=== PATIENT | female | born 1990 | race Caucasian/White ===

== ENCOUNTER 2020-06-01 06:33 | Day surgery (SDC) | payer MEDICAID, SELFPAY ==
[2020-05-28 15:59] VITALS: BMI 23.2
--- NOTE | 2020-05-31 10:53 | HO.ANESPROP2 ---
Documented by User: Brionna Leigh 05/31/20 10:54 HPI - Anesthesia Eval Consult details Narrative: 29yo F for intrathecal drug delivery PMFSH Past Medical History Medical History Anemia Anxiety Back pain Fibromyalgia GERD (gastroesophageal reflux disease) Hx of chest pain Hx of endometriosis Hx of migraines Hx of renal calculi IC (interstitial cystitis) OCD (obsessive compulsive disorder) Overactive bladder Pain Raynaud's disease Surgical History Surgical History History of Hx of colonoscopy Hx of cystoscopy Hx of dilation and curettage Hx of exploratory laparotomy Social History Social History Smoking Status: Former smoker Smoking Quit Date: 2013 Use of substances other than those prescribed or required for medical reasons: No Advance Directives: No Advance Directives Information Provided: No Advance Directives on File: No Meds Allergies Allergy/AdvReac Type Severity Reaction Status Date / Time oxybutynin [OXYBUTYNIN] Allergy Unknown EYES AND Verified 06/01/20 07:09 LIPS SWOLLEN tolterodine [Detrol] Allergy Unknown Facial Verified 06/01/20 07:09 Swelling Home Medications Medication Instructions Recorded Confirmed Type amlodipine 5 mg PO DAILY 05/28/20 05/28/20 History clonazepam 0.5 mg PO DAILY 05/28/20 05/28/20 History ferrous sulfate 325 mg PO BEDTIME 05/28/20 05/28/20 History gabapentin 600 mg PO TID 05/28/20 05/28/20 History methylphenidate HCl [Ritalin] 10 mg PO DAILY 05/28/20 05/28/20 History [id number] tab PO 05/28/20 History [] quetiapine [Seroquel] 25 mg PO BEDTIME 05/28/20 05/28/20 History Exam Exam Date and Time: May 31, 2020 1053 Height,Weight and Vital Signs: Height 4 ft 11 in Weight 52.163 kg Assessment and Plan Assessment Anesthesia Assessment: Chart Reviewed Documented by User: Trang Bautista 06/01/20 07:35 PMFSH Past Medical History Medical History Anemia Anxiety Back pain Fibromyalgia GERD (gastroesophageal reflux disease) Hx of chest pain Hx of endometriosis Hx of migraines Hx of renal calculi IC (interstitial cystitis) OCD (obsessive compulsive disorder) Overactive bladder Pain Raynaud's disease Surgical History Surgical History History of Hx of colonoscopy Hx of cystoscopy Hx of dilation and curettage Hx of exploratory laparotomy Social History Social History Smoking Status: Former smoker Smoking Quit Date: 2013 Use of substances other than those prescribed or required for medical reasons: No Advance Directives: No Advance Directives Information Provided: No Advance Directives on File: No Meds Allergies Allergy/AdvReac Type Severity Reaction Status Date / Time oxybutynin [OXYBUTYNIN] Allergy Unknown EYES AND Verified 06/01/20 07:09 LIPS SWOLLEN tolterodine [Detrol] Allergy Unknown Facial Verified 06/01/20 07:09 Swelling Home Medications Medication Instructions Recorded Confirmed Type amlodipine 5 mg PO DAILY 05/28/20 05/28/20 History clonazepam 0.5 mg PO DAILY 05/28/20 05/28/20 History ferrous sulfate 325 mg PO BEDTIME 05/28/20 05/28/20 History gabapentin 600 mg PO TID 05/28/20 05/28/20 History methylphenidate HCl [Ritalin] 10 mg PO DAILY 05/28/20 05/28/20 History [id number] tab PO 05/28/20 History [] quetiapine [Seroquel] 25 mg PO BEDTIME 05/28/20 05/28/20 History Exam Airway Mallampati Class: II TM Dist: >3cm Neck ROM: Full Assessment and Plan Assessment Anesthesia Assessment: Anesthesia Plan Discussed and Chart Reviewed Final Anesthetic Review NPO: Yes ASA Class: II Final Preanesthetic Review: No Changes in Pt Med Stat, Meds/Allgs Chart Reviewed, Consent Obtained/Reviewed and Anes Risks/Benef Reviewed Patient Risk: Low Procedure Risk: Low Assessment/Block/Sedation in SS: Assess/Block/Sedation-SS Anesthetic Plan Anesthetic Plan: GA Disposition: Standard PACU
[2020-06-01 06:52] LABS: UPreg QC Valid YES
[2020-06-01 06:53] LABS: Urine Pregnancy NEGATIVE (NEGATIVE)
[2020-06-01 06:56] VITALS: BP 103/63; PULSE 68; RESP 16; TEMP 36.8; O2SAT 97
--- NOTE | 2020-06-01 07:12 | FL_ITS ---
EXAMINATION: XR FLUOROSCOPY WITH IMAGES CLINICAL INFORMATION: Intrathecal drug delivery COMPARISON: Previous exams most recent 03/06/2020 TECHNIQUE: Fluoroscopy performed by Dr. Zacarias Turner. Fluoroscopy time: 0.6 minutes DAP: 13 mGycm2 Images: 4 FINDINGS: There is a catheter in the spinal canal. The top of the catheter is at the T9-T10 disc space level. Lower image demonstrates surgical sponge overlying the L4 vertebral body. FL/FL guidance in OR IMPRESSION: Fluoroscopy guidance for intrathecal drug delivery.
[2020-06-01] MEDS: Lactated Ringers 1,000 ML 100 ML IVCONT (07:27)
--- NOTE | 2020-06-01 07:40 | MHC.SHP ---
Pre-Procedural Eval Section A The patient is an INPATIENT: No The History & Physical has been completed within 30 days and I have reviewed it.: No Section B Chief Complaint: PELVIC AND PERINEAL PAIN,INTERSTITIAL CYSTITIS, Details of Present Illness: pelvic pain, endometriosis Relevant Family History (Specify if Yes): No Relevant Social History: None Present Medications: see Short Stay Collaborative assessment Medical History: No relevant PMH History of Previous Operations: Relevant previous surgery/procedure and date(s) (multiple procedures to tread endometriosis) Allergies: Allergies Allergy/AdvReac Type Severity Reaction Status Date / Time oxybutynin [OXYBUTYNIN] Allergy Unknown EYES AND Verified 06/01/20 07:09 LIPS SWOLLEN tolterodine [Detrol] Allergy Unknown Facial Verified 06/01/20 07:09 Swelling Review of Systems Sugical H&P ROS: Negative: Constitution, Cardiovascular, Respiratory, Neurological, Psychiatric, Hem-Onc, Allergic/Immunologic, Gastrointestinal, Genitourinary, Musculoskeletal, Integumentary, Endocrine and Eyes/Ears/Nose/Throat Exam Surgical H&P Exam: Normal: HEENT, Normal: Heart, Normal: Lungs, Normal: Extremities, Normal: Skin and Normal: Neurological and Significant Findings: Abdomen (tenderness on palpation lower abdomen, negative rebound, negative rigidity) Plan Diagnosis/Plan: Unchanged Patient has been examined and remains a candidate for the planned procedure
--- NOTE | 2020-06-01 10:01 | PM.OP ---
Brief Operative Note Date of procedure: 06/01/20 Pre-op diagnosis: Chronic pelvic pain, endometriosis, dyspareunia. Post-op diagnosis: same Implants: [employer] intrathecal drug delivery system pain pump SynchroMed 2, intrathecal catheter Ascenda Surgeon: Zacarias Turner MD Anesthesia: GETA Estimated blood loss (mL): 20 IV fluids (mL): 1,000 Pathology: none sent Condition: stable Disposition: PACU
[2020-06-01 10:04] VITALS: BP 127/79; PULSE 64; RESP 16; TEMP 36.1; O2SAT 97
--- NOTE | 2020-06-01 10:06 | P.OP_ITS ---
Operative Note Operative Note Narrative: Informed consent was obtained for the procedure before surgery and all the risks and benefits were explained to the patient. All the questions were answered. SHE was brought to the operating room and positioned supine on the stretcher. Antibiotic 1G CEFAZOLIN was administered 30 minutes before the procedure. General anesthesia was induced and the patient was intubated. SHe was positioned left lateral decubital on the operating table, all pressure points were protected, padded. Time out was performed delineation correct patient with identifier, correct site and side of the surgery, risk of fire, needs for antibiotics and DVT prophylactics. the patient was positioned prone on the operating table. After that the patient entire back, was prepped with chloroprep twice and draped with full body drape including ioban film. Sterilely drape C-arm was brought over the OR field and squared pictures of the L1, L2, L3 vertebrae were demonstrated on the screen,.. the entrance point for the catheter was chosen as the L2-L3 interspace. In the strict midline fashion 5 cm vertical skin incision was made with #10 scalpel. The incision was widened with the retractors and deepened with electrocautery. Thorough hemostasis was obtained using electrocautery.. the prevertebral fascia was freed from overlaying tissues. After that 100 mm introducer spinal 16 g needle was inserted under x- ray guidance in the projection of the LEFT L4 pedicle. The needle advanced under the x-ray guidance with intermittent A-P and lateral pictures toward the spinal canal. When on the lateral view the needle entered the spinal canal the stylet was removed and the clear flow of the CSF was obtain through the needle hub. Intrathecal Ascenda catheter was inserted through the needle and advanced under the x-ray guidance toward the T9 vertebral body projection. there was a r esistance in intrathecal space for further advancement of the catheter. The stylet was removed from the catheter and clear CSF flow was demonstrated from the orifice of the catheter. The stylet was removed from the catheter and clear flow of CSF fluid straw colored and clear was observed coming from the catheter. to concentric purse string sutures was applied around the needle and tide. After that the needle was removed and anchoring device was brought on the field. It was dislodged on the catheter to the level of the prevertebral fascia and then it was engaged on the catheter. Two nonabsorbable sutures were used to stitch the anchoring device to prevertebral fascia.After that the thorough irrigation of the wound was performed and wound was packed with Vancomycin soaked 4 x 4. Attention then was concentrated on the patient's Left buttock. 3 cm below the right iliac crest line to the skin of the local anesthetic bupivacaine was injected in the linear horizontal fashion. After that 9 cm horizontal incision was performed in patient's buttock alongside the injected line. Thorough hemostasis was obtained using cautery device. After that the wound was widened and made 2.5 cm deep . The wound was extended medially and laterally as well as caudally and cranially to form the space to accommodate the pump. Thorough hemostasis was performed. The wound was irrigated with bacitracin containing normal saline and then TUNNELING DEVICE was used to connect both wounds The catheter was trimmed appropriately after that and sutureless connection device was mounted on the catheter. After that sutureless connection device was connected to the pump. Aspiration of the side port of the pump revealed clear flow of CSF. 3 anchoring 0-0 Tycron sutures were applied in most inferior MEDIAL SUPERIOR LATERAL and superior medial corners OF THE WOUND. After that the sutures were connected to the BRACKETS on the body of the pump, intrathecal catheter was gathered behind the body of the pump and pump was dislodged into the wound. After that the anchoring sutures were tied. AFTER THAT NONCORING NEEDLE WAS USED AGAIN TO access SIDE PORT OF THE CATHETER AND FREE FLOW OF CSF INTO THE SYRINGE WAS DEMONSTRATED. Thorough irrigation was performed again in both wounds. Thorough hemostasis was verified. 0 polisorb sutures were used to close both wounds, 2-0 Polisorb suture of the same nature were used to approximate the skin edges. [place] were applied to the skin line and Bacitracin - ointment was applied to the staple lines... Sterile dressing with sterile 4x4s was performed, abdominal binder was applied. Upon completion of the procedure patient was awaken,extubated and taken outside of the operating room to recovery room where SHE recovered uneve ntfully. SHE went home without immediate complication.
[2020-06-01 10:09] VITALS: BP 133/89; PULSE 65; RESP 16; O2SAT 97
[2020-06-01 10:14] VITALS: BP 124/77; PULSE 62; RESP 16; O2SAT 100
[2020-06-01 10:19] VITALS: BP 124/83; PULSE 62; RESP 16; O2SAT 100
[2020-06-01] MEDS: Acetaminophen 325 MG TABLET 650 MG PO (10:32)
[2020-06-01] MEDS: oxyCODONE HCl Immed Release 5 MG TABLET PO (10:32)
[2020-06-01 10:34] VITALS: BP 127/79; PULSE 55; RESP 18; O2SAT 99
--- NOTE | 2020-06-01 11:14 | HO.POSTANES ---
Post Anesthesia Evaluation Post Anesthesia Evaluation Vital Signs: Vital Signs Temp Pulse Resp BP Pulse Ox 06/01/20 10:34 98.2 F 55 18 127/79 99 06/01/20 10:19 62 16 124/83 100 06/01/20 10:14 62 16 124/77 100 06/01/20 10:09 65 16 133/89 97 06/01/20 10:04 97.0 F 64 16 127/79 97 06/01/20 06:56 98.2 F 68 16 103/63 97 Anesthesia: General Mental Status: Awake Pain Control: Satisfactory Nausea/Vomiting: None Hydration: Adequate Anesthesia-Related Issues: No Anes. Related Issues
== END 2020-06-01 11:30 ==
PROVIDERS: Nurse Practitioner; PCP Family Medicine; Visit Provider Anesthesiology
PROC: (CPT 62350; principal; 2020-06-01 07:30)
DX: R10.2 Pelvic and perineal pain (principal); N30.10 Interstitial cystitis (chronic) without hematuria; N32.81 Overactive bladder; G89.4 Chronic pain syndrome; N80.9 Endometriosis, unspecified; N94.10 Unspecified dyspareunia; I73.00 Raynaud's syndrome without gangrene; Z79.899 Other long term (current) drug therapy; Z88.8 Allergy status to other drugs, medicaments and biological substances; Z87.891 Personal history of nicotine dependence
CPT/HCPCS: 62350; 62362; 81025; C1772; J0330; J0690; J1100; J2250; J2405; J3010; J3370

== ENCOUNTER → 2020-06-07 13:25 | Outpatient (BNVA) | payer MEDICAID, SELFPAY | PROVIDERS: PCP Family Medicine; Referring Provider Family Medicine; Visit Provider Anesthesiology | DX: Z48.89 Encounter for other specified surgical aftercare (principal) | CPT/HCPCS: 99212 ==

== ENCOUNTER → 2020-06-14 14:06 | Outpatient (BNVA) | payer MEDICAID, SELFPAY | PROVIDERS: PCP Family Medicine; Referring Provider Family Medicine; Visit Provider Anesthesiology | DX: Z48.89 Encounter for other specified surgical aftercare (principal); Z48.01 Encounter for change or removal of surgical wound dressing; G89.4 Chronic pain syndrome; N80.9 Endometriosis, unspecified | CPT/HCPCS: 99212 ==

== ENCOUNTER → 2020-07-16 16:19 | Outpatient (BNVA) | payer MEDICAID, SELFPAY | PROVIDERS: PCP Family Medicine; Visit Provider Anesthesiology | DX: N80.9 Endometriosis, unspecified (principal); R10.2 Pelvic and perineal pain; G89.4 Chronic pain syndrome | CPT/HCPCS: 99212 ==

== ENCOUNTER → 2020-07-31 14:10 | Outpatient (BNVA) | payer MEDICAID, SELFPAY | PROVIDERS: PCP Family Medicine; Visit Provider Anesthesiology | DX: G89.4 Chronic pain syndrome (principal); N80.9 Endometriosis, unspecified | CPT/HCPCS: 62368; 99212 ==

== ENCOUNTER 2020-08-14 06:13 | Outpatient (REF) | payer MEDICAID, SELFPAY | END 2020-08-14 06:14 | disposition home or self-care (01) | LOC: HO.RADIR 06:13 | PROVIDERS: Visit Provider Anesthesiology | DX: Z13.89 Encounter for screening for other disorder (principal) ==

== ENCOUNTER → 2020-09-10 16:12 | Outpatient (BNVA) | payer MEDICAID, SELFPAY | PROVIDERS: PCP Family Medicine; Visit Provider Nurse Practitioner Family | DX: G89.4 Chronic pain syndrome (principal); R10.2 Pelvic and perineal pain; N80.9 Endometriosis, unspecified | CPT/HCPCS: 99212 ==

== ENCOUNTER → 2020-09-27 16:04 | Outpatient (BNVA) | payer MEDICAID, SELFPAY | PROVIDERS: PCP Family Medicine; Visit Provider Anesthesiology ==

== ENCOUNTER → 2020-10-17 15:41 | Outpatient (BNVA) | payer MEDICAID, SELFPAY | PROVIDERS: PCP Family Medicine; Visit Provider Anesthesiology | DX: G89.4 Chronic pain syndrome (principal); R10.2 Pelvic and perineal pain; N80.9 Endometriosis, unspecified; Z79.899 Other long term (current) drug therapy | CPT/HCPCS: 99212 ==

== ENCOUNTER → 2020-11-14 11:48 | Outpatient (BNVA) | payer MEDICAID, SELFPAY | PROVIDERS: PCP Family Medicine; Visit Provider Anesthesiology ==

== ENCOUNTER 2020-11-20 06:12 | Outpatient (REF) | payer MEDICAID, SELFPAY | END 2020-11-20 06:13 | disposition home or self-care (01) | LOC: HO.RADIR 06:12 | PROVIDERS: Visit Provider Anesthesiology | DX: Z13.89 Encounter for screening for other disorder (principal) ==

== ENCOUNTER → 2021-01-24 12:55 | Outpatient (BNVA) | payer MEDICAID, SELFPAY | PROVIDERS: PCP Family Medicine; Visit Provider Anesthesiology ==

== ENCOUNTER 2021-02-12 05:47 | Outpatient (REF) | payer MEDICAID, SELFPAY | END 2021-02-12 05:48 | disposition home or self-care (01) | LOC: HO.RADIR 05:47 | PROVIDERS: Visit Provider Anesthesiology | DX: Z13.89 Encounter for screening for other disorder (principal) ==

== ENCOUNTER 2021-03-08 19:31 | Emergency (ER) | payer MEDICAID, SELFPAY ==
[2021-03-08 19:39] VITALS: BP 138/88; PULSE 100; O2SAT 99
[2021-03-08 20:00] VITALS: BMI 22.0
--- NOTE | 2021-03-08 20:24 | ED.PSYCH ---
HPI - Psych General Chief Complaint: Psychiatric Symptoms Stated Complaint: crisis Time Seen by Provider: 03/08/21 20:23 Source: patient and EMS Mode of arrival: EMS Limitations: no limitations History of Present Illness MD complaint: other (feels anxious and worried people are after her) Onset (ago): week(s) Duration: constant and getting worse History of same: No Relieving factors: none Exacerbating factors: none Context: significant life stressor Associated psychiatric symptoms: racing thoughts Associated symptoms: denies other symptoms Treatments prior to arrival: placed on mental health hold Related Data Home Medications Medication Instructions Recorded Confirmed bupropion HCl 150 mg 24 hr tablet, 1 tab PO DAILY 03/08/21 extended release cetirizine 10 mg tablet 1 tab PO DAILY 03/08/21 clonazepam 0.5 mg tablet 1 tab PO BID PRN 03/08/21 ferrous sulfate 325 mg (65 mg 1 tab PO DAILY 03/08/21 iron) tablet fluticasone propionate 50 1 spray INTRANASAL DAILY 03/08/21 mcg/actuation nasal spray,suspension gabapentin 600 mg tablet 1 tab PO 5XD 03/08/21 methylphenidate HCl 10 mg tablet 1 tab PO BID 03/08/21 methylphenidate HCl 20 mg tablet 1 tab PO BID 03/08/21 vit no.95-ferrous 1 tab PO DAILY 03/08/21 fumarate 28 mg-folic acid 800 mcg tablet () quetiapine 50 mg tablet 1 tab PO BEDTIME 03/08/21 Allergies Allergy/AdvReac Type Severity Reaction Status Date / Time oxybutynin [OXYBUTYNIN] Allergy Unknown EYES AND Verified 02/12/21 10:43 LIPS SWOLLEN tolterodine [Detrol] Allergy Unknown Facial Verified 02/12/21 10:43 Swelling Review of Systems Review of Systems: Constitutional : No Weight loss, No Fever, No Chills, No Fatigue, No Malaise ENT/Mouth : No sore throat, No Rhinorrhea Eyes: No Eye Pain, No Swelling, No Redness Cardiovascular : No Chest Pain, No SOB, No Dyspnea on Exertion, No Orthopnea, No Edema, No Palpitations Respiratory : No Cough, No Sputum, No Wheezing Gastrointestinal : No Nausea, No Vomiting, No Diarrhea, No Constipation, No abdominal Pain, No Hematochezia, No Melena Genitourinary : No Dysuria, No Urinary Frequency, No Hematuria, Musculoskeletal : No joint pain, No Myalgias, No Joint Swelling Skin : No Skin Lesions, No rash Neuro : No Weakness, No Numbness, No Dizziness, No Headache Psych : pos Anxiety/Panic, No Depression Heme/Lymph: No Bruising, No Bleeding,No Lymphadenopathy Endocrine : No Polyuria, No Polydipsia All other systems reviewed and are negative [facility] Past Medical History Attestation statement: The following information was validated with the patient. Medical History Anemia Anxiety Back pain Chronic pain syndrome Chronic pelvic pain in female Dyspareunia Endometriosis Fibromyalgia GERD (gastroesophageal reflux disease) Hx of chest pain Hx of endometriosis Hx of migraines Hx of renal calculi IC (interstitial cystitis) OCD (obsessive compulsive disorder) Overactive bladder Pain Raynaud's disease Spondylosis of cervical spine without myelopathy Surgical History History of Hx of colonoscopy Hx of cystoscopy Hx of dilation and curettage Hx of exploratory laparotomy Social History Social History (Updated 03/08/21 @ 20:55 by Jana Corrigan DO) Patient Tobacco Use Status: Tobacco use Unknown Advance Directives: No Patient : No Physical Exam Vital Signs: Vital Signs: Last Vital Signs Temp 97.4 F 03/08/21 21:06 Pulse 83 03/08/21 21:06 Resp 17 03/08/21 21:06 BP 100/67 03/08/21 21:06 Pulse Ox 97 03/08/21 21:06 Body Mass Index 22.0 Appearance: Alert. Oriented X3. No acute distress. Eyes: Pupils equal, round and reactive to light. ENT: Pharynx normal. Neck: Normal inspection. Neck supple. CVS: Normal heart rate and rhythm. Pulses normal. Respiratory: No respiratory distress. Breath sounds normal. Abdomen: Soft and nontender. Skin: Skin warm and dry. Normal skin color. Normal skin turgor. Extremities: No lower extremity edema. No calf ttp Neuro: Oriented X 3. No motor deficit. No sensory deficit. CN2-12 intact Psych: pos anxiety, no SI, states she is being followed by gang members Course Course Course Narrative: Physician observation started at 1023pm Patient placed in physician observation because the patient needed more time for N evaluation to see the need for inpatient psychiatry. At the time observation was started the patient's vitals were stable, patient is alert and oriented but anxious, Neuro: nonfocal, CV RRR, Lungs clear signed out pending N evaluation MDM - Psych MDM Narrative Medical decision making narrative: 30 yo female with hx of chronic pain, PTSD here with concerns about being followed by gang members, no SI/HI at this time labs, N consult ordered for possible paranoia vs exacerbation of PTSD Discharge Plan Discharge Clinical Impression: Acute anxiety Prescriptions: No Action gabapentin 600 mg tablet 1 tab PO 5XD RF: 0 cetirizine 10 mg tablet 1 tab PO DAILY RF: 0 methylphenidate HCl 10 mg tablet 1 tab PO BID RF: 0 methylphenidate HCl 20 mg tablet 1 tab PO BID RF: 0 clonazepam 0.5 mg tablet 1 tab PO BID PRN (Reason: Anxiety) RF: 0 ferrous sulfate 325 mg (65 mg iron) tablet 1 tab PO DAILY RF: 0 fluticasone propionate 50 mcg/actuation spray,suspension 1 spray intranasal DAILY RF: 0 bupropion HCl 150 mg tablet extended release 24 hr 1 tab PO DAILY RF: 0 quetiapine 50 mg tablet 1 tab PO BEDTIME RF: 0 PNV cmb#95-ferrous fumarate-FA [] 28 mg iron- 800 mcg tablet 1 tab PO DAILY RF: 0
[2021-03-08 21:06] VITALS: BP 100/67; PULSE 83; RESP 17; TEMP 36.3; O2SAT 97
--- NOTE | 2021-03-08 21:51 | MHC.CARE ---
SMART sheet was verbally completed with [facility]. This policy writer spoke to Violette from [facility] intake team and she will call back with an ETA. Labs & tox screen are pending.
[2021-03-08 22:26] LABS: Influenza A PCR NEGATIVE (Negative); Influenza B PCR NEGATIVE (Negative); Resp Syncy Virus RNA Qual PCR NEGATIVE (Negative); SARS COV2 PCR INHOUSE NEGATIVE (Negative)
--- NOTE | 2021-03-08 22:46 | MHC.CARE ---
N has no ETA for today, they report pt will be seen tomorrow morning therefore t/w attempted to assess pt. Pt is super sedated, unclear if she is under the influence of any substances. Pt reports she had 1 800mg tablet of gabapentin. T/W talked with provider MC who reports pt was communicative and reporting paranoia. T/W attempted to engage pt a second time with RN's assistance. Pt was startled by attempt to arouse her, after a few seconds she fell back asleep. She continues to deny taking any drugs and reports she is sleepy . Once pt is more alert, pt should be seen. Tox is not back yet to determine if she is on any substances. Pt has a previous hx of substance use, according to LEANN.
--- NOTE | 2021-03-08 22:56 | PC.NURSE ---
care team present to see pt. pt was sleeping and difficult to arrouse for them. when this rn walked and turned the light on pt jumped up and was awake and drinking water. Care team states pt fell back to sleep.
[2021-03-08 23:59] LABS: MANUAL DIFF FLAG NO
[2021-03-09] LABS: Basophils Percent Auto 0.4 % (0-2); Eosinophils Absolute Auto 0.3 X10*3/uL (0.0-0.4); Eosinophils Percent Auto 2.6 % (0-4); Hematocrit 36.6 % (37-47); Hemoglobin 11.9 g/dl (12.0-16.0); Imm Gran Abs Auto 0.03 X10*3/uL (0.00-0.03); Imm Gran Pct Auto 0.3 % (0.0-0.4); Lymphocytes Absolute Auto 3.1 X10*3/uL (1.2-4.9); Lymphocytes Percent Auto 32.8 % (20-40); Mean Corpuscular HGB Conc 32.5 g/dl (31.0-35.0); Mean Corpuscular Hemoglobin 28.7 pg (27.0-33.0); Mean Corpuscular Volume 88.4 fL (80-98); Monocytes Absolute Auto 0.9 X10*3/uL (0.1-1.2); Monocytes Percent Auto 9.7 % (2-11); Neutrophils Absolute Auto 5.2 X10*3/uL (2.0-8.3); Neutrophils Percent Auto 54.2 % (45-73); Platelet Count 345 X10*3/uL (160-400); Red Blood Count 4.14 X10*6/uL (4.20-5.50); Red Cell Distribution Width 12.9 % (11.0-16.0); White Blood Count 9.5 X10*3/uL (4.8-10.8)
[2021-03-09 00:19] LABS: Ethanol < 10 mg/dL
[2021-03-09 00:21] LABS: Anion Gap 12 (12-20); Blood Urea Nitrogen 10 mg/dL (9-16); Calcium 9.1 mg/dL (8.4-10.2); Carbon Dioxide 27 mmol/L (22-29); Chloride 106 mmol/L (96-108); Creatinine Clr Calc Pharmacy 65.2; Estimated Glomerular Filt Rate > 60; Glucose Random 80 mg/dL (60-115); Potassium 3.8 mmol/L (3.3-5.1); Sodium 141 mmol/L (135-145)
--- NOTE | 2021-03-09 02:30 | PC.NURSE ---
called n to confirm rec of pt summary and they are unable to check due to the room is locked where the fax is received.
[2021-03-09 06:00] VITALS: BP 101/64; PULSE 73; TEMP 36.2; O2SAT 99
[2021-03-09 06:39] LABS: UPreg QC Valid YES; Urine Pregnancy NEGATIVE (NEGATIVE)
[2021-03-09 07:00] LABS: Amphetamine Screen Urine POSITIVE (Not Detect); Barbiturates, Urine Not Detected (Not Detect); Benzodiazepines Screen Urine Not Detected (Not Detect); Cannabinoid Screen Urine POSITIVE (Not Detect); Cocaine Screen Urine POSITIVE (Not Detect); Opiate Screen Urine Not Detected (Not Detect); Phencyclidine Screen Urine Not Detected (Not Detect)
== END 2021-03-09 11:24 | disposition home or self-care (01) ==
PROVIDERS: Emergency Medicine; Emergency Provider Emergency Medicine; PCP Family Medicine
DX: F41.9 Anxiety disorder, unspecified (principal); F43.10 Post-traumatic stress disorder, unspecified; Z79.899 Other long term (current) drug therapy; Z20.822 Contact with and (suspected) exposure to COVID-19
CPT/HCPCS: 0241U; 36415; 80048; 80307; 81025; 82077; 85025; 99284; 99285

== ENCOUNTER 2021-05-07 06:21 | Outpatient (REF) | payer MEDICAID, SELFPAY | END 2021-05-07 06:22 | disposition home or self-care (01) | LOC: HO.RADIR 06:21 | PROVIDERS: Visit Provider Anesthesiology | DX: Z13.89 Encounter for screening for other disorder (principal) ==

== ENCOUNTER 2021-05-14 06:16 | Outpatient (REF) | payer MEDICAID, SELFPAY | END 2021-05-14 06:17 | disposition home or self-care (01) | LOC: HO.RADIR 06:16 | PROVIDERS: Visit Provider Anesthesiology | DX: Z13.89 Encounter for screening for other disorder (principal) ==

== ENCOUNTER 2021-08-27 08:10 | Outpatient (REF) | payer MEDICAID, SELFPAY | END 2021-08-27 08:11 | disposition home or self-care (01) | LOC: HO.RADIR 08:10 | PROVIDERS: Visit Provider Anesthesiology | DX: Z13.89 Encounter for screening for other disorder (principal) ==

== ENCOUNTER 2021-11-12 06:09 | Outpatient (REF) | payer MEDICAID, SELFPAY | END 2021-11-12 06:10 | disposition home or self-care (01) | LOC: HO.RADIR 06:09 | PROVIDERS: Visit Provider Anesthesiology | DX: Z13.89 Encounter for screening for other disorder (principal) ==

== ENCOUNTER → 2021-11-13 09:01 | Outpatient (BNVA) | payer MEDICAID, SELFPAY | PROVIDERS: PCP Family Medicine; Visit Provider Anesthesiology | DX: Z45.1 Encounter for adjustment and management of infusion pump (principal); R10.2 Pelvic and perineal pain; N80.9 Endometriosis, unspecified; G89.4 Chronic pain syndrome; F11.20 Opioid dependence, uncomplicated; F14.20 Cocaine dependence, uncomplicated | CPT/HCPCS: 99212 ==

== ENCOUNTER → 2022-01-27 12:59 | Outpatient (BNVA) | payer MEDICAID, SELFPAY | PROVIDERS: PCP Family Medicine; Visit Provider Anesthesiology | DX: N80.9 Endometriosis, unspecified (principal); R10.2 Pelvic and perineal pain; G89.4 Chronic pain syndrome; F14.20 Cocaine dependence, uncomplicated; Z96.89 Presence of other specified functional implants | CPT/HCPCS: 99212 ==

== ENCOUNTER 2022-02-12 16:58 | Emergency (ER) | payer MEDICAID, SELFPAY ==
--- NOTE | 2022-02-12 17:31 | ED_ITS ---
HPI - Psych General Stated Complaint: Crisis Time Seen by Provider: 02/12/22 17:09 Source: patient and EMS Mode of arrival: EMS History of Present Illness HPI Narrative: 31-year-old female with a past medical history of anemia, anxiety, chronic pain syndrome with intrathecal pain pump, cocaine addiction, endometriosis, fibromyalgia, GERD, overactive bladder, brought in by ambulance from a family green party after noted running through back yard of neighbors, acting strangely with disorganized pressured speech. Unable to obtain plain clear history from patient due to tangential/erratic speech MD complaint: substance abuse Onset (ago): minute(s) Related Data Home Medications Medication Instructions Recorded Confirmed bupropion HCl 150 mg 24 hr tablet, 1 tab PO DAILY 03/08/21 extended release cetirizine 10 mg tablet 1 tab PO DAILY 03/08/21 clonazepam 0.5 mg tablet 1 tab PO BID PRN Anxiety 03/08/21 ferrous sulfate 325 mg (65 mg 1 tab PO DAILY 03/08/21 iron) tablet fluticasone propionate 50 1 spray intranasal DAILY 03/08/21 mcg/actuation nasal spray,suspension gabapentin 600 mg tablet 1 tab PO 5XD 03/08/21 methylphenidate HCl 10 mg tablet 1 tab PO BID 03/08/21 methylphenidate HCl 20 mg tablet 1 tab PO BID 03/08/21 vit no.95-ferrous 1 tab PO DAILY 03/08/21 fumarate 28 mg-folic acid 800 mcg tablet () quetiapine 50 mg tablet 1 tab PO BEDTIME 03/08/21 ketorolac 10 mg tablet 10 mg PO TID PRN 04/15/21 Previous Rx's Medication Instructions Recorded naloxone 4 mg/actuation nasal 4 mg intranasal Q2M PRN opioid 10/25/21 spray (Narcan) overdose #2 ea Allergies Allergy/AdvReac Type Severity Reaction Status Date / Time oxybutynin [OXYBUTYNIN] Allergy Unknown EYES AND Verified 01/27/22 13:10 LIPS SWOLLEN tolterodine [Detrol] Allergy Unknown Facial Verified 01/27/22 13:10 Swelling Review of Systems Review of Systems: ROS unobtainable due to patient's acute mental status Yes all other systems are reviewed and are negative PMFSH Past Medical History Attestation statement: The following information was validated with the patient. Medical History Anemia Anxiety Back pain Chronic pain syndrome Chronic pelvic pain in female Cocaine addiction Dyspareunia Endometriosis Fibromyalgia GERD (gastroesophageal reflux disease) Hx of chest pain Hx of endometriosis Hx of migraines Hx of renal calculi IC (interstitial cystitis) OCD (obsessive compulsive disorder) Overactive bladder Pain Raynaud's disease Spondylosis of cervical spine without myelopathy Surgical History History of Hx of colonoscopy Hx of cystoscopy Hx of dilation and curettage Hx of exploratory laparotomy Social History Social History Patient Tobacco Use Status: Tobacco use Unknown Physical Exam Const: Other: Diaphoretic, pacing General: no acute distress, anxious and diaphoretic Limitations: no limitations HEENT: Head: Yes normal to inspection and Yes atraumatic Ears: hearing grossly normal bilaterally General nose exam: Normal external nose present Face and sinus: Yes normal facial exam Eyes: General: appearance normal, both eyes and all related structures EOM: EOMs intact bilaterally Neck: Neck: Yes normal visual inspection and Yes no meningeal signs Resp: Effort & Inspection: normal respiratory effort and no respiratory distress Auscultation: clear to auscultation bilaterally, no crackles and no wheezes Cardio: Rate: regular rate Heart sounds: S1 normal heart sound present and S2 normal heart sound present GI: Inspection: Yes normal to inspection Palpation (GI): Soft to palpation, nontender, no guarding and not rigid : General: Yes no CVA tenderness Back/Spine/Pelvis: Back: no CVA tenderness Skin: Rashes: no rashes Wounds: no wounds Neuro: General: tone normal, no meningeal signs and CN's II-XI intact bilaterally Gait exam (Neuro): Normal gait present Extrem: General: Yes normal to inspection Psych: Appearance: disheveled Speech and movement: Pressured speech present and Restless speech present Affect: Anxious affect present and Hostile affect present Attitude: Guarded attititude/behavior present Thought process: Flight of ideas present, Perseverating thought process present, Tangential thought process present and Racing thoughts present Thought content: Paranoid delusions present Insight: Poor insight present (Psych) Judgement: Poor judgement present (Psych) Course Course Course Narrative: Section 12 signed and in patient's chart --ED care transferred to MAND[facility] pending labs, UA, and crisis consult MDM - Psych MDM Narrative Medical decision making narrative: 31-year-old female with a past medical history of anemia, anxiety, chronic pain syndrome with intrathecal pain pump, cocaine addiction, endometriosis, fibromyalgia, GERD, overactive bladder, brought in by ambulance from a family green party after noted running through back yard of neighbors, acting strangely with disorganized pressured speech. On exam tachycardic, pacing, diaphoretic, appears under the influence, pressured tangential speech with paranoia. Plan: Labs, UA, drug screen, crisis Consult Differential Diagnosis Differential diagnosis: Likely acute psychosis, drug-induced psychotic disorder, acute anxiety, attention deficit hyperactivity disorder and substance abuse Medical Records Attestation: I reviewed the patient's medical records. Lab Data Attestation: I reviewed the patient's lab results. Discharge Plan Discharge Clinical Impression: Substance abuse Patient Disposition: Still a Patient Prescriptions: No Action ketorolac 10 mg tablet 10 mg PO TID PRN naloxone [Narcan] 4 mg/actuation spray,non-aerosol 4 mg intranasal Q2M PRN (Reason: opioid overdose) Qty: 2 0RF Rx Instructions: spray 1 dose into ONE nostril; alternate nostrils w each dose until help arrives gabapentin 600 mg tablet 1 tab PO 5XD cetirizine 10 mg tablet 1 tab PO DAILY methylphenidate HCl 10 mg tablet 1 tab PO BID methylphenidate HCl 20 mg tablet 1 tab PO BID clonazepam 0.5 mg tablet 1 tab PO BID PRN (Reason: Anxiety) ferrous sulfate 325 mg (65 mg iron) tablet 1 tab PO DAILY fluticasone propionate 50 mcg/actuation spray,suspension 1 spray intranasal DAILY bupropion HCl 150 mg tablet extended release 24 hr 1 tab PO DAILY quetiapine 50 mg tablet 1 tab PO BEDTIME PNV cmb#95-ferrous fumarate-FA [] 28 mg iron- 800 mcg tablet 1 tab PO DAILY
[2022-02-12] MEDS: LORazepam 1 MG TABLET 2 MG PO ×2 (17:45→19:59)
[2022-02-12 17:47] VITALS: BP 153/96; PULSE 125; PULSE 130; RESP 16; TEMP 36.6; O2SAT 99; BMI 22.2
[2022-02-12 19:07] LABS: COVID-19 Test Negative (Negative)
[2022-02-12 19:26] LABS: Appearance Urine CLEAR; Color Urine YELLOW; Glucose Urine UA NEG (NEG); Leukocyte Esterase Urine NEG (NEG); Nitrite Urine NEG (NEG); Specific Gravity - Urine 1.015 (1.005-1.025); UACC Culture Trigger NO; Urine Blood NEG (NEG); Urine Ketones 5 MG/DL (NEG); Urine Protein 1+ MG/DL (NEG-TRACE)
[2022-02-12 19:33] LABS: UPreg QC Valid YES; Urine Pregnancy NEGATIVE (NEGATIVE)
[2022-02-12 19:36] LABS: Amorphous Sediment Urine 1+ /LPF; Bacteria Urine 1+ /LPF; RBC Urine 0 /HPF (0); Squamous Epithelial Cell Urine 2+ /LPF; WBC Urine 0 /HPF (0-4)
[2022-02-12 19:40] LABS: Amphetamine Screen Urine Not Detected (Not Detect); Barbiturates, Urine Not Detected (Not Detect); Benzodiazepines Screen Urine Not Detected (Not Detect); Cannabinoid Screen Urine POSITIVE (Not Detect); Cocaine Screen Urine POSITIVE (Not Detect); Fentanyl, urine POSITIVE (Not Detect); Opiate Screen Urine POSITIVE (Not Detect); Phencyclidine Screen Urine Not Detected (Not Detect)
[2022-02-12 19:44] VITALS: PULSE 122
--- NOTE | 2022-02-12 20:03 | PC.NURSE ---
COW 12, provider notified/ordered Ativan 2 mg PO administered as ordered at 2000 pending effect, will continue to monitor
--- NOTE | 2022-02-13 04:18 | PC.NURSE ---
Patient slept through the night, no distress observed/reported, [facility] referral completed/confirmed/pending ETA, med rec completed/confirmed/pending ETA, behavior unpredictable, mood labile, will continue to monitor.
--- NOTE | 2022-02-13 06:48 | HE.PHANOTE ---
RE RITALIN PER ORTHODONTIC ASSISTANT, PATIENT RAKES 10MG AND 20MG BID. PATIENT CURRENTLY UNDER INFLUENCE AND DOES NOT KNOW HOW MUCH SHE ACTUALLY TAKES. PER PROVIDER AND TATIANA LOUISE, WILL ERROR ON THE SIDE OF CAUTION AND GIVE 20MG BID AND THEN CHANGE ORDER NEEDED. THANKS ALBERT
[2022-02-13] MEDS: Ibuprofen 600 MG TABLET PO (07:02)
[2022-02-13 08:00] VITALS: RESP 16
--- NOTE | 2022-02-13 09:13 | PC.NURSE ---
Called pharmacy to bring Flonase and Ritalin for administration. Both medications unavailable in [facility].
[2022-02-13] MEDS: Gabapentin 300 MG CAPSULE 600 MG PO (09:26)
[2022-02-13] MEDS: buPROPion HCl XL 300 MG TAB.ER.24H PO (09:26)
[2022-02-13] MEDS: Fluticasone Propionate Nasal 16 GM SPRAY 1 SPRAY NOSTRIL-B (09:26)
[2022-02-13] MEDS: Loratadine 10 MG TABLET PO (09:26)
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
== END 2022-02-13 13:27 | disposition home or self-care (01) ==
PROVIDERS: Physician Assistant; Emergency Provider Emergency Medicine
DX: F19.10 Other psychoactive substance abuse, uncomplicated (principal); R00.0 Tachycardia, unspecified; F41.9 Anxiety disorder, unspecified; F14.20 Cocaine dependence, uncomplicated; Z20.822 Contact with and (suspected) exposure to COVID-19; Z79.899 Other long term (current) drug therapy
CPT/HCPCS: 80307; 81001; 81025; 87635; 99284

== ENCOUNTER → 2022-03-18 14:08 | Outpatient (BNVA) | payer MEDICAID, SELFPAY | PROVIDERS: PCP Family Medicine | DX: R39.15 Urgency of urination (principal) | CPT/HCPCS: 51798 ==

== ENCOUNTER → 2022-04-16 16:04 | Outpatient (BNVA) | payer MEDICAID, SELFPAY | PROVIDERS: PCP Family Medicine; Visit Provider Anesthesiology | DX: R10.2 Pelvic and perineal pain (principal); N80.9 Endometriosis, unspecified; G89.4 Chronic pain syndrome; F14.20 Cocaine dependence, uncomplicated; Z45.9 Encounter for adjustment and management of unspecified implanted device | CPT/HCPCS: 99212 ==

== ENCOUNTER → 2022-07-14 14:09 | Outpatient (BNVA) | payer MEDICAID, SELFPAY | PROVIDERS: PCP Family Medicine; Visit Provider Anesthesiology | DX: Z45.1 Encounter for adjustment and management of infusion pump (principal); N80.9 Endometriosis, unspecified; G89.29 Other chronic pain; R10.2 Pelvic and perineal pain; N94.10 Unspecified dyspareunia; G89.4 Chronic pain syndrome; F14.20 Cocaine dependence, uncomplicated | CPT/HCPCS: 99212 ==

== ENCOUNTER → 2022-10-02 09:31 | Outpatient (BNVA) | payer MEDICAID, SELFPAY | PROVIDERS: PCP Family Medicine; Visit Provider Anesthesiology | DX: N80.9 Endometriosis, unspecified (principal); R10.2 Pelvic and perineal pain; G89.29 Other chronic pain; F14.20 Cocaine dependence, uncomplicated | CPT/HCPCS: 99212 ==

== ENCOUNTER → 2022-12-25 09:57 | Outpatient (BNVA) | payer MEDICAID, SELFPAY | PROVIDERS: PCP Family Medicine; Visit Provider Anesthesiology ==

== ENCOUNTER 2023-03-30 15:16 | Outpatient (AMB) | payer MEDICAID, SELFPAY ==
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
[2023-03-30 15:28] VITALS: BP 128/84; PULSE 95; RESP 16; O2SAT 97; BMI 28.7
== END 2023-03-30 16:04 | disposition home or self-care (01) ==
PROVIDERS: PCP Family Medicine; Visit Provider Anesthesiology
DX: G89.4 Chronic pain syndrome (principal); N80.9 Endometriosis, unspecified; R10.2 Pelvic and perineal pain; F14.20 Cocaine dependence, uncomplicated; Z45.1 Encounter for adjustment and management of infusion pump
CPT/HCPCS: 95991; 99213

== ENCOUNTER → 2023-03-30 15:16 | Outpatient (BNVA) | payer MEDICAID, SELFPAY | PROVIDERS: PCP Family Medicine; Visit Provider Anesthesiology | DX: Z45.1 Encounter for adjustment and management of infusion pump (principal); N80.9 Endometriosis, unspecified; G89.29 Other chronic pain; R10.2 Pelvic and perineal pain; G89.4 Chronic pain syndrome; F14.20 Cocaine dependence, uncomplicated | CPT/HCPCS: 99212 ==

== ENCOUNTER 2023-04-27 14:56 | Outpatient (AMB) | payer MEDICAID, SELFPAY ==
--- NOTE | 2023-04-27 14:58 | MHC.OFFVIS ---
Intake Intake Visit Reasons: follow up Intake Note: Patient presents for follow up urgency Urology Medications: none Blood Thinner: none PVR: 0ml's Tar Boiler Required: No Accompanied by: Self / Same As Patient Allergies oxybutynin [OXYBUTYNIN] Allergy (Unknown, Verified 04/27/23 19:03) EYES AND LIPS SWOLLEN tolterodine [Detrol] Allergy (Unknown, Verified 04/27/23 19:03) Facial Swelling Medication List - Last Reconciled 04/27/23 by HAYLEY OlivoP- aripiprazole 10 mg PO DAILY bupropion HCl 1 tab PO DAILY cetirizine 1 tab PO DAILY clonazepam 1 tab PO BID PRN clonidine HCl 0.2 mg PO TID ferrous sulfate (FeroSul) 325 mg PO DAILY fluticasone propionate 50 mcg/actuation 1 spray intranasal DAILY gabapentin 2 caps PO TID methylphenidate HCl 1 tab PO BID mirabegron ER (Myrbetriq) 25 mg PO DAILY 30 days HPI HPI Comments History of Present Illness Details Marybel is a very pleasant 32-year-old female patient of Dr. Mahmood. She has a past medical history of endometriosis, interstitial cystitis, dyspareunia, fibromyalgia, and cocaine abuse. She presents to the office today for follow-up of her lower urinary tract symptoms and interstitial cystitis. In discussion with the patient today she reports previously following up with Dr. Panchal and undergoing multiple cysto hydrodistention as well as trying multiple medications such as oxybutynin, Detrol, and Elmiron all which she did not find helpful. She also discusses attending pelvic floor therapy, acupuncture, dietary changes to follow interstitial diet in also did not find any of these interventions helpful. In discussion with the patient today she reports to be doing and feeling well. She reports following up with pain management here and has been doing extremely well since she has had her pain pump. She discusses following up with pain management here has been a life changing experience for her as her quality of life has changed for the better. She reports significant improvement in overall pain she had been experiencing however she continues to experience bladder spasms, urinary urgency, and urinary frequency. In office urinalysis results reviewed with the patient today. PVR 0ml's. Discussed obtaining retroperitoneal ultrasound for further assessment evaluation. Discussed trial of Myrbetriq and discussed bladder triggers/irritants. She otherwise denies incontinence, nocturia, hematuria, foul smelling urine, changes to urinary stream, flank pain, fever, and or chills. [facility] Medical History (Updated 04/27/23 @ 19:31 by [facility] Cocaine addiction Spondylosis of cervical spine without myelopathy Chronic pain syndrome Dyspareunia Chronic pelvic pain in female Endometriosis Raynaud's disease Fibromyalgia Pain Hx of chest pain Overactive bladder Hx of endometriosis Back pain Anemia Hx of renal calculi GERD (gastroesophageal reflux disease) OCD (obsessive compulsive disorder) Anxiety Hx of migraines IC (interstitial cystitis) Surgical History Hx of dilation and curettage History of Hx of exploratory laparotomy Hx of colonoscopy Hx of cystoscopy Social History Patient Tobacco Use Status: Tobacco use Unknown Review of Systems Const Reports as per HPI ENT Reports no additional complaints Card Reports no additional complaints Resp Reports no additional complaints GI Reports as per HPI Reports as per HPI Musc Reports as per HPI Neuro Reports as per HPI Psych Reports as per HPI Endo Reports no additional complaints Physical Exam Const General: cooperative, healthy appearing, comfortable, no acute distress, well developed, alert and awake Orientation/consciousness: patient oriented x3 Limitations: no limitations HEENT Head: Yes normal to inspection, Yes normocephalic and Yes atraumatic Ears: hearing grossly normal bilaterally Eyes General: appearance normal, both eyes and all related structures Neck Neck: Yes normal visual inspection and Yes trachea midline Chest Chest palpation & inspection: normal inspection of the chest Resp Effort & Inspection: normal respiratory effort and able to speak in complete sentences Cardio Rate: regular rate GI Inspection: Yes normal to inspection General: Yes no CVA tenderness Back/Spine/Pelvis Back: no CVA tenderness Skin General skin exam: no rashes or lesions noted Neuro General: patient oriented x3 Extrem General: Yes normal to inspection Psych Appearance: grossly normal and well kempt Mental Status: mental status grossly normal Speech and movement: Normal speech and movement present and Clear speech present Affect: normal affect Attitude: cooperative Thought process: Normal thought process present Thought content: Normal thought content present Insight: Fair insight present (Psych) Judgement: Fair judgement present (Psych) Office Procedures Post Void Residual Post Residual Void Post Void Residual (PVR): 0 [id number] Void Residual by ultrasound Results AMB Urinalysis, Automated UA Leukoctes 0 Kelli/uL Last Edit by Paty Cason on 04/27/23 15:23 UA Nitrite Negative Last Edit by Paty Cason on 04/27/23 15:23 UA Urobilinogen 0.2 mg/dL Last Edit by Paty Cason on 04/27/23 15:23 UA Protein 30 mg/dL Last Edit by Paty Cason on 04/27/23 15:23 UA pH 6.0 Last Edit by Paty Cason on 04/27/23 15:23 UA Blood 0 Escobar/uL Last Edit by Paty Cason on 04/27/23 15:23 UA Specific [place] 1.030 Last Edit by Paty Cason on 04/27/23 15:23 UA Ketone Negative Last Edit by Paty Cason on 04/27/23 15:23 UA Bilirubin 2 mg/dL Last Edit by Paty Cason on 04/27/23 15:23 UA Glucose 0 mg/dL Last Edit by Paty Cason on 04/27/23 15:23 Results Reviewed Results Reviewed: Laboratory Last Values Urine pH (Auto) 6.0 04/27/23 15:10 Specific [place] (Auto) 1.030 04/27/23 15:10 Urine Protein (Auto) 30 mg/dL 04/27/23 15:10 Glucose (UA)(Auto) 0 mg/dL 04/27/23 15:10 Urine Ketones (Auto) Negative 04/27/23 15:10 Urine Blood (Auto) 0 Escobar/uL 04/27/23 15:10 Urine Nitrite (Auto) Negative 04/27/23 15:10 Urine Bilirubin (Auto) 2 mg/dL 04/27/23 15:10 Urine Urobilinogen (Auto) 0.2 mg/dL 04/27/23 15:10 Leukocyte Esterase (Auto) 0 Kelli/uL 04/27/23 15:10 Assessment & Plan Assessment & Plan (1) Lower urinary tract symptoms: Code(s): R39.9 - Unspecified symptoms and signs involving the genitourinary system (2) IC (interstitial cystitis): Code(s): N30.10 - Interstitial cystitis (chronic) without hematuria (3) Bladder spasms: Code(s): N32.89 - Other specified disorders of bladder (4) Urinary frequency: Code(s): R35.0 - Frequency of micturition (5) Urinary urgency: Code(s): R39.15 - Urgency of urination Plan In office urinalysis results reviewed with the patient today. Discussed at length diagnosis of interstitial cystitis. Discussed all treatment options at length. PVR 0 mL. Discussed bladder triggers/irritants. Will obtain retroperitoneal ultrasound for further assessment evaluation. Start Myrbetriq 25 mg daily as discussed and prescribed. Discussed, educated, encouraged on the importance of drinking plenty of water daily. Orders: Orders AMB Urinalysis Automated Today Z13.9 - Encounter for screening, unspecified AMB Post Void Residual by ultrasound Today Z13.9 - Encounter for screening, unspecified US retroperitoneal comp Today R39.9 - Unspecified symptoms and signs involving the genitourinary system Medications: New mirabegron ER (Myrbetriq) 25 mg PO DAILY 30 days 30 tabs 1RF N30.10 - Interstitial cystitis (chronic) without hematuria, N32.81 - Overactive bladder, R35.1 - Nocturia, R39.15 - Urgency of urination Patient Instructions: The patient had an opportunity to ask questions regarding the treatment plan. All questions were answered. Physical exam, labs, and imaging were discussed and reviewed in detail. As well as risks, benefits, and discussion of treatment choices. No major barriers to understanding were identified. The patient expressed understanding and agreement with the above treatment plan. The patient was made aware they should contact our office by phone for worsening of their current condition, the appearance of new symptoms, or with any questions or concerns. Compliance is encouraged with any medications and follow up testing that is ordered. It is a privilege to be allowed the opportunity to participate in? your urological care.? Again, if you have any questions or concerns If you have any questions or concerns please do not hesitate to contact me. The office is [phone]. This note is constructed using voice recognition software. While every effort has been made to ensure accuracy director of district office errors may have been included. Yours sincerely, KAYLIN Olivo Coding Level of Care Code Est Pt Level 4 (02631) Diagnoses Lower urinary tract symptoms R39.9 IC (interstitial cystitis) N30.10 Bladder spasms N32.89 Urinary frequency R35.0 Urinary urgency R39.15 CPT Codes Post Residual Void - PVR CPT Code: 10896-Vqzz Void Residual by ultrasound ([id number])
== END 2023-04-27 16:11 | disposition home or self-care (01) ==
PROVIDERS: PCP Family Medicine; Visit Provider Nurse Practitioner Family
DX: R39.9 Unspecified symptoms and signs involving the genitourinary system (principal); N30.10 Interstitial cystitis (chronic) without hematuria; N32.89 Other specified disorders of bladder; R35.0 Frequency of micturition; R39.15 Urgency of urination; Z13.9 Encounter for screening, unspecified
CPT/HCPCS: 99214

== ENCOUNTER → 2023-04-27 14:56 | Outpatient (BNVA) | payer MEDICAID, SELFPAY | PROVIDERS: Visit Provider Nurse Practitioner Family | DX: R39.9 Unspecified symptoms and signs involving the genitourinary system (principal); N30.10 Interstitial cystitis (chronic) without hematuria; N32.89 Other specified disorders of bladder; R35.0 Frequency of micturition; R39.15 Urgency of urination | CPT/HCPCS: 51798; 81003; 99212 ==

== ENCOUNTER 2023-05-19 16:42 | Outpatient (REF) | payer OTHER, SELFPAY ==
--- NOTE | ~2023-05-19 | US_ITS ---
EXAMINATION: US RETROPERITONEAL COMPLETE (RENAL) CLINICAL INFORMATION: Unspecified symptoms and signs involving the genitourinary system. COMPARISON: None available. TECHNIQUE: Real-time imaging of the kidneys and bladder. FINDINGS: RIGHT KIDNEY: 10.3 x 4.3 x 5.1 cm (SAG x AP x TRV). The kidney is normal in size, contour, and echogenicity. Renal cortical thickness is normal. No calculi or focal parenchymal lesions. No hydronephrosis. LEFT KIDNEY: 9.6 x 5.2 x 4.5 cm (SAG x AP x TRV). The kidney is normal in size, contour, and echogenicity. Renal cortical thickness is normal. No calculi or focal parenchymal lesions. No hydronephrosis. BLADDER: Well distended and normal. Bilateral ureteral jets are demonstrated. Prevoid bladder volume is 286 mL. Postvoid bladder volume is 11 mL. US/US retroperitoneal comp IMPRESSION: Normal renal and bladder ultrasound.
== END 2023-05-19 16:43 | disposition home or self-care (01) ==
LOC: HO.US 16:42
PROVIDERS: PCP Family Medicine; Visit Provider Nurse Practitioner Family
DX: R39.9 Unspecified symptoms and signs involving the genitourinary system (principal)
CPT/HCPCS: 76770

== ENCOUNTER 2023-06-03 15:40 | Outpatient (AMB) | payer MEDICAID, SELFPAY ==
[2023-06-03 15:47] VITALS: RESP 12; BMI 26.5
--- NOTE | 2023-06-03 15:47 | A.OFFVIS_ITS ---
Intake Vital Signs 06/03/23 15:47 Height 4 ft 11 in Weight 131 lb BMI 26.5 Blood Pressure Location Lt brachial Position Sitting Respiration 12 Pulse Source Pulse Oximeter Intake Visit Reasons: ITDD Pain Pump Refill/Confirmed Allergies oxybutynin [OXYBUTYNIN] Allergy (Unknown, Verified 06/03/23 15:49) EYES AND LIPS SWOLLEN tolterodine [Detrol] Allergy (Unknown, Verified 06/03/23 15:49) Facial Swelling Medication List - Last Reconciled 06/03/23 by Geovanna Veronica LPN aripiprazole 10 mg PO DAILY bupropion HCl 1 tab PO DAILY cetirizine 1 tab PO DAILY clonazepam 1 tab PO BID PRN clonidine HCl 0.2 mg PO TID ferrous sulfate (FeroSul) 325 mg PO DAILY fluticasone propionate 50 mcg/actuation 1 spray intranasal DAILY gabapentin 2 caps PO TID methylphenidate HCl 1 tab PO BID mirabegron ER (Myrbetriq) 25 mg PO DAILY 30 days PFS Medical History (Updated 04/27/23 @ 19:31 [facility] Cocaine addiction Spondylosis of cervical spine without myelopathy Chronic pain syndrome Dyspareunia Chronic pelvic pain in female Endometriosis Raynaud's disease Fibromyalgia Pain Hx of chest pain Overactive bladder Hx of endometriosis Back pain Anemia Hx of renal calculi GERD (gastroesophageal reflux disease) OCD (obsessive compulsive disorder) Anxiety Hx of migraines IC (interstitial cystitis) Surgical History Hx of dilation and curettage History of Hx of exploratory laparotomy Hx of colonoscopy Hx of cystoscopy Social History Patient Tobacco Use Status: Tobacco use Unknown Physical Exam Vital Signs: Last Vital Signs Resp 12 06/03/23 15:47 BMI result Body Mass Index 26.5 Assessment & Plan Assessment & Plan (1) Endometriosis: Code(s): N80.9 - Endometriosis, unspecified (2) Chronic pelvic pain in female: Code(s): R10.2 - Pelvic and perineal pain; G89.29 - Other chronic pain (3) Dyspareunia: (4) Chronic pain syndrome: Code(s): G89.4 - Chronic pain syndrome (5) Cocaine addiction: Code(s): F14.20 - Cocaine dependence, uncomplicated Plan: She was diagnosed with cocain addiction, use of heroin suspected , now the patient is on Methadone program.. She went through psychological evaluation before implantation of the pump. Unfortunately that was not discovered than. Now she has a pump and the action could not be stopped without significant withdrawal reaction potentially requiring hospital admission. Also it is not beneficial for the patient to be stopped because it provide such an excellent pain relief on minimal doses of opioid medications. The fact that she is currently on maintenance methadone program increases and will continue to do so the tolerance the intrathecal opioid medications. This is unfortunate situation and this is why next time I will try to increase nonopioid portion of her pump therapy clonidine does. Instead of 600 mcg clonidine I will introduce 800 mcg per mL. Effectively this will increase the clonidine does for the patient. Plan Intrathecal pump refill. THE PATIENT CAME TODAY IN THE OR - PACU FOR THE CHANGE OF THE MEDICATION IN her PAIN PUMP. The name and date of were verified and informed consent was obtained for the procedure. The pump was interrogated and the residual amount of fluid was found to be 13.5 mL. SHE WAS POSITIONED prone on the bed AND THE AREA OF THE INTRATHECAL PUMP WAS PREPPED WITH CHLORAPREP. The fenestrated drape was sterilely applied over the area of the pump. Sterile gloves were worn and of the aspiration system was assembled containing 2 inch 22 gauge noncoring needle, the needle was connected to extension tubing which was connected to the 20 cc sterile syringe. The pain pump was palpated under the skin in the patient's right buttock area. The needle was inserted through the skin and the central plug of the pain pump and fluid was aspirated. The clear fluid was going into the syringe the total amount of the fluid was 13.4 mL .. After that a new batch of medication was obtained which was containing Dilaudid 500 mcg/mL and cloninine 800 mcg/ ml ( increased since the last time 600 mcg). Bridge bolus will be introduced for 63 hours. The admixture was made in 20cc syringe prepared by [facility] compounding pharmacy. The syringe was connected to the bacterial filter, and then connected to the extension tubing. After that the medication in the syringe was slowly instilled into the pump with aspirations at 15 and 5 cc lyon. No change in the program was made. She is on continuous dose of hydromorphone 29 mcg a day. She has ability to deliver on demand 7 doses of hydromorphone 15 micro g and clonidine 18 micro g every 3 hours p.r.n. pain with lockout interval of 3 hours and maximum daily dose of 7 doses a day. She mostly uses the pump when her pain the pelvis got exacerbated during and before her menstrual periods. she does not reports tiredness on clonidine intrathecal. Her total dose of hydromorphone is still 130 micro grams a day. Coding Level of Care Code Procedure Only Diagnoses Endometriosis N80.9 Chronic pelvic pain in female R10.2; G89.29 Dyspareunia Chronic pain syndrome G89.4 Cocaine addiction F14.20
== END 2023-06-03 16:34 | disposition home or self-care (01) ==
PROVIDERS: PCP Family Medicine; Visit Provider Anesthesiology
DX: Z45.1 Encounter for adjustment and management of infusion pump (principal); G89.4 Chronic pain syndrome; N80.9 Endometriosis, unspecified; R10.2 Pelvic and perineal pain
CPT/HCPCS: 95991

== ENCOUNTER → 2023-06-03 15:40 | Outpatient (BNVA) | payer MEDICAID, SELFPAY | PROVIDERS: PCP Family Medicine; Visit Provider Anesthesiology ==

== ENCOUNTER 2023-06-03 16:43 | Outpatient (REF) | payer MEDICAID, SELFPAY ==
[2023-06-03 18:05] LABS: Blood Urea Nitrogen 12 mg/dL (9-16); Estimated Glomerular Filt Rate > 60
== END 2023-06-03 16:44 | disposition home or self-care (01) ==
LOC: HO.LAB 16:43
PROVIDERS: PCP Family Medicine; Visit Provider Nurse Practitioner Family
DX: R39.15 Urgency of urination (principal); R35.0 Frequency of micturition; N32.89 Other specified disorders of bladder
CPT/HCPCS: 36415; 82565; 84520

== ENCOUNTER 2023-06-11 15:49 | Outpatient (AMB) | payer MEDICAID, SELFPAY ==
--- NOTE | 2023-06-11 15:50 | MHC.OFFVIS ---
Intake Intake Visit Reasons: 6w/US(set) Intake Note: Patient presents for follow up tele visit urgency/ultrasound (imaging 05/09/23) Urology Medications: treated with Myrbetriq x1 night and abdominal pain and stopped Blood Thinner: none Drywall Hanger Required: No Accompanied by: Self / Same As Patient Allergies oxybutynin [OXYBUTYNIN] Allergy (Unknown, Verified 06/11/23 16:27) EYES AND LIPS SWOLLEN tolterodine [Detrol] Allergy (Unknown, Verified 06/11/23 16:27) Facial Swelling Medication List - Last Reconciled 06/11/23 by HAYLEY OlivoP- aripiprazole 10 mg PO DAILY baclofen 10 mg PO DAILY bupropion HCl 1 tab PO DAILY cetirizine 1 tab PO DAILY clonazepam mg PO clonidine HCl 0.2 mg PO TID ferrous sulfate (FeroSul) 325 mg PO DAILY fluticasone propionate 50 mcg/actuation 1 spray intranasal DAILY gabapentin 2 caps PO TID medroxyprogesterone mg IM methylphenidate HCl 1 tab PO BID methylphenidate HCl 10 mg PO BID HPI HPI Comments History of Present Illness Details Marybel is a very pleasant 32-year-old female patient of Dr. Mahmood. She has a past medical history of endometriosis, interstitial cystitis, dyspareunia, fibromyalgia, and cocaine abuse. She is being followed up on today via video telehealth for her lower urinary tract symtpoems and interstitial cystitis. Of note, patient was seen approximately 6 weeks ago at which time retroperitoneal ultrasound was ordered and the patient was started on Myrbetriq. Recent renal imaging results reviewed with the patient today. Bilateral kidneys with no calculi, lesions, and or hydronephrosis noted. The bladder is well distended and normal. Bilateral ureteral jets are demonstrated. Pre void bladder volume is approximately 290 mL. Postvoid bladder volume is approximately 10 mL. Patient previously followed up with Dr. Panchal and underwent multiple cysto hydrodistention as well as trying multiple medications such as oxybutynin, Detrol, and Elmiron all which she did not find helpful. She discusses attending pelvic floor therapy, acupuncture, dietary changes to follow interstitial diet and also did not find any of these interventions helpful. In discussion with the patient today she reports to be doing and feeling well. She reports haven taken Myrbetriq 25mg times one day and started experiencing abdominal pain and since stopped. She discusses believing abdominal pain might be unrealted to Myrbetriq but wanted to be sure. She reports following up with pain management here and has been doing extremely well since she has had her pain pump. She discusses following up with pain management here has been a life changing experience for her as her quality of life has changed for the better. She reports significant improvement in overall pain she had been experiencing however she continues to experience bladder spasms, urinary urgency, and urinary frequency. Discussed trying Myrbetriq again and will stop if abdominal pain resumes. Discussed bladder triggers/irritants. She otherwise denies incontinence, nocturia, hematuria, foul smelling urine, changes to urinary stream, flank pain, fever, and or chills. [facility] Medical History (Updated 04/27/23 @ 19:31 by Galdys Anderson [facility]) Cocaine addiction Spondylosis of cervical spine without myelopathy Chronic pain syndrome Dyspareunia Chronic pelvic pain in female Endometriosis Raynaud's disease Fibromyalgia Pain Hx of chest pain Overactive bladder Hx of endometriosis Back pain Anemia Hx of renal calculi GERD (gastroesophageal reflux disease) OCD (obsessive compulsive disorder) Anxiety Hx of migraines IC (interstitial cystitis) Surgical History Hx of dilation and curettage History of Hx of exploratory laparotomy Hx of colonoscopy Hx of cystoscopy Social History Patient Tobacco Use Status: Tobacco use Unknown Review of Systems Const Reports as per HPI ENT Reports no additional complaints Card Reports no additional complaints Resp Reports no additional complaints GI Reports as per HPI Reports as per HPI Musc Reports as per HPI Neuro Reports as per HPI Psych Reports as per HPI Endo Reports no additional complaints Physical Exam Const General: cooperative, healthy appearing, comfortable, no acute distress, well developed, alert and awake Orientation/consciousness: patient oriented x3 Resp Effort & Inspection: normal respiratory effort and able to speak in complete sentences Neuro General: patient oriented x3 Psych Appearance: grossly normal and well kempt Mental Status: mental status grossly normal Speech and movement: Clear speech present Affect: normal affect Attitude: cooperative Thought process: Normal thought process present Thought content: Normal thought content present Insight: Fair insight present (Psych) Judgement: Fair judgement present (Psych) Results Reviewed Results Reviewed: Date of Service: 05/19/23 Procedure(s): US retroperitoneal comp EXAMINATION: US RETROPERITONEAL COMPLETE (RENAL) FINDINGS: RIGHT KIDNEY: 10.3 x 4.3 x 5.1 cm (SAG x AP x TRV). The kidney is normal in size, contour, and echogenicity. Renal cortical thickness is normal. No calculi or focal parenchymal lesions. No hydronephrosis. LEFT KIDNEY: 9.6 x 5.2 x 4.5 cm (SAG x AP x TRV). The kidney is normal in size, contour, and echogenicity. Renal cortical thickness is normal. No calculi or focal parenchymal lesions. No hydronephrosis. BLADDER: Well distended and normal. Bilateral ureteral jets are demonstrated. Prevoid bladder volume is 286 mL. Postvoid bladder volume is 11 mL. IMPRESSION: Normal renal and bladder ultrasound. Assessment & Plan Assessment & Plan (1) Urinary urgency: Code(s): R39.15 - Urgency of urination (2) Urinary frequency: Code(s): R35.0 - Frequency of micturition (3) Bladder spasms: Code(s): N32.89 - Other specified disorders of bladder (4) IC (interstitial cystitis): Code(s): N30.10 - Interstitial cystitis (chronic) without hematuria (5) Lower urinary tract symptoms: Code(s): R39.9 - Unspecified symptoms and signs involving the genitourinary system Plan Recent retroperitoneal ultrasound results reviewed with the patient today; as noted above Discussed at length diagnosis of interstitial cystitis. Discussed all treatment options at length. Discussed bladder triggers/irritants. Start/Restart Myrbetriq 25 mg daily as discussed and prescribed. Discussed, educated, encouraged on the importance of drinking plenty of water daily. Patient Instructions: The patient had an opportunity to ask questions regarding the treatment plan. All questions were answered. Physical exam, labs, and imaging were discussed and reviewed in detail. As well as risks, benefits, and discussion of treatment choices. No major barriers to understanding were identified. The patient expressed understanding and agreement with the above treatment plan. The patient was made aware they should contact our office by phone for worsening of their current condition, the appearance of new symptoms, or with any questions or concerns. Compliance is encouraged with any medications and follow up testing that is ordered. It is a privilege to be allowed the opportunity to participate in? your urological care.? Again, if you have any questions or concerns If you have any questions or concerns please do not hesitate to contact me. The office is [phone]. This note is constructed using voice recognition software. While every effort has been made to ensure accuracy campus manager errors may have been included. Yours sincerely, RAJINDER Olivo- Telehealth Telehealth Location of provider rendering services: practice address Location of patient: address on file Patient Identification confirmed using: Name, : Yes Telehealth method: video Patient verbally consented to treatment: Yes Patient verbally consented to billing insurance company: Yes Patient informed of any privacy concerns related to visit: Yes Minutes spent on Phone/Video with Pt.: 15 Coding Level of Care Code Tele Est Pt Level 3 (90977) Diagnoses Urinary urgency R39.15 Urinary frequency R35.0 Bladder spasms N32.89 IC (interstitial cystitis) N30.10 Lower urinary tract symptoms R39.9
== END 2023-06-11 16:18 | disposition home or self-care (01) ==
LOC: HO.HUSH 15:49
PROVIDERS: PCP Family Medicine; Visit Provider Nurse Practitioner Family
DX: R39.15 Urgency of urination (principal); R35.0 Frequency of micturition; N32.89 Other specified disorders of bladder; N30.10 Interstitial cystitis (chronic) without hematuria; R39.9 Unspecified symptoms and signs involving the genitourinary system
CPT/HCPCS: 99213

== ENCOUNTER → 2023-06-11 15:49 | Outpatient (BNVA) | payer MEDICAID, SELFPAY | PROVIDERS: PCP Family Medicine; Visit Provider Nurse Practitioner Family ==

== ENCOUNTER 2023-08-26 15:39 | Outpatient (AMB) | payer MEDICAID, SELFPAY ==
--- NOTE | 2023-08-26 15:43 | MHC.OFFVIS ---
Intake Vital Signs 08/26/23 15:51 Height 4 ft 11 in Weight 133 lb 6 oz BMI 26.9 BP 138/82 Blood Pressure Location Lt brachial Position Sitting Respiration 16 Pulse 70 Pulse Source Pulse Oximeter Pulse Oximetry (%) 97 Oxygen Delivery Method Room Air Intake Visit Reasons: ITDD Pain Pump Refill Intake Note: Patient comes in for intrathecal medication refill. Reports pain 02/09. Allergies oxybutynin [OXYBUTYNIN] Allergy (Unknown, Verified 08/26/23 15:51) EYES AND LIPS SWOLLEN tolterodine [Detrol] Allergy (Unknown, Verified 08/26/23 15:51) Facial Swelling PFSH Medical History (Updated 04/27/23 @ 19:31 by PRABHA Olivo) Cocaine addiction Spondylosis of cervical spine without myelopathy Chronic pain syndrome Dyspareunia Chronic pelvic pain in female Endometriosis Raynaud's disease Fibromyalgia Pain Hx of chest pain Overactive bladder Hx of endometriosis Back pain Anemia Hx of renal calculi GERD (gastroesophageal reflux disease) OCD (obsessive compulsive disorder) Anxiety Hx of migraines IC (interstitial cystitis) Surgical History Hx of dilation and curettage History of Hx of exploratory laparotomy Hx of colonoscopy Hx of cystoscopy Social History Patient Tobacco Use Status: Tobacco use Unknown Physical Exam Vital Signs: Last Vital Signs Pulse 70 08/26/23 15:51 Resp 16 08/26/23 15:51 BP 138/82 08/26/23 15:51 Pulse Ox 97 08/26/23 15:51 Oxygen Delivery Method Room Air 08/26/23 15:51 BMI result Body Mass Index 26.9 Assessment & Plan Assessment & Plan (1) Endometriosis: Code(s): N80.9 - Endometriosis, unspecified (2) Chronic pelvic pain in female: Code(s): R10.2 - Pelvic and perineal pain; G89.29 - Other chronic pain (3) Dyspareunia: (4) Chronic pain syndrome: Code(s): G89.4 - Chronic pain syndrome (5) Cocaine addiction: Code(s): F14.20 - Cocaine dependence, uncomplicated Plan: She was diagnosed with cocain addiction, use of heroin suspected , now the patient is on Methadone program.. She went through psychological evaluation before implantation of the pump. Unfortunately that was not discovered than. Now she has a pump and the action could not be stopped without significant withdrawal reaction potentially requiring hospital admission. Also it is not beneficial for the patient to be stopped because it provide such an excellent pain relief on minimal doses of opioid medications. The fact that she is currently on maintenance methadone program increases and will continue to do so the tolerance the intrathecal opioid medications. This is unfortunate situation and this is why next time I will try to increase nonopioid portion of her pump therapy clonidine does. Instead of 600 mcg clonidine I will introduce 800 mcg per mL. Effectively this will increase the clonidine does for the patient. Plan Intrathecal pump refill. THE PATIENT CAME TODAY IN THE OR - PACU FOR THE CHANGE OF THE MEDICATION IN her PAIN PUMP. The name and date of were verified and informed consent was obtained for the procedure. The pump was interrogated and the residual amount of fluid was found to be 13.5 mL. SHE WAS POSITIONED prone on the bed AND THE AREA OF THE INTRATHECAL PUMP WAS PREPPED WITH CHLORAPREP. The fenestrated drape was sterilely applied over the area of the pump. Sterile gloves were worn and of the aspiration system was assembled containing 2 inch 22 gauge noncoring needle, the needle was connected to extension tubing which was connected to the 20 cc sterile syringe. The pain pump was palpated under the skin in the patient's right buttock area. The needle was inserted through the skin and the central plug of the pain pump and fluid was aspirated. The clear fluid was going into the syringe the total amount of the fluid was 12.5 mL .. After that a new batch of medication was obtained which was containing Dilaudid 500 mcg/mL and cloninine 800 mcg/ ml ( increased since the last time 600 mcg). Bridge bolus will be introduced for 63 hours. The admixture was made in 20cc syringe prepared by [facility] compounding pharmacy. The syringe was connected to the bacterial filter, and then connected to the extension tubing. After that the medication in the syringe was slowly instilled into the pump with aspirations at 15 and 5 cc lyon. No change in the program was made. She is on continuous dose of hydromorphone 29 mcg a day. She has ability to deliver on demand 7 doses of hydromorphone 15 micro g and clonidine 18 micro g every 3 hours p.r.n. pain with lockout interval of 3 hours and maximum daily dose of 7 doses a day. She mostly uses the pump when her pain the pelvis got exacerbated during and before her menstrual periods. she does not reports tiredness on clonidine intrathecal. Her total dose of hydromorphone is still 130 micro grams a day. Coding Level of Care Code Procedure Only Diagnoses Endometriosis N80.9 Chronic pelvic pain in female R10.2; G89.29 Dyspareunia Chronic pain syndrome G89.4 Cocaine addiction F14.20
[2023-08-26 15:51] VITALS: BP 138/82; PULSE 70; RESP 16; O2SAT 97; BMI 26.9
== END 2023-08-26 16:03 | disposition home or self-care (01) ==
PROVIDERS: PCP Family Medicine; Visit Provider Anesthesiology
DX: Z45.1 Encounter for adjustment and management of infusion pump (principal); N80.9 Endometriosis, unspecified; R10.2 Pelvic and perineal pain; G89.4 Chronic pain syndrome
CPT/HCPCS: 95991

== ENCOUNTER → 2023-08-26 15:39 | Outpatient (BNVA) | payer MEDICAID, SELFPAY | PROVIDERS: PCP Family Medicine; Visit Provider Anesthesiology ==

== ENCOUNTER 2023-11-05 13:46 | Outpatient (AMB) | payer MEDICAID, SELFPAY ==
--- NOTE | 2023-11-05 14:01 | MHC.OFFVIS ---
Intake Intake Visit Reasons: Bladder spasms- follow up Intake Note: Patient presents today for a follow up on: Bladder Spasms Meds- Myrbetriq Allergies to Antibiotic- No Known Allergies Blood Thinner- None Post Void Residual: 0ml Patient Symptoms: Patient stated feeling not so well, and she has pain in the lower abdomen, and she also wakes up about 4 times at night to urinate. If she seats or walks for very long she feels pain. Senior Art Director Required: No Accompanied by: Self / Same As Patient Allergies oxybutynin [OXYBUTYNIN] Allergy (Unknown, Verified 11/05/23 14:27) EYES AND LIPS SWOLLEN tolterodine [Detrol] Allergy (Unknown, Verified 11/05/23 14:27) Facial Swelling Medication List - Last Reconciled 11/05/23 by RAJINDER Olivo- aripiprazole 10 mg PO DAILY Bacillus coagulans (Digestive Advantage Probio-Pre) PO baclofen 10 mg PO DAILY bupropion HCl XL 1 tab PO DAILY cetirizine 1 tab PO DAILY clonazepam mg PO clonidine HCl 0.2 mg PO TID diphenhydramine HCl (Benadrilina) PO ferrous sulfate (FeroSul) 325 mg PO DAILY fluticasone propionate 50 mcg/actuation 1 spray intranasal DAILY gabapentin 2 caps PO TID medroxyprogesterone mg IM methylphenidate HCl 1 tab PO BID methylphenidate HCl 10 mg PO BID mirabegron ER (Myrbetriq) 25 mg PO DAILY 14 days ubidecarenone-omega 3-vit E (Co X-96-Hxttypm E-Fish Oil) PO HPI HPI Comments History of Present Illness Details Marybel is a very pleasant 33-year-old female patient of Dr. Mahmood. She has a past medical history of endometriosis, interstitial cystitis, dyspareunia, fibromyalgia, and cocaine abuse. She presents to the office today for follow-up. In discussion with the patient today she reports having followed up with her certified wellness program coordinator yesterday regarding her ongoing endometrial issues she has been experiencing. She discusses noting worsening ongoing lower abdominal/gastric/bladder/pelvic pain. She reports feeling she is not sure if it is her bladder that is causing her ongoing pain or her certified wellness program coordinator issues. She reports having followed up with her urogynecologist and has been undergoing bladder instillations however has not found this helpful. She reports uro certified wellness program coordinator provider increase Myrbetriq to 50 mg daily and has felt some relief however continues with nocturia, urinary urgency, urinary frequency, and lower abdominal/bladder pressure. In office urinalysis results reviewed with the patient today. PVR 0ml's. Previous workup has included a retroperitoneal ultrasound noting bilateral kidneys with no calculi, lesions, and or hydronephrosis noted. The bladder is well distended and normal. Bilateral ureteral jets are demonstrated. Pre void bladder volume is approximately 290 mL. Postvoid bladder volume is approximately 10 mL. Patient previously followed up with Dr. Panchal and underwent multiple cysto hydrodistention as well as trying multiple medications such as oxybutynin, Detrol, and Elmiron all which she did not find helpful. She discusses attending pelvic floor therapy, acupuncture, dietary changes to follow interstitial diet and also did not find any of these interventions helpful. She discusses having completed therapy for her hyperextended knees and will soon be starting physical therapy for her TMJ. She does discussed being open to retry Ng pelvic floor therapy. She reports following up with pain management here and has found this helpful for her ongoing pain issues. She reports significant improvement in overall pain she had been experiencing however she continues to experience bladder spasms, urinary urgency, and urinary frequency. She otherwise denies incontinence, nocturia, hematuria, foul smelling urine, changes to urinary stream, flank pain, fever, and or chills. She discusses her upcoming trip to [place]. She otherwise offers no other issues or concerns at this time. [facility] Medical History (Reviewed 11/05/23 @ 20:42 by RAJINDER OlivoEN[facility]) Cocaine addiction Spondylosis of cervical spine without myelopathy Chronic pain syndrome Dyspareunia Chronic pelvic pain in female Endometriosis Raynaud's disease Fibromyalgia Pain Hx of chest pain Overactive bladder Hx of endometriosis Back pain Anemia Hx of renal calculi GERD (gastroesophageal reflux disease) OCD (obsessive compulsive disorder) Anxiety Hx of migraines IC (interstitial cystitis) Surgical History Hx of dilation and curettage History of Hx of exploratory laparotomy Hx of colonoscopy Hx of cystoscopy Social History Patient Tobacco Use Status: Tobacco use Unknown Review of Systems Const Reports as per [facility] ENT Reports no additional complaints Card Reports no additional complaints Resp Reports no additional complaints GI Reports as per [facility] Reports as per [facility] Musc Reports as per HPI Neuro Reports as per [facility] Psych Reports as per [facility] Endo Reports no additional complaints Physical Exam Const General: cooperative, healthy appearing, comfortable, no acute distress, well developed, alert and awake Orientation/consciousness: patient oriented x3 Resp Effort & Inspection: normal respiratory effort and able to speak in complete sentences Neuro General: patient oriented x3 Psych Appearance: grossly normal and well kempt Mental Status: mental status grossly normal Speech and movement: Clear speech present Affect: normal affect Attitude: cooperative Thought process: Normal thought process present Thought content: Normal thought content present Insight: Fair insight present (Psych) Judgement: Fair judgement present (Psych) Results AMB Urinalysis, Automated UA Leukoctes 0 Kelli/uL Last Edit by Luanne Bhardwaj CMA on 11/05/23 14:07 UA Nitrite Negative Last Edit by Luanne Bhardwaj CMA on 11/05/23 14:07 UA Urobilinogen 0.2 mg/dL Last Edit by Luanne Bhardwaj CMA on 11/05/23 14:07 UA Protein 15 mg/dL Last Edit by Luanne Bhardwaj CMA on 11/05/23 14:07 UA pH 6.0 Last Edit by Luanne Bhardwaj [facility] on 11/05/23 14:07 UA Blood 0 Escobar/uL Last Edit by Luanne Bhardwaj CMA on 11/05/23 14:07 UA Specific [place] 1.030 Last Edit by Luanne Bhardwaj CMA on 11/05/23 14:07 UA Ketone Negative Last Edit by Luanne Bhardwaj CMA on 11/05/23 14:07 UA Bilirubin 0 mg/dL Last Edit by Luanne Bhardwaj CMA on 11/05/23 14:07 UA Glucose 0 mg/dL Last Edit by Luanne Bhardwaj [facility] on 11/05/23 14:07 Results Reviewed Results Reviewed: Laboratory Last Values Urine pH (Auto) 6.0 11/05/23 14:06 Specific [place] (Auto) 1.030 11/05/23 14:06 Urine Protein (Auto) 15 mg/dL 11/05/23 14:06 Glucose (UA)(Auto) 0 mg/dL 11/05/23 14:06 Urine Ketones (Auto) Negative 11/05/23 14:06 Urine Blood (Auto) 0 Escobar/uL 11/05/23 14:06 Urine Nitrite (Auto) Negative 11/05/23 14:06 Urine Bilirubin (Auto) 0 mg/dL 11/05/23 14:06 Urine Urobilinogen (Auto) 0.2 mg/dL 11/05/23 14:06 Leukocyte Esterase (Auto) 0 Kelli/uL 11/05/23 14:06 Assessment & Plan Assessment & Plan (1) IC (interstitial cystitis): Code(s): N30.10 - Interstitial cystitis (chronic) without hematuria (2) Bladder spasms: Code(s): N32.89 - Other specified disorders of bladder (3) Urinary frequency: Code(s): R35.0 - Frequency of micturition (4) Urinary urgency: Code(s): R39.15 - Urgency of urination (5) Lower urinary tract symptoms: Code(s): R39.9 - Unspecified symptoms and signs involving the genitourinary system Plan In office urinalysis results reviewed with the patient today; as noted above. PVR 0 mL. Continue Myrbetriq 50 mg daily Start VESIcare 5 mg daily Discussed at length potential causes for lower urinary tract symptoms patient is experiencing. Discussed, stress, educated the importance of drinking plenty of water daily. Discussed bladder triggers/irritants. Discussed obtaining bladder diary for further assessment evaluation. Continue to follow-up with certified wellness program coordinator Discussed possible near future in office cystoscopy and or urodynamics for further assessment evaluation. Follow-up in 6 weeks with PVR; or sooner with any issues, concerns, and or questions. Orders: Orders AMB Urinalysis Automated Today R33.9 - Retention of urine, unspecified Patient Instructions: The patient had an opportunity to ask questions regarding the treatment plan. All questions were answered. Physical exam, labs, and imaging were discussed and reviewed in detail. As well as risks, benefits, and discussion of treatment choices. No major barriers to understanding were identified. The patient expressed understanding and agreement with the above treatment plan. The patient was made aware they should contact our office by phone for worsening of their current condition, the appearance of new symptoms, or with any questions or concerns. Compliance is encouraged with any medications and follow up testing that is ordered. It is a privilege to be allowed the opportunity to participate in? your urological care.? Again, if you have any questions or concerns If you have any questions or concerns please do not hesitate to contact me. The office is [phone]. This note is constructed using voice recognition software. While every effort has been made to ensure accuracy cinder crusher operator errors may have been included. Yours sincerely, KAYLIN Olivo Coding Level of Care Code Est Pt Level 4 (92686) Diagnoses IC (interstitial cystitis) N30.10 Bladder spasms N32.89 Urinary frequency R35.0 Urinary urgency R39.15 Lower urinary tract symptoms R39.9 Time Spent (min) 30
== END 2023-11-05 14:28 | disposition home or self-care (01) ==
PROVIDERS: PCP Family Medicine; Visit Provider Nurse Practitioner Family
DX: N30.10 Interstitial cystitis (chronic) without hematuria (principal); N32.89 Other specified disorders of bladder; R35.0 Frequency of micturition; R39.15 Urgency of urination; R39.9 Unspecified symptoms and signs involving the genitourinary system
CPT/HCPCS: 99214

== ENCOUNTER → 2023-11-05 13:46 | Outpatient (BNVA) | payer MEDICAID, SELFPAY | PROVIDERS: PCP Family Medicine; Visit Provider Nurse Practitioner Family | DX: N30.10 Interstitial cystitis (chronic) without hematuria (principal); N32.89 Other specified disorders of bladder; R35.0 Frequency of micturition; R39.15 Urgency of urination; R39.9 Unspecified symptoms and signs involving the genitourinary system | CPT/HCPCS: 81003; 99212 ==

== ENCOUNTER 2023-11-11 13:12 | Outpatient (AMB) | payer MEDICAID, SELFPAY ==
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
[2023-11-11 13:49] VITALS: BP 134/88; PULSE 72; RESP 16; O2SAT 98; BMI 27.5
== END 2023-11-11 13:41 | disposition home or self-care (01) ==
PROVIDERS: PCP Family Medicine; Visit Provider Anesthesiology
DX: N80.9 Endometriosis, unspecified (principal); R10.2 Pelvic and perineal pain; G89.4 Chronic pain syndrome; F14.20 Cocaine dependence, uncomplicated; Z45.1 Encounter for adjustment and management of infusion pump
CPT/HCPCS: 95991; 99213

== ENCOUNTER → 2023-11-11 13:12 | Outpatient (BNVA) | payer MEDICAID, SELFPAY | PROVIDERS: PCP Family Medicine; Visit Provider Anesthesiology | DX: Z45.89 Encounter for adjustment and management of other implanted devices (principal); N80.9 Endometriosis, unspecified; R10.2 Pelvic and perineal pain; G89.29 Other chronic pain; F14.20 Cocaine dependence, uncomplicated | CPT/HCPCS: 99212 ==

== ENCOUNTER 2024-01-05 14:36 | Outpatient (AMB) | payer MEDICAID, SELFPAY ==
--- NOTE | 2024-01-05 14:36 | A.OFFVIS_ITS ---
Intake Visit Reasons: 2m follow up Intake Note: Patient presents today for a follow up on: Bladder Spasm Urology Meds: Myrbetriq Allergies to Antibiotic: No Known Allergies Blood Thinner: None Exerciser Required: No Accompanied by: Self / Same As Patient Allergies oxybutynin [OXYBUTYNIN] Allergy (Unknown, Verified 11/05/23 14:27) EYES AND LIPS SWOLLEN tolterodine [Detrol] Allergy (Unknown, Verified 11/05/23 14:27) Facial Swelling Medication List - Last Reconciled 01/05/24 by RAJINDER Olivo- aripiprazole 10 mg PO DAILY baclofen 10 mg PO DAILY bupropion HCl XL 1 tab PO DAILY clonazepam mg PO clonidine HCl 0.2 mg PO TID ferrous sulfate (FeroSul) 325 mg PO DAILY fluticasone propionate 50 mcg/actuation 1 spray intranasal DAILY gabapentin 2 caps PO TID medroxyprogesterone mg IM methylphenidate HCl 1 tab PO BID methylphenidate HCl 10 mg PO BID mirabegron ER (Myrbetriq) 50 mg PO DAILY solifenacin (Vesicare) 5 mg PO DAILY 30 days HPI Comments Details: Marybel is a very pleasant 33-year-old female patient of Dr. Mahmood. She has a past medical history of endometriosis, interstitial cystitis, dyspareunia, fibromyalgia, and cocaine abuse. She is being followed up on today via telehealth for her longstanding history of lower urinary tract symptoms, interstitial cystitis, and pelvic pain. During last office visit approximately two months patient was started on VESIcare for dual therapy as she has been on Myrbetriq 50 mg daily however continues with nocturia, urinary urgency, urinary frequency, and lower abdominal/bladder pressure. However, patient reports she has not yet picked up the medication. Discussed importance in doing so. Previous workup has included a retroperitoneal ultrasound noting bilateral kidneys with no calculi, lesions, and or hydronephrosis noted. The bladder is well distended and normal. Bilateral ureteral jets are demonstrated. Pre void bladder volume is approximately 290 mL. Postvoid bladder volume is approximately 10 mL. Patient previously followed up with Dr. Panchal and underwent multiple cysto hydrodistention as well as trying multiple medications such as oxybutynin, Detrol, and Elmiron all which she did not find helpful. She discusses attending pelvic floor therapy, acupuncture, dietary changes to follow interstitial diet and also did not find any of these interventions helpful. She reports following up with pain management here and has found this helpful for her ongoing pain issues. She reports significant improvement in overall pain she had been experiencing however she continues to experience bladder spasms, urinary urgency, and urinary frequency. She otherwise denies incontinence, nocturia, hematuria, foul smelling urine, changes to urinary stream, flank pain, fever, and or chills. She otherwise offers no other issues or concerns at this time. [facility] Medical History Cocaine addiction Spondylosis of cervical spine without myelopathy Chronic pain syndrome Dyspareunia Chronic pelvic pain in female Endometriosis Raynaud's disease Fibromyalgia Pain Hx of chest pain Overactive bladder Hx of endometriosis Back pain Anemia Hx of renal calculi GERD (gastroesophageal reflux disease) OCD (obsessive compulsive disorder) Anxiety Hx of migraines IC (interstitial cystitis) Surgical History Hx of dilation and curettage History of Hx of exploratory laparotomy Hx of colonoscopy Hx of cystoscopy Social History Patient Tobacco Use Status: Tobacco use Unknown Review of Systems Const Reports as per HPI ENT Reports no additional complaints Card Reports no additional complaints Resp Reports no additional complaints GI Reports as per HPI Reports as per HPI Musc Reports as per HPI Neuro Reports as per HPI Psych Reports as per HPI Endo Reports no additional complaints Physical Exam Const General: cooperative Resp Effort & Inspection: able to speak in complete sentences Psych Speech and movement: Clear speech present Attitude: cooperative Thought content: Normal thought content present Insight: Fair insight present (Psych) Judgement: Fair judgement present (Psych) Telehealth Telehealth Telehealth Platform: [facility] Location of provider rendering services: practice address Location of patient: address on file Patient Identification confirmed using: Name, : Yes Telehealth method: voice only Patient verbally consented to treatment: Yes Patient verbally consented to billing insurance company: Yes Patient informed of any privacy concerns related to visit: Yes Minutes spent on Phone/Video with Pt.: 15 Assessment & Plan Assessment & Plan (1) IC (interstitial cystitis): Code(s): N30.10 - Interstitial cystitis (chronic) without hematuria Category: Medical (2) Bladder spasms: Code(s): N32.89 - Other specified disorders of bladder Category: Medical (3) Urinary frequency: Code(s): R35.0 - Frequency of micturition Category: Medical (4) Urinary urgency: Code(s): R39.15 - Urgency of urination Category: Medical (5) Lower urinary tract symptoms: Code(s): R39.9 - Unspecified symptoms and signs involving the genitourinary system Category: Medical Plan Continue Myrbetriq 50 mg daily Start VESIcare 5 mg daily; prescription resent. Discussed at length potential causes for lower urinary tract symptoms patient is experiencing. Discussed, stress, educated the importance of drinking plenty of water daily. Discussed bladder triggers/irritants. Discussed obtaining bladder diary for further assessment evaluation. Discussed possible near future in office cystoscopy and [facility] if symptoms persist and/or worsen. Follow-up in 6 weeks with [facility]; or sooner with any issues, concerns, and or questions. Medications: New solifenacin (Vesicare) 5 mg PO DAILY 30 tabs 2RF 30 days Patient Instructions: The patient had an opportunity to ask questions regarding the treatment plan. All questions were answered. Physical exam, labs, and imaging were discussed and reviewed in detail. As well as risks, benefits, and discussion of treatment choices. No major barriers to understanding were identified. The patient expressed understanding and agreement with the above treatment plan. The patient was made aware they should contact our office by phone for worsening of their current condition, the appearance of new symptoms, or with any questions or concerns. Compliance is encouraged with any medications and follow up testing that is ordered. It is a privilege to be allowed the opportunity to participate in? your urological care.? Again, if you have any questions or concerns If you have any questions or concerns please do not hesitate to contact me. The office is [phone]. This note is constructed using voice recognition software. While every effort has been made to ensure accuracy drum cleaner errors may have been included. Yours sincerely, KAYLIN Olivo Coding Level of Care Code Tele Est Pt Level 3 (04508) Diagnoses IC (interstitial cystitis) N30.10 Bladder spasms N32.89 Urinary frequency R35.0 Urinary urgency R39.15 Lower urinary tract symptoms R39.9
--- OUTSIDE RECORDS SUMMARY | 2024-01-08 10:00 | XMS_ITS | Continuity of Care Document ---
Author Organization [facility] Address [address] [facility], [address] Floor, [address] [place] [address]- Care Team Providers Care Family Life Counselor Name Role Phone Chuck Valdez MD, [facility] Primary Care Phys ician [place] [facility] [place] [facility] [place] 09/02/23 - 10/02/23 [facility] [address], [address], [address] [place] [address]- Attending Physician: Aditya Case Admitting Physician: AdmAditya barfield Referring Physician: [id number] Allergies, Adverse Reactions, Alerts Substance Reaction Severity Status oxybutynin Active Detrol 1 Active 1swelling in eyes face and mouth lips Medications Abilify 10 mg oral tablet 10 mg, 1, tablet, By Mouth, Daily at bedtime, # 90 tablet, Refills 0, Maintenance, 08/06/22 11:37:00 EST, Partial fill upon patient request if the prescription is for a schedule II opioid drug. Start Date: 08/06/22 Status: Ordered clonazePAM 0.5 mg oral tablet = 0.025 mg/kg, By Mouth, Every 72 hours, PRN Anxiety, 0 Refills, Maintenance, 02/16/18 16:38:13 EDT, Tablet Start Date: 02/16/18 Status: Ordered cloNIDine 0.2 mg oral tablet 0.2 mg, 1, tablet, By Mouth, Daily at bedtime, # 180 tablet, Refills 0, Maintenance, 08/06/22 11:36:00 EST, Partial fill upon patient request if the prescription is for a schedule II opioid drug. Start Date: 08/06/22 Status: Ordered erythromycin 0.5% ophthalmic ointment 0.5 inches, Eye, Left, 4 times a day, bilateral eyes, # 4 Gm, 0 Refills, Maintenance, 09/06/23 8:29:00 EST, Ophth Ointment, [facility]/pharmacy #[id number], Partial fill upon patient request if the prescription is for a schedule II opioid drug., 0.5 inches Eye, Le... Start Date: 09/06/23 Status: Ordered ferrous sulfate 325 mg oral enteric coated tablet 325 mg, 1, tablet, By Mouth, Daily at bedtime, # 90 tablet, Refills 0, Maintenance, 08/06/22 11:34:00 EST, Partial fill upon patient request if the prescription is for a schedule II opioid drug. Start Date: 08/06/22 Status: Ordered gabapentin 600 mg oral tablet 1 tablet = 600 mg, By Mouth, 3 times a day, # 270 tablet, 0 Refills, Maintenance, 02/16/18 16:36:27EDT, Tablet Start Date: 02/16/18 Status: Ordered hydrOXYzine hydrochloride 10 mg/5 mL oral syrup 5 mL = 10 mg, By Mouth, Daily at bedtime, PRN for itching, # 200 mL, 0 Refills, Maintenance, 08/06/22 11:35:00 EST, Syrup, Partial fill upon patient request if the prescription is for a schedule II opioid drug. Start Date: 08/06/22 Status: Ordered ibuprofen 100 mg oral tablet 4 tablet = 400 mg, By Mouth, Every 6 hours, 0 Refills, Maintenance, 08/11/22 7:30:00 EST, Partial fill upon patient request if the prescription is for a schedule II opioid drug. Start Date: 08/11/22 Status: Ordered ibuprofen 800 mg oral tablet 800 mg, 1, tablet, By Mouth, Every 8 hours, # 25 tablet, Refills 0, Tot. Refills 0, Maintenance, 08/11/22 8:54:00 EST, Route to Pharmacy Electronically, [facility]-[id number], Partial fill upon patient request if the prescription is for a... Start Date: 08/11/22 Status: Ordered Methadone Liquid = 73 mg, By Mouth, Daily in AM, 0 Refills, Maintenance, 08/06/22 11:32:00 EST, Solution, Partial fill upon patient request if the prescription is for a schedule II opioid drug. Start Date: 08/06/22 Status: Ordered Myrbetriq 50 mg oral tablet, extended release 1 tablet = 50 mg, By Mouth, Daily, do not crush or chew, # 30 tablet, 0 Refills, Maintenance, 08/25/23 11:58:00 EST, ER Tablet, Partial fill upon patient request if the prescription is for a scheduleII opioid drug. Start Date: 08/25/23 Status: Ordered Multivitamins By Mouth, Daily, 0 Refills, Maintenance, 09/09/15 18:55:03 Start Date: 09/09/15 Status: Ordered Ritalin 20 mg oral tablet 1.5 tablets, By Mouth, 2 times a day, 5 days a week, 0 Refills, Maintenance, 11/22/19 15:44:00 EDT Start Date: 11/22/19 Status: Ordered Tylenol 325 mg oral tablet 975 mg, 3, tablet, By Mouth, Every 8 hours, # 60 tablet, Refills 0, Tot. Refills 0, Maintenance, 08/11/22 8:54:00 EST, Route to Pharmacy Electronically, [facility]-[id number], Partial fill upon patient request if the prescription is for a... Start Date: 08/11/22 Status: Ordered Wellbutrin SR 150 mg/12 hours oral tablet, extended release 1 tablet = 150 mg, By Mouth, Daily in AM, # 180 tablet, 0 Refills, Maintenance, 08/06/22 11:33:00 EST, ER Tablet, Partial fill upon patient request if the prescription is for a schedule II opioid drug. Start Date: 08/06/22 Status: Ordered Problem List Condition Confirmation Course Effective Dates Status H ealth Status Informant Cellulitis Confirmed Active Interstitial cystitis Confirmed Active Endometriosis Confirmed Active GLENNY (generalized anxiety disorder) Confirmed Active Opiate dependence Confirmed Active Social History Social History Type Response Smoking Status Former smoker; Tobac co user in household: No; Other: pt states she quit smoking 1.5 years ago; entered on: 04/01/16 Sex Patient Care team information Care Team Personnel Name: Anahi Marquez RN Position: [facility] RN Member Role: Primary Care Nurse Name: Emi Aparicio RN Position: [facility] RN Member Role: Primary Care Nurse Name: Glenn Osborne MD Position: S Outreach Member Role: PCP Address: Address: [address] [place] [address] Care Team Related Persons Name: MIRIAM ALEKSEY Address: home [address] [place] [address] Name: SIDNEY LEI Address: home [address] [place] [address] Name: RENEE HONG Address: home [address] [place] [address] Name: JONH ENGLAND Address: home [address] [place] [address] Name: DIYA BLACK
--- OUTSIDE RECORDS SUMMARY | 2024-01-08 10:00 | XMS_ITS | Continuity of Care Document ---
[facility] Address [address] [facility], 4t [place] [address]- Care Team Providers Care Pump Tester Name Role Phone Chuck Valdez MD, Glenn Primary Care Phys [facility] Encounter [facility] [place] Date(s): 10/21/23 - 12/11/23 [facility] [address] [facility], 4th [place] [address]- Attending Physician: Fanny Byrnes DO Admitting Physician: Fanny Byrnes DO Referring Physician: Chuck Valdez MD , [facility] Allergies, Adverse Reactions, Alerts Substance Reaction Severity [...] opioid drug. Start Date: 08/06/22 Status: Ordered BACLOFEN 20 MG TABS BACLOFEN 20 MG TABS, 0 Refills, Maintenance, 10/21/23 11:15:00 EDT Start Date: 10/21/23 Status: Ordered Benadryl 25 mg oral capsule 1 capsule = 25 mg, By Mouth, Every 6 hours, 0 Refills, Maintenance, 11/04/23 10:47:00 EDT, Partial fill upon patient request if the prescription is for a schedule II opioid drug. Start Date: 11/04/23 Status: Ordered clonazePAM 0.5 mg oral tablet [...] opioid drug. Start Date: 08/06/22 Status: Ordered ferrous sulfate 325 mg oral enteric coated tablet 325 mg, 1, tablet, By Mouth, Daily at bedtime, # 90 tablet, Refills 0, Maintenance, 08/06/22 11:34:00 EST, Partial fill upon patient request if the prescription is for a schedule II opioid drug. Start Date: 08/06/22 Status: Ordered Fish Oil By Mouth, 0 Refills, Maintenance, 11/04/23 10:47:00 EDT, Partial fill upon patient request if the prescription is for a schedule II opioid drug. Start Date: 11/04/23 Status: Ordered gabapentin 600 mg oral tablet 1 tablet = 600 mg, By Mouth, 3 times a day, # 270 tablet, 0 Refills, Maintenance, 02/16/18 16:36:27EDT, Tablet Start Date: 02/16/18 Status: Ordered ibuprofen 800 mg oral tablet 800 mg, 1, tablet, By Mouth, Every 8 hours, # 25 tablet, Refills 0, Tot. Refills 0, Maintenance, 08/11/22 8:54:00 EST, Route to Pharmacy Electronically, [facility]-[id number], Partial fill upon patient request if the [...] Daily, do not crush or chew, # 90 tablet, 3 Refills, Maintenance, 10/14/23 15:02:00 EDT, ER Tablet, [facility]/pharmacy #[id number], Partial fill upon patient request if the prescription is for a schedule II opioid drug., 150, cm, 10/06... Start Date: 10/14/23 Status: Ordered Multivitamins By Mouth, Daily, 0 Refills, Maintenance, 09/09/15 18:55:03 Start Date: 09/09/15 Status: Ordered Probiotic Probiotic, 0 Refills, Maintenance, 11/04/23 10:47:00 EDT Start Date: 11/04/23 Status: Ordered propranolol 20 mg oral tablet 20 mg, 1, tablet, By Mouth, 2 times a day, for tremors, # 60 tablet, Refills 3, Tot. Refills 3, Maintenance, 10/07/23 9:58:00 EST, [id number], Partial fill upon patient request if the prescription is for a [facility]... Start Date: 10/07/23 Stop Date: 02/04/24 Status: Ordered Ritalin 20 mg oral tablet 1.5 tablets, By Mouth, 2 times a day, 5 days a week, 0 Refills, Maintenance, 11/22/19 15:44:00 EDT Start Date: 11/22/19 Status: Ordered Tylenol 325 mg oral tablet 975 mg, 3, tablet, By Mouth, Every 8 hours, # 60 tablet, Refills 0, Tot. Refills 0, Maintenance, 08/11/22 8:54:00 EST, Route to Pharmacy Electronically, [facility]-[id number], Partial fill upon patient request if the [...] Team Personnel Name: Anahi Marquez RN Position: [facility] RN Member Role: Primary Care Nurse Name: Emi Aparicio RN Position: [facility] SN RN Member Role: Primary Care Nurse Name: Chuck Valdez MD , Glenn Position: [facility] Outreach Member Role: PCP Address: Address: [address] [place] [address]- Care Team Related Persons Name: ALEKSEY PINEDA Address: home [address] [place] [address] Name: SIDNEY LEI Address: home [address] [place] [address] Name: RENEE HONG Address: [address] [place] [address] Name: JONH ENGLAND Address: home [address] [place] [address] Name: DIYA BLACK
--- OUTSIDE RECORDS SUMMARY | 2024-01-08 10:00 | XMS_ITS | Continuity of Care Document ---
Author Organization [facility] ter Address [address] [place] [address]- Care Team Providers Care Counter Manager Name Role Phone [facility], [facility] Primary Care Phys ician [place] [facility] [place](s[place] 09/05/23 - 09/06/[address] [address]- Encounter Diagnosis Blepharitis(Final) - 09/06/23 Discharge Disposition: A-D/C Home Attending Physician: Daniel Moore MD Admitting Physician: Daniel Moore MD Referring Physician: Not on Staff, Referring MD Allergies, Adverse Reactions, Alerts Substance Reaction Severity [...] Refills, Maintenance, 09/06/23 8:29:00 EST, Ophth Ointment, [facility]/pharmacy #[id number], Partial fill upon patient request if the [...] to Pharmacy Electronically, [facility]-[id number], Partial fill upon patient request if the prescription is for a... Start Date: 08/11/22 Status: Ordered Melatonin 5 mg oral capsule 1 capsule = 5 mg, By Mouth, Daily at bedtime, 0 Refills, Maintenance, 08/06/22 11:36:00 EST, Partial fill upon patient request if the prescription is for a schedule II opioid drug. Start Date: 08/06/22 Status: Ordered Methadone Liquid = 73 mg, [...] to Pharmacy Electronically, [facility]-[id number], Partial fill upon patient request if the [...] disorder) Confirmed Active Opiate dependence Confirmed Active Vital Signs Most recent to oldest [Reference Range]: 1 2 3 Height 150 cm (09/06/23 6:14 AM) 150 cm (09/06/23 4:02 AM) 150 cm (09/06/23 12:12 AM) Weight 61.5 kg (09/06/23 6:14 AM) 61.5 kg (09/06/23 4:02 AM) 61.5 kg (09/06/23 12:12 AM) Oxygen Saturation [94-100 %] 98 % (09/06/23 7:39 AM) 98 % (09/06/23 6:14 AM) 100 % (09/06/23 4:02 AM) Pulse Rate [55-90 bpm] 77 bpm (09/06/23 7:39 AM) 72 bpm (09/06/23 6:14 AM) 78 bpm (09/06/23 4:02 AM) Body Mass Index [18.5-24.99 kg/m2] 27.33 kg/m2 *H* (09/06/23 6:14 AM) 27.33 kg/m2 *H* (09/06/23:02 AM) 27.33 kg/m2 *H* (09/05/23 11:04 PM) Blood Pressure [90-138/55-84 mm Hg] 100/66mm Hg (09/06/23 7:39 AM) 106/71mm Hg (09/06/23 6:14 AM) 138/89mm Hg (09/06/23 4:02 AM) Respiratory Rate [16-30 br/min] 18 br/min (09/06/23 7:39 AM) 18 br/min (09/06/23 6:14 AM) 16 br/min (09/06/23 4:02 AM) Temperature [96.8-100.4 DegF] 98.4 DegF (09/06/23 1:11 AM) 98.5 DegF (09/06/23 12:10 AM) 98.0 DegF (09/05/23 11:04 PM) Mode of Delivery (Oxygen) Room air (09/06/23 7:39 AM) Room air (09/06/23 6:14 AM) Room air (09/06/23 4:02 AM) Blood pressure sites Arm, right (09/06/23 7:39 AM) Arm, right (09/06/23 6:14 AM) Arm, right (09/06/23 4:02 AM) Temperature Route Oral (09/06/23 1:11 AM) Oral (09/06/23 12:10 AM) Oral (09/05/23 11:04 PM) Dry Weight 61.5 kg (09/06/23 6:14 AM) 61.5 kg (09/06/23 4:02 AM) 61.5 kg (09/06/23 12:12 AM) Weight Obtained Via Standing scale (09/05/23 11:04 PM) Dry Weight Obtained Via Standing scale (09/05/23 11:04 PM) Social History Social History Type Response Smoking Status Former smoker; Tobac co user in household: No; Other: pt states she quit smoking 1.5 years ago; entered on: 04/01/16 Sex Patient Care team information Care Team Personnel Name: Anahi Marquez RN Position: [facility] RN Member Role: Primary Care Nurse Name: Emi Aparicio RN Position: [facility] RN Member Role: Primary Care Nurse Name: Glenn Osborne MD Position: [facility] Outreach Member Role: PCP Address: Address: [address] [place] [address]- Care Team Related Persons Name: SIDNEY LEI Address: [address] [place] [address] Name: RENEE HONG Address: home [address] [place] [address] Name: JONH ENGLAND Address: [address] [place] [address] Name: TYLER JONES Address: [address] [place] [address] Name: DIYA BLACK
--- OUTSIDE RECORDS SUMMARY | 2024-01-08 10:00 | XMS_ITS | Continuity of Care Document ---
Author Organization [facility] Address [address] [facility], 4t [place] [address]- Care Team Providers Care Safety Security Officer Name Role Phone Chuck Valdez MD, Glenn [id number]wl[facility] [address] [facility] [address] [address], 4th [place] [address]- Allergies, Adverse Reactions, Alerts Substance Reaction Severity [...] Refills, Maintenance, 09/06/23 8:29:00 EST, Ophth Ointment, [facility]/pharmacy #[id number], Partial fill upon patient request if [...] 08/11/22 8:54:00 EST, Route to Pharmacy Electronically, [facility]-[id number], Partial fill upon patient request if the [...] 08/11/22 8:54:00 EST, Route to Pharmacy Electronically, [facility]-[id number], Partial fill upon patient request if the [...] Team Personnel Name: Anahi Marquez RN Position: S RN Member Role: Primary Care Nurse Name: Emi Aparicio RN Position: [facility] RN Member Role: Primary Care Nurse Name: Glenn Osborne MD Position: [facility] Outreach Member Role: PCP Address: Address: [address] [place] [address]- Care Team Related Persons Name: ALEKSEY PINEDA Address: home [address] [place] [address] Name: SIDNEY LEI Address: [address] [place] [address] Name: RENEE HONG Address: home [address] [place] [address] Name: JONH EGNLAND Address: [address] [place] [address] Name: DIYA BLACK
--- OUTSIDE RECORDS SUMMARY | 2024-01-08 10:00 | XMS_ITS | Continuity of Care Document ---
Author Organization [facility] Address [address] [facility], 4t [place] [address]- Care Team Providers Care Engineering Program Manager Name Role Phone Chuck Valdez MD, [facility] Primary Care Phys [facility] Encounter [facility] Date(s): 07/13/23 - 08/29/23 [facility] [place] [address] [place], 4th [place] [address]- Attending Physician: Fanny Byrnes DO Admitting Physician: Fanny Byrnes DO Referring Physician: Chuck Valdez MD , [facility] Allergies, Adverse Reactions, Alerts Substance Reaction Severity [...] 08/11/22 8:54:00 EST, Route to Pharmacy Electronically, [facility]-17113, Partial fill upon patient request if the [...] 08/11/22 8:54:00 EST, Route to Pharmacy Electronically, [facility]-96126, Partial fill upon patient request if the [...] Care Nurse Name: Glenn Osborne MD Position: [facility] Outreach Member Role: PCP Address: Address: [address] [place] [address]- Care Team Related Persons Name: SIDNEY LEI Address: home [address] [place] [address] Name: RENEE HONG Address: home [address] [place] [address] Name: JONH ENGLAND Address: [address] [place] [address] Name: TYLER JONES Address: [address] [address] Name: DIYA BLACK
--- OUTSIDE RECORDS SUMMARY | 2024-01-08 10:00 | XMS_ITS | Continuity of Care Document ---
Author Organization [facility] Address [address] [facility], 4t [place] [address]- Care Team Providers Care Material Expediter Name Role Phone Chuck Valdez MD, Glenn Primary Care Phys [id number] - [facility] Eyaltorsten [employer]Care[employer]s [facility] [address] [facility], 4th [place] [address]- Attending Physician: Karen Pink NP Admitting Physician: Karen Pink NP Referring Physician: Glenn Osborne MD Allergies, Adverse Reactions, Alerts Substance Reaction [...] 8:54:00 EST, Route to Pharmacy Electronically, [facility]-47298, Partial fill upon patient request if the [...] Refills, Maintenance, 10/14/23 15:02:00 EDT, ER Tablet, [facility]/pharmacy #[id number], Partial fill upon patient request if the [...] 10/07/23 9:58:00 EST, [facility], Partial fill upon patient request if [...] 8:54:00 EST, Route to Pharmacy Electronically, [facility]-50966, Partial fill upon patient request if the [...] Team Personnel Name: Anahi Marquez RN Position: [facility] RN Member Role: Primary Care Nurse Name: Emi Aparicio RN Position: [facility] SN RN Member Role: Primary Care Nurse Name: Chuck Valdez MD , Glenn Position: [facility] Outreach Member Role: PCP Address: Address: [address] [place] [address]- Care Team Related Persons Name: MIRIAM, JOHN Address: home [address] [place] [address] Name: SIDNEY LEI Address: [address] [place] [address] Name: RENEE HONG Address: home [address] [place] [address] Name: JONH ENGLAND Address: [address] [place] [address] Name: DIYA BLACK
--- OUTSIDE RECORDS SUMMARY | 2024-01-08 10:00 | XMS_ITS | Continuity of Care Document ---
Author Organization [facility] Address [address] [facility] [place] [address]- Care Team Providers Care Ladies' Locker Room Attendant Name Role Phone Chuck Valdez MD, Glenn Primary Care Phys ician Encounter 12/04/23 - 12/11/23 [facility] [address], [facility] [address] [place] [address]- Attending Physician: Glenn Osborne MD Admitting Physician: Glenn Osborne MD Referring Physician: Glenn Osborne MD Allergies, Adverse [...] 08/11/22 8:54:00 EST, Route to Pharmacy Electronically, [facility]-03405, Partial fill upon patient request if the [...] Refills, Maintenance, 10/14/23 15:02:00 EDT, ER Tablet, [facility]/pharmacy #[id number], Partial fill upon patient request if the [...] 10/07/23 9:58:00 EST, [facility] Partial fill upon patient request if [...] 08/11/22 8:54:00 EST, Route to Pharmacy Electronically, [facility]-57071, Partial fill upon patient request if the [...] disorder) Confirmed Active Opiate dependence Confirmed Active Results Radiology Reports * Exam Date Time Procedure Performing Provider Status 12/04/23 2:59 PM Dexa Bone Density (Axial) Tana Bhardwaj; Nancy (Verified) Notes: (Dexa Bone Density (Axial)) 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 RESULT: Dexa Bone Density (Axial) Name:JAMMIE LEI Age:33 years Sex:Female Ethnicity:White Date of :1990 Reason: Z79.3 pen[facility] current use of hormonal 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; Clinical Question(s): Other: Referring Provider:Glenn Valdez MD Study:Dexa Bone Density (Axial) Bone Density: Region BMD T-Score Z-Score Classification AP Spine 0.968 -0.7 -0.7 Normal TOTAL HIP 0.844 -0.8 -0.7 Normal FEM NECK 0.755 -0.8 -0.7 Normal 10-year Fracture Risk: Fracture Risk Not Reported: FRAX not reported because: Premenopausal woman All T-scores for Spine Total, Hip Total, Femoral Neck at or above -1.0 Impression: The patient has normal bone density as determined by WHO criteria. WSN: [id number] Ordering Physician: Glenn Osborne MD Dictated By: Joseph Parra MD Dictated Date/Time: 12/10/23 2:30 pm Reviewed By: Joseph Parra MD Signed By: Joseph Parra MD Signed Date/Time: 12/10/23 2:30 pm Transcribed By: PEGGY Transcribed Date/Time: 12/10/23 2:29 pm Social History Social History Type Response Smoking Status Former smoker; Tobac co user in household: No; Other: pt states she quit smoking 1.5 years ago; entered on: 04/01/16 Sex Patient Care team information Care Team Personnel Name: Anahi Marquez RN Position: S RN Member Role: Primary Care Nurse Name: Emi Aparicio RN Position: [facility] SN RN Member Role: Primary Care Nurse Name: Glenn Osborne MD Position: [facility] Outreach Member Role: PCP Address: Address: [address] [place] [address]- Care Team Related Persons Name: ALEKSEY PINEDA Address: home [address] [place] [address] Name: SIDNEY LEI Address: home [address] [place] [address] Name: RENEE HONG Address: home [address] [place] [address] Name: JONH ENGLAND Address: [address] [place] [address] Name: DIYA BLACK
--- OUTSIDE RECORDS SUMMARY | 2024-01-08 10:00 | XMS_ITS | Continuity of Care Document ---
Author Organization [facility] Address [address] [facility], [address]r d Floor, [address] [place] [address]- Care Team Providers Care Tissue Packer Name Role Phone Chuck Valdez MD, [facility] Primary Care Phys ician [place] [facility] Date(s): 08/11/23 - 09/10/23 [facility] [address], 3[address] Floor, [address] [place] [address]- Allergies, Adverse Reactions, Alerts Substance Reaction Severity [...] Refills, Maintenance, 09/06/23 8:29:00 EST, Ophth Ointment, [facility]/pharmacy #[id number], Partial fill upon patient request if the [...] 08/11/22 8:54:00 EST, Route to Pharmacy Electronically, [facility]-87696, Partial fill upon patient request if the [...] 08/11/22 8:54:00 EST, Route to Pharmacy Electronically, [facility]-04307, Partial fill upon patient request if the [...] Team Personnel Name: Anahi Marquez RN Position: [facility] RN Member Role: Primary Care Nurse Name: Emi Aparicio RN Position: [facility] RN Member Role: Primary Care Nurse Name: Glenn Osborne MD Position: [facility] Outreach Member Role: PCP Address: Address: [address] [place] [address]- Care Team Related Persons Name: SIDNEY LEI Address: home [address] [place] [address] Name: RENEE HONG Address: home [address] [facility] [place] [address] Name: JONH ENGLAND Address: [address] [place] [address] Name: TYLER JONES Address: [address] [place] [address] Name: DIYA BLACK
--- OUTSIDE RECORDS SUMMARY | 2024-01-08 10:00 | XMS_ITS | Continuity of Care Document ---
Author Organization [facility] Address [address] [facility], 4t [place] [address]- Care Team Providers Care Sales Representative Facility Services Name Role Phone Chuck Valdez MD, Glenn Primary Care Phys [facility] Encounter [facility] Date(s): 09/17/23 - 10/24/23 [facility] Eyal SegundoAlectrica Motorss [facility] [address], 4th [place] [address]- Attending Physician: Anita Zurita MD Admitting Physician: Anita Zurita MD Referring Physician: Chuck Valdez MD , Glenn Allergies, Adverse Reactions, Alerts Substance Reaction Severity [...] 11:15:00 EDT Start Date: 10/21/23 Status: Ordered clonazePAM 0.5 mg oral tablet [...] 08/11/22 8:54:00 EST, Route to Pharmacy Electronically, [facility]-02272, Partial fill upon patient request if the [...] Refills, Maintenance, 10/14/23 15:02:00 EDT, ER Tablet, [facility]/pharmacy #0794, Partial fill upon patient request if the prescription is for a schedule II opioid drug., 150, cm, 10/06... Start Date: 10/14/23 Status: Ordered Multivitamins By Mouth, Daily, 0 Refills, Maintenance, 09/09/15 18:55:03 Start Date: 09/09/15 Status: Ordered propranolol 20 mg oral tablet 20 mg, 1, tablet, By Mouth, 2 times a day, for tremors, # 60 tablet, Refills 3, Tot. Refills 3, Maintenance, 10/07/23 9:58:00 EST, Route to Pharmacy Electronically, [facility]/pharmacy #0791, Partial fill upon patient request if the [...] 08/11/22 8:54:00 EST, Route to Pharmacy Electronically, [facility]-41998, Partial fill upon patient request if the [...] Team Personnel Name: Anahi Marquez RN Position: [facility] RN Member Role: Primary Care Nurse Name: Emi Aparicio RN Position: [facility] RN Member Role: Primary Care Nurse Name: Glenn Osborne MD Position: [facility] Outreach Member Role: PCP Address: Address: [address] [place] [address]- Care Team Related Persons Name: ALEKSEY PINEDA Address: home [address] [place] [address] Name: SIDNEY LEI Address: home [address] [place] [address] Name: RENEE HONG Address: home [address] [place] [address] Name: JONH ENGLAND Address: home [address] [place] [address] Name: DIYA BLACK
--- OUTSIDE RECORDS SUMMARY | 2024-01-08 10:01 | XMS_ITS | Patient Health Record ---
Author Organization [facility] Address [address] [place] [address] Care Team Providers Care Flange Turner Name Role Phone Rosa Castillo DOey Unavailable Unavailable Reason For Referral No Information Medications Medication SIG (Take, Route, Frequency, Duration) Notes Start Date End Date Status VESICARE (SOLIFENACIN) 5 MG 1 PO QD Phillip04/16/2012 Entered by KEVIN LUGO 04/16/2012 Active MIRALAX (POLYETHYLENE GLYCOL ) 17 GM PO QD Phillip04/16/2012 Entered by KEVIN LUGO 04/16/2012 Active oxycodone 5 MG 1 PO Q4H Phillip04/16/2012 Entered by KEVIN LUGO 04/16/2012 Active Clarithromycin 500 mg 1 tab(s) orally every 12 hours for 14 (MV)-[id number] 2 05/20/2012 Active Amoxicillin 500 mg 2 tab(s) orally 2 times a day for 14 (MV)-[id number] 4 05/20/2012 Active Problems Problem Type SNOMED Code ICD Code Onset Dates Problem Status W/U Status Risk Notes Problem Gastroesophageal reflux disease (840145207) GERD (gastroesophag eal reflux disease) (530.81) Active confirmed 07-07-12 GERD TRIED PRILOSEC OTC ?? DATES AND OMEPRAZOLE 20MG QD FROM 07-07-12 TO ??? Problem Constipation (21176849) Constipation NOS (564.00) Active confirmed (MV) Problem Abdominal pain (39886733) Abdominal Pain _unspecified site_ (789.00) Active confirmed (MV) Problem Endometriosis (758526075) Endometriosis, site unspecified (617.9) 012 Active confirmed Phillip: Endometriosis (clinical); Plan Of Treatment Pending Test Test Name Order Date HELICOBACTER PYLORI Ab, IgM 04/27/2012 HELICOBACTER PYLORI IgG,EIA 04/27/2012 Insurance Providers Payer Name Payer Address Payer Phone Subscriber Number Group Number Insured Name Patient Relationship to Insured Coverage Start Date Coverage End Date [facility] [address] [place], [place] [id number] Marybel Garcia Self - patient is the insured 2
--- OUTSIDE RECORDS SUMMARY | 2024-01-08 10:01 | XMS_ITS | Continuity of Care Document ---
Author Organization [facility] Address [address] [facility], 3r d Floor, [address] [place] [address]- Care Team Providers Care Crozer Operator Name Role Phone Chuck Valdez MD, [facility] Primary Care Phys ician Encounter [facility] Date(s): 08/25/23 - 10/02/23 [facility] [address], 3[address] Floor, [address] [place] [address]- Attending Physician: Michel Moe MD Admitting Physician: Michel Moe MD Allergies, Adverse Reactions, Alerts Substance Reaction [...] Refills, Maintenance, 09/06/23 8:29:00 EST, Ophth Ointment, [facility]/pharmacy #0769, Partial fill upon patient request [...] 08/11/22 8:54:00 EST, Route to Pharmacy Electronically, [facility]-74674, Partial fill upon patient request if the [...] 08/11/22 8:54:00 EST, Route to Pharmacy Electronically, [facility]-41320, Partial fill upon patient request if the [...] Team Personnel Name: Anahi Marquez RN Position: [facility] RN Member Role: Primary Care Nurse Name: Emi Aparicio RN Position: [facility] RN Member Role: Primary Care Nurse Name: Glenn Osborne MD Position: [facility] Outreach Member Role: PCP Address: Address: [address] [place] [address] Care Team Related Persons Name: ALEKSEY PINEDA Address: [address] [place] [address] Name: SIDNEY LEI Address: home [address] [place] [address] Name: RENEE HONG Address: home [address] [place] [address] Name: JONH ENGLAND Address: home [address] [place] [address] Name: DIYA BLACK
--- OUTSIDE RECORDS SUMMARY | 2024-01-08 10:01 | XMS_ITS | Continuity of Care Document ---
Author Organization [facility] Address [address] [facility], 3r d Floor, [address] [place] [address]- Care Team Providers Care Pm Head Cook Name Role Phone Chuck Valdez MD, [facility] Primary Care Phys ician [place] [facility] Date(s): 07/13/23 - 08/12/23 [facility] [address], 3[address] Floor, [address] [place] [address]- Allergies, Adverse Reactions, Alerts Substance Reaction Severity [...] 08/11/22 8:54:00 EST, Route to Pharmacy Electronically, [facility]-14105, Partial fill upon patient request if the [...] opioid drug. Start Date: 08/06/22 Status: Ordered Multivitamins By Mouth, Daily, 0 [...] 08/11/22 8:54:00 EST, Route to Pharmacy Electronically, [facility]-50968, Partial fill upon patient request if the [...] Team Personnel Name: Anahi Marquez RN Position: [facility] RN Member Role: Primary Care Nurse Name: Emi Aparicio RN Position: [facility] RN Member Role: Primary Care Nurse Name: Glenn Osborne MD Position: [facility] Outreach Member Role: PCP Address: Address: [address] [place] [address]- Care Team Related Persons Name: SIDNEY LEI Address: home [address] [place] [address] Name: RENEE HONG Address: home [address] [place] [address] Name: JONH ENGLAND Address: home [address] [place], [place] Name: TYLER JONES Address: home [address] [place], [place] Name: DIYA BLACK
== END 2024-01-05 15:28 | disposition home or self-care (01) ==
LOC: HO.HUSH 14:36
PROVIDERS: PCP Family Medicine; Visit Provider Nurse Practitioner Family
DX: N30.10 Interstitial cystitis (chronic) without hematuria (principal); N32.89 Other specified disorders of bladder; R35.0 Frequency of micturition; R39.15 Urgency of urination; R39.9 Unspecified symptoms and signs involving the genitourinary system
CPT/HCPCS: 99213

== ENCOUNTER → 2024-01-05 14:36 | Outpatient (BNVA) | payer MEDICAID, SELFPAY | PROVIDERS: PCP Family Medicine; Visit Provider Nurse Practitioner Family ==

== ENCOUNTER 2024-01-18 13:05 | Outpatient (AMB) | payer MEDICAID, SELFPAY ==
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
[2024-01-18 13:10] VITALS: BP 92/62; BMI 26.5
== END 2024-01-18 13:41 | disposition home or self-care (01) ==
PROVIDERS: PCP Family Medicine; Visit Provider Anesthesiology
DX: G89.4 Chronic pain syndrome (principal); N80.9 Endometriosis, unspecified; R10.2 Pelvic and perineal pain; F14.20 Cocaine dependence, uncomplicated; Z45.1 Encounter for adjustment and management of infusion pump
CPT/HCPCS: 95991; 99213

== ENCOUNTER → 2024-01-18 13:05 | Outpatient (BNVA) | payer MEDICAID, SELFPAY | PROVIDERS: PCP Family Medicine; Visit Provider Anesthesiology | DX: N80.9 Endometriosis, unspecified (principal); R10.2 Pelvic and perineal pain; G89.29 Other chronic pain; F14.20 Cocaine dependence, uncomplicated | CPT/HCPCS: 99212 ==

== ENCOUNTER 2024-02-26 12:02 | Outpatient (AMB) | payer MEDICAID, SELFPAY ==
--- NOTE | 2024-02-26 11:59 | A.OFFVIS_ITS ---
Intake Visit Reasons: 6w follow up Intake Note: Patient presents today for tele visit follow up on: Bladder Spasm Urology Meds: Myrbetriq and vesicare Allergies to Antibiotic: No Known Allergies Blood Thinner: None Lead Web Developer Required: No Accompanied by: Self / Same As Patient Allergies oxybutynin [OXYBUTYNIN] Allergy (Unknown, Verified 02/26/24 12:05) EYES AND LIPS SWOLLEN tolterodine [Detrol] Allergy (Unknown, Verified 02/26/24 12:05) Facial Swelling Medication List - Last Reconciled 02/26/24 by RAJINDER Olivo- aripiprazole 5 mg PO DAILY baclofen 10 mg PO DAILY bupropion HCl XL 1 tab PO DAILY clonazepam mg PO clonidine HCl 0.2 mg PO TID ferrous sulfate (FeroSul) 325 mg PO DAILY fluticasone propionate 50 mcg/actuation 1 spray intranasal DAILY gabapentin 2 caps PO TID medroxyprogesterone mg IM methylphenidate HCl 1 tab PO BID methylphenidate HCl 10 mg PO BID mirabegron ER (Myrbetriq) 50 mg PO DAILY solifenacin (Vesicare) 5 mg PO DAILY 30 days HPI Comments Details: Marybel is a very pleasant 33-year-old female patient of Dr. Mahmood. She has a past medical history of endometriosis, interstitial cystitis, dyspareunia, fibromyalgia, and cocaine abuse. She is being followed up on today via telehealth for her longstanding history of lower urinary tract symptoms, interstitial cystitis, and pelvic pain. Of note, patient was seen approximately 6 weeks ago at which time VESIcare 5 mg was added to daily dosing of Myrbetriq 50 mg as patient had been reporting increased episodes of nocturia, urinary urgency, urinary frequency, and lower abdominal bladder pressure. In discussion with the patient today she reports improvement in episodes of nocturia she had been experiencing however still does continue with urinary urgency and frequency as well as bladder pressure. Discussed further treatment options to include trial of jump test of cedric in office urodynamics for further assessment and evaluation. Previous workup has included a retroperitoneal ultrasound noting bilateral kidneys with no calculi, lesions, and or hydronephrosis noted. The bladder is well distended and normal. Bilateral ureteral jets are demonstrated. Pre void bladder volume is approximately 290 mL. Postvoid bladder volume is approximately 10 mL. Patient previously followed up with Dr. Panchal and underwent multiple cysto hydrodistention as well as trying multiple medications such as oxybutynin, Detrol, and Elmiron all which she did not find helpful. She discusses attending pelvic floor therapy, acupuncture, dietary changes to follow interstitial diet and also did not find any of these interventions helpful. She reports following up with pain management here and has found this helpful for her ongoing pain issues. She reports significant improvement in overall pain she had been experiencing however she continues to experience bladder spasms, urinary urgency, and urinary frequency. She otherwise denies incontinence, nocturia, hematuria, foul smelling urine, changes to urinary stream, flank pain, fever, and or chills. She otherwise offers no other issues or concerns at this time. [facility] Medical History Cocaine addiction Spondylosis of cervical spine without myelopathy Chronic pain syndrome Dyspareunia Chronic pelvic pain in female Endometriosis Raynaud's disease Fibromyalgia Pain Hx of chest pain Overactive bladder Hx of endometriosis Back pain Anemia Hx of renal calculi GERD (gastroesophageal reflux disease) OCD (obsessive compulsive disorder) Anxiety Hx of migraines IC (interstitial cystitis) Surgical History Hx of dilation and curettage History of Hx of exploratory laparotomy Hx of colonoscopy Hx of cystoscopy Social History Patient Tobacco Use Status: Never used Tobacco Review of Systems Const Reports as per HPI ENT Reports no additional complaints Card Reports no additional complaints Resp Reports no additional complaints GI Reports as per HPI Reports as per HPI Musc Reports as per HPI Neuro Reports as per HPI Psych Reports as per HPI Endo Reports no additional complaints Physical Exam Const General: cooperative Resp Effort & Inspection: able to speak in complete sentences Psych Speech and movement: Clear speech present Attitude: cooperative Thought content: Normal thought content present Insight: Fair insight present (Psych) Judgement: Fair judgement present (Psych) Telehealth Telehealth Telehealth Platform: Telephone Location of provider rendering services: practice address Location of patient: address on file Patient Identification confirmed using: Name, : Yes Telehealth method: video Patient verbally consented to treatment: Yes Patient verbally consented to billing insurance company: Yes Patient informed of any privacy concerns related to visit: Yes Minutes spent on Phone/Video with Pt.: 15 Assessment & Plan Assessment & Plan (1) IC (interstitial cystitis): Code(s): N30.10 - Interstitial cystitis (chronic) without hematuria Category: Medical (2) Bladder spasms: Code(s): N32.89 - Other specified disorders of bladder Category: Medical (3) Urinary frequency: Code(s): R35.0 - Frequency of micturition Category: Medical (4) Urinary urgency: Code(s): R39.15 - Urgency of urination Category: Medical (5) Lower urinary tract symptoms: Code(s): R39.9 - Unspecified symptoms and signs involving the genitourinary system Category: Medical Plan Continue Myrbetriq 50 mg daily Start Vesicare 10 mg daily; prescription resent. Discussed at length potential causes for lower urinary tract symptoms patient is experiencing. Discussed, stress, educated the importance of drinking plenty of water daily. Discussed bladder triggers/irritants. Discussed possible near future in office cystoscopy and or urodynamics for further assessment evaluation if symptoms persist and/or worsen. Follow-up in 1-3 months; or sooner with any issues, concerns, and or questions. Medications: Changed From solifenacin (Vesicare) 5 mg PO DAILY 30 days 30 tabs 2RF To solifenacin (Vesicare) 10 mg (2 x 5 mg) PO DAILY 180 tabs 0RF 90 days Patient Instructions: The patient had an opportunity to ask questions regarding the treatment plan. A ll questions were answered. Physical exam, labs, and imaging were discussed and reviewed in detail. As well as risks, benefits, and discussion of treatment choices. No major barriers to understanding were identified. The patient expressed understanding and agreement with the above treatment plan. The patient was made aware they should contact our office by phone for worsening of their current condition, the appearance of new symptoms, or with any questions or concerns. Compliance is encouraged with any medications and follow up testing that is ordered. It is a privilege to be allowed the opportunity to participate in? your urological care.? Again, if you have any questions or concerns If you have any questions or concerns please do not hesitate to contact me. The office is [phone]. This note is constructed using voice recognition software. While every effort has been made to ensure accuracy branch operations coordinator errors may have been included. Yours sincerely, KAYLIN Olivo Coding Level of Care Code Tele Est Pt Level 3 (80136) Diagnoses IC (interstitial cystitis) N30.10 Bladder spasms N32.89 Urinary frequency R35.0 Urinary urgency R39.15 Lower urinary tract symptoms R39.9
--- OUTSIDE RECORDS SUMMARY | 2024-02-26 12:04 | XMS_ITS | Continuity of Care Document ---
Author Organization [facility] Address [address], [address] [place] [address]- Care Team Providers Care Psychiatric Nursing Aide Name Role Phone Chuck Valdez MD, [facility] Primary Care Phys [facility] [place] [facility] [place]/07/24 - 02/06/24 [facility] [address], [address] [place] [address]- Allergies, Adverse Reactions, Alerts Substance Reaction Severity Status oxybutynin Active Detrol 1 Active 1swelling in eyes face and mouth lips Medications ARIPiprazole 5 mg oral tablet 5 mg, 1, tablet, By Mouth, Daily, Refills 0, Maintenance, 01/11/24 11:05:00 EDT, Partial fill upon patient request if the prescription is for a schedule II opioid drug. Start Date: 01/11/24 Status: Ordered BACLOFEN 20 MG TABS BACLOFEN [...] 08/11/22 8:54:00 EST, Route to Pharmacy Electronically, [id number], Partial fill upon patient request if the [...] Refills, Maintenance, 10/14/23 15:02:00 EDT, ER Tablet, [facility]/pharmacy #[id number], Partial fill upon patient request if the prescription is for a schedule II opioid drug., 150, cm, 10/06... Start Date: 10/14/23 Status: Ordered Multivitamins By Mouth, Daily, 0 Refills, Maintenance, 09/09/15 18:55:03 Start Date: 09/09/15 Status: Ordered Probiotic Probiotic, 0 Refills, Maintenance, 11/04/23 10:47:00 EDT Start Date: 11/04/23 Status: Ordered propranolol 20 mg oral tablet 1, tablet, By Mouth, 2 times a day, Taken with breakfast and then with lunch, # 180 tablet, Refills1, Tot. Refills 1, Maintenance, 01/11/24 11:12:00 EDT, Do Not Route Start Date: 01/11/24 Stop Date: 07/09/24 Status: Ordered Ritalin 20 mg oral tablet 1.5 tablets, By Mouth, 2 times a day, 5 days a week, 0 Refills, Maintenance, 11/22/19 15:44:00 EDT Start Date: 11/22/19 Status: Ordered Tylenol 325 mg oral tablet 975 mg, 3, tablet, By Mouth, Every 8 hours, # 60 tablet, Refills 0, Tot. Refills 0, Maintenance, 08/11/22 8:54:00 EST, Route to Pharmacy Electronically, [facility]-[id number], Partial fill upon patient request if the prescription is for a... Start Date: 08/11/22 Status: Ordered VESIcare By Mouth, Daily, 0 Refills, Maintenance, 01/14/24 9:59:00 EDT, Partial fill upon patient request ifthe prescription is for a schedule II opioid drug. Start Date: 01/14/24 Status: Ordered Wellbutrin SR 150 mg/12 hours [...] RN Member Role: Primary Care Nurse Name: Markus RN, Emi Position: [facility] SN RN Member Role: Primary Care Nurse Name: Glenn Osborne MD Position: [facility] Outreach Member Role: PCP Address: Address: [address] [place] [address]- Care Team Related Persons Name: ALEKSEY PINEDA Address: [address] [place] [address] Name: SIDNEY LEI Address: home [address] [place] [address] Name: RENEE HONG Address: home [address] [place] [address] Name: JONH ENGLAND Address: home [address] [place] [address] Name: DIYA BLACK
--- OUTSIDE RECORDS SUMMARY | 2024-02-26 12:05 | XMS_ITS | Patient Health Record ---
Author Organization [facility] Address [address] [place] [address] Care Team Providers Care Inspector Final Assembly Conveyor Line Name Role Phone Brandon Castillo DO Unavailable Unavailable Reason For Referral No Information [...] tab(s) orally every 12 hours for 14 (MV)-[id number] 2 05/20/2012 Active Amoxicillin 500 mg 2 tab(s) orally 2 times a day for 14 (MV)-[id number] 4 05/20/2012 Active Problems Problem Type SNOMED Code ICD Code Onset Dates Problem Status W/U Status Risk Notes Problem Endometriosis (532668094) Endometriosis, site unspecified (617.9) 012 Active confirmed Phillip: Endometriosis (clinical); Problem Gastroesophageal reflux disease (026342333) GERD (gastroesophag eal reflux disease) (530.81) Active confirmed 07-07-12 GERD TRIED PRILOSEC OTC ?? DATES AND OMEPRAZOLE 20MG QD FROM 07-07-12 TO ??? Problem Constipation (81482501) Constipation NOS (564.00) Active confirmed (MV) Problem Abdominal pain (23259772) Abdominal Pain _unspecified site_ (789.00) Active confirmed (MV) Plan Of Treatment Pending Test Test Name Order Date HELICOBACTER PYLORI Ab, IgM 04/27/2012 HELICOBACTER PYLORI IgG,EIA 04/27/2012 Insurance Providers Payer Name Payer Address Payer Phone Subscriber Number Group Number Insured Name Patient Relationship to Insured Coverage Start Date Coverage End Date [facility] [address] [place], [place] [id number] Marybel Garcia Self - patient is the insured 2
== END 2024-02-26 12:28 | disposition home or self-care (01) ==
LOC: HO.HUSH 12:02
PROVIDERS: PCP Family Medicine; Visit Provider Nurse Practitioner Family
DX: N30.10 Interstitial cystitis (chronic) without hematuria (principal); N32.89 Other specified disorders of bladder; R35.0 Frequency of micturition; R39.15 Urgency of urination; R39.9 Unspecified symptoms and signs involving the genitourinary system
CPT/HCPCS: 99213

== ENCOUNTER → 2024-02-26 12:02 | Outpatient (BNVA) | payer MEDICAID, SELFPAY | PROVIDERS: PCP Family Medicine; Visit Provider Nurse Practitioner Family ==

== ENCOUNTER → 2024-04-06 10:55 | Outpatient (BNVA) | payer MEDICAID, SELFPAY | PROVIDERS: PCP Family Medicine; Visit Provider Internal Medicine ==

== ENCOUNTER 2024-04-25 11:36 | Outpatient (AMB) | payer MEDICAID, SELFPAY ==
--- NOTE | 2024-04-25 11:38 | MHC.OFFVIS ---
Vital Signs 04/25/24 11:39 Height 4 ft 11 in Weight 125 lb BMI 25.2 BP 116/56 L Blood Pressure Location Lt brachial Position Sitting Respiration 15 Pulse 80 Pulse Source Pulse Oximeter Pulse Oximetry (%) 98 Oxygen Delivery Method Room Air Intake Visit Reasons: ITDD Pump Refill Allergies oxybutynin [OXYBUTYNIN] Allergy (Unknown, Verified 04/25/24 11:41) EYES AND LIPS SWOLLEN tolterodine [Detrol] Allergy (Unknown, Verified 04/25/24 11:41) Facial Swelling Medication List - Last Reconciled 04/25/24 by eGovanna Veronica LPN aripiprazole 5 mg PO DAILY baclofen 10 mg PO DAILY bupropion HCl XL 1 tab PO DAILY clonazepam mg PO clonidine HCl 0.2 mg PO TID ferrous sulfate (FeroSul) 325 mg PO DAILY fluticasone propionate 50 mcg/actuation 1 spray intranasal DAILY gabapentin 2 caps PO TID medroxyprogesterone mg IM methylphenidate HCl 1 tab PO BID methylphenidate HCl 10 mg PO BID mirabegron ER (Myrbetriq) 50 mg PO DAILY solifenacin (Vesicare) 10 mg (2 x 5 mg) PO DAILY 90 days HPI HPI ITDD Pump Refill: Details: 33-year-old female who presents today to the office for a pump refill. Denies any recent cough, cold, infection, fever or other significant changes in medical history since last office visit.? [facility] Medical History Cocaine addiction Spondylosis of cervical spine without myelopathy Chronic pain syndrome Dyspareunia Chronic pelvic pain in female Endometriosis Raynaud's disease Fibromyalgia Pain Hx of chest pain Overactive bladder Hx of endometriosis Back pain Anemia Hx of renal calculi GERD (gastroesophageal reflux disease) OCD (obsessive compulsive disorder) Anxiety Hx of migraines IC (interstitial cystitis) Surgical History Hx of dilation and curettage History of Hx of exploratory laparotomy Hx of colonoscopy Hx of cystoscopy Social History Patient Tobacco Use Status: Never used Tobacco Review of Systems Const All systems reviewed & are unremarkable except as noted in HPI and below Physical Exam Vital Signs: Last Vital Signs Pulse 80 09/23/24 11:39 Resp 15 04/25/24 11:39 BP 116/56 L 04/25/24 11:39 Pulse Ox 98 04/25/24 11:39 Oxygen Delivery Method Room Air 04/25/24 11:39 BMI result Body Mass Index 25.2 General: Appears afebrile. Alert and oriented. Mood and affect appropriate. Follows and participates in conversation appropriately. Respiratory effort is unlabored. Able to transition from sit to stand unassisted. Ambulates with bilaterally normal heel strike and toe off. Office Procedures Details: The name and date of were verified, and informed consent was obtained for the procedure. The pump was interrogated. Patient was positioned prone on the bed and the area of the intrathecal pump was prepped with chloraprep. The fenestrated drape was sterilely applied over the area of the pump. Sterile gloves were worn and the aspiration system was assembled containing 2 22-gauge noncoring needle; the needle was connected to extension tubing which was connected to the 20-cc sterile syringe. The extension tubing was clamped. The pain pump was palpated under the skin in the patient's buttock. The needle was inserted through the skin and the central plug of the pain pump and fluid was aspirated. The clear fluid was aspirated. After that, a new batch of medication was obtained. The admixture was premixed in a 20cc syringe by [facility] compounding pharmacy. The syringe was connected to the bacterial filter, and then connected to the extension tubing. After that, the medication in the syringe was slowly instilled into the pump with aspirations. The patient PTM setting was reduced from 7 per day to 4 per day based on her reported usage. The pump was programmed and updated per the latest parameters. The details of this program are available in the pump log that was saved and uploaded to the EMR. 04962 - Refill Procedure code (CPT) selection complete Results Reviewed Results Reviewed: No imaging is available for review. Assessment & Plan Assessment & Plan (1) IC (interstitial cystitis): Code(s): N30.10 - Interstitial cystitis (chronic) without hematuria Category: Medical (2) Chronic pain syndrome: Code(s): G89.4 - Chronic pain syndrome Category: Medical Plan Patient is status post intrathecal pump relief. Patient tolerated procedure well and was discharged home in stable condition with discharge instructions.? All questions were answered. The patient PTM was reduced from 7 per day to 4 [address]. Scribed for Dr. Galvan by Hardy Menchaca, medical office specialist, on 04/25/2024. I, Dr. Galvan, have personally reviewed and agree with the information entered by the scribe. Coding Level of Care Code Procedure Only Diagnoses IC (interstitial cystitis) N30.10 Chronic pain syndrome G89.4 CPT Codes Intraethecal Drug Delivery System - CPT: 32431 - Refill ([id number])
[2024-04-25 11:39] VITALS: BP 116/56; PULSE 80; RESP 15; O2SAT 98; BMI 25.2
== END 2024-04-25 12:02 | disposition home or self-care (01) ==
PROVIDERS: PCP Family Medicine; Visit Provider Internal Medicine
DX: N30.10 Interstitial cystitis (chronic) without hematuria (principal); G89.4 Chronic pain syndrome; Z45.1 Encounter for adjustment and management of infusion pump
CPT/HCPCS: 62370

== ENCOUNTER → 2024-04-25 11:36 | Outpatient (BNVA) | payer MEDICAID, SELFPAY | PROVIDERS: PCP Family Medicine; Visit Provider Internal Medicine | DX: G89.4 Chronic pain syndrome (principal); N30.10 Interstitial cystitis (chronic) without hematuria; Z45.1 Encounter for adjustment and management of infusion pump | CPT/HCPCS: 62370 ==

== ENCOUNTER 2024-06-14 15:31 | Outpatient (AMB) | payer MEDICAID, SELFPAY ==
--- NOTE | 2024-06-14 15:31 | A.OFFVIS_ITS ---
Intake Visit Reasons: 3m follow up Intake Note: Patient presents today for tele visit follow up on: Bladder Spasm Urology Meds: Myrbetriq and vesicare Allergies to Antibiotic: No Known Allergies Blood Thinner: None Air Pollution Auditor Required: No Accompanied by: Self / Same As Patient Allergies oxybutynin [OXYBUTYNIN] Allergy (Unknown, Verified 06/14/24 16:05) EYES AND LIPS SWOLLEN tolterodine [Detrol] Allergy (Unknown, Verified 06/14/24 16:05) Facial Swelling Medication List - Last Reconciled 06/14/24 by RAJINDER Olivo- aripiprazole 5 mg PO DAILY baclofen 10 mg PO DAILY bupropion HCl XL 1 tab PO DAILY clonazepam mg PO clonidine HCl 0.2 mg PO TID ferrous sulfate (FeroSul) 325 mg PO DAILY fluticasone propionate 50 mcg/actuation 1 spray intranasal DAILY gabapentin 2 caps PO TID ibuprofen 800 mg PO TID medroxyprogesterone mg IM methylphenidate HCl 1 tab PO BID methylphenidate HCl 10 mg PO BID mirabegron ER (Myrbetriq) 50 mg PO DAILY solifenacin (Vesicare) 10 mg (2 x 5 mg) PO DAILY 90 days HPI Comments Details: Marybel is a very pleasant 33-year-old female patient of Dr. Mahmood. She has a past medical history of endometriosis, interstitial cystitis, dyspareunia, fibromyalgia, and cocaine abuse. She is being followed up on today via video telehealth for her longstanding history of lower urinary tract symptoms, interstitial cystitis, and pelvic pain. In discussion with the patient today she reports having started hypnosis with a therapist by the name of Maryjane and has since been able to stop her vaping. She reports she has not vaped over the last 7 days. She discusses attempting to work with her therapist on other issues as she would like to attempt coming off the many medications she is taking. She reports feeling Myrbetriq and VESIcare have been helpful in episodes of urinary urgency and frequency she had been experiencing. She discusses attempting to wean herself off of medication in attempt to undergo hypnosis as an intervention. Previous workup has included a retroperitoneal ultrasound noting bilateral kidneys with no calculi, lesions, and or hydronephrosis noted. The bladder is well distended and normal. Bilateral ureteral jets are demonstrated. Pre void bladder volume is approximately 290 mL. Postvoid bladder volume is approximately 10 mL. Patient previously followed up with Dr. Panchal and underwent multiple cysto hydrodistention as well as trying multiple medications such as oxybutynin, Detrol, and Elmiron all which she did not find helpful. She discusses attending pelvic floor therapy, acupuncture, dietary changes to follow interstitial diet and also did not find any of these interventions helpful. She reports following up with pain management here and has found this helpful for her ongoing pain issues. She reports significant improvement in overall pain she had been experiencing however she continues to experience bladder spasms at times. She otherwise denies incontinence, nocturia, hematuria, foul smelling urine, changes to urinary stream, flank pain, fever, and or chills. She otherwise offers no other issues or concerns at this time. [facility] Medical History Cocaine addiction Spondylosis of cervical spine without myelopathy Chronic pain syndrome Dyspareunia Chronic pelvic pain in female Endometriosis Raynaud's disease Fibromyalgia Pain Hx of chest pain Overactive bladder Hx of endometriosis Back pain Anemia Hx of renal calculi GERD (gastroesophageal reflux disease) OCD (obsessive compulsive disorder) Anxiety Hx of migraines IC (interstitial cystitis) Surgical History Hx of dilation and curettage History of Hx of exploratory laparotomy Hx of colonoscopy Hx of cystoscopy Social History Patient Tobacco Use Status: Never used Tobacco Review of Systems Const Reports as per HPI ENT Reports no additional complaints Card Reports no additional complaints Resp Reports no additional complaints GI Reports as per HPI Reports as per HPI Musc Reports as per HPI Neuro Reports as per HPI Psych Reports as per HPI Endo Reports no additional complaints Physical Exam Const General: cooperative, healthy appearing, comfortable, no acute distress, well developed, alert and awake Orientation/consciousness: patient oriented x3 Resp Effort & Inspection: normal respiratory effort and able to speak in complete sentences Neuro General: patient oriented x3 Psych Appearance: grossly normal Affect: normal affect Attitude: cooperative Thought content: Normal thought content present Insight: Fair insight present (Psych) Judgement: Fair judgement present (Psych) Telehealth Telehealth Telehealth Platform: [employer] Location of provider rendering services: practice address Location of patient: address on file Patient Identification confirmed using: Name, : Yes Telehealth method: video Patient verbally consented to treatment: Yes Patient verbally consented to billing insurance company: Yes Patient informed of any privacy concerns related to visit: Yes Minutes spent on Phone/Video with Pt.: 15 Assessment & Plan Assessment & Plan (1) Urinary urgency: Code(s): R39.15 - Urgency of urination Category: Medical (2) Urinary frequency: Code(s): R35.0 - Frequency of micturition Category: Medical (3) Bladder spasms: Code(s): N32.89 - Other specified disorders of bladder Category: Medical (4) IC (interstitial cystitis): Code(s): N30.10 - Interstitial cystitis (chronic) without hematuria Category: Medical (5) Lower urinary tract symptoms: Code(s): R39.9 - Unspecified symptoms and signs involving the genitourinary system Category: Medical Plan Patient will attempt to decrease dosing of Myrbetriq and VESIcare as she is attempting to undergo hypnosis for multiple medical issues. She currently denies any bothersome urinary issues or concerns. She reports be happy with current voiding parameters. Educated patient to office with any questions, concerns, and or issues. Will follow-up in 3 months to further assess how patient is feeling and doing Patient Instructions: The patient had an opportunity to ask questions regarding the treatment plan. All questions were answered. Physical exam, labs, and imaging were discussed and reviewed in detail. As well as risks, benefits, and discussion of treatment choices. No major barriers to understanding were identified. The patient expressed understanding and agreement with the above treatment plan. The patient was made aware they should contact our office by phone for worsening of their current condition, the appearance of new symptoms, or with any questions or concerns. Compliance is encouraged with any medications and follow up testing that is ordered. It is a privilege to be allowed the opportunity to participate in? your urological care.? Again, if you have any questions or concerns If you have any questions or concerns please do not hesitate to contact me. The office is [phone]. This note is constructed using voice recognition software. While every effort has been made to ensure accuracy payroll secretary errors may have been included. Yours sincerely, KAYLIN Olivo Coding Level of Care Code Tele Est Pt Level 3 (99444) Diagnoses Urinary urgency R39.15 Urinary frequency R35.0 Bladder spasms N32.89 IC (interstitial cystitis) N30.10 Lower urinary tract symptoms R39.9
== END 2024-06-14 16:26 | disposition home or self-care (01) ==
LOC: HO.HUSH 15:31
PROVIDERS: PCP Family Medicine; Visit Provider Nurse Practitioner Family
DX: R39.15 Urgency of urination (principal); R35.0 Frequency of micturition; N32.89 Other specified disorders of bladder; N30.10 Interstitial cystitis (chronic) without hematuria; R39.9 Unspecified symptoms and signs involving the genitourinary system
CPT/HCPCS: 99213

== ENCOUNTER → 2024-06-14 15:31 | Outpatient (BNVA) | payer MEDICAID, SELFPAY | PROVIDERS: PCP Family Medicine; Visit Provider Nurse Practitioner Family ==

== ENCOUNTER 2024-08-08 11:41 | Outpatient (AMB) | payer MEDICAID, SELFPAY ==
[2024-08-08 12:08] VITALS: BP 147/98; PULSE 81; O2SAT 98; BMI 27.3
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
== END 2024-08-08 12:09 | disposition home or self-care (01) ==
PROVIDERS: PCP Family Medicine; Visit Provider Anesthesiology
DX: G89.4 Chronic pain syndrome (principal); N80.9 Endometriosis, unspecified; R10.2 Pelvic and perineal pain; F14.20 Cocaine dependence, uncomplicated; Z45.1 Encounter for adjustment and management of infusion pump
CPT/HCPCS: 95991; 99213

== ENCOUNTER → 2024-08-08 11:41 | Outpatient (BNVA) | payer MEDICAID, SELFPAY | PROVIDERS: PCP Family Medicine; Visit Provider Anesthesiology | DX: N80.9 Endometriosis, unspecified (principal); R10.2 Pelvic and perineal pain; G89.29 Other chronic pain; F14.20 Cocaine dependence, uncomplicated | CPT/HCPCS: 99212 ==

== ENCOUNTER 2024-10-04 15:55 | Outpatient (AMB) | payer MEDICAID, SELFPAY ==
--- NOTE | 2024-10-04 15:55 | A.OFFVIS_ITS ---
Intake Visit Reasons: three-month follow-up Allergies oxybutynin [OXYBUTYNIN] Allergy (Unknown, Verified 10/04/24 16:18) EYES AND LIPS SWOLLEN tolterodine [Detrol] Allergy (Unknown, Verified 10/04/24 16:18) Facial Swelling Medication List - Last Reconciled 10/04/24 by RAJINDER Olivo-BC acetaminophen (Tylenol Extra Strength) 500 mg PO Q6H PRN aripiprazole 5 mg PO DAILY baclofen 10 mg PO DAILY bupropion HCl XL 1 tab PO DAILY clonazepam mg PO clonidine HCl 0.2 mg PO TID escitalopram oxalate mg PO DAILY ferrous sulfate (FeroSul) 325 mg PO DAILY fluticasone propionate 50 mcg/actuation 1 spray intranasal DAILY gabapentin 2 caps PO TID ibuprofen 800 mg PO TID medroxyprogesterone mg IM methylphenidate HCl 1 tab PO BID methylphenidate HCl 10 mg PO BID PNV cmb#95-ferrous fumarate-FA 28 mg iron- 800 mcg () tabs PO DAILY HPI Comments Details: Marybel is a very pleasant 33-year-old female patient of Chuck Valdez. She has a past medical history of endometriosis, interstitial cystitis, dyspareunia, fibromyalgia, and cocaine abuse. She is being followed up on today via video telehealth for her longstanding history of lower urinary tract symptoms, interstitial cystitis, and pelvic pain. In discussion with the patient today she reports having come off Myrbetriq and VESIcare and feels lower urinary tract symptoms have been manageable. She does report noting continued episodes of nocturia however feels she is managing these well independently. She also reports feeling intermittent episodes of a possible urinary tract infection however feels symptoms are intermittent and self resolving. We discussed follow-up in office for further assessment evaluation and or obtaining urine for urinalysis. Previous workup has included a retroperitoneal ultrasound 05/25 noting bilateral kidneys with no calculi, lesions, and or hydronephrosis noted. The bladder is well distended and normal. Bilateral ureteral jets are demonstrated. Pre void bladder volume is approximately 290 mL. Postvoid bladder volume is approximately 10 mL. Patient previously followed up with Dr. Panchal and underwent multiple cysto hydrodistention as well as trying multiple medications such as oxybutynin, Detrol, and Elmiron all which she did not find helpful. She discusses attending pelvic floor therapy, acupuncture, dietary changes to follow interstitial diet and also did not find any of these interventions helpful. She reports following up with pain management here and has found this helpful for her ongoing pain issues. She reports significant improvement in overall pain she had been experiencing however continues with neck and back pain. She otherwise denies incontinence, visible/gross hematuria, foul smelling urine, changes to urinary stream, flank pain, fever, and or chills. She discusses being open to other treatment options for lower urinary tract symptoms however does not wish to continue with oral medication therapy. She otherwise offers no other issues or concerns at this time. [facility] Medical History Cocaine addiction Spondylosis of cervical spine without myelopathy Chronic pain syndrome Dyspareunia Chronic pelvic pain in female Endometriosis Raynaud's disease Fibromyalgia Pain Hx of chest pain Overactive bladder Hx of endometriosis Back pain Anemia Hx of renal calculi GERD (gastroesophageal reflux disease) OCD (obsessive compulsive disorder) Anxiety Hx of migraines IC (interstitial cystitis) Surgical History Hx of dilation and curettage History of Hx of exploratory laparotomy Hx of colonoscopy Hx of cystoscopy Social History Patient Tobacco Use Status: Never used Tobacco Review of Systems Const Reports as per HPI ENT Reports no additional complaints Card Reports no additional complaints Resp Reports no additional complaints GI Reports as per HPI Reports as per HPI Musc Reports as per HPI Neuro Reports as per HPI Psych Reports as per HPI Endo Reports no additional complaints Physical Exam Const General: cooperative Resp Effort & Inspection: normal respiratory effort and able to speak in complete sentences Psych Appearance: grossly normal Mental Status: mental status grossly normal Speech and movement: Clear speech present Attitude: cooperative Thought process: Normal thought process present Thought content: Normal thought content present Insight: Fair insight present (Psych) Judgement: Fair judgement present (Psych) Telehealth Telehealth Telehealth Platform: [facility] Location of provider rendering services: practice address Location of patient: address on file Patient Identification confirmed using: Name, : Yes Telehealth method: video Patient verbally consented to treatment: Yes Patient verbally consented to billing insurance company: Yes Patient informed of any privacy concerns related to visit: Yes Minutes spent on Phone/Video with Pt.: 15 Assessment & Plan Assessment & Plan (1) Urinary urgency: Code(s): R39.15 - Urgency of urination Category: Medical (2) Urinary frequency: Code(s): R35.0 - Frequency of micturition Category: Medical (3) Bladder spasms: Code(s): N32.89 - Other specified disorders of bladder Category: Medical (4) IC (interstitial cystitis): Code(s): N30.10 - Interstitial cystitis (chronic) without hematuria Category: Medical (5) Lower urinary tract symptoms: Code(s): R39.9 - Unspecified symptoms and signs involving the genitourinary system Category: Medical Plan Stop Myrbetriq and VESIcare We discussed further treatment options and risks and benefits of these treatment options; she would like to think about these treatment options. Patient feels lower urinary tract symptoms are manageable independently at this time. Discussed bladder triggers/irritants. We discussed importance of adequate hydration relation to lower urinary tract symptoms as well as overall health and well-being. Will follow-up in 1-3 months with PVR; or sooner with any issues, concerns, and or questions Patient Instructions: The patient had an opportunity to ask questions regarding the treatment plan. All questions were answered. Physical exam, labs, and imaging were discussed and reviewed in detail. As well as risks, benefits, and discussion of treatment choices. No major barriers to understanding were identified. The patient expressed understanding and agreement with the above treatment plan. The patient was made aware they should contact our office by phone for worsening of their current condition, the appearance of new symptoms, or with any questions or concerns. Compliance is encouraged with any medications and follow up testing that is ordered. It is a privilege to be allowed the opportunity to participate in? your urological care.? Again, if you have any questions or concerns If you have any questions or concerns please do not hesitate to contact me. The office is [phone]. This note is constructed using voice recognition software. While every effort has been made to ensure accuracy machine design checker errors may have been included. Yours sincerely, KAYLIN Olivo Coding Level of Care Code Tele Est Pt Level 3 (47122) Diagnoses Urinary urgency R39.15 Urinary frequency R35.0 Bladder spasms N32.89 IC (interstitial cystitis) N30.10 Lower urinary tract symptoms R39.9
--- OUTSIDE RECORDS SUMMARY | 2024-10-04 19:54 | XMS_ITS | Referral Summary ---
Author Organization [facility] Address [address] [place] [address] Care Team Providers Care Machine Packaging Technician Name Role Phone Chuck AliciaJaylene, Kharme Primary Care Provider Allergies Active Allergy Reactions Criticality Noted Date Comments Tolterodine Angioedema,Abdominal Pain High 1 Oxybutynin Swelling,Angioedema High 07/24/2021 Medications clotrimazole (LOTRIMIN) 1% vaginal cream Insert 1 Applicatorful into the vagina nightly. 45 g 1 Active nitrofurantoin monohydrate/ma crocrystals (MACROBID) 100 mg capsule Take 1 capsule (100 mg total) by mouth 2 times a day. 10 capsule 1 Active Social History Tobacco Use Types Packs/Day Years Used Date Smoking Tobacco: Former Smokeless Tobacco: Never Alcohol Use Standard Drinks/Week Comments Yes 0 (1 standard drink = 0.6 oz pur e alcohol) socially, rarely Comments No Sex and Gender Information Value Date Recorded Sex Assigned at Not on file Legal Sex Female 2:46 PM EST Gender Identity Not on file Sexual Orientation Not on file Last Filed Vital Signs Vital Sign Reading Time Taken Comments Blood Pressure 156/92 07/24/2021 7:24 PM EST Pulse 88 07/24/2021 7:24 PM EST Temperature 36.9 ??C (98.5 ??F) 07/24/2021 3:03 PM ES T Respiratory Rate 17 07/24/2021 7:24 PM EST Oxygen Saturation 99% 07/24/2021 7:24 PM EST Inhaled Oxygen Concentration - - Weight - - Height - - Body Mass Index - - Plan of Treatment Not on file Insurance [facility] Member Subscriber Plan / Payer (Ef fective 2021-Present) Name:JoseMoses islasy Relation to Subscriber:Self Name:Marybel Garcia Payer ID:[id number] Group ID:Not on file Type:Not on file Address: P Nancie THAKUR [address] [place] [id number] Care Teams Machine Packaging Technician Relationship Specialty Start Date End Date Nila Hummel [address] [place] [address] PCP - General Family Medicine 07/24/21
--- OUTSIDE RECORDS SUMMARY | 2024-10-04 19:54 | XMS_ITS | Patient Health Record ---
Author Organization [facility] Address [address] [place] [address] Care Team Providers Care Catalog Library Assistant Name Role Phone Brandon Castillo DO Unavailable [...] tab(s) orally every 12 hours for 14 (MV)-[id number] 2 05/20/2012 Active Amoxicillin 500 mg 2 tab(s) orally 2 times a day for 14 (MV)-[id number] 4 05/20/2012 Active Problems Problem Type SNOMED Code ICD Code Onset Dates Problem Status W/U Status Risk Notes Problem Endometriosis (597692848) Endometriosis, site unspecified (617.9) 012 Active confirmed Phillip: Endometriosis (clinical); Problem Gastroesophageal reflux disease (251761287) GERD (gastroesophag eal reflux disease) (530.81) Active confirmed 07-07-12 GERD TRIED PRILOSEC OTC ?? DATES AND OMEPRAZOLE 20MG QD FROM 07-07-12 TO ??? Problem Constipation (26728257) Constipation NOS (564.00) Active confirmed (MV) Problem Abdominal pain (99645763) Abdominal Pain _unspecified site_ (789.00) Active confirmed (MV) Plan Of Treatment Pending Test Test Name Order Date HELICOBACTER PYLORI Ab, IgM 04/27/2012 HELICOBACTER PYLORI IgG,EIA 04/27/2012 Insurance Providers Payer Name Payer Address Payer Phone Subscriber Number Group Number Insured Name Patient Relationship to Insured Coverage Start Date Coverage End Date [facility] [address] [place], [place] [id number] Marybel Garcia Self - patient is the insured 2
--- OUTSIDE RECORDS SUMMARY | 2024-10-04 19:54 | XMS_ITS | Clinical Summary ---
Author Organization [facility] Address [address] [place] [address] Care Team Providers Care Plant And Equipment Worker Name Role Phone Chuck AliciaJayleneNila Primary Care Provider Allergies Active Allergy Reactions [...] Mass Index - - Plan of Treatment Health Maintenance Due Date Last Done Comments Cervical Cancer Screening 1990 HIV Screening 1990 HPV and Pap Smear 1990 Pap Smear 1990 Varicella Vaccines (1 of 2 - 13+ 2-dose series) 10/08/2003 Hepatitis B Vaccines (1 of 3 - 19+ 3-dose series) 2009 COVID-19 Vaccine (1 - 2023-2 5 season) 2024 Influenza Vaccine (#1) 2024 Alcohol/Substance Use Screening 08/03/2024 DTaP,Tdap,and Td Vaccines (2 - Td or Tdap) 08/31/2025 08/31/2015 RSV Vaccine (60+ years old a nd patients) (1 - 1-dose 75+ series) 2065 Pneumococcal Vaccine: Pediat myra (0-5 Years) and At-Risk Patients (6-50 Years) Aged Out No longer eligible b ased on patient's age to complete this topic Insurance [employer] Care Teams Plant And Equipment Worker Relationship Specialty Start Date End Date Nila Hummel [address] [place] [address] PCP - General Family Medicine 07/24/21
== END 2024-10-04 16:34 | disposition home or self-care (01) ==
LOC: HO.HUSH 15:55
PROVIDERS: PCP Family Medicine; Visit Provider Nurse Practitioner Family
DX: R39.15 Urgency of urination (principal); R35.0 Frequency of micturition; N32.89 Other specified disorders of bladder; N30.10 Interstitial cystitis (chronic) without hematuria; R39.9 Unspecified symptoms and signs involving the genitourinary system
CPT/HCPCS: 99213

== ENCOUNTER → 2024-10-04 15:55 | Outpatient (BNVA) | payer MEDICAID, SELFPAY | PROVIDERS: PCP Family Medicine; Visit Provider Nurse Practitioner Family ==

== ENCOUNTER 2024-11-03 13:22 | Outpatient (AMB) | payer MEDICAID, SELFPAY ==
--- NOTE | 2024-11-03 13:24 | A.OFFVIS_ITS ---
Intake Visit Reasons: 1m/PVR Intake Note: Patient presents today for follow up visit on: bladder spasm Urology Meds: none Allergies to Antibiotic: No Known Allergies Blood Thinner: None Microfilm Processor Required: No Accompanied by: Self / Same As Patient Allergies oxybutynin [OXYBUTYNIN] Allergy (Unknown, Verified 11/03/24 18:53) EYES AND LIPS SWOLLEN tolterodine [Detrol] Allergy (Unknown, Verified 11/03/24 18:53) Facial Swelling Medication List - Last Reconciled 11/03/24 by RAJINDER Olivo-JERRELL acetaminophen (Tylenol Extra Strength) 500 mg PO Q6H PRN aripiprazole 3 mg PO DAILY baclofen 10 mg PO DAILY bupropion HCl XL 1 tab PO DAILY clonazepam mg PO clonidine HCl 0.2 mg PO TID escitalopram oxalate mg PO DAILY ferrous sulfate (FeroSul) 325 mg PO DAILY fluticasone propionate 50 mcg/actuation 1 spray intranasal DAILY gabapentin 2 caps PO TID ibuprofen 800 mg PO TID medroxyprogesterone mg IM methylphenidate HCl 1 tab PO BID methylphenidate HCl 10 mg PO [facility]ID [facility]-FA 28 mg iron- 800 mcg () tabs PO DAILY propranolol ER mg PO DAILY HPI Comments Details: Marybel is a very pleasant 34-year-old female patient of Chuck Valdez. She has a past medical history of endometriosis, interstitial cystitis, dyspareunia, fibromyalgia, and cocaine abuse. She presents to the office today for follow-up of her lower urinary tract symptoms, interstitial cystitis, and pelvic pain. In discussion with the patient today she reports having discontinued Myrbetriq and VESIcare as she did not feel these were helpful in lower urinary tract symptoms she has been experiencing for many years of her life. She continues to report urinary urgency, urinary frequency, and nocturia. She reports despite trial of medication in the past such as oxybutynin, Detrol, and Elmiron she has not found any of these treatment options helpful. She reports despite pelvic floor therapy, acupuncture, dietary changes and previous cystoscopy with hydrodistention with Dr. Panchal she has not found relief in her lower urinary tract symptoms. She reports that although she knows she is not currently having a flare of interstitial cystitis she does continue to experience bothersome lower urinary/irritative symptoms. Previous workup has included a retroperitoneal ultrasound 05/25 noting bilateral kidneys with no calculi, lesions, and or hydronephrosis noted. The bladder is well distended and normal. Bilateral ureteral jets are demonstrated. Pre void bladder volume is approximately 290 mL. Postvoid bladder volume is approximately 10 mL. She reports following up with pain management here and has found this helpful for her ongoing pain issues. She reports significant improvement in overall pain she had been experiencing however continues with neck and back pain. She otherwise denies incontinence, visible/gross hematuria, foul smelling urine, changes to urinary stream, flank pain, fever, and or chills. She discusses being open to other treatment options for lower urinary tract symptoms however does not wish to continue with oral medication therapy. In office urinalysis results reviewed with the patient today. PVR 0mls. She otherwise offers no other issues or concerns at this time. She reports urinary frequency and pain that results in significant disruptions to her sleep and daily activities, frequently voiding every 20 minutes when circumstances allow, with considerable pain if delayed. There is a past history of interstitial cystitis management. The patient expresses hesitation toward invasive procedures, fearing an exacerbation of her condition. Current management issues surround managing embarrassing aspects of procedures and consideration of diagnostic approaches to better address symptom burden. We discussed further treatment options to include cystoscopy and or urodynamics for further assessment evaluation. Patient was informed and verbally consented to the use of an ambient scribe for clinic note documentation during this visit. Discussion Notes During our discussion, I comprehensively reviewed the current understanding and management of interstitial cystitis, detailing how the cystoscopy and or urodynamics may refine treatment directions. We explored the potential benefits and risks associated with each procedure, including the minimal discomfort typically experienced during such diagnostics without sedation. I clarified all her queries regarding embarrassment factor and procedural dynamics, emphasizing supportive measures during any intervention. A pamphlet on these procedures was provided, and the patient is encouraged to weigh her options and engage in further consultations to discuss either procedure further. [facility] Medical History Cocaine addiction Spondylosis of cervical spine without myelopathy Chronic pain syndrome Dyspareunia Chronic pelvic pain in female Endometriosis Raynaud's disease Fibromyalgia Pain Hx of chest pain Overactive bladder Hx of endometriosis Back pain Anemia Hx of renal calculi GERD (gastroesophageal reflux disease) OCD (obsessive compulsive disorder) Anxiety Hx of migraines IC (interstitial cystitis) Surgical History Hx of dilation and curettage History of Hx of exploratory laparotomy Hx of colonoscopy Hx of cystoscopy Social History Patient Tobacco Use Status: Never used Tobacco Review of Systems Const Reports as per HPI ENT Reports no additional complaints Card Reports no additional complaints Resp Reports no additional complaints GI Reports as per HPI Reports as per HPI Musc Reports as per HPI Neuro Reports as per HPI Psych Reports as per HPI Endo Reports no additional complaints Physical Exam Const General: cooperative, healthy appearing, comfortable, no acute distress, well developed, alert and awake Orientation/consciousness: patient oriented x3 Limitations: no limitations Resp Effort & Inspection: normal respiratory effort and able to speak in complete sentences Neuro General: patient oriented x3 Psych Appearance: grossly normal and well kempt Mental Status: mental status grossly normal Speech and movement: Clear speech present Affect: normal affect Attitude: cooperative Thought process: Normal thought process present Thought content: Normal thought content present Insight: Fair insight present (Psych) Judgement: Fair judgement present (Psych) Office Procedures Post Void Residual Post Residual Void Post Void Residual (PVR): 0 [id number] Void Residual by ultrasound Results AMB Urinalysis, Automated UA Leukoctes 0 Kelli/uL Last Edit by Paty Cason on 11/03/24 13:47 UA Nitrite Last Edit by Paty Cason on 11/03/24 13:47 UA Urobilinogen 0.2 mg/dL Last Edit by Paty Cason on 11/03/24 13:47 UA Protein 15 mg/dL Last Edit by Paty Cason on 11/03/24 13:47 UA pH 6.0 Last Edit by Paty Cason on 11/03/24 13:47 UA Blood 0 Escobar/uL Last Edit by Paty Nasuzanna on 11/03/24 13:47 UA Specific [place] 1.025 Last Edit by Paty Cason on 11/03/24 13:47 UA Ketone Last Edit by Paty Cason on 11/03/24 13:47 UA Bilirubin 0 mg/dL Last Edit by Paty Cason on 11/03/24 13:47 UA Glucose 0 mg/dL Last Edit by Paty Cason on 11/03/24 13:47 Results Reviewed Results Reviewed: Laboratory Last Values Urine pH (Auto) 6.0 11/03/24 13:46 Specific [place] (Auto) 1.025 11/03/24 13:46 Urine Protein (Auto) 15 mg/dL 11/03/24 13:46 Glucose (UA)(Auto) 0 mg/dL 11/03/24 13:46 Urine Blood (Auto) 0 Escobar/uL 11/03/24 13:46 Urine Bilirubin (Auto) 0 mg/dL 11/03/24 13:46 Urine Urobilinogen (Auto) 0.2 mg/dL 11/03/24 13:46 Leukocyte Esterase (Auto) 0 Kelli/uL 11/03/24 13:46 Assessment & Plan Assessment & Plan (1) Urinary urgency: Code(s): R39.15 - Urgency of urination Category: Medical (2) Urinary frequency: Code(s): R35.0 - Frequency of micturition Category: Medical (3) Bladder spasms: Code(s): N32.89 - Other specified disorders of bladder Category: Medical (4) IC (interstitial cystitis): Code(s): N30.10 - Interstitial cystitis (chronic) without hematuria Category: Medical (5) Lower urinary tract symptoms: Code(s): R39.9 - Unspecified symptoms and signs involving the genitourinary system Category: Medical Plan In office urinalysis results reviewed with the patient today; as noted above. PVR 0 mL. We discussed at length potential causes of lower urinary tract symptoms patient was experiencing as well as further treatment options and risks and benefits of these treatment options. All questions were answered. We discussed bladder triggers/irritants. Information provided regarding cystoscopy and or urodynamics Patient will call to schedule follow-up appointment. Orders: Orders AMB Urinalysis Automated Today Z13.9 - Encounter for screening, unspecified AMB Post Void Residual by ultrasound Today R39.15 - Urgency of urination Patient Instructions: The patient had an opportunity to ask questions regarding the treatment plan. All questions were answered. Physical exam, labs, and imaging were discussed and reviewed in detail. As well as risks, benefits, and discussion of treatment choices. No major barriers to understanding were identified. The patient expressed understanding and agreement with the above treatment plan. The patient was made aware they should contact our office by phone for worsening of their current condition, the appearance of new symptoms, or with any questions or concerns. Compliance is encouraged with any medications and follow up testing that is ordered. It is a privilege to be allowed the opportunity to participate in? your urological care.? Again, if you have any questions or concerns If you have any questions or concerns please do not hesitate to contact me. The office is [phone]. This note is constructed using voice recognition software. While every effort has been made to ensure accuracy database software technician errors may have been included. Yours sincerely, KAYLIN Olivo Coding Level of Care Code Est Pt Level 4 (10410) Diagnoses Urinary urgency R39.15 Urinary frequency R35.0 Bladder spasms N32.89 IC (interstitial cystitis) N30.10 Lower urinary tract symptoms R39.9 CPT Codes Post Residual Void - PVR CPT Code: 34583-Ivoa Void Residual by ultrasound ([id number]) Time Spent (min) 25
--- OUTSIDE RECORDS SUMMARY | 2024-11-03 14:34 | XMS_ITS | Referral Summary ---
Author Organization [facility] Address [address] [place] [address] Care Team Providers Care Fisher Trammel Net Name Role Phone Chuck AliciaJaylene, Kharme Primary [...] Plan of Treatment Not on file Insurance [facility] Care Teams Fisher Trammel Net Relationship Specialty Start Date End Date Nila Hummel [address] [place] [address] PCP - General Family Medicine 07/24/21
--- OUTSIDE RECORDS SUMMARY | 2024-11-03 14:34 | XMS_ITS | Clinical Summary ---
Author Organization [facility] Address [address] [place] [address] Care Team Providers Care Clinical Unit Coordinator Name Role Phone Chuck AliciaJayleneNila Primary Care [...] Vaccine (1 - 2023-2 5 season) 2024 Alcohol/Substance Use Screening 08/03/2024 Influenza Vaccine (Season Ended) 2025 DTaP,Tdap,and Td Vaccines (2 - Td or Tdap) 08/31/2025 08/31/2015 RSV Vaccine (60+ years old a nd patients) (1 - 1-dose 75+ series) 2065 Pneumococcal Vaccine: Pediat myra (0-5 Years) and At-Risk Patients (6-50 Years) Aged Out No longer eligible b ased on patient's age to complete this topic Insurance [employer] Care Teams Clinical Unit Coordinator Relationship Specialty Start Date End Date Nila [address]mel [address] [place] [address] PCP - General Family Medicine 07/24/21
== END 2024-11-03 14:19 | disposition home or self-care (01) ==
LOC: HO.HUSH 13:22
PROVIDERS: PCP Family Medicine; Visit Provider Nurse Practitioner Family
DX: R39.15 Urgency of urination (principal); R35.0 Frequency of micturition; N32.89 Other specified disorders of bladder; N30.10 Interstitial cystitis (chronic) without hematuria; R39.9 Unspecified symptoms and signs involving the genitourinary system; Z13.9 Encounter for screening, unspecified
CPT/HCPCS: 99214

== ENCOUNTER → 2024-11-03 13:22 | Outpatient (BNVA) | payer MEDICAID, SELFPAY | PROVIDERS: PCP Family Medicine; Visit Provider Nurse Practitioner Family | DX: R39.15 Urgency of urination (principal); R35.0 Frequency of micturition; N32.89 Other specified disorders of bladder; N30.10 Interstitial cystitis (chronic) without hematuria | CPT/HCPCS: 51798; 81003; 99212 ==

== ENCOUNTER 2024-11-07 14:48 | Outpatient (AMB) | payer MEDICAID, SELFPAY ==
[2024-11-07 14:55] VITALS: BP 129/85; PULSE 74; RESP 16; O2SAT 96; BMI 27.1
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
--- OUTSIDE RECORDS SUMMARY | 2024-11-07 17:40 | XMS_ITS | Clinical Summary ---
Author Organization [facility] Address [address] [place] [address] Care Team Providers Care Industrial Hire Sales Assistant Name Role Phone Chuck AliciaJayleneNila Primary Care [...] patient's age to complete this topic Insurance Applifier Care Teams Industrial Hire Sales Assistant Relationship Specialty Start Date End Date Nila Hummel [address] [place] [phone] PCP - General Family Medicine 07/24/21
--- OUTSIDE RECORDS SUMMARY | 2024-11-07 17:40 | XMS_ITS | Referral Summary ---
Author Organization [facility] Address [address] [place] [address] Care Team Providers Care Roll Filler Name Role Phone Chuck AliciaJaylene, Kharme Primary [...] Plan of Treatment Not on file Insurance [facility] Care Teams Roll Filler Relationship Specialty Start Date End Date Nila Hummel [address] [place] [phone] PCP - General Family Medicine 07/24/21
--- OUTSIDE RECORDS SUMMARY | 2024-11-07 17:40 | XMS_ITS | Continuity of Care Document ---
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 Name Role Phone Not on Staff, PCP Primary Care Physician Unavail able [place] [facility] [place]03[place]24 - 11/05/[address] [address]- Encounter Diagnosis Trauma(Final) - 11/03/24 Chest pain(Final) - 11/03/24 Discharge Disposition: A-D/C Home Attending Physician: Erica Farley MD Admitting Physician: Jeffrey Mcdonnell MD Referring Physician: Not on Staff, Referring MD Encounter Type: Disch Obv Allergies, Adverse Reactions, Alerts Substance Criticality Severity Reaction Reaction Severity Status oxybutynin Active tolterodine Active Detrol 1 Active 1swelling in eyes face and mouth lips Medications ARIPiprazole 10 mg oral tablet 1/3 tablet, By Mouth, Daily, # 30 tablet, Refills 0, Maintenance, 11/04/24 9:41:00 AM EDT, Partial fill upon patient request if the prescription is for a schedule II opioid drug. Start Date: 11/04/24 Status: Ordered Quantity: 30.0 Unit: tablet Repeat number: 1 BACLOFEN 20 MG TABS BACLOFEN 20 MG TABS, 1, tablet, By Mouth, Daily, 0 Refills, Maintenance, 11/04/24 9:39:00 AM EDT Start Date: 11/04/24 Status: Ordered Repeat number: 1 buPROPion 300 mg/24 hours (XL) oral tablet, extended release 1 tablet = 300 mg, By Mouth, Daily, # 30 tablet, 0 Refills, Maintenance, 11/04/24 1:17:00 PM EDT, ER Tablet, Partial fill upon patient request if the prescription is for a schedule II opioid drug. Start Date: 11/04/24 Status: Ordered Quantity: 30.0 Unit: tablet Repeat number: 1 clonazePAM 0.25 mg oral tablet, disintegrating 2 tablet = 0.5 mg, By Mouth, Daily, # 30 tablet, 0 Refills, Maintenance, 11/04/24 9:40:00 AM EDT, Partial fill upon patient request if the prescription is for a schedule II opioid drug. Start Date: 11/04/24 Status: Ordered Quantity: 30.0 Unit: tablet Repeat number: 1 cloNIDine 0.2 mg oral tablet 0.2 mg, 1, tablet, By Mouth, 3 times a day, Refills 0, Maintenance, 11/04/24 9:38:00 AM EDT, Partial fill upon patient request if the prescription is for a schedule II opioid drug. Start Date: 11/04/24 Status: Ordered Repeat number: 1 depo-subQ provera 104 mg/0.65 mL subcutaneous suspension INJECT 0.65 ML EVERY 3 MONTHS BY SUBCUTANEOUS ROUTE FOR 84 DAYS, FOR CONTRACEPTION. Start Date: 11/04/24 Status: Ordered Repeat number: 1 Dilaudid Inj 0.5 mg, Injection, IV Push Slowly, Every 4 hours, PRN for Pain , Severe, Routine, 11/04/24 10:14:00 AM EDT Start Date: 11/04/24 Stop Date: 11/06/24 Status: Discontinued Repeat number: 1 docusate sodium 100 mg oral capsule 1 capsule = 100 mg, By Mouth, 3 times a day, 0 Refills, Maintenance, 11/04/24 1:15:00 PM EDT, Partialfill upon patient request if the prescription is for a schedule II opioid drug. Start Date: 11/04/24 Status: Ordered Repeat number: 1 escitalopram 20 mg oral tablet 1 tablet = 20 mg, By Mouth, Daily, # 30 tablet, 0 Refills, Maintenance, 11/04/24 9:40:00 AM EDT, Tablet, Partial fill upon patient request if the prescription is for a schedule II opioid drug. Start Date: 11/04/24 Status: Ordered Quantity: 30.0 Unit: tablet Repeat number: 1 ferrous sulfate 325 mg oral enteric coated tablet 325 mg, 1, tablet, By Mouth, Daily at bedtime, # 90 tablet, Refills 0, Maintenance, 08/06/22 11:34:00AM EST, Partial fill upon patient request if the prescription is for a schedule II opioid drug. Start Date: 08/06/22 Status: Ordered Quantity: 90.0 Unit: tablet Repeat number: 1 Flonase Allergy Relief 50 mcg/inh nasal spray 2 sprays = 100 mcg, Nares, Both, Daily, shake well before using, # 15.8 mL, 0 Refills, Maintenance,11/04/24 1:47:00 PM EDT, [place], Partial fill upon patient request if the prescription is for a schedule II opioid drug. Start Date: 11/04/24 Status: Ordered Quantity: 15.8 Unit: mL Repeat number: 1 gabapentin 300 mg oral capsule 600 mg, 2, capsule, By Mouth, 3 times a day, Refills 0, Maintenance, 11/04/24 1:14:00 PM EDT, Partialfill upon patient request if the prescription is for a schedule II opioid drug. Start Date: 11/04/24 Status: Ordered Repeat number: 1 gabapentin 300 mg oral capsule 600 mg, Capsule, By Mouth, 11/05/24 9:00:00 AM EDT Start Date: 11/05/24 Stop Date: 11/05/24 Status: Completed Repeat number: 1 lurasidone 40 mg oral tablet 1 tablet = 40 mg, By Mouth, Daily, # 30 tablet, 0 Refills, Maintenance, 11/04/24 9:41:00 AM EDT, Tablet, Partial fill upon patient request if the prescription is for a schedule II opioid drug. Start Date: 11/04/24 Status: Ordered Quantity: 30.0 Unit: tablet Repeat number: 1 Methadone Liquid See Instructions, [facility] [phone] Patient was last dosed on 10/25/24 with 85mg qam and 20mg in the afternoon. Patient has take home bottles until 11/07/24, 0 Refills, Maintenance, 08/06/22 11:32:00 AM EST, [place], Partial fill upon patient request if the prescription is for a schedule II opioid drug. Start Date: 08/06/22 Status: Ordered Repeat number: 1 Methadone Tablet 85 mg, Tablet, By Mouth, 11/05/24 9:00:00 AM EDT Start Date: 11/05/24 Stop Date: 11/05/24 Status: Completed Repeat number: 1 methylphenidate 20 mg oral tablet 1 tablet = 20 mg, By Mouth, 2 times a day, 0 Refills, Maintenance, 11/04/24 1:24:00 PM EDT, Tablet, Partial fill upon patient request if the prescription is for a schedule II opioid drug. Start Date: 11/04/24 Status: Ordered Repeat number: 1 oxyCODONE 5 mg oral tablet 5 mg, 1, tablet, By Mouth, Every 6 hours, PRN, for 5 days, # 10 tablet, Refills 0, Tot. Refills 0, Acute 11/10/24 1:48:00 PM EDT, Pain , Severe, 11/05/24 1:48:00 PM EDT, Route to Pharmacy Electronically, [facility], Partial fill upon patient request if the prescription is for a schedule II opioid drug., 150, cm, 11/05/24 10:44:00 EDT, Height, 66, kg, 11/04/24 13:50:00 EDT, Dry Weight Start Date: 11/05/24 Stop Date: 11/10/24 Status: Ordered Quantity: 10.0 Unit: tablet Repeat number: 1 Multivitamins By Mouth, Daily, 0 Refills, Maintenance, 09/09/15 6:55:03 PM EST Start Date: 09/09/15 Status: Ordered Repeat number: 1 propranolol 80 mg oral capsule, extended release 80 mg, 1, capsule, By Mouth, Daily, # 90 capsule, Refills 0, Maintenance, 11/04/24 1:25:00 PM EDT, Partial fill upon patient request if the prescription is for a schedule II opioid drug. Start Date: 11/04/24 Status: Ordered Quantity: 90.0 Unit: capsule Repeat number: 1 Tylenol 325 mg oral tablet 975 mg, 3, tablet, By Mouth, Every 8 hours, # 60 tablet, Refills 0, Tot. Refills 0, Maintenance, 08/11/22 8:54:00 AM EST, Route to Pharmacy Electronically, [id number], Partial fill upon patient request if the prescription is for a schedule II opioid drug., 149.86, cm, 237:23:00 EST, Height, 60, kg, 08/06/22 11:58:00 EST, Dry Weight Start Date: 08/11/22 Status: Ordered Quantity: 60.0 Unit: tablet Repeat number: 1 Tylenol 325 mg oral tablet 975 mg, Tablet, By Mouth, 11/05/24 9:00:00 AM EDT Start Date: 11/05/24 Stop Date: 11/05/24 Status: Completed Repeat number: 1 Problem List Condition Confirmation Course Effective Dates Status H ealth Status Informant Cellulitis Confirmed Active Interstitial cystitis Confirmed Active Endometriosis Confirmed Active GLENNY (generalized anxiety disorder) Confirmed Active Opiate dependence Confirmed Active Results Radiology Reports * Exam Date Time Procedure Performing Provider Status 11/05/24 11:15 AM XR Hip Comp 2 Views Left Jona Raymond er; Auth (Verified) Notes: (XR Hip Comp 2 Views Left) Reason For Exam: Pain RESULT: Hip Comp 2 Views Left Hip Comp 2 Views Left REASON: Pain; Clinical Question(s): Fracture COMPARISON: CT chest/abdomen/pelvis 11/03/2024. FINDINGS: No fracture or dislocation. Well preserved joint space. Normal femoral head contour without evidence of avascular necrosis. Baclofen pump noted. IMPRESSION: No evidence of acute osseous abnormality. WSN: [id number] Ordering Physician: Erica Farley Dictated By: Bridger Hurt MD Dictated Date/Time: 11/05/24 11:16 a Reviewed By: Bridger Hurt MD Signed By: Bridger Hurt MD Signed Date/Time: 11/05/24 11:16 am Transcribed By: PEGGY Transcribed Date/Time: 11/05/24 11:16 am * Exam Date Time Procedure Performing Provider Status 11/03/24 6:[address] Angio Neck Isatu Kohler; Modified Notes: (CT Angio Neck) Reason For Exam: Trauma RESULT: CT Angio Neck CT Angio Neck Reason: Trauma; Clinical Question(s): Other:; vascular injury / Other: TECHNIQUE: CT angiogram of the neck was performed after bolus administration of intravenous contrast. 100 mL of Isovue 300 was administered intravenously. Coronal and sagittal MIP reformatted images were obtained. Additional 3-D images were created on a separate workstation under concurrent supervision by the attending radiologist (images located in concurrently performed chest CT folder). All stenoses are measured using NASCET criteria. Weight-based protocol using automatic tube modulation wasused to optimize exposure parameters. RADIATION DOSE PARAMETERS: CTDIvol Body: 30.28 mGy, DLP Body: 1569 mGy*cm. COMPARISON: CT head, cervical spine, and chest performed concurrently. FINDINGS: CTA OF THE NECK: Arch: There is a three vessel aortic arch. Origins of the supra-aortic vessels are degraded by beam-hardening artifact, but patent. Right carotid system: The common carotid and cervical internal carotid arteries are patent. No stenosis (0%) by NASCET criteria. There is no dissection or aneurysm. Left carotid system: The common carotid and cervical internal carotid arteries are patent. No stenosis (0%) by NASCET criteria. There is no dissection or aneurysm. There is a left-dominant vertebral artery system. Right vertebral: Motion artifact degrades imaging of the proximal vertebral artery. Otherwise, no significant stenosis and no evidence of dissection or aneurysm. Left vertebral: Motion and beam hardening artifacts degrade imaging of the proximal vertebral artery. Otherwise, no significant stenosis and no evidence of dissection or aneurysm. Other: Soft tissues and bones: No evidence of lymphadenopathy or mass. The thyroid is unremarkable. Visualized lungs are blurred by motion artifact, without significant superimposed airspace opacity. There is a small right pleural effusion. Multilevel degenerative changes of the spine are noted most pronounced at C5-C6, without acute osseous abnormality. IMPRESSION: No evidence of vascular injury. No stenosis or occlusion of the major arteries of the neck. Small right pleural effusion. A similar preliminary report was provided by [facility]. WSN: [id number] Ordering Physician: Maria E Collier Dictated By: Marlene Sullivan MD Dictated Date/Time: 11/04/24 8:42 am Reviewed By: Marlene Sullivan MD Signed By: Marlene Sullivan MD Signed Date/Time: 11/04/24 8:42 am Transcribed By: PEGGY Transcribed Date/Time: 11/04/24 8:32 am * Exam Date Time Procedure Performing Provider Status 11/03/24 6:[address] Abd/Pelvis W/ IV Contrast Only Isatu Kohler; Auth (Verified) Notes: (CT Abd/Pelvis W/ IV Contrast Only) Reason For Exam: Abd trauma, blunt;Other: RESULT: CT Abd/Pelvis W/ IV Contrast Only CT Chest W/ Contrast, CT Abd/Pelvis W/ IV Contrast Only INDICATION: Reason: Other:; Chest trauma, blunt; Clinical Question(s): Other:; Aortic hilar injury TECHNIQUE: Helical CT scan of the chest, abdomen, and pelvis with IV contrast, formatted in 3 planes. 100 cc of Isovue 300 was administered intravenously. This study was performed without oral contrast. Weight-based protocol was performed using automatic exposure control. CTDIvol Body: 30.28 mGy, DLP Body: 1569 mGy*cm. COMPARISON: This examination was performed emergently using a temporary medical record and no priorimaging or medical history was available for review at the time of this interpretation. FINDINGS: [employer] Entertainer view findings, lines and tubes: Spinal stimulator that are intact left lower posterior. Trachea and airways: Patent without evidence of tracheal or endobronchial lesion. Lungs and pleura: Small right and trace left pleural effusion with associated atelectasis. No pneumothorax. Mediastinum and edson: No mass or hematoma. No mediastinal or hilar lymphadenopathy. No esophageal abnormality. Heart: Heart is normal in size. No pericardial effusion. Aorta: No aortic aneurysm. Pulmonary arteries: Normal caliber. No evidence of pulmonary embolism on this study performed without angiographic technique. Chest wall soft tissues: No acute abnormality. Diaphragm: Intact. Liver: Normal in attenuation and morphology. No suspicious lesion. Gallbladder: No CT evidence of gallbladder pathology. Bile ducts: No biliary ductal dilation. Spleen: Normal in size. Pancreas: No suspicious lesion or ductal dilatation. Adrenal glands: No nodule. Kidneys and ureters: No hydronephrosis, stone, or suspicious lesion. Bladder: No wall thickening or surrounding stranding. Reproductive organs: Unremarkable. Stomach, small bowel, and large bowel: Normal caliber stomach and bowel loops. No surrounding inflammatory changes. Appendix: No evidence of acute appendicitis. Peritoneum and retroperitoneum: No ascites or pneumoperitoneum. No omental or mesenteric lesions. Lymph nodes: No enlarged lymph nodes. Blood vessels: No vascular calcifications or aneurysm. No evidence of venous thrombosis. Abdominal and pelvic wall soft tissues: No acute abnormality. Bones: No acute abnormality. IMPRESSION: No acute traumatic injury of the chest, abdomen and pelvis. Small right and trace left pleural effusion with associated atelectasis WSN: [id number] Ordering Physician: Maria E Collier Dictated By: Joseph Galloway MD Dictated Date/Time: 11/03/24 6:48 pm Reviewed By: Joseph Galloway MD Signed By: Joseph Galloway MD Signed Date/Time: 11/03/24 6:48 pm Transcribed By: PEGGY Transcribed Date/Time: 11/03/24 6:39 pm * Exam Date Time Procedure Performing Provider Status 11/03/24 6:[address] Chest W/ Contrast Isatu Kohler; [facility] (Verified) Notes: (CT Chest W/ Contrast) Reason For Exam: Chest trauma, blunt;Other: RESULT: CT Chest W/ Contrast CT Chest W/ Contrast, CT Abd/Pelvis W/ IV Contrast Only INDICATION: Reason: Other:; Chest trauma, blunt; Clinical Question(s): Other:; Aortic hilar injury TECHNIQUE: Helical CT scan of the chest, abdomen, and pelvis with IV contrast, formatted in 3 planes. 100 cc of Isovue 300 was administered intravenously. This study was performed without oral contrast. Weight-based protocol was performed using automatic exposure control. CTDIvol Body: 30.28 mGy, DLP Body: 1569 mGy*cm. COMPARISON: This examination was performed emergently using a temporary medical record and no priorimaging or medical history was available for review at the time of this interpretation. FINDINGS: Children[employer] Entertainer view findings, lines and tubes: Spinal stimulator that are intact left lower posterior. Trachea and airways: Patent without evidence of tracheal or endobronchial lesion. Lungs and pleura: Small right and trace left pleural effusion with associated atelectasis. No pneumothorax. Mediastinum and edson: No mass or hematoma. No mediastinal or hilar lymphadenopathy. No esophageal abnormality. Heart: Heart is normal in size. No pericardial effusion. Aorta: No aortic aneurysm. Pulmonary arteries: Normal caliber. No evidence of pulmonary embolism on this study performed without angiographic technique. Chest wall soft tissues: No acute abnormality. Diaphragm: Intact. Liver: Normal in attenuation and morphology. No suspicious lesion. Gallbladder: No CT evidence of gallbladder pathology. Bile ducts: No biliary ductal dilation. Spleen: Normal in size. Pancreas: No suspicious lesion or ductal dilatation. Adrenal glands: No nodule. Kidneys and ureters: No hydronephrosis, stone, or suspicious lesion. Bladder: No wall thickening or surrounding stranding. Reproductive organs: Unremarkable. Stomach, small bowel, and large bowel: Normal caliber stomach and bowel loops. No surrounding inflammatory changes. Appendix: No evidence of acute appendicitis. Peritoneum and retroperitoneum: No ascites or pneumoperitoneum. No omental or mesenteric lesions. Lymph nodes: No enlarged lymph nodes. Blood vessels: No vascular calcifications or aneurysm. No evidence of venous thrombosis. Abdominal and pelvic wall soft tissues: No acute abnormality. Bones: No acute abnormality. IMPRESSION: No acute traumatic injury of the chest, abdomen and pelvis. Small right and trace left pleural effusion with associated atelectasis WSN: [id number] Ordering Physician: Maria E Collier Dictated By: Joseph Galloway MD Dictated Date/Time: 11/03/24 6:48 pm Reviewed By: Joseph Galloway MD Signed By: Joseph Galloway MD Signed Date/Time: 11/03/24 6:48 pm Transcribed By: PEGGY Transcribed Date/Time: 11/03/24 6:39 pm * Exam Date Time Procedure Performing Provider Status 11/03/24 6:[address] Cervical Spine W/O Contrast Isatu Kohler; Auth (Verified) Notes: (CT Cervical Spine W/O Contrast) Reason For Exam: Neck trauma, dangerous injury mechanism;Other: RESULT: CT Cervical Spine W/O Contrast CT Head/Brain W/O Contrast, CT Cervical Spine W/O Contrast INDICATION: Reason: Other:; Head trauma, mod-severe; Clinical Question(s): Hematoma TECHNIQUE: Noncontrast head CT using axial technique was reconstructed in axial and coronal planes.Noncontrast spiral CT through the cervical spine was formatted in 3 planes. Automatic tube modulation was used for the cervical spine and iterative dose reconstruction was used for both the head and cervical spine to optimize scan parameters and image quality. CTDIvol Body: 12.11 mGy, DLP Body: 235 mGy*cm. CTDIvol Head: 41.60 mGy, DLP Head: 666 mGy*cm. COMPARISON: None. FINDINGS: [employer] Entertainer View Findings, Lines and Tubes: None. BRAIN AND EXTRA-AXIAL SPACES: No parenchymal hemorrhage, midline shift, or mass effect. Lobo-white matter differentiation is wellpreserved. No acute infarct. Ventricles, sulci, and basilar cisterns are normal. Mild low-density white matter changes. No subarachnoid hemorrhage. No subdural or epidural collection. CALVARIUM, SKULL BASE, AND SOFT TISSUES: No fractures or suspicious bony lesions. The paranasal sinuses and mastoid air cells are clear. Visualized orbits and globes are intact. The extracranial soft tissues are unremarkable. CERVICAL SPINE: No fracture. No acute osseous abnormalities. Mild multilevel degenerative disc space narrowing and end plate irregularity. OTHER BONES: No acute abnormality. CERVICAL SOFT TISSUES AND LUNG APICES: Normal soft tissues. Visualized lung apices are clear. IMPRESSION: No acute abnormality of the head or cervical spine. WSN: [id number] Ordering Physician: Maria E Collier Dictated By: Dawn Sharp MD Dictated Date/Time: 11/03/24 6:39 pm Reviewed By: Dawn Sharp MD Signed By: Dawn Sharp MD Signed Date/Time: 11/03/24 6:39 pm Transcribed By: PEGGY Transcribed Date/Time: 11/03/24 6:26 pm * Exam Date Time Procedure Performing Provider Status 11/03/24 6:[address] Head/Brain W/O Contrast Kalpehs Kohler; Auth (Verified) Notes: (CT Head/Brain W/O Contrast) Reason For Exam: Head trauma, mod-severe;Other: RESULT: CT Head/Brain W/O Contrast CT Head/Brain W/O Contrast, CT Cervical Spine W/O Contrast INDICATION: Reason: Other:; Head trauma, mod-severe; Clinical Question(s): Hematoma TECHNIQUE: Noncontrast head CT using axial technique was reconstructed in axial and coronal planes.Noncontrast spiral CT through the cervical spine was formatted in 3 planes. Automatic tube modulation was used for the cervical spine and iterative dose reconstruction was used for both the head and cervical spine to optimize scan parameters and image quality. CTDIvol Body: 12.11 mGy, DLP Body: 235 mGy*cm. CTDIvol Head: 41.60 mGy, DLP Head: 666 mGy*cm. COMPARISON: None. FINDINGS: Children[employer] Entertainer View Findings, Lines and Tubes: None. BRAIN AND EXTRA-AXIAL SPACES: No parenchymal hemorrhage, midline shift, or mass effect. Lobo-white matter differentiation is wellpreserved. No acute infarct. Ventricles, sulci, and basilar cisterns are normal. Mild low-density white matter changes. No subarachnoid hemorrhage. No subdural or epidural collection. CALVARIUM, SKULL BASE, AND SOFT TISSUES: No fractures or suspicious bony lesions. The paranasal sinuses and mastoid air cells are clear. Visualized orbits and globes are intact. The extracranial soft tissues are unremarkable. CERVICAL SPINE: No fracture. No acute osseous abnormalities. Mild multilevel degenerative disc space narrowing and end plate irregularity. OTHER BONES: No acute abnormality. CERVICAL SOFT TISSUES AND LUNG APICES: Normal soft tissues. Visualized lung apices are clear. IMPRESSION: No acute abnormality of the head or cervical spine. WSN: [id number] Ordering Physician: Maria E Collier Dictated By: Dawn Sharp MD Dictated Date/Time: 11/03/24 6:39 pm Reviewed By: Dawn Sharp MD Signed By: Dawn Sharp MD Signed Date/Time: 11/03/24 6:39 pm Transcribed By: PEGGY Transcribed Date/Time: 11/03/24 6:26 pm * Exam Date Time Procedure Performing Provider Status 11/03/24 6:11 PM Foot Min 3 Views Right Erin Andrew; Modified Notes: (Foot Min 3 Views Right) Reason For Exam: Trauma RESULT: Foot Min 3 Views Right Right foot 3 views dated November 03, 2024. No prior studies are available. HISTORY: Pain. FINDINGS: This examination shows no evidence of fracture or dislocation. Joint spaces are well preserved. No radiopaque foreign body or soft tissue gas is seen. IMPRESSION: No evidence of acute osseous abnormality. Examination 34226. Thank you for allowing me to participate in the care of this patient. WSN: [id number] Ordering Physician: Maria E Collier Dictated By: Jaycob Noguera MD Dictated Date/Time: 11/03/24 6:22 pm Reviewed By: Jaycob Noguera MD Signed By: Jaycob Noguera MD Signed Date/Time: 11/03/24 6:22 pm Transcribed By: PEGGY Transcribed Date/Time: 11/03/24 6:22 pm * Exam Date Time Procedure Performing Provider Status 11/03/24 5:54 PM Chest Portable Chacorta Love; Auth (Ve rified) Notes: (Chest Portable) Reason For Exam: Pain;Other: RESULT: Chest Portable AP supine view of the chest performed portably on November 03, 2024 at 1745 hours. No prior studies areavailable. HISTORY: Pain. FINDINGS: The cardiac silhouette is within normal limits for size. Hilar and mediastinal structuresare unremarkable. No airspace infiltrate or pleural effusion is identified. Visualized osseous structures are unremarkable. No displaced rib fracture or pneumothorax is seen. IMPRESSION: No evidence of acute pulmonary disease. Examination 23797. Thank you for allowing me to participate in the care of this patient. WSN: [id number] Ordering Physician: Maria E Collier Dictated By: Jaycob Noguera MD Dictated Date/Time: 11/03/24 5:58 pm Reviewed By: Jaycob Noguera MD Signed By: Jaycob Noguera MD Signed Date/Time: 11/03/24 5:58 pm Transcribed By: PEGGY Transcribed Date/Time: 11/03/24 5:58 pm Vital Signs Most recent to oldest [Reference Range]: 1 2 3 4 5 Height 150 cm (11/05/24 10:44 AM) 150 cm (11/05/24 6:43 AM) 150 cm (11/05/24 3:48 AM) Weight 66 kg (11/04/24 1:50 PM) Oxygen Saturation [94-100 %] 98 % (11/05/24 10:44 AM) 97 % (11/05/24 6:43 AM) 96 % (11/05/24 3:48 AM) Pulse Rate [55-90 bpm] 55 bpm (11/05/24 10:44 AM) 59 bpm (11/05/24 6:43 AM) 56 bpm (11/05/24 3:48 AM) Body Mass Index [18.5-24.99 kg/m2] 29.33 kg/m2 *H* (11/04/24 1:50 PM) Blood Pressure [90-138/55-84 mm Hg] 86/49mm Hg *L* (11/05/24 10:44 AM) 92/49mm Hg (11/05/24 6:43 AM) 107/65mm Hg (11/05/24 3:48 AM) Respiratory Rate [16-30 br/min] 18 br/min (11/05/24 12:36 PM) 15 br/min *L* (11/05/24 10:44 AM) 18 br/min (11/05/24 9:47 AM) 18 br/min (11/05/24 9:47 AM) 18 br/min (11/05/24 9:47 AM) Temperature [96.8-100.4 DegF] 97.9 DegF (11/05/24 10:44 AM) 97.6 DegF (11/05/24 6:43 AM) 98.1 DegF (11/05/24 3:48 AM) Mode of Delivery (Oxygen) Room air (11/05/24 10:44 AM) Room air (11/05/24 6:43 AM) Room air (11/05/24 3:48 AM) Blood pressure sites Arm, left (11/05/24 10:44 AM) Arm, left (11/05/24 6:43 AM) Arm, right (11/05/24 3:48 AM) Temperature Route Oral (11/05/24 10:44 AM) Oral (11/05/24 6:43 AM) Oral (11/05/24 3:48 AM) Dry Weight 66 kg (11/04/24 1:50 PM) Social History Social History Type Response Smoking Status Former smoker; Tobac co user in household: No; Other: pt states she quit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 [phone] ?? Patient was last dosed on with 85mg qam and 20mg in the afternoon. Patient has take home bottles until ?? SEE INSTRUCTIONS Changed Methylphenidate (methylphenidate 20 mg oral tablet) 1 tab(s) Oral Twice a day 11/05/24 FOLLOW PRESCRIBE Changed Multivitamin, ( Multivitamins) Oral Daily 11/05/24 Changed Propranolol (propranolol 80 mg oral capsule, extended release) 1 capsule Oral Daily 11/06/24 Unchanged Acetaminophen (Tylenol 325 mg oral tablet) 3 tab(s) Oral Every 8 hours FOLLOW PRESCRIBE Unchanged BuPROpion (buPROPion 300 mg/ 24 hours (XL) oral tablet, extended release) 1 tab(s) Oral Daily 11/06/24 Unchanged Clonazepam (clonazePAM 0.25 mg oral tablet, disintegrating) 2 tab(s) Oral Daily 11/06/24 Unchanged Docusate (docusate sodium 100 mg oral capsule) 1 capsule Oral 3 times a day 11/05/24 FOLLOW PRESCRIBE Unchanged Escitalopram (escitalopram 20 mg oral tablet) 1 tab(s) Oral Daily 11/06/24 Unchanged Ferrous Sulfate (ferrous sulfate 325 mg oral enteric coated tablet) 1 tab(s) Oral Daily at Bedtime 11/06/24 Unchanged Fluticasone Nasal (Flonase Allergy Relief 50 mcg/ inh nasal spray) 2 spray(s) Nares, Both Daily shake well before using ?? 11/05/24 Unchanged Ibuprofen (ibuprofen 800 mg oral tablet) 1 tab(s) Oral Every 8 hours 11/05/24 FOLLOW PRESCRIBE Unchanged lurasidone (lurasidone 40 mg oral tablet) 1 tab(s) Oral Daily 11/05/24 Unchanged MedroxyPROGESTERone (depo-subQ provera 104 mg/ 0.65 mL subcutaneous suspension) INJECT 0.65 ML EVERY 3 MONTHS BY SUBCUTANEOUS ROUTE FOR 84 DAYS, FOR CONTRACEPTION. ?? FOLLOW PRESCRIBE Unchanged Miscellaneous Rx (BACLOFEN 20 MG TABS) 1 tab(s) Oral Daily 11/05/24 Pharmacy Information [facility]: [address], [place] [id number] [phone] Prescription Given During Visit Oxycodone (oxyCODONE 5 mg oral tablet) - 1 tablet = 5 mg, By Mouth, Every 6 hours, # 10 tablet, 0 Refills, [facility], [address] [place] [address] [phone]?? Laboratory Results Below is a partial list of the most recent Laboratory test results done prior to this discharge. You may have had other tests and procedures not included in this list. Please discuss all test resultswith your provider. Est Creatinine Clearance - 60.24 mL/min (11/05/2024) Alcohol Level (11/03/2024) ???Ethanol, Serum or Plasma - NONE DETECTED Amphetamine Urine Screen (11/04/2024) ???Amphetamine Screen, Urine - NONE DETECTED Amylase (11/03/2024) ???Amylase - 27 units/L Barbiturate Urine Screen (11/04/2024) ???Barbiturate Screen, Urine - NONE DETECTED Basic Metabolic Panel (11/03/2024) ???Sodium - 138 mmol/L???Potassium - 4.1 mmol/L???Chloride - 101 mmol/L???Bicarbonate Level - 24 mmol/L???Anion Gap - 13 mmol/L???Glucose Level - 135 mg/dL???BUN - 16 mg/dL???Creatinine-Blood - 0.91 mg/dL???Estimated GFR Creatinine - 49 ML/MIN/1.73 M2???Calcium - 9.4 mg/dL Benzodiazepine Urine Screen (11/04/2024) ???Benzodiazepine Screen, Urine - NONE DETECTED BUN (11/05/2024) ???BUN - 16 mg/dL Calcium Level (11/05/2024) ???Calcium - 8.8 mg/dL Cannabinoid Urine Screen (11/04/2024) ???Cannabinoid Screen, Urine - POSITIVE CBC (11/05/2024) ???WBC - 9.9 k/mm3???RBC - 4.09 m/mm3???Hgb - 11.6 Gm/dL???Hct - 35.9 %???MCV - 87.8 femtoliters???MCH - 28.4 pg???MCHC - 32.3 Gm/dL???Platelet Count - 197 k/mm3???RDW-SD - 41.8 femtoliters???MPV - 9.6 femtoliters???Nucleated RBC (Automated) - 0.0 #/100 WBC'S???Abs. NRBC - 0.0 k/mm3 CBC w/ Differential (11/03/2024) ???WBC - 12.1 k/mm3???RBC - 4.75 m/mm3???Hgb - 13.4 Gm/dL???Hct - 41.0 %???MCV - 86.3 femtoliters???MCH - 28.2 pg???MCHC - 32.7 Gm/dL???Platelet Count - 285 k/mm3???RDW-SD - 39.7 femtoliters???MPV - 9.3 femtoliters???Nucleated RBC (Automated) - 0.0 #/100 WBC'S???Abs. NRBC - 0.0 k/mm3???Abs. Neut - 6.8 k/mm3???Abs. Lymph - 4.0 k/mm3???Abs. [place] - 0.8 k/mm3???Abs. Eo - 0.4 k/mm3???Abs. Baso - 0.1 k/mm3???Neut % - 56.5 %???Lymph % - 32.9 %???[place] % - 6.2 %???Eos % - 3.0 %???Baso % - 0.4 %???Imm Gran - 1.0 %???Abs. Imm Gran - 0.1 k/mm3 Cocaine Urine Screen (11/04/2024) ???Cocaine Metabolite Screen, Urine - NONE DETECTED Creatinine (11/05/2024) ???Creatinine-Blood - 0.90 mg/dL???Estimated GFR Creatinine - 86 ML/MIN/1.73 M2 Electrolytes (11/05/2024) ???Sodium - 136 mmol/L???Potassium - 3.6 mmol/L???Chloride - 101 mmol/L???Bicarbonate Level - 24 mmol/L???Anion Gap - 11 mmol/L Glucose Level (11/05/2024) ???Glucose Level - 96 mg/dL High Sensitivity Troponin T (11/03/2024) ? ?High Sensitivity Troponin (HSTnT) - <6 ng/L Hold Red Top Tube (11/03/2024) ???Hold Red Top - SPECIMEN DISCARDED AFTER 1 WEEK Lactic Acid Level (11/03/2024) ???Lactate - 1.2 mmol/L Opiate Screen Urine (11/04/2024) ???Opiate Screen, Urine - NONE DETECTED PT (INR) (11/03/2024) ???INR - 1.0???Protime (PT) - 10.9 seconds PTT (11/03/2024) ???APTT - 22.9 seconds Type and Screen (11/03/2024) ???Blood Type - O Negative???Antibody Screen - Negative You will be contacted within 72 hours with your results. Allergies (NKA means No Known Allergies) Detrol oxybutynin tolterodine Problems Active Problems??(6) Cellulitis?? Endometriosis?? GLENNY (generalized anxiety disorder)?? Interstitial cystitis?? Opiate dependence?? Presence of implanted infusion pump?? Education Materials Below is the list of Educational Leaflet Providered with your Discharge Instructions. Valuables and Belongings I fully understand and agree that [facility] accepts no responsibility for all my personal property including clothing, toilet articles, radios, jewelry, dentures, hearing aids, rings, money, or any other property that is in my possession or is brought to me after admission. I understand certain valuables may be placed in a hospital safe for a short period of time. I understand that the hospital is not liable for loss or damage due to accident, fire, or other natural occurrence while said property is in the safe. I accept full responsibility for any personal property that I keep with me, and will not hold the hospital responsible in case of loss or disappearance. I acknowledge that i have been encouraged to send valuables and belongings home. ?? Review of Valuable and Belonging List: With patient Date for Pt to Sign Valuables/Belongings: 11/03/24 17:57:00 ?? Other Discharge Information ? Case Management Discharge Plan?? Discharge Plan?? Discharge Level of Care at Discharge: Home/Longterm/Foster Care ?? Pulmonary Rehab Status?? Pulmonary Rehab Discharge Status?? Respiratory Rate: 18 br/min ? Common Emergency Awareness Tips IS IT A STROKE? Act FAST and Check for these signs: FACE Does the face look uneven? ARM Does one arm drift down? SPEECH Does their speech sound strange? TIME Call at any sign of stroke ?? Heart Attack Signs Chest discomfort: Most heart attacks involve discomfort in the center of the chest and lasts more than a few minutes, or goes away and comes back. It can feel like uncomfortable pressure, squeezing, fullness or pain. Discomfort in upper body: Symptoms can include pain or discomfort in one or both arms, back, neck, jaw or stomach. Shortness of breath: With or without discomfort. Other signs: Breaking out in a cold sweat, nausea, or lightheaded. Remember, MINUTES DO MATTER. If you experience any of these heart attack warning signs, call to get immediate medical attention! ?? Smoking can increase your chances of developing chronic health problems and can cause harmful effects to other family members in your house. If you smoke, you are strongly encouraged to quit. Please call [facility] at [phone] or [phone] ([phone]) or log in to [email or web address] for referrals to smoking cessation programs. ?? 282 Suicide & Crisis Lifeline is available 23/02 if you or someone you know needs to find a reason to keep living. By calling 851 you'll be connected to a skilled, trained counselor at a crisis center in your area. INPATIENT DISCHARGE INSTRUCTIONS SIGNATURE PAGE JAMMIE LIE Location:[facility] Registration Date and Time:11/03/2024 17:28 EDT Primary Care Physician: Not on Staff, PCP Attending Physician: Erica Farley MD, I QUIQUE JAMMIE, have received the above patient education materials/instructions and have verbalized understanding. If ambulance or transport services are being used I further acknowledge being given a choice of service. ?? If you need to contact me, please call me at this number: . Patient/Medical Referral Coordinator Name: Patient/Medical Referral Coordinator Signature: Relationship to Patient: Witness Name/Signature: Date: * Asia Farley MDina: PERFORM, SIGN, VERIFY Event Display: Patient Education Handout Authored Date: [id number] Patient Care team information Care Team Personnel Name: Anahi Marquez RN Position: [facility] RN Member Role: Primary Care Nurse Name: Emi Aparicio RN Position: [facility] RN Member Role: Primary Care Nurse Name: Mercedes Hall RN Position: [facility] RN Member Role: Primary Care Nurse Name: Not on Staff, PCP Position: [facility] Physician (General Medicine) Member Role: PCP Name: Millie Sosa LPN Position: [facility] RN Member Role: Primary Care Nurse Care Team Related Persons Name: ALEKSEY PINEDA Name: RENEE HONG Name: JONH ENGLAND Name: JONH ENGLAND Insurance Providers Guarantor name: Health Plan Information #: 2 Payer: [facility] Member Number: [id number] Policy Number: SUSAN Group Number: NA Health Plan Information #: 3 Payer: [facility] Member Number: [id number] Policy Number: SUSAN Group Number: [id number] Health Plan Information #: 1 Payer: UNKOWN Member Number: [id number] Policy Number: SUSAN Group Number: NA
--- OUTSIDE RECORDS SUMMARY | 2024-11-07 17:40 | XMS_ITS | Patient Health Record ---
Author Organization [facility] Address [address] [place] [address] Care Team Providers Care Shaping Machine Operator Name Role Phone Brandon Castillo DO Unavailable Unavailable Reason For Referral No Information Medications Medication SIG (Take, Route, Frequency, Duration) Notes Start Date End Date Status VESICARE (SOLIFENACIN) 5 MG 1 PO QD Phillip04/16/2012 Entered by KEVIN LUGO 04/16/2012 Active MIRALAX (POLYETHYLENE GLYCOL ) 17 GM PO QD Phillip04/16/2012 Entered by KEVIN LUGO 04/16/2012 Active oxycodone 5 MG 1 PO Q4H Hpillip04/16/2012 Entered by KEVIN LUGO 04/16/2012 Active Clarithromycin 500 mg 1 tab(s) orally every 12 hours for 14 (MV)-[id number] 2 05/20/2012 Active Amoxicillin 500 mg 2 tab(s) orally 2 times a day for 14 (MV)-[id number] 4 05/20/2012 Active Problems Problem Type SNOMED Code ICD Code Onset Dates Problem Status W/U Status Risk Notes Problem Endometriosis (980169479) Endometriosis, site unspecified (617.9) 012 Active confirmed Phillip: Endometriosis (clinical); Problem Gastroesophageal reflux disease (949891671) GERD (gastroesophag eal reflux disease) (530.81) Active confirmed 07-07-12 GERD TRIED PRILOSEC OTC ?? DATES AND OMEPRAZOLE 20MG QD FROM 07-07-12 TO ??? Problem Constipation (88291547) Constipation NOS (564.00) Active confirmed (MV) Problem Abdominal pain (52099927) Abdominal Pain _unspecified site_ (789.00) Active confirmed (MV) Plan Of Treatment Pending Test Test Name Order Date HELICOBACTER PYLORI Ab, IgM 04/27/2012 HELICOBACTER PYLORI IgG,EIA 04/27/2012 Insurance Providers Payer Name Payer Address Payer Phone Subscriber Number Group Number Insured Name Patient Relationship to Insured Coverage Start Date Coverage End Date [facility] [address], [place] [id number] Marybel Garcia Self - patient is the insured 2
== END 2024-11-07 15:19 | disposition home or self-care (01) ==
LOC: HO.PMC 14:48
PROVIDERS: PCP Family Medicine; Visit Provider Anesthesiology
DX: N80.9 Endometriosis, unspecified (principal); R10.2 Pelvic and perineal pain; G89.4 Chronic pain syndrome; F14.20 Cocaine dependence, uncomplicated; Z45.1 Encounter for adjustment and management of infusion pump
CPT/HCPCS: 62370; 99214

== ENCOUNTER → 2024-11-07 14:48 | Outpatient (BNVA) | payer MEDICAID, SELFPAY | PROVIDERS: PCP Family Medicine; Visit Provider Anesthesiology | DX: N80.9 Endometriosis, unspecified (principal); R10.2 Pelvic and perineal pain; G89.4 Chronic pain syndrome; F14.20 Cocaine dependence, uncomplicated; Z45.1 Encounter for adjustment and management of infusion pump; Z79.899 Other long term (current) drug therapy | CPT/HCPCS: 62370; 99212 ==

== ENCOUNTER 2024-11-14 15:54 | Outpatient (AMB) | payer MEDICAID, SELFPAY ==
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
[2024-11-14 15:58] VITALS: BP 132/76; PULSE 70; O2SAT 97; BMI 27.9
--- OUTSIDE RECORDS SUMMARY | 2024-11-14 18:12 | XMS_ITS | Referral Summary ---
Author Organization [facility] Address [address] [place] [address] Care Team Providers Care Field Investigator Name Role Phone Chuck AliciaJaylene, Kharme Primary [...] Plan of Treatment Not on file Insurance [facility] Care Teams Field Investigator Relationship Specialty Start Date End Date Nila Hummel [address] [place] [address] PCP - General Family Medicine 07/24/21
--- OUTSIDE RECORDS SUMMARY | 2024-11-14 18:12 | XMS_ITS | Encounter Summary ---
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 Encounter Details Date Type Department Care Team (Late st Contact Info) Description 11/12/2024 6:54 PM EDT - 11/12/2024 8:17 PM EDT Emergency [facility] Emergency [address] [place] [id number] Methadone dependence (CMS/HCC V24, CMS/HCC V28) (Primary Dx); Medication dose missed Discharge Disposition: Home or Self Care Social History Tobacco Use Types Packs/Day Years Used Date Smoking Tobacco: Never Assessed Comments Unknown Sex and Gender Information Value Date Recorded Sex Assigned at Female 11/12/2024 7:46 PM EDT Legal Sex Female 9:04 PM EST Gender Identity Female 11/12/2024 7:46 PM EDT Sexual Orientation Straight 11/12/2024 7: 46 PM EDT documented as of this encounter Last Filed Vital Signs Vital Sign Reading Time Taken Comments Blood Pressure 136/89 11/12/2024 8:14 PM EDT Pulse 56 11/12/2024 8:14 PM EDT Temperature 36.9 ??C (98.4 ??F) 11/12/2024 8:14 PM ED T Respiratory Rate 20 11/12/2024 8:14 PM EDT Oxygen Saturation 96% 11/12/2024 8:14 PM EDT Inhaled Oxygen Concentration - - Weight 69.4 kg (153 lb) 11/12/2024 6:48 PM EDT Height 149.9 cm (4' 11 ) 11/12/2024 6:48 PM EDT Body Mass Index 30.9 11/12/2024 6:48 PM EDT documented in this encounter Discharge Instructions * Attachments The following attachments cannot be sent through Care Everywhere. * Methadose Oral Concentrate 10 mg/mL (METHADONE CONCENTRATE - ORAL) (Turkish) documented in this encounter Medications at Time of Discharge ARIPiprazole (ABILIFY) 10 mg tablet Take 1 tablet (10 mg total) by mouth 1 (one) time each day. 5 baclofen (LIORESAL) 20 mg tablet Take 1 tablet (20 mg total) by mouth at bedtime. 5 buPROPion XL (WELLBUTRIN XL) 300 mg 24 hr tablet Take 1 tablet (300 mg total) by mouth 1 (one) time each day. 5 clonazePAM (KlonoPIN) 0.25 mg disintegrating tablet TAKE 1 TO 2 TABLETS BY MOUTH UNDER TONGUE TWICE A WEEK NEEDED FOR ANXIETY/PANIC FOR 30 DAYS 5 cloNIDine (CATAPRES) 0.2 mg tablet Take 1 tablet (0.2 mg total) by mouth 3 (three) times a day if needed. 5 Depo-subQ provera 104 104 mg/0.65 mL injection INJECT 0.65 ML EVERY 3 MONTHS BY SUBCUTANEOUS ROUTE FOR 84 DAYS, FOR CONTRACEPTION. 5 docusate sodium (COLACE) 100 mg capsule Take 1 capsule (100 mg total) by mouth 3 (three) times a day if needed. 5 escitalopram (LEXAPRO) 20 mg tablet Take 1 tablet (20 mg total) by mouth 1 (one) time each day. 5 FeroSuL 325 mg (65 mg iron) tablet 4 fluticasone propionate (FLONASE) 50 mcg/actuation nasal spray Administer 1 spray into each nostril 1 (one) time each day. 5 gabapentin (NEURONTIN) 300 mg capsule Take 2 capsules (600 mg total) by mouth. ibuprofen (ADVIL,MOTRIN) 800 mg tablet take 1 tablet by mouth every 8 hours as needed for 30 days 5 lidocaine (XYLOCAINE) 5 % ointment APPLY A 2 INCH STRIP ONCE A DAY NEEDED FOR BACK PAIN 4 lurasidone (LATUDA) 40 mg tablet TAKE 1 TABLET BY MOUTH EVERY EVENING AFTER A MEAL 5 methylphenidate (RITALIN) 10 mg tablet Take 1 tablet (10 mg total) by mouth 2 (two) times a day. Max Daily Amount: 20 mg 5 methylphenidate (RITALIN) 20 mg tablet Take 1 tablet (20 mg total) by mouth 2 (two) times a day. Max Daily Amount: 40 mg 5 oxyCODONE (ROXICODONE) 5 mg immediate release tablet 5 28 mg iron- 800 mcg per tablet Take 1 tablet by mouth 1 (one) time each day. 5 propranolol LA (INDERAL LA) 80 mg 24 hr capsule Take 1 capsule (80 mg total) by mouth 1 (one) time each day. 5 documented as of this encounter Discharge Disposition Disposition Code Departure Means Destination Comment s Home or Self Care documented in this encounter Progress Notes * Angelique Grey RN - 11/12/2024 8:17 PM EDT Pt given discharge paperwork. No PIV present. No questions at this time. Ambulatory to go home. Angelique Grey RN 11/12/242016 * Angelique Grey RN - 11/12/2024 7:12 PM EDT Spoke with April LOUISE at [facility] for methadone dosage verification. Pt is on a split dose of 40 mg in the morning and 85 mg in the afternoon as a take home dose. Pt was last dosed yesterday morning and missed her AM dose. Angelique Grey RN 11/12/241913 * Sabiha Pineda NP - 11/12/2024 7:12 PM EDT Marybel Garcia Methadone dose of 85 mg confirmed with RN April at [facility]. RN reports patientgets a split dose of methadone, 40 mg in the morning and 85 mg in the afternoon and that patient did not present to the clinic today. RN reports patient's last dose was 11/11/2024. 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 History of Present Illness: 34 y.o. female presents to the Emergency Department for methadone. Patient reports that she is seenat the [facility] for her methadone. She reports she receives a vial in the morning so that she may split her dose. She reports he takes 40 mg methadone in the morning and 85 mgmethadone in the afternoon. She states she did not present to the clinic today for her daily methadone dose. No past medical history on file. No past surgical history on file. No family history on file. Review of Systems: Pertinent positive and negatives as documented in the HPI. Physical Exam: Vitals: 11/12/24 1848 BP: (!) 142/101 Pulse: 68 Resp: 18 SpO2: 97% Physical Exam Vitals and nursing note reviewed. Constitutional: General: She is not in acute distress. Appearance: She is normal weight. HENT: Head: Normocephalic and atraumatic. Right Ear: External ear normal. Left Ear: External ear normal. Nose: Nose normal. Mouth/Throat: Mouth: Mucous membranes are moist. Cardiovascular: Rate and Rhythm: Normal rate and regular rhythm. Pulmonary: Effort: Pulmonary effort is normal. Breath sounds: Normal breath sounds. Musculoskeletal: General: Normal range of motion. Skin: General: Skin is warm and dry. Capillary Refill: Capillary refill takes less than 2 seconds. Neurological: Mental Status: She is alert. Mental status is at baseline. ED Course: Procedures No orders to display Labs Reviewed - No data to display Medical Decision Making 34-year-old female here in the emergency department for methadone as she missed a dose Old records reviewed for previous notes, imaging, EKGs, and labs with independent interpretation ofdiagnostics as needed and additional HPI obtained from patient's family. Patient assessed in the emergency department with no signs of acute distress. Methadone dose verified by Maria Teresa LOUISE who spoke to the [facility]. April LOUISE states that patient did not present to the clinic todayand typically gets a split dose with 40 mg in the morning and 85 mg at night from a take-home vial.85 mg methadone ordered Patient is safe for discharge with plan to manage discomfort or fevers with [id number] Tylenol and/or NSAIDS such as Motrin or Aleve, with dosing as per packaging. History, physical, diagnostics, and plan discussed with patient with no unanswered questions at this time. Strict return precautions given to return to the emergency department with new, worsening, or concerning symptoms. Recommended to follow-up with their primary care provider in 24 to 48 hours for further treatment and management. Patient was hemodynamically stable at time of discharge. Problems Addressed: Medication dose missed: acute illness or injury Methadone dependence (CMS/[facility] V24, CMS/[facility] V28): chronic illness or injury Clinical Impressions as of 11/12/242000 Methadone dependence (CMS/[facility] V24, CMS/[facility] V28) Medication dose missed Diagnoses: No diagnosis found. New Prescriptions No medications on file Please note that this chart has been created using speech recognition software and may contain errors related to that system, including errors in grammar, punctuation, and spelling. It may also include errors in words and phrases. If there are any questions or concerns, please feel free to contact me for clarification. Sabiha Pineda NP 11/12/242000 Sabiha Pineda NP 11/12/242011 Cosigned by Zahida Huffman MD at 11/12/2024 9:02 PM EDT Associated attestation - Zahida Huffman MD - 11/12/2024 9:02 PM EDT I performed a history and physical examination and discussed the patient management with preceding Advanced Practice Provider. I agree with the history and physical assessment and plan of care, with the following exceptions: None I was present for the following everett procedures: None Zahida Huffman MD documented in this encounter Plan of Treatment Not on file documented as of this encounter Visit Diagnoses Diagnosis Methadone dependence (CMS/[facility] V24, [facility] V28)- Primary Opioid type dependence, unspecified abuse Medication dose missed documented in this encounter Administered Medications Inactive Administered Medications - up to 3 most recent administrations Medication Order MAR Action Action Date Dose Rate Site methadone (METHADOSE) dispersible tablet 80 mg 80 mg, oral, Once, On 11/12/24 at 1933, For 1 dose, Disperse total dose in ~120 mL of water, orange juice, or other acidic fruit beverage prior to administration; if insoluble excipients remain and do not entirely dissolve, add a small amount of liquid to cup and administer remaining mixture. Do not chew or swallow tablet before dispersing in liquid. Given 11/12/2024 7:57 PM EDT 80 mg documented in this encounter Historical Medications * This list may reflect changes made after this encounter. propranolol LA (INDERAL LA) 80 mg 24 hr capsule Take 1 capsule (80 mg total) by mouth 1 (one) time each day. 5 28 mg iron- 800 mcg per tablet Take 1 tablet by mouth 1 (one) time each day. 5 oxyCODONE (ROXICODONE) 5 mg immediate release tablet 5 methylphenidate (RITALIN) 20 mg tablet Take 1 tablet (20 mg total) by mouth 2 (two) times a day. Max Daily Amount: 40 mg 5 methylphenidate (RITALIN) 10 mg tablet Take 1 tablet (10 mg total) by mouth 2 (two) times a day. Max Daily Amount: 20 mg 5 Depo-subQ provera 104 104 mg/0.65 mL injection INJECT 0.65 ML EVERY 3 MONTHS BY SUBCUTANEOUS ROUTE FOR 84 DAYS, FOR CONTRACEPTION. 5 lurasidone (LATUDA) 40 mg tablet TAKE 1 TABLET BY MOUTH EVERY EVENING AFTER A MEAL 5 lidocaine (XYLOCAINE) 5 % ointment APPLY A 2 INCH STRIP ONCE A DAY NEEDED FOR BACK PAIN 4 ibuprofen (ADVIL,MOTRIN) 800 mg tablet take 1 tablet by mouth every 8 hours as needed for 30 days 5 gabapentin (NEURONTIN) 300 mg capsule Take 2 capsules (600 mg total) by mouth. fluticasone propionate (FLONASE) 50 mcg/actuation nasal spray Administer 1 spray into each nostril 1 (one) time each day. 5 FeroSuL 325 mg (65 mg iron) tablet 4 escitalopram (LEXAPRO) 20 mg tablet Take 1 tablet (20 mg total) by mouth 1 (one) time each day. 5 docusate sodium (COLACE) 100 mg capsule Take 1 capsule (100 mg total) by mouth 3 (three) times a day if needed. 5 cloNIDine (CATAPRES) 0.2 mg tablet Take 1 tablet (0.2 mg total) by mouth 3 (three) times a day if needed. 5 clonazePAM (KlonoPIN) 0.25 mg disintegrating tablet TAKE 1 TO 2 TABLETS BY MOUTH UNDER TONGUE TWICE A WEEK NEEDED FOR ANXIETY/PANIC FOR 30 DAYS 5 buPROPion XL (WELLBUTRIN XL) 300 mg 24 hr tablet Take 1 tablet (300 mg total) by mouth 1 (one) time each day. 5 baclofen (LIORESAL) 20 mg tablet Take 1 tablet (20 mg total) by mouth at bedtime. 5 ARIPiprazole (ABILIFY) 10 mg tablet Take 1 tablet (10 mg total) by mouth 1 (one) time each day. 5 added in this encounter Active and Recently Administered Medications Times are shown in EDT. Scheduled Medication Order 11/10/2024 11/11/2024 11/12/2024 methadone (METHADOSE) dispersible tablet 80 mg (COMPLETED) 80 mg, oral, Once, On 11/12/24 at 1933, For 1 dose, Disperse total dose in ~120 mL of water, orange juice, or other acidic fruit beverage prior to administration; if insoluble excipients remain and do not entirely dissolve, add a small amount of liquid to cup and administer remaining mixture. Do not chew or swallow tablet before dispersing in liquid. 1956 (Given - Provid er: Angelique Grey, DANI) documented in this encounter Orders Medications Ordered That Phillip ht Not Have Been Administered Count Last Ordered Date First Ordered Date methadone (DOLOPHINE) 10 mg/ mL concentrated solution 85 mg 1 11/12/2024 documented in this encounter Care Teams President & Ceo Relationship Specialty Start Date End Date Nila Hummel MD [address] [place] [address] PCP - General Internal Medicine 08/03/15 documented as of this encounter
--- OUTSIDE RECORDS SUMMARY | 2024-11-14 18:12 | XMS_ITS | Clinical Summary ---
Author Organization [facility] Address [address] [place] [address] Phone Care Team Providers Care French Instructor Name Role Phone Nila Hummel MD Primary Care Provi cindy Allergies Active Allergy Reactions Criticality Noted Date Comments Oxybutynin Angioedema,Swelling High 07/24/2021 Tolterodine Angioedema,Pain High 07/24/2021 Medications ARIPiprazole (ABILIFY) 10 mg tablet Take 1 tablet (10 mg total) by mouth 1 (one) time each day. 08/07/19 25 Active baclofen (LIORESAL) 20 mg tablet Take 1 tablet (20 mg total) by mouth at bedtime. 10/25/19 25 Active buPROPion XL (WELLBUTRIN XL) 300 mg 24 hr tablet Take 1 tablet (300 mg total) by mouth 1 (one) time each day. 09/10/19 25 Active clonazePAM (KlonoPIN) 0.25 mg disintegrating tablet TAKE 1 TO 2 TABLETS BY MOUTH UNDER TONGUE TWICE A WEEK NEEDED FOR ANXIETY/PANIC FOR 30 DAYS 11/08/19 25 Active cloNIDine (CATAPRES) 0.2 mg tablet Take 1 tablet (0.2 mg total) by mouth 3 (three) times a day if needed. 11/04/19 25 Active docusate sodium (COLACE) 100 mg capsule Take 1 capsule (100 mg total) by mouth 3 (three) times a day if needed. 11/03/19 25 Active escitalopram (LEXAPRO) 20 mg tablet Take 1 tablet (20 mg total) by mouth 1 (one) time each day. 09/20/19 25 Active FeroSuL 325 mg (65 mg iron) tablet 04/30/20 24 Active fluticasone propionate (FLONASE) 50 mcg/actuation nasal spray Administer 1 spray into each nostril 1 (one) time each day. 09/05/19 25 Active gabapentin (NEURONTIN) 300 mg capsule Take 2 capsules (600 mg total) by mouth. Active ibuprofen (ADVIL,MOTRIN) 800 mg tablet take 1 tablet by mouth every 8 hours as needed for 30 days 09/07/19 25 Active lidocaine (XYLOCAINE) 5 % ointment APPLY A 2 INCH STRIP ONCE A DAY NEEDED FOR BACK PAIN 06/08/20 24 Active lurasidone (LATUDA) 40 mg tablet TAKE 1 TABLET BY MOUTH EVERY EVENING AFTER A MEAL 11/04/19 25 Active Depo-subQ provera 104 104 mg/0.65 mL injection INJECT 0.65 ML EVERY 3 MONTHS BY SUBCUTANEOUS ROUTE FOR 84 DAYS, FOR CONTRACEPTION. 09/16/19 25 Active methylphenidate (RITALIN) 10 mg tablet Take 1 tablet (10 mg total) by mouth 2 (two) times a day. Max Daily Amount: 20 mg 11/03/19 25 Active methylphenidate (RITALIN) 20 mg tablet Take 1 tablet (20 mg total) by mouth 2 (two) times a day. Max Daily Amount: 40 mg 11/03/19 25 Active oxyCODONE (ROXICODONE) 5 mg immediate release tablet 11/06/19 25 Active 28 mg iron- 800 mcg per tablet Take 1 tablet by mouth 1 (one) time each day. 10/04/19 25 Active propranolol LA (INDERAL LA) 80 mg 24 hr capsule Take 1 capsule (80 mg total) by mouth 1 (one) time each day. 10/09/19 25 Active Encounters Date Type Department Care Team Description 11/12/2024 6:54 PM EDT - 11/12/2024 8:17 PM EDT Emergency [facility] Emergency [address] [place] [phone] Methadone dependence (CMS/HCC V24, CMS/HCC V28) (Primary Dx); Medication dose missed Discharge Disposition: Home or Self Care from Last 3 Months Social History Tobacco Use Types Packs/Day Years Used Date Smoking Tobacco: Never Assessed Comments Unknown Sex and Gender Information Value Date Recorded Sex Assigned at Female 11/12/2024 7:46 PM EDT Legal Sex Female 9:04 PM EST Gender Identity Female 11/12/2024 7:46 PM EDT Sexual Orientation Straight 11/12/2024 7: 46 PM EDT Last Filed Vital Signs Vital Sign Reading [...] Mass Index 30.9 11/12/2024 6:48 PM EDT Plan of Treatment Health Maintenance Due Date Last Done Comments DTaP,Tdap,and Td Vaccines (1 - Tdap) 2009 Hepatitis A Vaccines (1 of 2 - Risk 2-dose series) 2009 Hepatitis B Vaccines (1 of 3 - 19+ 3-dose series) 2009 Cervical Cancer Screening: P ap Smear 10/08/2011 COVID-19 Vaccine ( - 2023-2 5 season) 2024 Depression Screening 11/12/2024 HIV Screening 11/12/2024 Hepatitis C Screening 11/12/2024 Social Influencers of Health Screening 11/12/2024 Influenza Vaccine (Season Ended) 2025 HIB Vaccines Aged Out No longer eligi ble based on patient's age to complete this topic HPV Vaccines Aged Out No longer eligi ble based on patient's age to complete this topic IPV Vaccines Aged Out No longer eligi ble based on patient's age to complete this topic MMR Vaccines Aged Out No longer eligi ble based on patient's age to complete this topic Meningococcal ACWY Vaccine Aged Out N o longer eligible based on patient's age to complete this topic Meningococcal B Vaccine Aged Out No l onger eligible based on patient's age to complete this topic Pneumococcal Vaccine: Pediat rics (0 to 5 Years) and At-Risk Patients (6 to 64 Years) Aged Out No longer eligible b ased on patient's age to complete this topic RSV Immunization Patients Un cindy 20 months Aged Out No longer eligible b ased on patient's age to complete this topic Varicella Vaccines Aged Out No longer eligible based on patient's age to complete this topic Insurance [facility] Care Teams French Instructor Relationship Specialty Start Date End Date Nila Hummel MD [address] [place] [address] PCP - General Internal Medicine 08/03/15
--- OUTSIDE RECORDS SUMMARY | 2024-11-14 18:12 | XMS_ITS | Patient Health Record ---
Author Organization [facility] Address [address] [place] [address] Care Team Providers Care 2 Year Olds Preschool Teacher Name Role Phone Brandon Castillo DO Unavailable [...] tab(s) orally every 12 hours for 14 (MV)-[id number] 2 05/20/2012 Active Amoxicillin 500 mg 2 tab(s) orally 2 times a day for 14 (MV)-[id number] 4 05/20/2012 Active Problems Problem Type SNOMED Code ICD Code Onset Dates Problem Status W/U Status Risk Notes Problem Endometriosis (035822696) Endometriosis, site unspecified (617.9) 012 Active confirmed Phillip: Endometriosis (clinical); Problem Gastroesophageal reflux disease (228041955) GERD (gastroesophag eal reflux disease) (530.81) Active confirmed 07-07-12 GERD TRIED PRILOSEC OTC ?? DATES AND OMEPRAZOLE 20MG QD FROM 07-07-12 TO ??? Problem Constipation (81772509) Constipation NOS (564.00) Active confirmed (MV) Problem Abdominal pain (68973974) Abdominal Pain _unspecified site_ (789.00) Active confirmed (MV) Plan Of Treatment Pending Test Test Name Order Date HELICOBACTER PYLORI Ab, IgM 04/27/2012 HELICOBACTER PYLORI IgG,EIA 04/27/2012 Insurance Providers Payer Name Payer Address Payer Phone Subscriber Number Group Number Insured Name Patient Relationship to Insured Coverage Start Date Coverage End Date [facility] [address], [place] [id number] Marybel Garcia Self - patient is the insured 2
--- OUTSIDE RECORDS SUMMARY | 2024-11-14 18:12 | XMS_ITS | Clinical Summary ---
Author Organization [facility] Address [address] [place] [address] Care Team Providers Care Refrigerating Engineer Name Role Phone Chuck AliciaJayleneNila Primary Care [...] patient's age to complete this topic Insurance [employer] Care Teams Refrigerating Engineer Relationship Specialty Start Date End Date Nila Hummel [address] [place] [address] PCP - General Family Medicine 07/24/21
--- OUTSIDE RECORDS SUMMARY | 2024-11-14 18:12 | XMS_ITS ---
Author Name [facility] Organization Unknown Encounters Encounter Type Encounter Reason Primary Diagnosis Location Date Emergency missed a dose of medication Opioid dependence, uncomplicated (CMS/HCC V24, CMS/HCC V28) [facility] 11/12/2024 Care Team Organization Name Specialty Phone Email Start Date End Da te [facility] SATISH DESAI Primary Care 11/14/2024 [facility] SATISH YUNGGISELLE Primary Care 11/12/2024
== END 2024-11-14 16:15 | disposition home or self-care (01) ==
LOC: HO.PMC 15:54
PROVIDERS: PCP Family Medicine; Visit Provider Anesthesiology
DX: T85.615A Breakdown (mechanical) of other nervous system device, implant or graft, initial encounter (principal)
CPT/HCPCS: 99213

== ENCOUNTER → 2024-11-14 15:54 | Outpatient (BNVA) | payer MEDICAID, SELFPAY | PROVIDERS: PCP Family Medicine; Visit Provider Anesthesiology | DX: R10.2 Pelvic and perineal pain (principal); G89.29 Other chronic pain; T85.615A Breakdown (mechanical) of other nervous system device, implant or graft, initial encounter; X58.XXXA Exposure to other specified factors, initial encounter; Z79.899 Other long term (current) drug therapy | CPT/HCPCS: 99212 ==

== ENCOUNTER 2024-11-15 09:16 | Outpatient (REF) | payer MEDICAID, SELFPAY ==
--- NOTE | ~2024-11-15 | FL_ITS ---
EXAMINATION: FL GUIDANCE ONLY HISTORY: T85.615A - Breakdown (mechanical) of other nervous system device, implant... COMPARISON: None available. TECHNIQUE: Fluoroscopy time: 0.3 minutes. Cumulative Dose: 8.08 mGy. DAP: 1.40 mGym2 Images: 6. FINDINGS: Images demonstrate placement of a pump in the left iliac region. An electrode extends to the lower thoracic spine. FL/FL guidance in treatment room IMPRESSION: Fluoroscopy during procedure. Please see procedure report for additional information. Electronically signed by: Blas Harp MD 11/15/2024 12:54 PM EDT
--- OUTSIDE RECORDS SUMMARY | 2024-11-15 10:08 | XMS_ITS | Encounter Summary ---
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 Encounter Details Date Type Department Care Team (Late st Contact Info) Description 11/12/2024 6:54 PM EDT - 11/12/2024 8:[address] [facility] Emergency [address] [place] [phone] Methadone dependence (CMS/HCC V24, CMS/HCC V28) (Primary [...] Concentrate 10 mg/mL (METHADONE CONCENTRATE - ORAL) (Luxembourgish) documented in this encounter Medications at Time [...] nostril 1 (one) time each day. 5 ibuprofen (ADVIL,MOTRIN) 800 mg tablet take 1 [...] mouth 1 (one) time each day. 5 gabapentin (NEURONTIN) 300 mg capsule Take 2 capsules (600 mg total) by mouth. documented as of this encounter Discharge Disposition [...] PM EDT Spoke with April LOUISE at [facility] for methadone dosage verification. Pt is on a split dose of 40 mg in the morning and 85 mg in the afternoon as a take home dose. Pt was last dosed yesterday morning and missed her AM dose. Angelique Grey RN 11/12/241913 * Sabiha Pineda NP - 11/12/2024 7:12 PM EDT Marybel Garcia Methadone dose of 85 mg confirmed with RN April at [facility]. RN reports patientgets a split dose of methadone, 40 mg in the morning and 85 mg in the afternoon and that patient did not present to the clinic today. RN reports patient's last dose was 11/11/2024. [facility] [phone] ext 2 * Sabiha Pineda NP - 11/12/2024 6:43 PM EDT Chief Complaint: Chief Complaint Patient presents with Financial Professional Pt states that she missed her dose of methadone today and the answering service told her to come here to receive her dose. History of Present Illness: 34 y.o. female presents to the Emergency Department for methadone. Patient reports that she is seenat the [facility] for her methadone. She reports [...] plan to manage discomfort or fevers with [id number] Tylenol and/or NSAIDS such as Motrin or [...] missed: acute illness or injury Methadone dependence (CMS/[facility] V24, CMS/[facility] V28): chronic illness or injury Clinical Impressions as of 11/12/242000 Methadone dependence (CMS/[facility] V24, CMS/[facility] V28) Medication dose missed Diagnoses: [...] this encounter Visit Diagnoses Diagnosis Methadone dependence (CMS/[facility] V24, [facility] V28)- Primary Opioid type dependence, [...] 11/12/2024 documented in this encounter Care Teams Operations Officer Relationship Specialty Start Date End Date Nila Hummel MD [address] [place] [address] PCP - General Internal Medicine 08/03/15 documented as of this encounter
--- OUTSIDE RECORDS SUMMARY | 2024-11-15 10:08 | XMS_ITS | Clinical Summary ---
Author Organization [facility] Address [address] [place] [address] Phone Care Team Providers Care Commander Police Reserves Name Role Phone Nila Hummel MD Primary [...] EDT - 11/12/2024 8:17 PM EDT Emergency [facility] Emergency [address] [place] [phone] Methadone dependence (CMS/HCC V24, CMS/HCC V28) (Primary [...] patient's age to complete this topic Insurance [facility] MEDICAID - [place] Care Teams Commander Police Reserves Relationship Specialty Start Date End Date Nila Hummel MD [address] [place] [address] PCP - General Internal Medicine 08/03/15
--- OUTSIDE RECORDS SUMMARY | 2024-11-15 10:08 | XMS_ITS | Patient Health Record ---
Author Organization [facility] Address [address] [place] [address] Care Team Providers Care Metal Furniture Repairer Name Role Phone Brandon Castillo DO Unavailable [...] tab(s) orally every 12 hours for 14 (MV)-[id number] 2 05/20/2012 Active Amoxicillin 500 mg 2 tab(s) orally 2 times a day for 14 (MV)-[id number] 4 05/20/2012 Active Problems Problem Type SNOMED Code ICD Code Onset Dates Problem Status W/U Status Risk Notes Problem Endometriosis (568482705) Endometriosis, site unspecified (617.9) 012 Active confirmed Phillip: Endometriosis (clinical); Problem Gastroesophageal reflux disease (369474897) GERD (gastroesophag eal reflux disease) (530.81) Active confirmed 07-07-12 GERD TRIED PRILOSEC OTC ?? DATES AND OMEPRAZOLE 20MG QD FROM 07-07-12 TO ??? Problem Constipation (44963920) Constipation NOS (564.00) Active confirmed (MV) Problem Abdominal pain (69418377) Abdominal Pain _unspecified site_ (789.00) Active confirmed (MV) Plan Of Treatment Pending Test Test Name Order Date HELICOBACTER PYLORI Ab, IgM 04/27/2012 HELICOBACTER PYLORI IgG,EIA 04/27/2012 Insurance Providers Payer Name Payer Address Payer Phone Subscriber Number Group Number Insured Name Patient Relationship to Insured Coverage Start Date Coverage End Date [facility] [address], [place] [id number] Marybel Garcia Self - patient is the insured 2
--- OUTSIDE RECORDS SUMMARY | 2024-11-15 10:08 | XMS_ITS | Clinical Summary ---
Author Organization [facility] Address [address] [place] [address] Care Team Providers Care Family Services Assistant Name Role Phone Chuck AliciaJayleneNila Primary [...] patient's age to complete this topic Insurance [employer] Care Teams Family Services Assistant Relationship Specialty Start Date End Date Nila Hummel [address] [place] [address] PCP - General Family Medicine 07/24/21
--- OUTSIDE RECORDS SUMMARY | 2024-11-15 10:08 | XMS_ITS | Referral Summary ---
Author Organization [facility] Address [address] [place] [address] Care Team Providers Care Couture Alterations Dressmaker Name Role Phone Chuck AliciaJaylene, Kharme Primary [...] Plan of Treatment Not on file Insurance [facility] Care Teams Couture Alterations Dressmaker Relationship Specialty Start Date End Date Nila Hummel [address] [place] [address] PCP - General Family Medicine 07/24/21
== END 2024-11-15 09:17 | disposition home or self-care (01) ==
LOC: CF 09:16
PROVIDERS: Visit Provider Anesthesiology
DX: T85.615A Breakdown (mechanical) of other nervous system device, implant or graft, initial encounter (principal)
CPT/HCPCS: 61070; 75809; Q9967

== ENCOUNTER 2024-11-15 11:05 | Outpatient (AMB) | payer MEDICAID, SELFPAY ==
[2024-11-15 11:17] VITALS: BP 149/102; PULSE 86; RESP 16; O2SAT 99
--- NOTE | 2024-11-15 11:17 | A.OFFVIS_ITS ---
Vital Signs 11/15/24 11:17 11/15/24 11:52 BP 149/102 H 132/92 H Blood Pressure Location Rt brachial Lt brachial Position Sitting Sitting Respiration 16 16 Pulse 86 75 Pulse Source Pulse Oximeter Pulse Oximeter Pulse Oximetry (%) 99 100 Oxygen Delivery Method Room Air Room Air Intake Visit Reasons: Urgent ITDD Dye Study Intake Note: Pt's BP elevated - she states she is extremely anxious regarding procedure Length Control Tester Required: No Allergies oxybutynin [OXYBUTYNIN] Allergy (Unknown, Verified 11/15/24 11:18) EYES AND LIPS SWOLLEN tolterodine [Detrol] Allergy (Unknown, Verified 11/15/24 11:18) Facial Swelling Medication List - Last Reconciled 11/15/24 by Geovanna Veronica LPN acetaminophen (Tylenol Extra Strength) 500 mg PO Q6H PRN aripiprazole 3 mg PO DAILY baclofen 20 mg PO TID PRN 30 days bupropion HCl XL 1 tab PO DAILY clonazepam mg PO clonidine HCl 0.2 mg PO TID docusate sodium mg PO escitalopram oxalate mg PO DAILY ferrous sulfate (FeroSul) 325 mg PO DAILY fluticasone propionate 50 mcg/actuation 1 spray intranasal DAILY gabapentin 2 caps PO TID hydroxyzine pamoate 25 mg PO BID ketorolac 10 mg PO Q8H 5 days lurasidone 40 mg PO DAILY lurasidone 20 mg PO DAILY medroxyprogesterone (Depo-SubQ provera 104) mg subcut methadone 10 mg PO Q6H methylphenidate HCl 1 tab PO BID methylphenidate HCl 10 mg PO BID PNV cmb#95-ferrous fumarate-FA 28 mg iron- 800 mcg () tabs PO DAILY propranolol ER mg PO DAILY PFSH Medical History Cocaine addiction Spondylosis of cervical spine without myelopathy Chronic pain syndrome Dyspareunia Chronic pelvic pain in female Endometriosis Raynaud's disease Fibromyalgia Pain Hx of chest pain Overactive bladder Hx of endometriosis Back pain Anemia Hx of renal calculi GERD (gastroesophageal reflux disease) OCD (obsessive compulsive disorder) Anxiety Hx of migraines IC (interstitial cystitis) Surgical History Hx of dilation and curettage History of Hx of exploratory laparotomy Hx of colonoscopy Hx of cystoscopy Social History Patient Tobacco Use Status: Never used Tobacco Physical Exam Vital Signs: Last Vital Signs Pulse 75 11/15/24 11:52 Resp 16 11/15/24 11:52 BP 132/92 H 11/15/24 11:52 Pulse Ox 100 11/15/24 11:52 Oxygen Delivery Method Room Air 11/15/24 11:52 Assessment & Plan Assessment & Plan (1) Malfunction of intrathecal infusion pump: Code(s): T85.615A - Breakdown (mechanical) of other nervous system device, implant or graft, initial encounter Category: Medical Plan Dye study of the intrathecal catheter. Informed consent was explained to the patient. All questions were explained and? answered. The patient was taken inside the operating room where she was positioned prone on the operating table Time-out was performed delineating correct site, side, the nature of the procedure, patient's allergy, preoperative antibiotic if needed.? All operating room staff was participating in OR time-out procedure.? The patient stated his name. The area of the pump was prepped with ChloraPrep and draped with sterile utility towels. C-arm was brought over the operating field and sq picture of the pain pump was demonstrated on the screen. Side port of the pump was chosen as a point of the needle insertion. 25 gauge 1-1/2 inch needle noncoring was inserted through the skin and advanced to were the opening of the side port of the pump. When the needle entered the silicone plug the aspiration was applied to the needle and 2 cc of CSF and medicine solution were aspirated into the syringe. After that the needle was connected to the 3 cc syringe containing Isovue-M contrast and injection of 2 cc of the contrast was performed. The pictures of the intrathecal catheter filled with contrast were taken. Also pictures of themyelogram approximately at T10 level of the thoracic spine was taken. Upon completion of the injection the needle was removed and sterile Band-Aid was applied. The patient tolerated the procedure well. Her pump is working appropriately. The prime bolus was applied for the next 13 minutes. Orders: Orders FL guidance in treatment room Today T85.615A - Breakdown (mechanical) of other nervous system device, implant or graft, initial encounter Coding Level of Care Code Procedure Only Diagnoses Malfunction of intrathecal infusion pump T85.615A
[2024-11-15 11:52] VITALS: BP 132/92; PULSE 75; RESP 16; O2SAT 100
--- OUTSIDE RECORDS SUMMARY | 2024-11-15 13:36 | XMS_ITS | Clinical Summary ---
Author Organization [facility] Address [address] [place] [address] Phone Care Team Providers Care Pottery Decoration Designer Name Role Phone Nila Hummel MD Primary Care Provi cidny Allergies Active Allergy Reactions Criticality Noted Date [...] - 11/12/2024 8:17 PM EDT Emergency [facility] Emergency [address] [place] [phone] Methadone dependence (CMS/HCC V24, CMS/HCC V28) (Primary [...] patient's age to complete this topic Insurance [facility] MEDICAID - [place] Care Teams Pottery Decoration Designer Relationship Specialty Start Date End Date Nila Hummel MD [address] [place] [address] PCP - General Internal Medicine 08/03/15
--- OUTSIDE RECORDS SUMMARY | 2024-11-15 13:37 | XMS_ITS | Referral Summary ---
Author Organization [facility] Address [address] [place] [address] Care Team Providers Care Patrol Commander Name Role Phone Chuck AliciaJaylene, Kharme Primary [...] Plan of Treatment Not on file Insurance [facility] Care Teams Patrol Commander Relationship Specialty Start Date End Date Nila Hummel [address] [place] [address] PCP - General Family Medicine 07/24/21
--- OUTSIDE RECORDS SUMMARY | 2024-11-15 13:37 | XMS_ITS | Encounter Summary ---
Author Organization [facility] Address [address] [place] [address] Care Team Providers Care Head Sugar Reprocess Operator Name Role Phone Nila Hummel MD Primary Care Provi cindy Reason for Visit * Reason Comments Vigoureux Printer Pt states that she m issed her dose of methadone today and the answering service told her to come here to receive her dose. Encounter Details Date Type Department Care Team (Late st Contact Info) Description 11/12/2024 6:54 PM EDT - 11/12/2024 8:17 PM EDT Emergency [facility] Emergency [address] [place] [phone] Methadone dependence (CMS/HCC V24, CMS/HCC V28) (Primary [...] Concentrate 10 mg/mL (METHADONE CONCENTRATE - ORAL) (Japanese) documented in this encounter Medications at Time [...] PM EDT Spoke with April LOUISE at [facility] for methadone dosage verification. Pt [...] 85 mg confirmed with RN April at [facility]. RN reports patientgets a split dose of methadone, 40 mg in the morning and 85 mg in the afternoon and that patient did not present to the clinic today. RN reports patient's last dose was 11/11/2024. [facility] [phone] ext [phone] * Sabiha Pineda NP - 11/12/2024 6:43 PM EDT Chief Complaint: Chief Complaint Patient presents with Vigoureux Printer Pt states that she missed her dose of methadone today and the answering service told her to come here to receive her dose. History of Present Illness: 34 y.o. female presents to the Emergency Department for methadone. Patient reports that she is seenat the [facility] for her methadone. She reports [...] plan to manage discomfort or fevers with [id number] Tylenol and/or NSAIDS such as Motrin or [...] missed: acute illness or injury Methadone dependence (CMS/[facility] V24, CMS/[facility] V28): chronic illness or injury Clinical Impressions as of 11/12/242000 Methadone dependence (CMS/[facility] V24, CMS/[facility] V28) Medication dose missed Diagnoses: [...] this encounter Visit Diagnoses Diagnosis Methadone dependence (CMS/[facility] V24, [facility] V28)- Primary Opioid type dependence, [...] 11/12/2024 documented in this encounter Care Teams Head Sugar Reprocess Operator Relationship Specialty Start Date End Date Nila Hummel MD [address] [place] [address] PCP - General Internal Medicine 08/03/15 documented as of this encounter
--- OUTSIDE RECORDS SUMMARY | 2024-11-15 13:37 | XMS_ITS | Clinical Summary ---
Author Organization [facility] Address [address] [place] [address] Care Team Providers Care Skin Fitter Name Role Phone Chuck AliciaJayleneNila Primary Care [...] patient's age to complete this topic Insurance [employer] Care Teams Skin Fitter Relationship Specialty Start Date End Date Nila Hummel [address] [place] [address] PCP - General Family Medicine 07/24/21
== END 2024-11-15 11:55 | disposition home or self-care (01) ==
LOC: HO.PMCPRC 11:05
PROVIDERS: PCP Family Medicine; Visit Provider Anesthesiology
DX: T85.615A Breakdown (mechanical) of other nervous system device, implant or graft, initial encounter (principal)
CPT/HCPCS: 61070; 75809

== ENCOUNTER 2024-11-17 11:21 | Outpatient (AMB) | payer MEDICAID, SELFPAY ==
[2024-11-17 11:31] VITALS: BP 163/99; PULSE 65; BMI 27.9
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
--- OUTSIDE RECORDS SUMMARY | 2024-11-17 14:06 | XMS_ITS | Clinical Summary ---
Author Organization [facility] Address [address] [place] [address] Care Team Providers Care Central Sterilization Technician Name Role Phone Chuck AliciaJayleneNila Primary Care [...] patient's age to complete this topic Insurance [employer] Care Teams Central Sterilization Technician Relationship Specialty Start Date End Date Nila Hummel [address] [place] [address] PCP - General Family Medicine 07/24/21
--- OUTSIDE RECORDS SUMMARY | 2024-11-17 14:06 | XMS_ITS | Clinical Summary ---
Author Organization [facility] Address [address] [place] [address] Phone Care Team Providers Care Procedures Analyst Name Role Phone Nila Hummel MD Primary [...] EDT - 11/12/2024 8:17 PM EDT Emergency [facility] Emergency [address] [place] [phone] Methadone dependence (CMS/HCC V24, CMS/HCC V28) (Primary [...] patient's age to complete this topic Insurance [facility] Care Teams Procedures Analyst Relationship Specialty Start Date End Date Nila Hummel MD [address] [place] [address] PCP - General Internal Medicine 08/03/15
--- OUTSIDE RECORDS SUMMARY | 2024-11-17 14:06 | XMS_ITS | Encounter Summary ---
Author Organization [facility] Address [address] [place] [address] Care Team Providers Care Customer Support Advisor Name Role Phone Nila Hummel MD Primary Care Provi cindy Reason for Visit * Reason Comments Rehab Manager Pt states that she m issed her dose of methadone today and the answering service told her to come here to receive her dose. Encounter Details Date Type Department Care Team (Late st Contact Info) Description 11/12/2024 6:54 PM EDT - 11/12/2024 8:17 PM EDT Emergency Emergency [address] [place] [phone] Methadone dependence (CMS/HCC V24, CMS/HCC V28) (Primary [...] Concentrate 10 mg/mL (METHADONE CONCENTRATE - ORAL) (Croatian) documented in this encounter Medications at Time [...] PM EDT Spoke with April LOUISE at [facility] for methadone dosage verification. Pt [...] 85 mg confirmed with RN April at [facility]. RN reports patientgets a split dose of methadone, 40 mg in the morning and 85 mg in the afternoon and that patient did not present to the clinic today. RN reports patient's last dose was 11/11/2024. [facility] [phone] ext [phone] * Sabiha Pineda NP - 11/12/2024 6:43 PM EDT Chief Complaint: Chief Complaint Patient presents with Rehab Manager Pt states that she missed her dose of methadone today and the answering service told her to come here to receive her dose. History of Present Illness: 34 y.o. female presents to the Emergency Department for methadone. Patient reports that she is seenat the [facility] for her methadone. She reports she [...] plan to manage discomfort or fevers with eeki-rxi-shvcuyw Tylenol and/or NSAIDS such as Motrin or [...] missed: acute illness or injury Methadone dependence (CMS/[facility] V24, CMS/[facility] V28): chronic illness or injury Clinical Impressions as of 11/12/242000 Methadone dependence (CMS/[facility] V24, CMS/[facility] V28) Medication dose missed Diagnoses: No diagnosis [...] this encounter Visit Diagnoses Diagnosis Methadone dependence (CMS/[facility] V24, [facility] V28)- Primary Opioid type dependence, unspecified abuse [...] 11/12/2024 documented in this encounter Care Teams Customer Support Advisor Relationship Specialty Start Date End Date Nila Hummel MD [address] [place] [address] PCP - General Internal Medicine 08/03/15 documented as of this encounter
--- OUTSIDE RECORDS SUMMARY | 2024-11-17 14:06 | XMS_ITS | Referral Summary ---
Author Organization [facility] Address [address] [place] [address] Care Team Providers Care Detective Investigator Name Role Phone Chuck AliciaJaylene, Kharme [...] Plan of Treatment Not on file Insurance [facility] Care Teams Detective Investigator Relationship Specialty Start Date End Date Nila Hummel [address] [place] [address] PCP - General Family Medicine 07/24/21
== END 2024-11-17 12:00 | disposition home or self-care (01) ==
LOC: HO.PMC 11:22
PROVIDERS: PCP Family Medicine; Visit Provider Anesthesiology
DX: T85.615A Breakdown (mechanical) of other nervous system device, implant or graft, initial encounter (principal); T85.840A Pain due to nervous system prosthetic devices, implants and grafts, initial encounter; Z96.89 Presence of other specified functional implants; T85.620A Displacement of cranial or spinal infusion catheter, initial encounter; Z45.1 Encounter for adjustment and management of infusion pump
CPT/HCPCS: 95991; 99214

== ENCOUNTER → 2024-11-17 11:21 | Outpatient (BNVA) | payer MEDICAID, SELFPAY | PROVIDERS: PCP Family Medicine; Visit Provider Anesthesiology | DX: Z45.89 Encounter for adjustment and management of other implanted devices (principal); T85.615D Breakdown (mechanical) of other nervous system device, implant or graft, subsequent encounter; T85.8 Other specified complications of internal prosthetic devices, implants and grafts, not elsewhere classified; T85.62 Displacement of other specified internal prosthetic devices, implants and grafts; Z79.891 Long term (current) use of opiate analgesic | CPT/HCPCS: 99212 ==

== ENCOUNTER 2024-11-22 06:24 | Outpatient (REF) | payer MEDICAID, SELFPAY ==
--- OUTSIDE RECORDS SUMMARY | 2024-11-22 06:27 | XMS_ITS | Patient Health Record ---
Author Organization [facility] Address [address] [place] [address] Care Team Providers Care Call Or Contact Centre Manager Name Role Phone Brandon Castillo DO Unavailable [...] tab(s) orally every 12 hours for 14 (MV)-[id number] 2 05/20/2012 Active Amoxicillin 500 mg 2 tab(s) orally 2 times a day for 14 (MV)-[id number] 4 05/20/2012 Active Problems Problem Type SNOMED Code ICD Code Onset Dates Problem Status W/U Status Risk Notes Problem Endometriosis (387631468) Endometriosis, site unspecified (617.9) 012 Active confirmed Phillip: Endometriosis (clinical); Problem Gastroesophageal reflux disease (851881849) GERD (gastroesophag eal reflux disease) (530.81) Active confirmed 07-07-12 GERD TRIED PRILOSEC OTC ?? DATES AND OMEPRAZOLE 20MG QD FROM 07-07-12 TO ??? Problem Constipation (64629499) Constipation NOS (564.00) Active confirmed (MV) Problem Abdominal pain (13548415) Abdominal Pain _unspecified site_ (789.00) Active confirmed (MV) Plan Of Treatment Pending Test Test Name Order Date HELICOBACTER PYLORI Ab, IgM 04/27/2012 HELICOBACTER PYLORI IgG,EIA 04/27/2012 Insurance Providers Payer Name Payer Address Payer Phone Subscriber Number Group Number Insured Name Patient Relationship to Insured Coverage Start Date Coverage End Date [facility] [address] [place], [place] [id number] Marybel Garcia Self - patient is the insured 2
--- OUTSIDE RECORDS SUMMARY | 2024-11-22 06:27 | XMS_ITS | Encounter Summary ---
Author Organization [facility] Address [address] [place] [address] Care Team Providers Care Customer Sales Representative Name Role Phone Nila Hummel MD Primary Care Provi cindy Reason for Visit * Reason Comments Chest Pain Hypertension Encounter Details Date Type Department Care Team ([facility] st Contact Info) Description 11/21/2024 4:35 PM EDT - 11/21/2024 8:37 PM EDT Emergency [facility] Emergency [address] [place] [address] Discharge Disposition: Home or Self Care Social [...] Sign Reading Time Taken Comments Blood Pressure 145/106 11/21/2024 4:43 PM EDT Pulse 78 11/21/2024 4:43 PM EDT Temperature 36.8 ??C (98.2 ??F) 11/21/2024 4:43 PM ED T Respiratory Rate 16 11/21/2024 4:43 PM EDT Oxygen Saturation 97% 11/21/2024 4:43 PM EDT Inhaled Oxygen Concentration - - Weight 69.4 kg (153 lb) 11/21/2024 4:43 PM EDT Height 149.9 cm (4' 11 ) 11/21/2024 4:43 PM EDT Body Mass Index 30.9 11/21/2024 4:43 PM EDT documented in this encounter Medications at Time [...] Discharge Disposition Disposition Code Departure Means Destination Home or Self Care documented in this encounter Progress Notes * Noemi Eastman RN - 11/21/2024 4:39 PM EDT Pt to ED for c/o midsternal chest pain and hypertension. 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 Last BP for EMS 136/89. Denies SOB, EKG nondiagnostic for EMS. No hx of hypertension. documented in this encounter Plan of Treatment Pending Results Name Type Priority Associated Diagnoses Date /Time ECG 12 lead ECG STAT 11/21/2024 4: 54 PM EDT documented as of this encounter Procedures Procedure Name Priority Date/Time Associated Diagnosis Comments CBC WITH AUTO DIFFERENTIAL STAT 11/21/2024 5:42 PM EDT CBC AND DIFFERENTIAL STAT 11/21/2024 5:42 PM EDT B-TYPE NATRIURETIC PEPTIDE STAT 11/21/2024 5:42 PM EDT MAGNESIUM STAT 11/21/2024 5:42 PM EDT LIPASE STAT 11/21/2024 5:42 PM EDT COMPREHENSIVE METABOLIC PANEL STAT 11/21/2024 5:42 PM EDT ECG 12-LEAD STAT 11/21/2024 4:54 PM EDT documented in this encounter Results * CBC auto differential (11/21/2024 5:42 PM EDT) [facility] WBC 8.1 4.8 - 10.8 K/mcL LAB HEMETOLOGY METHOD 11/21/2024 6:31 PM EDT [facility] RBC 4.80 3.80 - 4.80 M/mcL LAB HEMETOLOGY METHOD 11/21/2024 6:31 PM EDT [facility] Hemoglobin 13.6 11.5 - 16.0 g/dL LAB HEMETOLOGY METHOD 11/21/2024 6:31 PM EDT [facility] Hematocrit 42.0 35.0 - 47.0 % LAB HEMETOLOGY METHOD 11/21/2024 6:31 PM EDT [facility] MCV 88.4 79.0 - 98.0 FL LAB HEMETOLOGY METHOD 11/21/2024 6:31 PM EDT [facility] MCH 28.6 27.0 - 32.0 pcg LAB HEMETOLOGY METHOD 11/21/2024 6:31 PM EDT [facility] MCHC 32.4 32.0 - 37.0 g/dL LAB HEMETOLOGY METHOD 11/21/2024 6:31 PM EDT [facility] RDW 13.0 11.0 - 15.0 % LAB HEMETOLOGY METHOD 11/21/2024 6:31 PM EDT [facility] Platelets 357 130 - 400 K/mcL LAB HEMETOLOGY METHOD 11/21/2024 6:31 PM EDT [facility] MPV 9.9 7.0 - 11.0 FL LAB HEMETOLOGY METHOD 11/21/2024 6:31 PM EDT [facility] NRBC 0.0 <1.0 % LAB HEMETOLOGY METHOD 11/21/2024 6:31 PM EDT [facility] NRBC Absolute 0.00 <0.10 K/mcL LAB [facility] Neutrophils Relative 61.5 % LAB HEMETOLOGY METHOD 11/21/2024 6:31 PM [facility] Lymphocytes Relative 29.4 % LAB HEMETOLOGY METHOD 11/21/2024 6:31 PM [facility] Monocytes Relative 6.7 % LAB HEMETOLOGY METHOD 11/21/2024 6:31 PM [facility] Eosinophils Relative 1.6 % LAB HEMETOLOGY METHOD 11/21/2024 6:31 PM [facility] Basophils Relative 0.4 % LAB HEMETOLOGY METHOD 11/21/2024 6:31 PM [facility] Immature Granulocytes Relative 0.4 % LAB HEMETOLOGY METHOD 11/21/2024 6:31 PM [facility] Neutrophils Absolute 4.99 1.50 - 7.00 K/mcL LAB HEMETOLOGY METHOD 11/21/2024 6:31 PM [facility] Lymphocytes Absolute 2.38 1.00 - 5.00 K/mcL LAB HEMETOLOGY METHOD 11/21/2024 6:31 PM [facility] Monocytes Absolute 0.54 0.20 - 1.00 K/mcL LAB HEMETOLOGY METHOD 11/21/2024 6:31 PM [facility] Eosinophils Absolute 0.13 0.00 - 0.50 K/mcL LAB HEMETOLOGY METHOD 11/21/2024 6:31 PM [facility] Basophils Absolute 0.03 0.00 - 0.20 K/mcL LAB HEMETOLOGY METHOD 11/21/2024 6:31 PM [facility] Immature Granulocytes Absolute 0.03 0.00 - 0.03 K/mcL LAB HEMETOLOGY METHOD 11/21/2024 6:31 PM EDT [facility] Blood Venous blood specimen / Unknown Venipuncture / Unknown 11/21/2024 5:42 PM EDT 11/21/2024 6:26 PM EDT us Michael Leary DO LAB BLOOD ORDERABLES Final Res ult Performing Organization Address City/[facility]/ZIP Co de Phone Number [facility] [address] [place] [address], [place] [phone] * B-type natriuretic peptide (11/21/2024 5:42 PM EDT) BNP 23 <=100 pcg/mL LAB CHEMISTRY METHOD 11/21/2024 7:00 PM EDT [facility] Blood Venous blood specimen / Unknown Venipuncture / Unknown 11/21/2024 5:42 PM EDT 11/21/2024 6:26 PM EDT us Michael Leary DO LAB BLOOD ORDERABLES Final Res ult Performing Organization Address [facility] de Phone Number [facility] [address] [place] [address], [place] [phone] * Magnesium (11/21/2024 5:42 PM EDT) Magnesium 2.3 1.9 - 2.6 mg/dL LAB CHEMISTRY METHOD 11/21/2024 7:03 PM EDT [facility] Blood Venous blood specimen / Unknown Venipuncture / Unknown 11/21/2024 5:42 PM EDT 11/21/2024 6:26 PM EDT us Michael Leary DO LAB BLOOD ORDERABLES Final Res ult Performing Organization Address City/[facility]/ZIP Co de Phone Number [facility] [address] [place] [address], [place] [phone] * Lipase (11/21/2024 5:42 PM EDT) [facility] Lipase 18 13 - 75 unit/L LAB CHEMISTRY METHOD 11/21/2024 7:03 PM EDT [facility] Blood Venous blood specimen / Unknown Venipuncture / Unknown 11/21/2024 5:42 PM EDT 11/21/2024 6:26 PM EDT us Michael Leary DO LAB BLOOD ORDERABLES Final Res ult [facility] [address] [place] [address], [place] [phone] * Comprehensive metabolic panel (11/21/2024 5:42 PM EDT) [facility] Sodium 136 133 - 145 mmol/L LAB CHEMISTRY METHOD 11/21/2024 7:08 PM [facility] Potassium 3.9 3.5 - 5.5 mmol/L LAB CHEMISTRY METHOD 11/21/2024 7:08 PM [facility] Chloride 102 96 - 110 mmol/L LAB CHEMISTRY METHOD 11/21/2024 7:08 PM [facility] CO2 25 21 - 32 mmol/L LAB CHEMISTRY METHOD 11/21/2024 7:08 PM [facility] Anion Gap 9 3 - 11 LAB CHEMISTRY METHOD 11/21/2024 7:08 PM [facility] Glucose 79 70 - 100 mg/dL LAB CHEMISTRY METHOD 11/21/2024 7:08 PM [facility] BUN 13 5 - 25 mg/dL LAB CHEMISTRY METHOD 11/21/2024 7:08 PM [facility] Creatinine 0.79 0.50 - 1.10 mg/dL LAB CHEMISTRY METHOD 11/21/2024 7:08 PM [facility] eGFR 101 >=60 mL/min/1. 73m2 LAB CHEMISTRY METHOD 11/21/2024 7:08 PM [facility] Comment:Calculation based on the??Chronic Kidney Disease Epidemiology Collaboration (CKD-EPI) equation refit??without adjustment for race. BUN/Creatinine Ratio 16.5 LAB CHEMISTRY METHOD 11/21/2024 7:08 PM [facility] Calcium 9.7 8.5 - 10.5 mg/dL LAB CHEMISTRY METHOD 11/21/2024 7:08 PM [facility] AST (SGOT) 26 10 - 42 unit/L LAB CHEMISTRY METHOD 11/21/2024 7:08 PM [facility] ALT (SGPT) 53 10 - 60 unit/L LAB CHEMISTRY METHOD 11/21/2024 7:08 PM [facility] Alkaline Phosphatase 116 42 - 121 unit/L LAB CHEMISTRY METHOD 11/21/2024 7:08 PM [facility] Total Protein 8.0 6.0 - 8.0 g/dL LAB CHEMISTRY METHOD 11/21/2024 7:08 PM [facility] Albumin 4.4 3.2 - 5.0 g/dL LAB CHEMISTRY METHOD 11/21/2024 7:08 PM [facility] Total Bilirubin 0.6 0.0 - 1.4 mg/dL LAB CHEMISTRY METHOD 11/21/2024 7:08 PM [facility] Blood Venous blood specimen / Unknown Venipuncture / Unknown 11/21/2024 5:42 PM EDT 11/21/2024 6:26 PM EDT us Michael Leary DO LAB BLOOD ORDERABLES Final Res ult [facility] [address] [place] [address], [place] [phone] documented in this encounter Visit Diagnoses Not on filedocumented in this encounter Orders EKG Orders Without Results Count Last Ordered D ate First Ordered Date ECG 12-LEAD 1 11/21/2024 documented in this encounter Care Teams Customer Sales Representative Relationship Specialty Start Date End Date Nila Hummel MD [address] [place], [place] PCP - General Internal Medicine 08/03/15 documented as of this encounter
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
--- OUTSIDE RECORDS SUMMARY | 2024-11-22 06:27 | XMS_ITS | Clinical Summary ---
Author Organization [facility] Address [address] [place] [address] Care Team Providers Care Sales Trainer Name Role Phone Chuck AliciaJayleneNila Primary Care [...] patient's age to complete this topic Insurance [employer] Care Teams Sales Trainer Relationship Specialty Start Date End Date Nila Hummel [address] [place] [address] PCP - General Family Medicine 07/24/21
--- OUTSIDE RECORDS SUMMARY | 2024-11-22 06:27 | XMS_ITS | Referral Summary ---
Author Organization [facility] Address [address] [place] [address] Care Team Providers Care Political Reporter Name Role Phone Chuck AliciaJaylene, Kharme Primary [...] Treatment Not on file Insurance [facility] Care Teams Political Reporter Relationship Specialty Start Date End Date Nila Hummel [address] [place] [address] PCP - General Family Medicine 07/24/21
== END 2024-11-22 06:25 | disposition home or self-care (01) ==
LOC: CF 06:24
PROVIDERS: Visit Provider Anesthesiology
DX: T85.615A Breakdown (mechanical) of other nervous system device, implant or graft, initial encounter (principal); T85.840A Pain due to nervous system prosthetic devices, implants and grafts, initial encounter; T85.620A Displacement of cranial or spinal infusion catheter, initial encounter; Z96.89 Presence of other specified functional implants
CPT/HCPCS: 99212

== ENCOUNTER 2024-11-22 09:01 | Outpatient (AMB) | payer MEDICAID, SELFPAY ==
[2024-11-22 09:12] VITALS: BP 180/110; PULSE 95; RESP 16; O2SAT 100
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
--- OUTSIDE RECORDS SUMMARY | 2024-11-22 09:31 | XMS_ITS | Clinical Summary ---
Author Organization [facility] Address [address] [place] [address] Care Team Providers Care Leather Cleaner Name Role Phone Chuck AliciaJayleneNila Primary Care [...] patient's age to complete this topic Insurance [email or web address] Care Teams Leather Cleaner Relationship Specialty Start Date End Date Nila Hummel [address] [place] [address] PCP - General Family Medicine 07/24/21
--- OUTSIDE RECORDS SUMMARY | 2024-11-22 09:31 | XMS_ITS | Referral Summary ---
Author Organization [facility] Address [address] [place] [address] Care Team Providers Care Electric Motor Assembler And Tester Name Role Phone Chuck AliciaJaylene, Kharme Primary [...] Plan of Treatment Not on file Insurance [facility] Care Teams Electric Motor Assembler And Tester Relationship Specialty Start Date End Date Nila Hummel [address] [place] [address] PCP - General Family Medicine 07/24/21
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
--- OUTSIDE RECORDS SUMMARY | 2024-11-22 09:31 | XMS_ITS | Encounter Summary ---
Author Organization [facility] Address [address] [place] [address] Care Team Providers Care Content Strategy Lead Name Role Phone Nila Hummel MD Primary Care Provi cindy Reason for Visit * Reason Comments Chest Pain Hypertension Encounter Details Date Type Department Care Team ([facility] st Contact Info) Description 11/21/2024 4:35 PM EDT - 11/21/2024 8:[address] [facility] Emergency [address] [place] [address] Discharge Disposition: Home or Self [...] 9am and chestpain began about 1 hour LEATHER WHITENER. Last BP for EMS 136/89. Denies SOB, [...] CBC auto differential (11/21/2024 5:42 PM EDT) [facility] WBC 8.1 4.8 - 10.8 K/mcL LAB HEMETOLOGY METHOD 11/21/2024 6:31 PM EDT [facility] RBC 4.80 3.80 - 4.80 M/mcL LAB HEMETOLOGY METHOD 11/21/2024 6:31 PM EDT [facility] Hemoglobin 13.6 11.5 - 16.0 g/dL LAB HEMETOLOGY METHOD 11/21/2024 6:31 PM EDT [facility] Hematocrit 42.0 35.0 - 47.0 % LAB HEMETOLOGY METHOD 11/21/2024 6:31 PM EDT [facility] MCV 88.4 79.0 - 98.0 FL LAB HEMETOLOGY METHOD 11/21/2024 6:31 PM EDT [facility] MCH 28.6 27.0 - 32.0 pcg LAB HEMETOLOGY METHOD 11/21/2024 6:31 PM EDT [facility] MCHC 32.4 32.0 - 37.0 g/dL LAB HEMETOLOGY METHOD 11/21/2024 6:31 PM EDT [facility] RDW 13.0 11.0 - 15.0 % LAB HEMETOLOGY METHOD 11/21/2024 6:31 PM EDT [facility] Platelets 357 130 - 400 K/mcL LAB HEMETOLOGY METHOD 11/21/2024 6:31 PM EDT [facility] MPV 9.9 7.0 - 11.0 FL LAB HEMETOLOGY METHOD 11/21/2024 6:31 PM EDT [facility] NRBC 0.0 <1.0 % LAB HEMETOLOGY METHOD 11/21/2024 6:31 PM EDT [facility] NRBC Absolute 0.00 <0.10 K/mcL LAB HEMETOLOGY [facility]24 [facility] Neutrophils Relative 61.5 % LAB HEMETOLOGY METHOD 11/21/2024 6:31 PM [facility] Lymphocytes Relative 29.4 % LAB HEMETOLOGY METHOD 11/21/2024 6:31 PM [facility] Monocytes Relative 6.7 % LAB HEMETOLOGY METHOD 11/21/2024 6:31 PM [facility] Eosinophils Relative 1.6 % LAB HEMETOLOGY METHOD 11/21/2024 6:31 PM [facility] Basophils Relative 0.4 % LAB HEMETOLOGY METHOD 11/21/2024 6:31 PM [facility] Immature Granulocytes Relative 0.4 % LAB HEMETOLOGY METHOD 11/21/2024 6:31 PM [facility] Neutrophils Absolute 4.99 1.50 - 7.00 K/mcL LAB HEMETOLOGY METHOD 11/21/2024 6:31 PM [facility] Lymphocytes Absolute 2.38 1.00 - 5.00 K/mcL LAB HEMETOLOGY METHOD 11/21/2024 6:31 PM [facility] Monocytes Absolute 0.54 0.20 - 1.00 K/mcL LAB HEMETOLOGY METHOD 11/21/2024 6:31 PM [facility] Eosinophils Absolute 0.13 0.00 - 0.50 K/mcL LAB HEMETOLOGY METHOD 11/21/2024 6:31 PM [facility] Basophils Absolute 0.03 0.00 - 0.20 K/mcL LAB HEMETOLOGY METHOD 11/21/2024 6:31 PM [facility] Immature Granulocytes Absolute 0.03 0.00 - 0.03 K/mcL LAB HEMETOLOGY METHOD 11/21/2024 6:31 PM EDT [facility] Blood Venous blood specimen / Unknown Venipuncture / Unknown 11/21/2024 5:42 PM EDT 11/21/2024 6:26 PM EDT us Michael Leary DO LAB BLOOD ORDERABLES Final Res ult Performing Organization Address City/[facility]/ZIP Co de Phone Number [facility] [address] [place] [address], [place] [phone] * B-type natriuretic peptide (11/21/2024 5:42 PM EDT) BNP 23 <=100 pcg/mL LAB CHEMISTRY METHOD 11/21/2024 7:00 PM EDT [facility] Blood Venous blood specimen / Unknown Venipuncture / Unknown 11/21/2024 5:42 PM EDT 11/21/2024 6:26 PM EDT us Michael Leary DO LAB BLOOD ORDERABLES Final Res ult Performing Organization Address [facility] de Phone Number [facility] [address] [place] [address], [place] [phone] * Magnesium (11/21/2024 5:42 PM EDT) Magnesium 2.3 1.9 - 2.6 mg/dL LAB CHEMISTRY METHOD 11/21/2024 7:03 PM EDT [facility] Blood Venous blood specimen / Unknown Venipuncture / Unknown 11/21/2024 5:42 PM EDT 11/21/2024 6:26 PM EDT us Michael Leary DO LAB BLOOD ORDERABLES Final Res ult Performing Organization Address City/[facility]/ZIP Co de Phone Number [facility] [address] [place] [address], [place] [phone] * Lipase (11/21/2024 5:42 PM EDT) [facility] Lipase 18 13 - 75 unit/L LAB CHEMISTRY METHOD 11/21/2024 7:03 PM EDT [facility] Blood Venous blood specimen / Unknown Venipuncture / Unknown 11/21/2024 5:42 PM EDT 11/21/2024 6:26 PM EDT us Michael Leary DO LAB BLOOD ORDERABLES Final Res ult [facility] [address] [place] [address], [place] [phone] * Comprehensive metabolic panel (11/21/2024 5:42 PM EDT) [facility] Sodium 136 133 - 145 mmol/L LAB CHEMISTRY METHOD 11/21/2024 7:08 PM [facility] Potassium 3.9 3.5 - 5.5 mmol/L LAB CHEMISTRY METHOD 11/21/2024 7:08 PM [facility] Chloride 102 96 - 110 mmol/L LAB CHEMISTRY METHOD 11/21/2024 7:08 PM [facility] CO2 25 21 - 32 mmol/L LAB CHEMISTRY METHOD 11/21/2024 7:08 PM [facility] Anion Gap 9 3 - 11 LAB CHEMISTRY METHOD 11/21/2024 7:08 PM [facility] Glucose 79 70 - 100 mg/dL LAB CHEMISTRY METHOD 11/21/2024 7:08 PM [facility] BUN 13 5 - 25 mg/dL LAB CHEMISTRY METHOD 11/21/2024 7:08 PM [facility] Creatinine 0.79 0.50 - 1.10 mg/dL LAB CHEMISTRY METHOD 11/21/2024 7:08 PM [facility] eGFR 101 >=60 mL/min/1. 73m2 LAB CHEMISTRY METHOD 11/21/2024 7:08 PM [facility] Comment:Calculation based on the??Chronic Kidney Disease Epidemiology Collaboration (CKD-EPI) equation refit??without adjustment for race. BUN/Creatinine Ratio 16.5 LAB CHEMISTRY METHOD 11/21/2024 7:08 PM [facility] Calcium 9.7 8.5 - 10.5 mg/dL LAB CHEMISTRY METHOD 11/21/2024 7:08 PM [facility] AST (SGOT) 26 10 - 42 unit/L LAB CHEMISTRY METHOD 11/21/2024 7:08 PM [facility] ALT (SGPT) 53 10 - 60 unit/L LAB CHEMISTRY METHOD 11/21/2024 7:08 PM [facility] Alkaline Phosphatase 116 42 - 121 unit/L LAB CHEMISTRY METHOD 11/21/2024 7:08 PM [facility] Total Protein 8.0 6.0 - 8.0 g/dL LAB CHEMISTRY METHOD 11/21/2024 7:08 PM [facility] Albumin 4.4 3.2 - 5.0 g/dL LAB CHEMISTRY METHOD 11/21/2024 7:08 PM [facility] Total Bilirubin 0.6 0.0 - 1.4 mg/dL LAB CHEMISTRY METHOD 11/21/2024 7:08 PM [facility] Blood Venous blood specimen / Unknown Venipuncture / Unknown 11/21/2024 5:42 PM EDT 11/21/2024 6:26 PM EDT us Michael Leary DO LAB BLOOD ORDERABLES Final Res ult [facility] [address] [place] [address], [place] [phone] documented in this encounter Visit Diagnoses Not on filedocumented in this encounter Orders EKG Orders Without Results Count Last Ordered D ate First Ordered Date ECG 12-LEAD 1 11/21/2024 documented in this encounter Care Teams Content Strategy Lead Relationship Specialty Start Date End Date Nila Hummel MD [address] [place], [place] PCP - General Internal Medicine 08/03/15 documented as of this encounter
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
== END 2024-11-22 09:35 | disposition home or self-care (01) ==
LOC: HO.PMCPRC 09:01
PROVIDERS: PCP Family Medicine; Visit Provider Anesthesiology
DX: T85.615A Breakdown (mechanical) of other nervous system device, implant or graft, initial encounter (principal); T85.840A Pain due to nervous system prosthetic devices, implants and grafts, initial encounter; Z96.89 Presence of other specified functional implants; T85.620A Displacement of cranial or spinal infusion catheter, initial encounter; Z45.1 Encounter for adjustment and management of infusion pump
CPT/HCPCS: 99213

== ENCOUNTER 2024-11-22 09:37 | Emergency (ER) | payer MEDICAID, SELFPAY ==
[2024-11-22 09:48] VITALS: BP 146/109; PULSE 78; RESP 18; TEMP 36.6; O2SAT 100; BMI 30.9
--- OUTSIDE RECORDS SUMMARY | 2024-11-22 14:40 | XMS_ITS | Referral Summary ---
Author Organization [facility] Address [address] [place] [address] Care Team Providers Care Senior Applications Analyst Name Role Phone Chuck AliciaJaylene, Kharme Primary [...] Plan of Treatment Not on file Insurance [facility] Care Teams Senior Applications Analyst Relationship Specialty Start Date End Date Nila Hummel [address] [place] [address] PCP - General Family Medicine 07/24/21
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
--- OUTSIDE RECORDS SUMMARY | 2024-11-22 14:40 | XMS_ITS | Clinical Summary ---
Author Organization [facility] Address [address] [place] [address] Care Team Providers Care Cap Blocker Name Role Phone Chuck AliciaJayleneNila Primary Care [...] patient's age to complete this topic Insurance AIM Care Teams Cap Blocker Relationship Specialty Start Date End Date Nila Hummel [address] [place] [address] PCP - General Family Medicine 07/24/21
--- OUTSIDE RECORDS SUMMARY | 2024-11-22 14:40 | XMS_ITS | Encounter Summary ---
Author Organization [facility] Address [address] [place] [address] Care Team Providers Care Cement Mason Name Role Phone Nila Hummel MD Primary Care Provi cindy Reason for Visit * Reason Comments Chest Pain Hypertension Encounter Details Date Type Department Care Team ([facility] st Contact Info) Description 11/21/2024 4:35 PM EDT - 11/21/2024 8:[address] [facility] Emergency [address] [place] [address] Discharge Disposition: Home or Self [...] 9am and chestpain began about 1 hour [employer]. Last BP for EMS 136/89. Denies SOB, EKG nondiagnostic for EMS. No hx of hypertension. documented in this encounter Plan of Treatment Not on file documented as of this encounter Procedures Procedure [...] CBC auto differential (11/21/2024 5:42 PM EDT) [facility] WBC 8.1 4.8 - 10.8 K/mcL LAB HEMETOLOGY METHOD 11/21/2024 6:31 PM EDT [facility] RBC 4.80 3.80 - 4.80 M/mcL LAB HEMETOLOGY METHOD 11/21/2024 6:31 PM EDT [facility] Hemoglobin 13.6 11.5 - 16.0 g/dL LAB HEMETOLOGY METHOD 11/21/2024 6:31 PM EDT [facility] Hematocrit 42.0 35.0 - 47.0 % LAB HEMETOLOGY METHOD 11/21/2024 6:31 PM EDT [facility] MCV 88.4 79.0 - 98.0 FL LAB HEMETOLOGY METHOD 11/21/2024 6:31 PM EDT [facility] MCH 28.6 27.0 - 32.0 pcg LAB HEMETOLOGY METHOD 11/21/2024 6:31 PM EDT [facility] MCHC 32.4 32.0 - 37.0 g/dL LAB HEMETOLOGY METHOD 11/21/2024 6:31 PM EDT [facility] RDW 13.0 11.0 - 15.0 % LAB HEMETOLOGY METHOD 11/21/2024 6:31 PM EDT [facility] Platelets 357 130 - 400 K/mcL LAB HEMETOLOGY METHOD 11/21/2024 6:31 PM EDT [facility] MPV 9.9 7.0 - 11.0 FL LAB HEMETOLOGY METHOD 11/21/2024 6:31 PM EDT [facility] NRBC 0.0 <1.0 % LAB HEMETOLOGY METHOD [facility]24 [facility] NRBC Absolute 0.00 <0.10 K/mcL LAB HEMETOLOGY METHOD 11/21/2024 6:[facility] Neutrophils Relative 61.5 % LAB HEMETOLOGY METHOD 11/21/2024 6:31 PM [facility] Lymphocytes Relative 29.4 % LAB HEMETOLOGY METHOD 11/21/2024 6:31 PM [facility] Monocytes Relative 6.7 % LAB HEMETOLOGY METHOD 11/21/2024 6:31 PM [facility] Eosinophils Relative 1.6 % LAB HEMETOLOGY METHOD 11/21/2024 6:31 PM [facility] Basophils Relative 0.4 % LAB HEMETOLOGY METHOD 11/21/2024 6:31 PM [facility] Immature Granulocytes Relative 0.4 % LAB HEMETOLOGY METHOD 11/21/2024 6:31 PM [facility] Neutrophils Absolute 4.99 1.50 - 7.00 K/mcL LAB HEMETOLOGY METHOD 11/21/2024 6:31 PM [facility] Lymphocytes Absolute 2.38 1.00 - 5.00 K/mcL LAB HEMETOLOGY METHOD 11/21/2024 6:31 PM [facility] Monocytes Absolute 0.54 0.20 - 1.00 K/mcL LAB HEMETOLOGY METHOD 11/21/2024 6[facility] Eosinophils Absolute 0.13 0.00 - 0.50 K/mcL LAB HEMETOLOGY METHOD 11/21/2024 6:31 PM [facility] Basophils Absolute 0.03 0.00 - 0.20 K/mcL LAB HEMETOLOGY METHOD 11/21/2024 6:31 PM [facility] Immature Granulocytes Absolute 0.03 0.00 - 0.03 K/mcL LAB HEMETOLOGY METHOD 11/21/2024 6:31 PM EDT [facility] Blood Venous blood specimen / Unknown Venipuncture / Unknown 11/21/2024 5:42 PM EDT 11/21/2024 6:26 PM EDT us Michael Leary DO LAB BLOOD ORDERABLES Final Res ult Performing Organization Address [facility]/ZIP Co de Phone Number [facility] [address] [place] [address], [place] [phone] * B-type natriuretic peptide (11/21/2024 5:42 PM EDT) BNP 23 <=100 pcg/mL LAB CHEMISTRY METHOD 11/21/2024 7:00 PM EDT [facility] Blood Venous blood specimen / Unknown Venipuncture / Unknown 11/21/2024 5:42 PM EDT 11/21/2024 6:26 PM EDT us Michael Leary DO LAB BLOOD ORDERABLES Final Res ult Performing Organization Address [facility] de Phone Number [facility] [address] [place] [address], [place] [phone] * Magnesium (11/21/2024 5:42 PM EDT) Magnesium 2.3 1.9 - 2.6 mg/dL LAB CHEMISTRY METHOD 11/21/2024 7:03 PM EDT [facility] Blood Venous blood specimen / Unknown Venipuncture / Unknown 11/21/2024 5:42 PM EDT 11/21/2024 6:26 PM EDT us Michael Leary DO LAB BLOOD ORDERABLES Final Res ult Performing Organization Address City/[facility]/ZIP Co de Phone Number [facility] [address] [place] [address], [place] [phone] * Lipase (11/21/2024 5:42 PM EDT) Pathologist [facility] Lipase 18 13 - 75 unit/L LAB CHEMISTRY METHOD 11/21/2024 7:03 PM [facility] Blood Venous blood specimen / Unknown Venipuncture / Unknown 11/21/2024 5:42 PM EDT 11/21/2024 6:26 PM EDT us Michael Leary DO LAB BLOOD ORDERABLES Final Res ult [facility] [address] [place] [address], [place] [phone] * Comprehensive metabolic panel (11/21/2024 5:42 PM EDT) [facility] Sodium 136 133 - 145 mmol/L LAB CHEMISTRY METHOD 11/21/2024 7:08 PM [facility] Potassium 3.9 3.5 - 5.5 mmol/L LAB CHEMISTRY METHOD 11/21/2024 7:08 PM [facility] Chloride 102 96 - 110 mmol/L LAB CHEMISTRY METHOD 11/21/2024 7:08 PM [facility] CO2 25 21 - 32 mmol/L LAB CHEMISTRY METHOD 11/21/2024 7:08 PM [facility] Anion Gap 9 3 - 11 LAB CHEMISTRY METHOD 11/21/2024 7:08 PM [facility] Glucose 79 70 - 100 mg/dL LAB CHEMISTRY METHOD 11/21/2024 7:08 PM [facility] BUN 13 5 - 25 mg/dL LAB CHEMISTRY METHOD 11/21/2024 7:08 PM [facility] Creatinine 0.79 0.50 - 1.10 mg/dL LAB CHEMISTRY METHOD 11/21/2024 7:08 PM [facility] eGFR 101 >=60 mL/min/1. 73m2 LAB CHEMISTRY METHOD 11/21/2024 7:08 PM [facility] Comment:Calculation based on the??Chronic Kidney Disease Epidemiology Collaboration (CKD-EPI) equation refit??without adjustment for race. BUN/Creatinine Ratio 16.5 LAB CHEMISTRY METHOD 11/21/2024 7:08 PM [facility] Calcium 9.7 8.5 - 10.5 mg/dL LAB CHEMISTRY METHOD 11/21/2024 7:08 PM [facility] AST (SGOT) 26 10 - 42 unit/L LAB CHEMISTRY METHOD 11/21/2024 7:08 PM [facility] ALT (SGPT) 53 10 - 60 unit/L LAB CHEMISTRY METHOD 11/21/2024 7:08 PM [facility] Alkaline Phosphatase 116 42 - 121 unit/L LAB CHEMISTRY METHOD 11/21/2024 7:08 PM [facility] Total Protein 8.0 6.0 - 8.0 g/dL LAB CHEMISTRY METHOD 11/21/2024 7:08 PM [facility] Albumin 4.4 3.2 - 5.0 g/dL LAB CHEMISTRY METHOD 11/21/2024 7:08 PM [facility] Total Bilirubin 0.6 0.0 - 1.4 mg/dL LAB CHEMISTRY METHOD 11/21/2024 7:08 PM [facility] Blood Venous blood specimen / Unknown Venipuncture / Unknown 11/21/2024 5:42 PM EDT 11/21/2024 6:26 PM EDT us Michael Leary DO LAB BLOOD ORDERABLES Final Res ult [facility] [address] [place] [address], [place] [phone] * ECG 12 lead (11/21/2024 4:54 PM EDT) Ventricular Rate ECG 77 BPM GEMUSE Atrial Rate 77 BPM GEMUSE P-R Interval 160 ms GEMUSE QRS Duration 80 ms GEMUSE Q-T Interval 394 ms GEMUSE QTc 445 ms GEMUSE P Wave [place] 59 degrees GEMUSE R [place] 24 degrees GEMUSE T [place] 42 degrees GEMUSE ECG Interpretation Normal sinus rhythm Normal ECG No previous ECGs available Confirmed by Iman HERBERT YUFENG ([id number]) on 11/22/2024 12:10:58 PM GEMUSE 11/21/2024 4:54 PM EDT 11/22/2024 12:10 PM EDT Michael Leary DO ECG ORDERABLES Final Result GEMUSE documented in this encounter Visit Diagnoses Not on filedocumented in this encounter Orders EKG Orders Without Results Count Last Ordered D ate First Ordered Date ECG 12-LEAD 1 11/21/2024 documented in this encounter Care Teams Cement Mason Relationship Specialty Start Date End Date Nila Hummel MD [address] [place] [address] PCP - General Internal Medicine 08/03/15 documented as of this encounter
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
== END 2024-11-22 12:26 | disposition left against medical advice (07) ==
PROVIDERS: Emergency Provider Emergency Medicine; PCP Family Medicine
DX: I10 Essential (primary) hypertension (principal)
CPT/HCPCS: 99281

== ENCOUNTER 2024-11-30 10:21 | Outpatient (AMB) | payer MEDICAID, SELFPAY ==
[2024-11-30 10:48] VITALS: BP 178/115; PULSE 80; O2SAT 99; BMI 27.9
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
--- OUTSIDE RECORDS SUMMARY | 2024-11-30 11:40 | XMS_ITS | Clinical Summary ---
Author Organization [facility] Address [address] [place] [address] Care Team Providers Care Grain I Farmworker Name Role Phone Chuck AliciaJayleneNila Primary Care [...] patient's age to complete this topic Insurance [employer] Care Teams Grain I Farmworker Relationship Specialty Start Date End Date Nila Hummel [address] [place] [address] PCP - General Family Medicine 07/24/21
--- OUTSIDE RECORDS SUMMARY | 2024-11-30 11:40 | XMS_ITS | Patient Health Record ---
Author Organization [facility] Address [address] [place] [address] Care Team Providers Care Career Services Coordinator Name Role Phone Brandon Castilol DO Unavailable Unavailable Reason For Referral No [...] tab(s) orally every 12 hours for 14 (MV)-[id number] 2 05/20/2012 Active Amoxicillin 500 mg 2 tab(s) orally 2 times a day for 14 (MV)-[id number] 4 05/20/2012 Active Problems Problem Type SNOMED Code ICD Code Onset Dates Problem Status W/U Status Risk Notes Problem Endometriosis (549809667) Endometriosis, site unspecified (617.9) 012 Active confirmed Phillip: Endometriosis (clinical); Problem Gastroesophageal reflux disease (881489198) GERD (gastroesophag eal reflux disease) (530.81) Active confirmed 07-07-12 GERD TRIED PRILOSEC OTC ?? DATES AND OMEPRAZOLE 20MG QD FROM 07-07-12 TO ??? Problem Constipation (96648649) Constipation NOS (564.00) Active confirmed (MV) Problem Abdominal pain (39887919) Abdominal Pain _unspecified site_ (789.00) Active confirmed (MV) Plan Of Treatment Pending Test Test Name Order Date HELICOBACTER PYLORI Ab, IgM 04/27/2012 HELICOBACTER PYLORI IgG,EIA 04/27/2012 Insurance Providers Payer Name Payer Address Payer Phone Subscriber Number Group Number Insured Name Patient Relationship to Insured Coverage Start Date Coverage End Date [facility] [address] [place], [place] [id number] Marybel Garcia Self - patient is the insured 2
--- OUTSIDE RECORDS SUMMARY | 2024-11-30 11:40 | XMS_ITS | Referral Summary ---
Author Organization [facility] Address [address] [place] [address] Care Team Providers Care Peanut Picker Name Role Phone Chuck AliciaJaylene, Kharme Primary [...] Plan of Treatment Not on file Insurance [facility] Care Teams Peanut Picker Relationship Specialty Start Date End Date Nila Hummel [address] [place] [address] PCP - General Family Medicine 07/24/21
== END 2024-11-30 10:47 | disposition home or self-care (01) ==
LOC: HO.PMC 10:21
PROVIDERS: PCP Family Medicine; Visit Provider Anesthesiology
DX: T85.615A Breakdown (mechanical) of other nervous system device, implant or graft, initial encounter (principal); T85.840A Pain due to nervous system prosthetic devices, implants and grafts, initial encounter; Z96.89 Presence of other specified functional implants; T85.620A Displacement of cranial or spinal infusion catheter, initial encounter
CPT/HCPCS: 99213

== ENCOUNTER → 2024-11-30 10:21 | Outpatient (BNVA) | payer MEDICAID, SELFPAY | PROVIDERS: PCP Family Medicine; Visit Provider Anesthesiology | DX: Z45.89 Encounter for adjustment and management of other implanted devices (principal); T85.615A Breakdown (mechanical) of other nervous system device, implant or graft, initial encounter; T85.840A Pain due to nervous system prosthetic devices, implants and grafts, initial encounter; T85.620A Displacement of cranial or spinal infusion catheter, initial encounter | CPT/HCPCS: 99212 ==

== ENCOUNTER 2024-12-16 08:04 | Day surgery (SDC) | payer MEDICAID, SELFPAY ==
--- OUTSIDE RECORDS SUMMARY | 2024-12-08 06:35 | XMS_ITS | Continuity of Care Document ---
Author Organization [facility] Address [address] [place] [address], [address], [address] [place] [phone] Care Team Providers Care Resistor Inspector Name Role Phone Not on Staff, PCP Primary Care Physician Unavail able Encounter [facility] Date(s): 11/07/24 - 12/07/24 [facility] [address], [address] [place] [address] Encounter Type: Triage Allergies, Adverse Reactions, Alerts Substance Criticality Severity [...] Date: 11/04/24 Status: Ordered Repeat number: 1 docusate sodium 100 mg [...] mL, 0 Refills, Maintenance,11/04/24 1:47:00 PM EDT, [place], Partial fill upon patient request if the [...] Date: 11/04/24 Status: Ordered Repeat number: 1 lurasidone 40 mg oral tablet 1 tablet = 40 mg, By Mouth, Daily, # 30 tablet, 0 Refills, Maintenance, 11/04/24 9:41:00 AM EDT, Tablet, Partial fill upon patient request if the prescription is for a schedule II opioid drug. Start Date: 11/04/24 Status: Ordered Quantity: 30.0 Unit: tablet Repeat number: 1 Methadone Liquid See Instructions, [facility] [phone] Patient was last dosed on 10/25/24 with 85mg qam and 20mg in the afternoon. Patient has take home bottles until 11/07/24, 0 Refills, Maintenance, 08/06/22 11:32:00 AM EST, [facility], Partial fill upon patient request if the prescription is for a schedule II opioid drug. Start Date: 08/06/22 Status: Ordered Repeat number: 1 methylphenidate 20 mg oral tablet 1 tablet = 20 mg, By Mouth, 2 times a day, 0 Refills, Maintenance, 11/04/24 1:24:00 PM EDT, Tablet, Partial fill upon patient request if the prescription is for a schedule II opioid drug. Start Date: 11/04/24 Status: Ordered Repeat number: 1 Multivitamins By Mouth, Daily, [...] 8:54:00 AM EST, Route to Pharmacy Electronically, [facility], operated by [facility], Partial fill upon patient request if the prescription is for a schedule II opioid drug., 149.86, cm, 237:23:00 EST, Height, 60, kg, 08/06/22 11:58:00 EST, Dry Weight Start Date: 08/11/22 Status: Ordered Quantity: 60.0 Unit: tablet Repeat number: 1 Problem List Condition Confirmation [...] 04/01/16 Sex Female Sex Representation Female (finding) Patient Care team information Care Team Personnel Name: Anahi Marquez RN Position: [facility] RN Member Role: Primary Care Nurse Name: Emi Aparicio RN Position: [facility] RN Member Role: Primary Care Nurse Name: Mercedes Hall RN Position: [facility] RN Member Role: Primary Care Nurse Name: Not on Staff, PCP Position: [facility] Physician (General Medicine) Member Role: PCP Name: Millie Sosa LPN Position: [facility] RN Member Role: Primary Care Nurse Care Team Related Persons Name: ALEKSEY PINEDA Name: RENEE HONG Name: JONH ENGLAND Name: JONH ENGLAND Insurance Providers Guarantor name: SUSAN Health Plan Information #: 1 Payer: [facility] Member Number: SUSAN Policy Number: NA Group Number: NA
--- OUTSIDE RECORDS SUMMARY | 2024-12-08 06:35 | XMS_ITS | Referral Summary ---
Author Organization [facility] Address [address] [place] [address] Care Team Providers Care Pulmonology Technician Name Role Phone Chuck AliciaJaylene, Kharme [...] Plan of Treatment Not on file Insurance [facility] Care Teams Pulmonology Technician Relationship Specialty Start Date End Date Nila Hummel [address] [place] [address] PCP - General Family Medicine 07/24/21
--- OUTSIDE RECORDS SUMMARY | 2024-12-08 06:35 | XMS_ITS | Clinical Summary ---
Author Organization [facility] Address [address] [place] [address] Phone Care Team Providers Care Pack Worker Name Role Phone Nila Hummel MD Primary [...] Encounters Date Type Department Care Team Description 12/02/2024 12:07 AM EDT - 12/02/2024 3:46 AM EDT Emergency [facility] Emergency [address] [place] [address] Augusto Wade MD Abdominal pain, unspecified abdominal location (Primary Dx) Discharge Disposition: Home or Self Care 11/22/2024 9:52 PM EDT - 11/23/2024 1:21 AM EDT Emergency [facility] Emergency [address] [place] [address] Augusto Wade MD Other secondary hypertension (Primary Dx); Anxiety; Other chronic pain Discharge Disposition: Home or Self Care 11/21/2024 4:35 PM EDT - 11/21/2024 8:37 PM EDT [facility] Emergency [address] [place] [address] Discharge Disposition: Left Against Medical Advice 11/19/2024 7:26 AM EDT - 11/19/2024 9:17 AM EDT Emergency [facility] Emergency [address] [place] [address] Eric Douglass MD Blunt trauma to abdomen, sequela (Primary Dx) Discharge Disposition: Home or Self Care 11/12/2024 6:54 PM EDT - 11/12/2024 8:17 PM EDT Emergency [facility] Emergency [address] [place] [phone] Methadone dependence (CMS/HCC V24, CMS/HCC V28) (Primary [...] Sign Reading Time Taken Comments Blood Pressure 124/77 12/02/2024 3:30 AM EDT Pulse 60 12/02/2024 3:30 AM EDT Temperature 36.7 ??C (98.1 ??F) 12/02/2024 12:03 AM E DT Respiratory Rate 18 12/02/2024 3:30 AM EDT Oxygen Saturation 97% 12/02/2024 3:30 AM EDT Inhaled Oxygen Concentration - - Weight 69.4 kg (153 lb) 12/02/2024 12:03 AM EDT Height 149.9 cm (4' 11 ) 12/02/2024 12:03 AM EDT Body Mass Index 30.9 12/02/2024 12:03 AM EDT Plan of Treatment Health Maintenance Due [...] Ended) 2025 Hypertension/CHF/CAD Annual BMP Blood Test 12/02/2025 12/02/2024, 11/21/2024, 07/24/2021, Additional history exists HIB Vaccines Aged Out [...] Procedure Name Priority Date/Time Associated Diagnosis Comments CT ABDOMEN PELVIS WO CONTRAST STAT 12/02/2024 2:00 AM EDT URINALYSIS WITH REFLEX MICROSCOPIC AND CULTURE STAT 12/02/2024 12:16 AM EDT CBC WITH AUTO DIFFERENTIAL STAT 12/02/2024 12:16 AM EDT HCG QUALITATIVE, URINE STAT 12:16 AM EDT URINALYSIS WITH REFLEX MICROSCOPIC AND CULTURE STAT 12/02/2024 12:16 AM EDT LIPASE STAT 12/02/2024 12:16 AM EDT COMPREHENSIVE METABOLIC PANEL STAT 12/02/2024 12:16 AM EDT CBC AND DIFFERENTIAL STAT 12/02/2024 12:16 AM EDT CBC WITH AUTO DIFFERENTIAL STAT 11/21/2024 5:42 PM EDT B-TYPE NATRIURETIC PEPTIDE STAT 11/21/2024 5:42 PM EDT MAGNESIUM STAT 11/21/2024 5:42 PM EDT LIPASE STAT 11/21/2024 5:42 PM EDT COMPREHENSIVE METABOLIC PANEL STAT 11/21/2024 5:42 PM EDT CBC AND DIFFERENTIAL STAT 11/21/2024 5:42 PM EDT ECG 12-LEAD STAT 11/21/2024 4:54 PM EDT from Last 3 Months Results * CT Abdomen Pelvis wo Contrast (12/02/2024 2:00 AM EDT) Anatomical Region Laterality Modality Body Computed Tomogra phy 12/02/2024 3:15 AM EDT Impressions 12/02/2024 3:22 AM EDT 1. ??No evidence for acute abdominal or pelvic process. No urolithiasis or hydronephrosis. ?? 2. ??Constipation. Report reviewed and signed by : Dr. Bayron Villagomez MD on 12/02/2024 3:22 AM. Workstation Name - [id number] -------- FINAL REPORT -------- Dictated By: Bayron Villagomez Dictated Date: 12/02/2024 03:15 ET Assigned Physician: Bayron Villagomez Reviewed and Electronically Signed By: Bayron Villagomez Signed Date: 12/02/2024 03:22 ET Workstation ID: [id number] Transcribed By: Self Edit Transcribed Date: 12/02/2024 03:16 ET Narrative 12/02/2024 3:22 AM EDT EXAMINATION: CT OF THE ABDOMEN AND PELVIS WITHOUT IV CONTRAST CLINICAL INDICATION: Abdominal pain, acute, nonlocalized Several hours left lower quadrant abdominal pain and left flank pain COMPARISON: None. TECHNIQUE: ?? Helical imaging of the CT abdomen and pelvis obtained with multiplanar reformats. Radiation dose reduction was achieved using ALARA (as low as reasonably achievable) principals including automatic exposure control, adjusting the mA and/or KV setting according to patient?s size and weight, the use of iterative reconstruction techniques as well as performing sagittal and coronal reconstruction images when?applicable. FINDINGS: Limited evaluation for infectious or neoplastic process due to lack of intravenous contrast. LOWER CHEST: No infiltrate or effusion. LIVER: No focal mass lesion. Normal configuration. GALLBLADDER & BILIARY SYSTEM: No acute process. No intrahepatic or extrahepatic biliary ductal dilatation. SPLEEN: No splenomegaly. PANCREAS: Unremarkable for age. ADRENAL GLANDS: Unremarkable. KIDNEYS, URETERS, & BLADDER: No hydronephrosis. No solid mass. No pathologic bladder wall thickening. BOWEL: No pathologic bowel dilatation or bowel wall thickening. Moderate colonic fecal volume. Normal appendix. LYMPH NODES/MESENTERY: No pathologic lymphadenopathy. VASCULATURE: Unremarkable for age. PELVIC STRUCTURES: Negative for pelvic mass or fluid collection. FREE FLUID/FREE AIR: None. BONES: No acute process. BODY WALL: Unremarkable. OTHER: Intrathecal pump noted. Procedure Note Bayron Villagomez MD - 12/02/2024 EXAMINATION: CT OF THE ABDOMEN AND PELVIS WITHOUT IV CONTRAST CLINICAL INDICATION: Abdominal pain, acute, nonlocalized Several hours left lower quadrant abdominal pain and left flank pain COMPARISON: None. TECHNIQUE: Helical imaging of the CT abdomen and pelvis obtained with multiplanarreformats. Radiation dose reduction was achieved using ALARA (as low as reasonablyachievable) principals including automatic exposure control, adjusting themA and/or KV setting according to patient?s size and weight, the use ofiterative reconstruction techniques as well as performing sagittal andcoronal reconstruction images when?applicable. FINDINGS: Limited evaluation for infectious or neoplastic process due to lack ofintravenous contrast. LOWER CHEST: No infiltrate or effusion. LIVER: No focal mass lesion. Normal configuration. GALLBLADDER & BILIARY SYSTEM: No acute process. No intrahepatic orextrahepatic biliary ductal dilatation. SPLEEN: No splenomegaly. PANCREAS: Unremarkable for age. ADRENAL GLANDS: Unremarkable. KIDNEYS, URETERS, & BLADDER: No hydronephrosis. No solid mass. Nopathologic bladder wall thickening. BOWEL: No pathologic bowel dilatation or bowel wall thickening. Moderatecolonic fecal volume. Normal appendix. LYMPH NODES/MESENTERY: No pathologic lymphadenopathy. VASCULATURE: Unremarkable for age. PELVIC STRUCTURES: Negative for pelvic mass or fluid collection. FREE FLUID/FREE AIR: None. BONES: No acute process. BODY WALL: Unremarkable. OTHER: Intrathecal pump noted. IMPRESSION: 1. No evidence for acute abdominal or pelvic process. No urolithiasis orhydronephrosis. 2. Constipation. Report reviewed and signed by : Dr. Bayron Villagomez MD on 12/02/2024 3:22 AM.Workstation Name - [id number] -------- FINAL REPORT -------- Dictated By: Bayron Villagomez Dictated Date: 12/02/2024 03:15 ET Assigned Physician: Bayron Villagomez Reviewed and Electronically Signed By: Bayron Villagomez Signed Date: 12/02/2024 03:22 ET Workstation ID: [id number] Transcribed By: Self Edit Transcribed Date: 12/02/2024 03:16 ET Augusto Wade MD [facility] CT PROCEDURES Final Result * (ABNORMAL) Urinalysis with reflex microscopic and culture (12/02/2024 12:16 AM EDT) Color, Urine Yellow Colorless, Yellow LAB URINALYSIS - AUTOMATED METHOD 12/02/2024 12:43 AM [facility] Clarity, Urine Clear Clear LAB URINALYSIS - AUTOMATED METHOD 12/02/2024 12:43 AM [facility] Specific Vest Urine >=1.030 1.005 - 1.030 LAB URINALYSIS - AUTOMATED METHOD 12/02/2024 12:43 AM [facility] pH, Urine 6.0 5.0 - 8.0 pH LAB URINALYSIS - AUTOMATED METHOD 12/02/2024 12:43 AM [facility] Leukocytes, Urine Negative Negative WBCs/mcL LAB URINALYSIS - AUTOMATED METHOD 12/02/2024 12:43 AM [facility] Nitrite, Urine Negative Negative LAB URINALYSIS - AUTOMATED METHOD 12/02/2024 12:43 AM [facility] Protein, Urine Negative Negative mg/dL LAB URINALYSIS - AUTOMATED METHOD 12/02/2024 12:43 AM [facility] Glucose, Urine Negative Negative mg/dL LAB URINALYSIS - AUTOMATED METHOD 12/02/2024 12:43 AM [facility] Ketones, Urine Trace(A) Negative mg/dL LAB URINALYSIS - AUTOMATED METHOD 12/02/2024 12:43 AM [facility] Blood, Urine Negative Negative mg/dL LAB URINALYSIS - AUTOMATED METHOD 12/02/2024 12:43 AM [facility] Urine Urine specimen obtained by clean catch procedure / Unknown Non-blood Collection / Unknown 12/02/2024 12:16 AM EDT 12/02/2024 12:27 AM EDT us Augusto Wade MD LAB URINE ORDERABLES Final Res ult [facility] [address] [place] [address], [place] [phone] * (ABNORMAL) CBC auto differential (12/02/2024 12:16 AM EDT) Only the most recent of2 resultswithin the time period is included. WBC 6.3 4.0 - 10.5 K/mcL LAB HEMETOLOGY METHOD 12/02/2024 12:30 AM EDT [facility] RBC 4.52 4.20 - 5.40 M/mcL LAB HEMETOLOGY METHOD 12/02/2024 12:30 AM EDT [facility] Hemoglobin 13.0 12.5 - 16.0 g/dL LAB HEMETOLOGY METHOD 12/02/2024 12:30 AM EDT [facility] Hematocrit 39.4 37.0 - 47.0 % LAB HEMETOLOGY METHOD 12/02/2024 12:30 AM EDT [facility] MCV 87.2 78.0 - 100.0 FL LAB HEMETOLOGY METHOD 12/02[facility]2024 [facility] MCH 28.8 25.0 - 33.0 pcg LAB HEMETOLOGY METHOD 12/02/2024 12:30 AM EDT [facility] MCHC 33.0 32.0 - 36.0 g/dL LAB HEMETOLOGY METHOD 12/02/2024 12:30 [facility] RDW 12.9 12.1 - 16.2 % LAB HEMETOLOGY METHOD 12/02/2024 12:30 [facility] Platelets 295 150 - 450 K/mcL LAB HEMETOLOGY METHOD 12/02/2024 12:30 [facility] MPV 9.8 7.4 - 11.4 FL LAB HEMETOLOGY METHOD 12/02/2024 12:30 [facility] Neutrophils Relative 68.9 44.0 - 74.0 % LAB HEMETOLOGY METHOD 12/02/2024 12:30 AM [facility] Lymphocytes Relative 19.2(L) 20.0 - 48.0 % LAB HEMETOLOGY METHOD 12/02/2024 12:30 [facility] Monocytes Relative 6.9 2.0 - 12.0 % LAB HEMETOLOGY METHOD 12/02/2024 12:30 AM [facility] Eosinophils Relative 4.1 0.0 - 6.0 % LAB HEMETOLOGY METHOD 12/02/2024 12:30 AM [facility] Basophils Relative 0.3 0.0 - 2.0 % LAB HEMETOLOGY METHOD 12/02/2024 12:30 AM [facility] Neutrophils Absolute 4.36 1.80 - 7.80 K/mcL LAB HEMETOLOGY METHOD 12/02/2024 12:30 AM [facility] Lymphocytes Absolute 1.22 1.00 - 3.20 K/mcL LAB HEMETOLOGY METHOD 12/02/2024 12:30 [facility] Monocytes Absolute 0.44 0.00 - 0.80 K/mcL LAB HEMETOLOGY METHOD 12/02/2024 12:30 AM [facility] Eosinophils Absolute 0.26 0.00 - 0.50 K/mcL LAB HEMETOLOGY METHOD 12/02/2024 12:30 AM [facility] Basophils Absolute <0.03 0.00 - 0.20 K/mcL LAB HEMETOLOGY METHOD 12/02/2024 12:30 AM EDT [facility] Blood Venous blood specimen / Unknown Venipuncture / Unknown 12/02/2024 12:16 AM EDT 12/02/2024 12:28 AM EDT us Augusto Wade MD LAB BLOOD ORDERABLES Final Res ult Performing Organization Address City/[facility]/ZIP Co de Phone Number [facility] [address] [place] [address], [place] [phone] * , urine (12/02/2024 12:16 AM EDT) Preg Test, Ur Negative Negative 12/02/2024 12:42 AM EDT [facility] Urine Urine specimen obtained by clean catch procedure / Unknown Non-blood Collection / Unknown 12/02/2024 12:16 AM EDT 12/02/2024 12:27 AM EDT us Augusto Wade MD LAB URINE ORDERABLES Final Res ult Performing Organization Address [facility] de Phone Number [facility] [address] [place] [address], [place] [phone] * Lipase (12/02/2024 12:16 AM EDT) Only the most recent of2 resultswithin the time period is included. Lipase 31 11 - 82 unit/L LAB CHEMISTRY METHOD 12/02/2024 1:12 AM EDT [facility] Blood Venous blood specimen / Unknown Venipuncture / Unknown 12/02/2024 12:16 AM EDT 12/02/2024 12:28 AM EDT us Augusto aWde MD LAB BLOOD ORDERABLES Final Res ult Performing Organization Address City/[facility]/ZIP Co de Phone Number [facility] [address] [place] [address], [place] [phone] * (ABNORMAL) Comprehensive metabolic panel (12/02/2024 12:16 AM EDT) Only the most recent of2 resultswithin the time period is included. Sodium 133(L) 135 - 145 mmol/L LAB CHEMISTRY METHOD 12/02/2024 1:19 AM [facility] Potassium 4.1 3.5 - 5.1 mmol/L LAB CHEMISTRY METHOD 12/02/2024 1:19 AM [facility] Chloride 102 98 - 107 mmol/L LAB CHEMISTRY METHOD 12/02/2024 1:19 AM [facility] CO2 29 24 - 32 mmol/L LAB CHEMISTRY METHOD 12/02/2024 1:19 AM [facility] Anion Gap 2(L) 5 - 14 LAB CHEMISTRY METHOD 12/02/2024 1:19 AM [facility] Glucose 87 70 - 199 mg/dL LAB CHEMISTRY METHOD 12/02/2024 1:19 AM [facility] BUN 17 7 - 17 mg/dL LAB CHEMISTRY METHOD 12/02/2024 1:19 AM [facility] Creatinine 0.92 0.50 - 1.00 mg/dL LAB CHEMISTRY METHOD 12/02/2024 1:19 AM [facility] eGFR 84 >=60 mL/min/1. 73m2 LAB CHEMISTRY METHOD 12/02/2024 1:19 AM [facility] Comment:Calculation based on the??Chronic Kidney Disease Epidemiology Collaboration (CKD-EPI) equation refit??without adjustment for race. BUN/Creatinine Ratio 18.5 12.0 - 20.0 LAB CHEMISTRY METHOD 12/02/2024 1:19 AM [facility] Calcium 9.8 8.4 - 10.2 mg/dL LAB CHEMISTRY METHOD 12/02/2024 1:19 AM EDT [facility] AST (SGOT) 21 5 - 40 unit/L LAB CHEMISTRY METHOD 12/02/2024 1:[facility] ALT (SGPT) 27 7 - 52 unit/L LAB CHEMISTRY METHOD 12/02/2024 1:19 AM EDT [facility] Alkaline Phosphatase 86 34 - 104 unit/L LAB CHEMISTRY METHOD 12/02/2024 1:19 AM EDT [facility] Total Protein 7.4 6.4 - 8.5 g/dL LAB CHEMISTRY METHOD 12/02/2024 1:[facility] Albumin 4.6 3.5 - 5.0 g/dL LAB CHEMISTRY METHOD 12/02/2024 1:19 [facility] Total Bilirubin 0.3 0.3 - 1.0 mg/dL LAB CHEMISTRY METHOD 12/02/2024 1:19 [facility] Blood Venous blood specimen / Unknown Venipuncture / Unknown 12/02/2024 12:16 AM EDT 12/02/2024 12:28 AM EDT us Augusto Wade MD LAB BLOOD ORDERABLES Final Res ult [facility] [address] [place] [address], * B-type natriuretic peptide (11/21/2024 5:42 PM EDT) BNP 23 <=100 pcg/mL LAB CHEMISTRY METHOD 11/21/2024 7:00 PM EDT [facility] Blood Venous blood specimen / Unknown Venipuncture / Unknown 11/21/2024 5:42 PM EDT 11/21/2024 6:26 PM EDT Michael Leary DO LAB BLOOD ORDERABLES Final Res ult Performing Organization Address [facility] Co de Phone Number [facility] [address] [place] [address], [place] [phone] * Magnesium (11/21/2024 5:42 PM EDT) [facility] Magnesium 2.3 1.9 - 2.6 mg/dL LAB CHEMISTRY METHOD 11/21/2024 7:03 PM EDT [facility] Blood Venous blood specimen / Unknown Venipuncture / Unknown 11/21/2024 5:42 PM EDT 11/21/2024 6:26 PM EDT Michael Leary DO LAB BLOOD ORDERABLES Final Res ult Performing Organization Address [facility] de Phone Number [facility] [address] [place] [address], [place] [phone] * ECG 12 lead (11/21/2024 4:54 PM EDT) [facility] Ventricular Rate ECG 77 BPM GEM[facility] Atrial Rate 77 BPM GEMUSE P-R Interval 160 ms GEMUSE QRS Duration 80 ms GEMUSE Q-T Interval 394 ms GEMUSE QTc 445 ms GEMUSE P Wave [place] 59 degrees GEMUSE R [place] 24 degrees GEMUSE T [place] 42 degrees GEMUSE ECG Interpretation Normal sinus rhythm Normal ECG No previous ECGs available Confirmed by Iman HERBERT YUFENG ([id number]) on 11/22/2024 12:10:58 PM [facility] 11/21/2024 4:54 PM EDT 11/22/2024 12:10 PM EDT us Michael Leary DO ECG ORDERABLES Final Result Performing Organization Address [facility] Co de Phone Number [facility] from Last 3 Months Insurance [employer] Care Teams Pack Worker Relationship Specialty Start Date End Date Nila Hummel MD [address], [place] PCP - General Internal Medicine 08/03/15
--- OUTSIDE RECORDS SUMMARY | 2024-12-08 06:35 | XMS_ITS | Clinical Summary ---
Author Organization [facility] Address [address] [place] [address] Care Team Providers Care Police Lieutenant Patrol Name Role Phone Chuck AliciaJayleneNila Primary Care [...] patient's age to complete this topic Insurance [employer] Care Teams Police Lieutenant Patrol Relationship Specialty Start Date End Date Nila Hummel [address] [place] [phone] PCP - General Family Medicine 07/24/21
--- NOTE | 2024-12-15 09:59 | HO.ANESPROP2 ---
Documented by User: Brionna Leigh NP 12/15/24 10:05 HPI - Anesthesia Eval Consult details Narrative: 34yo F for Intrathecal Drug Delivery Replacement (Removing the old one and Replacing with new one) s/p impant 05/2020 with GA ? 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 myelopathy (Acute) Chronic pain syndrome (Acute) Dyspareunia (Acute) Chronic pelvic pain in female (Acute) Endometriosis (Acute) Postoperative pain (Acute) Past Medical History Medical History Cocaine addiction Spondylosis of cervical spine without myelopathy Chronic pain syndrome Dyspareunia Chronic pelvic pain in female Endometriosis Raynaud's disease Fibromyalgia Pain Hx of chest pain Overactive bladder Hx of endometriosis Back pain Anemia Hx of renal calculi GERD (gastroesophageal reflux disease) OCD (obsessive compulsive disorder) Anxiety Hx of migraines IC (interstitial cystitis) Surgical History Surgical History Hx of dilation and curettage History of Hx of exploratory laparotomy Hx of colonoscopy Hx of cystoscopy Social History Social History Patient Tobacco Use Status: Never used Tobacco Tobacco use type: Smokeless Tobacco Have you been hit, kicked, punched, or otherwise hurt by someone within the past year? If so, by whom?: No Are you DNR?: No Advance Directives: No Advance Directives Information Provided: Yes Meds Allergies Allergy/AdvReac Type Severity Reaction Status Date / Time oxybutynin [OXYBUTYNIN] Allergy Unknown EYES AND Verified 11/30/24 10:49 LIPS SWOLLEN tolterodine [Detrol] Allergy Unknown Facial Verified 11/30/24 10:49 Swelling Home Medications ?Medication ?Instructions ?Recorded ?Confirmed ?Last Taken ?Type methylphenidate HCl 20 mg tablet 1 tab PO BID 03/08/21 11/22/24 Unknown History bupropion HCl 300 mg 24 hr tablet, 1 tab PO DAILY 02/12/22 11/22/24 12/16/24 History extended release fluticasone propionate 50 1 spray intranasal DAILY 02/12/22 11/22/24 Unknown History mcg/actuation nasal spray,suspension gabapentin 300 mg capsule 2 cap PO TID 02/12/22 11/22/24 12/16/24 History clonidine HCl 0.2 mg tablet 0.2 mg PO TID 04/27/23 11/22/24 Unknown History ferrous sulfate 325 mg (65 mg 325 mg PO DAILY 04/27/23 11/22/24 Unknown History iron) tablet (FeroSul) clonazepam 0.25 mg disintegrating mg PO 06/11/23 11/22/24 Unknown History tablet methylphenidate HCl 10 mg tablet 10 mg PO BID 06/11/23 11/22/24 12/16/24 History acetaminophen 500 mg tablet 500 mg PO Q6H PRN 10/04/24 11/22/24 Unknown History (Tylenol Extra Strength) escitalopram oxalate 20 mg tablet mg PO DAILY 10/04/24 11/22/24 12/16/24 History vit no.95-ferrous tab PO DAILY 10/04/24 11/22/24 Unknown History fumarate 28 mg-folic acid 800 mcg tablet () aripiprazole 10 mg tablet 3 mg PO DAILY 11/03/24 11/22/24 Unknown History propranolol 80 mg capsule,24 mg PO DAILY 11/03/24 11/22/24 Unknown History hr,extended release docusate sodium 100 mg capsule mg PO 11/14/24 11/22/24 12/16/24 History hydroxyzine pamoate 25 mg capsule 25 mg PO BID 11/14/24 11/22/24 Unknown History lurasidone 20 mg tablet 20 mg PO DAILY 11/14/24 11/22/24 Unknown History lurasidone 40 mg tablet 40 mg PO DAILY 11/14/24 11/22/24 Unknown History medroxyprogesterone 104 mg/0.65 mL mg subcut 11/14/24 11/22/24 Unknown History subcutaneous syringe (Depo-SubQ provera 104) methadone 10 mg/mL oral concentrate 10 mg PO Q6H 11/14/24 11/22/24 Unknown History oxycodone 5 mg tablet mg PO 11/30/24 11/30/24 Unknown History Assessment and Plan Assessment Anesthesia Assessment: Chart Reviewed Documented by User: Mike Bowles MD 12/16/24 09:51 PMFSH Past Medical History Medical History Cocaine addiction Spondylosis of cervical spine without myelopathy Chronic pain syndrome Dyspareunia Chronic pelvic pain in female Endometriosis Raynaud's disease Fibromyalgia Pain Hx of chest pain Overactive bladder Hx of endometriosis Back pain Anemia Hx of renal calculi GERD (gastroesophageal reflux disease) OCD (obsessive compulsive disorder) Anxiety Hx of migraines IC (interstitial cystitis) Family History Family history of problems with anesthesia: No Surgical History Surgical History Hx of dilation and curettage History of Hx of exploratory laparotomy Hx of colonoscopy Hx of cystoscopy History of Problems with Anesthesia: No Social History Social History Patient Tobacco Use Status: Never used Tobacco Tobacco use type: Smokeless Tobacco Have you been hit, kicked, punched, or otherwise hurt by someone within the past year? If so, by whom?: No Are you DNR?: No Advance Directives: No Advance Directives Information Provided: Yes Meds Allergies Allergy/AdvReac Type Severity Reaction Status Date / Time oxybutynin [OXYBUTYNIN] Allergy Unknown EYES AND Verified 11/30/24 10:49 LIPS SWOLLEN tolterodine [Detrol] Allergy Unknown Facial Verified 11/30/24 10:49 Swelling Home Medications ?Medication ?Instructions ?Recorded ?Confirmed ?Last Taken ?Type methylphenidate HCl 20 mg tablet 1 tab PO BID 03/08/21 11/22/24 Unknown History bupropion HCl 300 mg 24 hr tablet, 1 tab PO DAILY 02/12/22 11/22/24 12/16/24 History extended release fluticasone propionate 50 1 spray intranasal DAILY 02/12/22 11/22/24 Unknown History mcg/actuation nasal spray,suspension gabapentin 300 mg capsule 2 cap PO TID 02/12/22 11/22/24 12/16/24 History clonidine HCl 0.2 mg tablet 0.2 mg PO TID 04/27/23 11/22/24 Unknown History ferrous sulfate 325 mg (65 mg 325 mg PO DAILY 04/27/23 11/22/24 Unknown History iron) tablet (FeroSul) clonazepam 0.25 mg disintegrating mg PO 06/11/23 11/22/24 Unknown History tablet methylphenidate HCl 10 mg tablet 10 mg PO BID 06/11/23 11/22/24 12/16/24 History acetaminophen 500 mg tablet 500 mg PO Q6H PRN 10/04/24 11/22/24 Unknown History (Tylenol Extra Strength) escitalopram oxalate 20 mg tablet mg PO DAILY 10/04/24 11/22/24 12/16/24 History vit no.95-ferrous tab PO DAILY 10/04/24 11/22/24 Unknown History fumarate 28 mg-folic acid 800 mcg tablet () aripiprazole 10 mg tablet 3 mg PO DAILY 11/03/24 11/22/24 Unknown History propranolol 80 mg capsule,24 mg PO DAILY 11/03/24 11/22/24 Unknown History hr,extended release docusate sodium 100 mg capsule mg PO 11/14/24 11/22/24 12/16/24 History hydroxyzine pamoate 25 mg capsule 25 mg PO BID 11/14/24 11/22/24 Unknown History lurasidone 20 mg tablet 20 mg PO DAILY 11/14/24 11/22/24 Unknown History lurasidone 40 mg tablet 40 mg PO DAILY 11/14/24 11/22/24 Unknown History medroxyprogesterone 104 mg/0.65 mL mg subcut 11/14/24 11/22/24 Unknown History subcutaneous syringe (Depo-SubQ provera 104) methadone 10 mg/mL oral concentrate 10 mg PO Q6H 11/14/24 11/22/24 Unknown History oxycodone 5 mg tablet mg PO 11/30/24 11/30/24 Unknown History Exam Exam Date and Time: 12/16/2024 Airway Mallampati Class: II TM Dist: >3cm Neck ROM: Full Heart: rrr Lungs: cta Assessment and Plan Assessment Anesthesia Assessment: Anesthesia Plan Discussed Final Anesthetic Review Family History of Problems with Anesthesia: No History of Problems with Anesthesia: No NPO: Yes ASA Class: II Final Preanesthetic Review: No Changes in Pt Med Stat, Meds/Allgs Chart Reviewed, Consent Obtained/Reviewed, Anes Risks/Benef Reviewed and DNR Form (If Appl.) Patient Risk: Low Procedure Risk: Low Anesthetic Plan Anesthetic Plan: GA and Agree w/ Assess. and Plan Disposition: Standard PACU
[2024-12-16] VITALS (12 sets, daily range): BP systolic 149–189; BP diastolic 73–126; PULSE 49–69; RESP 16–22; TEMP 36.3–36.6; O2SAT 95–100; BMI 27.9; BMI 27.6
[2024-12-16 08:43] LABS: UPreg QC Valid YES; Urine Pregnancy NEGATIVE (NEGATIVE)
[2024-12-16 08:49] LABS: Amphetamine Screen Urine Not Detected (Not Detect); Barbiturates, Urine Not Detected (Not Detect); Benzodiazepines Screen Urine Not Detected (Not Detect); Buprenorphine Scr Not Detected (Not Detect); Cannabinoid Screen Urine POSITIVE (Not Detect); Cocaine Screen Urine Not Detected (Not Detect); Fentanyl, urine Not Detected (Not Detect); Methadone Screen, Urine Positive (Not Detect); Opiate Screen Urine Not Detected (Not Detect); Oxycodone Screen Urine Not Detected (Not Detect); Phencyclidine Screen Urine Not Detected (Not Detect)
--- NOTE | 2024-12-16 08:51 | MHC.SHP ---
Pre-Procedural Eval Section A - 24 Hr Update-Section A only Date of Service: 12/16/24 The patient is an INPATIENT: No Changes since office visit: Yes Patient answered all questions; No New Medical Problems The patient has been examined within 24 hours of the surgical procedure. The History & Physical has been completed within 30 days and I have reviewed it.: No Section B - Complete if H&P > 30 days Chief Complaint: Breakdown (mechanical) of other nervous system Details of Present Illness: end of life of the intrathecal pain pump Relevant Social History: None Present Medications: None Medical History: No relevant PMH History of Previous Operations: Relevant previous surgery/procedure and date(s) (ITDD implantation 6 years ago) Allergies: Allergies Allergy/AdvReac Type Severity Reaction Status Date / Time oxybutynin [OXYBUTYNIN] Allergy Unknown EYES AND Verified 11/30/24 10:49 LIPS SWOLLEN tolterodine [Detrol] Allergy Unknown Facial Verified 11/30/24 10:49 Swelling Review of Systems Sugical H&P ROS: Negative: Constitution, Cardiovascular, Respiratory, Neurological, Hem-Onc, Allergic/Immunologic, Gastrointestinal, Musculoskeletal, Integumentary, Endocrine and Eyes/Ears/Nose/Throat and Yes, Specify: Psychiatric (h/o polysubstance abuse.) and Genitourinary (chronic pelvic pain, IC, Endometriosis.) Exam Surgical H&P Exam: Normal: HEENT, Normal: Heart, Normal: Lungs, Normal: Extremities, Normal: Abdomen, Normal: Skin and Normal: Neurological Plan Diagnosis/Plan: Unchanged I have reviewed the history and physical and performed a pertinent physical examination on my patient. No changes have occurred unless specified. Time Spent With Patient Time: Total time managing care of this patient today ____ minutes.
[2024-12-16] MEDS: ceFAZolin Sodium/Dextrose,Iso 2 GM/50 ML PIGGYBACK IV (10:30)
--- NOTE | 2024-12-16 12:31 | P.BOP_ITS ---
Brief Operative Note Date of Service: 12/16/24 Pre-op diagnosis: Chronic pelvic pain, chronic pain syndrome, interstitial cystitis, endometriosis, end of life of intrathecal pain pump. Post-op diagnosis: same Procedure: Removal and the replacement of intrathecal pain pump. Implants: Intrathecal sutureless catheter connection and intrathecal pain pump SynchroMed 3 Surgeon: Zacarias Turner MD Anesthesia: GETA Was an Fur Dressing Supervisor used for this Procedure?: No Estimated blood loss (mL): 28 Pathology: none sent Condition: stable Disposition: PACU
--- NOTE | 2024-12-16 12:35 | W.PM.OPN ---
Operative Note Operative Note Date of Service: 12/16/24 Narrative: Removal and replacement of intrathecal pain pump [employer] SynchroMed 3 and revision of the intrathecal catheter. The patient came to the operating room after explaining informed consent. Risks and benefits were explained as bleeding infection peripheral nerve damage spinal cord damage and headache. The patient was brought on the operating room and positioned in supine on the stretcher. [employer] monitors were applied and patient was induced with general anesthesia with endotracheal intubation. After that the patient was transferred on the operating table prone with all pressure points protected. Time-out was performed delineating name and date of of the patient nature of the procedure allergies and need for antibiotic prophylaxis. Patient received 2 g of cefazolin preoperatively 20 minutes before the procedure. The area of the pain pump in the left side of the upper buttock as well as lower back as well as area of the implantation of the intrathecal catheter on the back of the patient's were prepped with ChloraPrep twice, the area was draped with self adhesive utility towels and after fina full-body drape was applied including Ioban film. attention was concentrated on the area of the pain pump implantation site. The injection of the local anesthetic was performed alongside the previous incision. After that 2 incisions 11 cm long were made parallel to each other on both sides of the incision. After that the incisions were widened and deepened and the scar was excised using electrocautery. Thorough hemostasis was performed using electrocautery. After that the capsule of the pump was incised and incision was extended anteriorly and posteriorly. Intrathecal pain pump was found in the pain pump pocket and anchoring sutures on 3 brackets of the pain pump was severed using scalpel blade. The dissection of the intrathecal catheter from the surrounding tissues was performed during the dissection, a brisk bleeding on the anterior wall of the pump pocket was encountered the hemostasis was performed and during the hemostatic efforts intrathecal catheter was inadvertently damaged. The catheter was severed more proximal to the damaged area, the intrathecal sutureless extension connection device was obtained and it was mounted on the proximal portion of the intrathecal catheter. Appropriate measurements were made under length of the intrathecal catheter. The wound was irrigated with vancomycin containing normal saline. The sutureless connection device was connected to the pain pump which was pre filled with the intrathecal solution on this side table. After that 25 gauge noncoring needle mounted on 3 cc syringe was obtained and inserted into the side port of the pump. Aspiration was applied clear flow of CSF was demonstrated without any air bubbles. Three anchoring sutures Tycron 2-0 were used to apply to the french of the pump pocket in the most superior medial corner of the wound, most superior lateral corner of the wound, and most inferior lateral corner of the wound. Those sutures were connected to the brackets of the pump the intrathecal catheter was gathered behind the body of the pump and the pain pump was dislodged into the pain pump pocket. After that anchoring sutures were tied. The noncoring needle 25 gauge was obtained again mounted on the 3 cc syringe and it was connected to the side port of the pain pump. Aspiration was performed and again we obtained 1 cc of CSF without evidence of any bubbles, clear CSF fluid. After that 0 -0 Vicryl was used to close the wound. 0-2 Vicryl was used to create 2nd level of closure and 0-3 suture was applied to approximate the level of the skin. Broadalbin applied to the level of the skin. Bacitracin ointment was applied to the staple line and 4x4s was applied to the incision line in taped to the skin using Medipore tape. After that patient was transferred supine on the stretcher, awakened, extubated, and she was transferred stable to the recovery room.
[2024-12-16] MEDS: fentaNYL citrate/PF 100 MCG/2 ML VIAL 50 MCG IVPUSH ×2 (13:00→13:15)
[2024-12-16] MEDS: oxyCODONE HCl Immed Release 5 MG TABLET PO (13:00)
[2024-12-16] MEDS: HYDROmorphone HCl 0.5 MG/0.5 ML SYRINGE IVPUSH ×2 (13:25→13:40)
== END 2024-12-16 14:30 | disposition home or self-care (01) ==
PROVIDERS: Nurse Practitioner; Registered Nurse Emergency; PCP Family Medicine; Visit Provider Anesthesiology
PROC: (CPT 62362; principal; 2024-12-16 10:10)
DX: T85.615A Breakdown (mechanical) of other nervous system device, implant or graft, initial encounter (principal); Z45.1 Encounter for adjustment and management of infusion pump; Z96.89 Presence of other specified functional implants; T85.620A Displacement of cranial or spinal infusion catheter, initial encounter; T85.840A Pain due to nervous system prosthetic devices, implants and grafts, initial encounter; Y75.2 Prosthetic and other implants, materials and neurological devices associated with adverse incidents; R10.2 Pelvic and perineal pain; G89.4 Chronic pain syndrome; N30.10 Interstitial cystitis (chronic) without hematuria; N80.9 Endometriosis, unspecified; N94.10 Unspecified dyspareunia; M79.7 Fibromyalgia; I10 Essential (primary) hypertension; F42.9 Obsessive-compulsive disorder, unspecified; F11.20 Opioid dependence, uncomplicated; F12.90 Cannabis use, unspecified, uncomplicated; Z79.899 Other long term (current) drug therapy; Z87.828 Personal history of other (healed) physical injury and trauma
CPT/HCPCS: 62362; 62350; 80307; 81025; C1755; C1772; J0131; J0690; J1100; J1171; J1596; J2003; J2405; J2704; J2795; J3010; J3370

== ENCOUNTER → 2024-12-16 08:04 | Outpatient (BNV) | payer MEDICAID, SELFPAY | PROVIDERS: PCP Family Medicine; Visit Provider Anesthesiology | DX: Z45.1 Encounter for adjustment and management of infusion pump (principal) | CPT/HCPCS: 62362 ==

== ENCOUNTER 2024-12-22 14:05 | Outpatient (AMB) | payer MEDICAID, SELFPAY ==
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
[2024-12-22 14:09] VITALS: BP 108/64; PULSE 59; O2SAT 100; BMI 28.5
--- OUTSIDE RECORDS SUMMARY | 2024-12-22 14:12 | XMS_ITS | Patient Health Record ---
Author Organization [facility] Address [address] [place] [address] Care Team Providers Care Photographer Apprentice Name Role Phone Brandon Castillo DO Unavailable [...] tab(s) orally every 12 hours for 14 (MV)-[id number] 2 05/20/2012 Active Amoxicillin 500 mg 2 tab(s) orally 2 times a day for 14 (MV)-[id number] 4 05/20/2012 Active Problems Problem Type SNOMED Code ICD Code Onset Dates Problem Status W/U Status Risk Notes Problem Endometriosis (533448199) Endometriosis, site unspecified (617.9) 012 Active confirmed Phillip: Endometriosis (clinical); Problem Gastroesophageal reflux disease (479686111) GERD (gastroesophag eal reflux disease) (530.81) Active confirmed 07-07-12 GERD TRIED PRILOSEC OTC ?? DATES AND OMEPRAZOLE 20MG QD FROM 07-07-12 TO ??? Problem Constipation (09263709) Constipation NOS (564.00) Active confirmed (MV) Problem Abdominal pain (22878002) Abdominal Pain _unspecified site_ (789.00) Active confirmed (MV) Plan Of Treatment Pending Test Test Name Order Date HELICOBACTER PYLORI Ab, IgM 04/27/2012 HELICOBACTER PYLORI IgG,EIA 04/27/2012 Insurance Providers Payer Name Payer Address Payer Phone Subscriber Number Group Number Insured Name Patient Relationship to Insured Coverage Start Date Coverage End Date [employer] [address] [place] [address], [place] [id number] Marybel Garcia Self - patient is the insured 2
== END 2024-12-22 14:36 | disposition home or self-care (01) ==
LOC: HO.PMC 14:05
PROVIDERS: PCP Family Medicine; Visit Provider Nurse Practitioner Family
DX: G89.4 Chronic pain syndrome (principal); Z96.89 Presence of other specified functional implants; N30.10 Interstitial cystitis (chronic) without hematuria
CPT/HCPCS: 99213; G2211

== ENCOUNTER → 2024-12-22 14:05 | Outpatient (BNVA) | payer MEDICAID, SELFPAY | PROVIDERS: PCP Family Medicine; Visit Provider Nurse Practitioner Family | DX: N30.10 Interstitial cystitis (chronic) without hematuria (principal); G89.4 Chronic pain syndrome; Z96.89 Presence of other specified functional implants | CPT/HCPCS: 99212 ==

== ENCOUNTER 2024-12-27 07:00 | Outpatient (REF) | payer MEDICAID, SELFPAY ==
--- OUTSIDE RECORDS SUMMARY | 2024-12-27 07:03 | XMS_ITS | Patient Health Record ---
Author Organization [facility] Address [address] [place] [address] Care Team Providers Care Medical Administrator Name Role Phone Brandon Castillo DO Unavailable [...] tab(s) orally every 12 hours for 14 (MV)-[id number] 2 05/20/2012 Active Amoxicillin 500 mg 2 tab(s) orally 2 times a day for 14 (MV)-[id number] 4 05/20/2012 Active Problems Problem Type SNOMED Code ICD Code Onset Dates Problem Status W/U Status Risk Notes Problem Endometriosis (998611591) Endometriosis, site unspecified (617.9) 012 Active confirmed Phillip: Endometriosis (clinical); Problem Gastroesophageal reflux disease (892212923) GERD (gastroesophag eal reflux disease) (530.81) Active confirmed 07-07-12 GERD TRIED PRILOSEC OTC ?? DATES AND OMEPRAZOLE 20MG QD FROM 07-07-12 TO ??? Problem Constipation (89588113) Constipation NOS (564.00) Active confirmed (MV) Problem Abdominal pain (15428154) Abdominal Pain _unspecified site_ (789.00) Active confirmed (MV) Plan Of Treatment Pending Test Test Name Order Date HELICOBACTER PYLORI Ab, IgM 04/27/2012 HELICOBACTER PYLORI IgG,EIA 04/27/2012 Insurance Providers Payer Name Payer Address Payer Phone Subscriber Number Group Number Insured Name Patient Relationship to Insured Coverage Start Date Coverage End Date [facility] [address] [place], [place] [id number] Marybel Garcia Self - patient is the insured 2
[2024-12-27 16:28] LABS: MANUAL DIFF FLAG NO
[2024-12-27 17:13] LABS: Basophils Percent Auto 0.6 % (0-2); Eosinophils Absolute Auto 0.5 X10*3/uL (0.0-0.4); Eosinophils Percent Auto 8.2 % (0-4); Hematocrit 34.2 % (37.0-47.0); Hemoglobin 11.4 g/dl (12.0-16.0); Imm Gran Abs Auto 0.05 X10*3/uL (0.00-0.03); Imm Gran Pct Auto 0.8 % (0.0-0.4); Lymphocytes Absolute Auto 2.4 X10*3/uL (1.2-4.9); Lymphocytes Percent Auto 37.6 % (20-40); Mean Corpuscular HGB Conc 33.3 g/dl (31.0-35.0); Mean Corpuscular Hemoglobin 28.9 pg (27.0-33.0); Mean Corpuscular Volume 86.8 fL (80.0-98.0); Mean Platelet Volume 9.6 fL (9.4-12.3); Monocytes Absolute Auto 0.6 X10*3/uL (0.1-1.2); Monocytes Percent Auto 9.6 % (2-11); Neutrophils Absolute Auto 2.8 x10*3/uL (2.0-8.3); Neutrophils Percent Auto 43.2 % (45-73); Platelet Count 305 X10*3/uL (160-400); Red Blood Count 3.94 X10*6/uL (4.20-5.50); Red Cell Distribution Width 13.2 % (11.0-16.0); White Blood Count 6.5 X10*3/uL (4.8-10.8)
== END 2024-12-27 07:01 | disposition home or self-care (01) ==
LOC: HO.LAB 07:00
PROVIDERS: PCP Family Medicine; Visit Provider Anesthesiology
DX: T85.620A Displacement of cranial or spinal infusion catheter, initial encounter (principal); R32 Unspecified urinary incontinence
CPT/HCPCS: 36415; 85025; 99212

== ENCOUNTER 2024-12-27 15:22 | Outpatient (AMB) | payer MEDICAID, SELFPAY ==
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
[2024-12-27 15:34] VITALS: BP 166/98; PULSE 115; RESP 20; O2SAT 99
== END 2024-12-27 16:05 | disposition home or self-care (01) ==
LOC: HO.PMCPRC 15:22
PROVIDERS: PCP Family Medicine; Visit Provider Anesthesiology
DX: T85.620A Displacement of cranial or spinal infusion catheter, initial encounter (principal); R32 Unspecified urinary incontinence; Z45.1 Encounter for adjustment and management of infusion pump
CPT/HCPCS: 95991; 99214

== ENCOUNTER 2024-12-30 13:31 | Outpatient (AMB) | payer MEDICAID, SELFPAY ==
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
[2024-12-30 13:34] VITALS: BP 121/83; PULSE 84; RESP 20; O2SAT 100
--- OUTSIDE RECORDS SUMMARY | 2024-12-30 13:45 | XMS_ITS | Patient Health Record ---
Author Organization [facility] Address [address] [place] [address] Care Team Providers Care Finance Specialist Name Role Phone Brandon Castillo DO Unavailable [...] tab(s) orally every 12 hours for 14 (MV)-[id number] 2 05/20/2012 Active Amoxicillin 500 mg 2 tab(s) orally 2 times a day for 14 (MV)-[id number] 4 05/20/2012 Active Problems Problem Type SNOMED Code ICD Code Onset Dates Problem Status W/U Status Risk Notes Problem Endometriosis (534542317) Endometriosis, site unspecified (617.9) 012 Active confirmed Phillip: Endometriosis (clinical); Problem Gastroesophageal reflux disease (859669821) GERD (gastroesophag eal reflux disease) (530.81) Active confirmed 07-07-12 GERD TRIED PRILOSEC OTC ?? DATES AND OMEPRAZOLE 20MG QD FROM 07-07-12 TO ??? Problem Constipation (76360781) Constipation NOS (564.00) Active confirmed (MV) Problem Abdominal pain (31027084) Abdominal Pain _unspecified site_ (789.00) Active confirmed (MV) Plan Of Treatment Pending Test Test Name Order Date HELICOBACTER PYLORI Ab, IgM 04/27/2012 HELICOBACTER PYLORI IgG,EIA 04/27/2012 Insurance Providers Payer Name Payer Address Payer Phone Subscriber Number Group Number Insured Name Patient Relationship to Insured Coverage Start Date Coverage End Date [facility] [address], [place] [id number] Marybel Garcia Self - patient is the insured 2
== END 2024-12-30 14:15 | disposition home or self-care (01) ==
LOC: HO.PMC 13:31
PROVIDERS: PCP Family Medicine; Visit Provider Anesthesiology
DX: T85.620A Displacement of cranial or spinal infusion catheter, initial encounter (principal); R32 Unspecified urinary incontinence; Z45.1 Encounter for adjustment and management of infusion pump
CPT/HCPCS: 95991; 99214

== ENCOUNTER → 2024-12-30 13:31 | Outpatient (BNVA) | payer MEDICAID, SELFPAY | PROVIDERS: PCP Family Medicine; Visit Provider Anesthesiology | DX: Z45.1 Encounter for adjustment and management of infusion pump (principal); F11.20 Opioid dependence, uncomplicated; R32 Unspecified urinary incontinence | CPT/HCPCS: 99212 ==

== ENCOUNTER 2025-01-05 16:12 | Outpatient (AMB) | payer MEDICAID, SELFPAY ==
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
[2025-01-05 16:16] VITALS: BP 130/83; PULSE 89; RESP 18; O2SAT 100
--- OUTSIDE RECORDS SUMMARY | 2025-01-05 18:14 | XMS_ITS | Patient Health Record ---
Author Organization [facility] Address [address] [place] [address] Care Team Providers Care Grain Elevator Agent Name Role Phone Brandon Castlilo DO Unavailable Unavailable Reason For Referral No Information Medications Medication SIG (Take, Route, Frequency, Duration) Notes Start Date End Date Status VESICARE (SOLIFENACIN) 5 MG 1 PO QD Phillip04/16/2012 Entered by KEVIN LUGO 04/16/2012 Active MIRALAX (POLYETHYLENE GLYCOL ) 17 GM PO QD Phillip04/16/2012 Entered by KEVIN LGUO 04/16/2012 Active oxycodone 5 MG 1 PO Q4H Phillip04/16/2012 Entered by KEVIN LUGO 04/16/2012 Active Clarithromycin 500 mg 1 tab(s) orally every 12 hours for 14 (MV)-[id number] 2 05/20/2012 Active Amoxicillin 500 mg 2 tab(s) orally 2 times a day for 14 (MV)-[id number] 4 05/20/2012 Active Problems Problem Type SNOMED Code ICD Code Onset Dates Problem Status W/U Status Risk Notes Problem Endometriosis (218133595) Endometriosis, site unspecified (617.9) 012 Active confirmed Phillip: Endometriosis (clinical); Problem Gastroesophageal reflux disease (540213083) GERD (gastroesophag eal reflux disease) (530.81) Active confirmed 07-07-12 GERD TRIED PRILOSEC OTC ?? DATES AND OMEPRAZOLE 20MG QD FROM 07-07-12 TO ??? Problem Constipation (07398552) Constipation NOS (564.00) Active confirmed (MV) Problem Abdominal pain (51985437) Abdominal Pain _unspecified site_ (789.00) Active confirmed (MV) Plan Of Treatment Pending Test Test Name Order Date HELICOBACTER PYLORI Ab, IgM 04/27/2012 HELICOBACTER PYLORI IgG,EIA 04/27/2012 Insurance Providers Payer Name Payer Address Payer Phone Subscriber Number Group Number Insured Name Patient Relationship to Insured Coverage Start Date Coverage End Date [facility] [address], [place] [id number] Marybel Garcia Self - patient is the insured 2
== END 2025-01-05 17:21 | disposition home or self-care (01) ==
LOC: HO.PMC 16:12
PROVIDERS: PCP Family Medicine; Visit Provider Anesthesiology
DX: N80.9 Endometriosis, unspecified (principal); R10.2 Pelvic and perineal pain; G89.4 Chronic pain syndrome; F14.20 Cocaine dependence, uncomplicated; Z45.1 Encounter for adjustment and management of infusion pump; M43.10 Spondylolisthesis, site unspecified; M54.9 Dorsalgia, unspecified
CPT/HCPCS: 62370; 99214

== ENCOUNTER → 2025-01-05 16:12 | Outpatient (BNVA) | payer MEDICAID, SELFPAY | PROVIDERS: PCP Family Medicine; Visit Provider Anesthesiology | DX: N80.9 Endometriosis, unspecified (principal); R10.2 Pelvic and perineal pain; G89.4 Chronic pain syndrome; F14.20 Cocaine dependence, uncomplicated; M43.10 Spondylolisthesis, site unspecified; Z45.1 Encounter for adjustment and management of infusion pump; Z79.891 Long term (current) use of opiate analgesic | CPT/HCPCS: 62370; 99212 ==

== ENCOUNTER 2025-01-18 10:07 | Outpatient (AMB) | payer MEDICAID, SELFPAY ==
[2025-01-18 10:15] VITALS: BP 125/81; PULSE 104; RESP 18; O2SAT 100
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
--- OUTSIDE RECORDS SUMMARY | 2025-01-18 11:21 | XMS_ITS | Patient Health Record ---
Author Organization [facility] Address [address] [place] [address] Care Team Providers Care Grant Administrator Name Role Phone Brandon Castillo DO [...] tab(s) orally every 12 hours for 14 (MV)-[id number] 2 05/20/2012 Active Amoxicillin 500 mg 2 tab(s) orally 2 times a day for 14 (MV)-[id number] 4 05/20/2012 Active Problems Problem Type SNOMED Code ICD Code Onset Dates Problem Status W/U Status Risk Notes Problem Endometriosis (372959740) Endometriosis, site unspecified (617.9) 012 Active confirmed Phillip: Endometriosis (clinical); Problem Gastroesophageal reflux disease (524287927) GERD (gastroesophag eal reflux disease) (530.81) Active confirmed 07-07-12 GERD TRIED PRILOSEC OTC ?? DATES AND OMEPRAZOLE 20MG QD FROM 07-07-12 TO ??? Problem Constipation (46679563) Constipation NOS (564.00) Active confirmed (MV) Problem Abdominal pain (09038576) Abdominal Pain _unspecified site_ (789.00) Active confirmed (MV) Plan Of Treatment Pending Test Test Name Order Date HELICOBACTER PYLORI Ab, IgM 04/27/2012 HELICOBACTER PYLORI IgG,EIA 04/27/2012 Insurance Providers Payer Name Payer Address Payer Phone Subscriber Number Group Number Insured Name Patient Relationship to Insured Coverage Start Date Coverage End Date [facility] [address] [place], [place] [id number] Marybel Garcia Self - patient is the insured 2
== END 2025-01-18 10:57 | disposition home or self-care (01) ==
LOC: HO.PMC 10:08
PROVIDERS: PCP Family Medicine; Visit Provider Anesthesiology
DX: M25.552 Pain in left hip (principal); N80.9 Endometriosis, unspecified; R10.2 Pelvic and perineal pain; G89.4 Chronic pain syndrome; Z45.1 Encounter for adjustment and management of infusion pump; F14.20 Cocaine dependence, uncomplicated; M54.9 Dorsalgia, unspecified; M43.10 Spondylolisthesis, site unspecified
CPT/HCPCS: 95991; 99213

== ENCOUNTER 2025-01-18 11:13 | Outpatient (REF) | payer MEDICAID, SELFPAY ==
--- NOTE | ~2025-01-18 | XR_ITS ---
EXAMINATION: XR HIP, LEFT CLINICAL INFORMATION: M25.552 - Pain in left hip COMPARISON: None available. TECHNIQUE: Two views of the left hip. FINDINGS: No acute cortical disruption or malalignment, left coxofemoral joint. No lytic or blastic lesions. Metallic reservoir overlapping the left lateral iliac bone/gluteal region. Degenerative changes in the symphysis pubis. XR/XR hip LT min 2V IMPRESSION: No acute fracture or dislocation, left hip. Mild degenerative changes, symphysis pubis. Electronically signed by: Dipesh Loco MD 01/18/2025 12:16 PM EDT
== END 2025-01-18 11:14 | disposition home or self-care (01) ==
LOC: HO.XRAY 11:13
PROVIDERS: PCP Family Medicine; Visit Provider Anesthesiology
DX: M25.552 Pain in left hip (principal); G89.29 Other chronic pain; R10.2 Pelvic and perineal pain; F14.20 Cocaine dependence, uncomplicated; M54.9 Dorsalgia, unspecified; M43.10 Spondylolisthesis, site unspecified; Z97.8 Presence of other specified devices; Z79.891 Long term (current) use of opiate analgesic
CPT/HCPCS: 73502; 99212

== ENCOUNTER → 2025-01-18 11:26 | Outpatient (BNV) | payer MEDICAID, SELFPAY | PROVIDERS: PCP Family Medicine; Visit Provider Radiology Diagnostic Radiology | DX: M16.12 Unilateral primary osteoarthritis, left hip (principal) | CPT/HCPCS: 73502 ==

== ENCOUNTER 2025-01-24 11:56 | Outpatient (REF) | payer MEDICAID, SELFPAY ==
--- NOTE | ~2025-01-24 | XR_ITS ---
EXAMINATION: XR SCREENING FILM FOR MR HISTORY: HUMERUS PRE MRI, ? NEEDLE IN ARM LEFT COMPARISON: There are no prior studies available for comparison. FINDINGS: AP and lateral views of the left humerus are submitted. Osseous mineralization is normal. There is no fracture or dislocation. The visualized elbow and shoulder joint spaces are maintained. The soft tissues are unremarkable. No radiopaque foreign body is identified. XR/XR pre mri screening IMPRESSION: No radiopaque foreign body is identified. Electronically signed by: Blas Harp MD 01/24/2025 12:38 PM EDT
--- OUTSIDE RECORDS SUMMARY | 2025-01-24 13:34 | XMS_ITS | Patient Health Record ---
Author Organization [facility] Address [address] [place] [address] Care Team Providers Care Aircraft Navigator Name Role Phone Brandon Castillo DO Unavailable [...] tab(s) orally every 12 hours for 14 (MV)-[id number] 2 05/20/2012 Active Amoxicillin 500 mg 2 tab(s) orally 2 times a day for 14 (MV)-Vwktsb3273 4 05/20/2012 Active Problems Problem Type SNOMED Code ICD Code Onset Dates Problem Status W/U Status Risk Notes Problem Endometriosis (595290729) Endometriosis, site unspecified (617.9) 012 Active confirmed Phillip: Endometriosis (clinical); Problem Gastroesophageal reflux disease (228856856) GERD (gastroesophag eal reflux disease) (530.81) Active confirmed 07-07-12 GERD TRIED PRILOSEC OTC ?? DATES AND OMEPRAZOLE 20MG QD FROM 07-07-12 TO ??? Problem Constipation (64477377) Constipation NOS (564.00) Active confirmed (MV) Problem Abdominal pain (40847065) Abdominal Pain _unspecified site_ (789.00) Active confirmed (MV) Plan Of Treatment Pending Test Test Name Order Date HELICOBACTER PYLORI Ab, IgM 04/27/2012 HELICOBACTER PYLORI IgG,EIA 04/27/2012 Insurance Providers Payer Name Payer Address Payer Phone Subscriber Number Group Number Insured Name Patient Relationship to Insured Coverage Start Date Coverage End Date [facility] [address] [place], [place] [id number] Marybel Garcia Self - patient is the insured 2
== END 2025-01-24 11:57 | disposition home or self-care (01) ==
LOC: HO.XRAY 11:56
PROVIDERS: PCP Family Medicine; Visit Provider Anesthesiology
DX: Z13.89 Encounter for screening for other disorder (principal)

== ENCOUNTER 2025-01-25 13:37 | Outpatient (AMB) | payer MEDICAID, SELFPAY ==
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
[2025-01-25 13:42] VITALS: BP 114/78; BMI 28.5
== END 2025-01-25 14:17 | disposition home or self-care (01) ==
LOC: HO.HSMS 13:38
PROVIDERS: PCP Family Medicine; Visit Provider Psychiatry & Neurology Neurology
DX: R20.0 Anesthesia of skin (principal); R20.2 Paresthesia of skin; M54.2 Cervicalgia; S06.0XAA Concussion with loss of consciousness status unknown, initial encounter; R06.83 Snoring; G47.10 Hypersomnia, unspecified
CPT/HCPCS: 99204; G2211

== ENCOUNTER → 2025-01-25 13:37 | Outpatient (BNVA) | payer MEDICAID, SELFPAY | PROVIDERS: PCP Family Medicine; Visit Provider Psychiatry & Neurology Neurology | DX: R20.0 Anesthesia of skin (principal); R20.2 Paresthesia of skin; M54.2 Cervicalgia; S06.0XAA Concussion with loss of consciousness status unknown, initial encounter; R06.83 Snoring; G47.10 Hypersomnia, unspecified | CPT/HCPCS: 99202 ==

== ENCOUNTER 2025-02-14 10:08 | Outpatient (REF) | payer MEDICAID, SELFPAY ==
--- OUTSIDE RECORDS SUMMARY | 2025-02-09 23:59 | XMS_ITS | Continuity of Care Document ---
Author Organization [facility] Address [address] [place] [address], [address] [place] [address]- Care Team Providers Care Boiler Reliner Name Role Phone Chuck Valdez MD, [facility] Primary Care Phys [facility] Encounter [facility] [id number] Date(s): 12/07/24 - 02/09/25 [facility] [email or web address] [facility] [address] [place] [address], [address] [place], [place] [address] Attending Physician: Karen Pink NP Admitting Physician: Karen Pink NP Referring Physician: Not on Staff, Referring MD Encounter Type: Pre-OutPatient One Time Allergies, Adverse Reactions, Alerts Substance Criticality Severity [...] mg/24 hours (XL) oral tablet, extended release 0.5 tablet = 150 mg, By Mouth, Daily, # 30 tablet, [...] Quantity: 30.0 Unit: tablet Repeat number: 1 depo-subQ provera 104 mg/0.65 [...] mL, 0 Refills, Maintenance,11/04/24 1:47:00 PM EDT, [place], Partial fill upon patient request if the [...] Repeat number: 1 Methadone Liquid See Instructions, [facility] [phone] Patient was last dosed on 10/25/24 with [...] propranolol 80 mg oral capsule, extended release 1, capsule, By Mouth, Daily, X90 DAYS,INSTR:NEW DOSE CHANGE FOR TREMORS DO NOT CRUSH OR CHEW, # 90 capsule, Refills 0, Maintenance, 01/05/25 8:25:00 AM EDT, Route to Pharmacy Electronically, [id number], 150, cm, 12/21/24 10:33:00 EDT, Height, 66, kg, 11/04/24 13:50:00 EDT, Dry Weight Start Date: 01/05/25 Status: Ordered Quantity: 90.0 Unit: capsule Repeat number: 1 Tylenol 325 mg oral tablet 975 mg, 3, tablet, By Mouth, Every 8 hours, # 60 tablet, Refills 0, Tot. Refills 0, Maintenance, 08/11/22 8:54:00 AM EST, Route to Pharmacy Electronically, [id number], Partial fill upon patient request if the [...] Care Nurse Name: Emi Aparicio RN Position: [facility] RN Member Role: Primary Care Nurse Name: Mercedes Hall RN Position: S RN Member Role: Primary Care Nurse Name: Glenn Osborne MD Position: S Outreach Member Role: PCP Address: [address] [place] [address] Telecom: Name: Millie Sosa LPN Position: S RN Member Role: Primary Care Nurse Care Team Related Persons Name: ALEKSEY PINEDA Name: RENEE HONG Name: JONH ENGLAND Name: JONH ENGLAND Insurance Providers Guarantor name: SUSAN Health Plan Information #: 1 Payer: [employer] Payer Identifier: SUSAN Member Number: [id number] Group Number: SUSAN Subscriber Identifier: [id number] Relationship to Subscriber: self Coverage Type: Medicaid (Managed Care) Coverage Verification Date: SUSAN Telecom: SUSAN Address: NA
--- OUTSIDE RECORDS SUMMARY | 2025-02-13 23:59 | XMS_ITS | Continuity of Care Document ---
Author Organization [facility] Address [address] [place] [address]- Care Team Providers Care Tool Design Drafter Name Role Phone Chuck Valdez MD, [facility] Primary Care Phys [facility] [id number] Date(s): 01/14/25 - 02/13/25 [facility] [address] [place] [address]- Encounter Type: Triage Allergies, Adverse Reactions, Alerts [...] mL, 0 Refills, Maintenance,11/04/24 1:47:00 PM EDT, [place], Partial fill upon patient request if the [...] 1 Methadone Liquid See Instructions, [facility] [phone] Patient was last dosed on 10/25/24 with [...] 8:25:00 AM EDT, Route to Pharmacy Electronically, [facility] [id number], 150, cm, 12/21/24 10:33:00 EDT, Height, 66, kg, 11/04/24 13:50:00 EDT, Dry Weight Start Date: 01/05/25 Status: Ordered Quantity: 90.0 Unit: capsule Repeat number: 1 Tylenol 325 mg oral tablet 975 mg, 3, tablet, By Mouth, Every 8 hours, # 60 tablet, Refills 0, Tot. Refills 0, Maintenance, 08/11/22 8:54:00 AM EST, Route to Pharmacy Electronically, [place] [address], Partial fill upon patient request if the [...] Team Personnel Name: Anahi Marquez RN Position: [facility] RN Member Role: Primary Care Nurse Name: Emi Aparicio RN Position: [facility] SN RN Member Role: Primary Care Nurse Name: Mercedes Hall RN Position: [facility] RN Member Role: Primary Care Nurse Name: Glenn Osborne MD Position: S Outreach Member Role: PCP Address: [address] [place] [address] Telecom: Name: Millie Sosa LPN Position: [facility] RN Member Role: Primary Care Nurse Care Team Related Persons Name: ALEKSEY PINEDA Name: RENEE HONG Name: JONH ENGLAND Name: JONH ENGLAND Insurance Providers Guarantor name: SUSAN Health Plan Information #: 1 Payer: [employer] Payer Identifier: NA Member Number: [id number] Group Number: Subscriber Identifier: [id number] Relationship to Subscriber: self Coverage Type: Auto Insurance (includes no fault) Coverage Verification Date: Telecom: NA Address: Health Plan Information #: 2 Payer: [employer] Payer Identifier: SUSAN Member Number: [id number] Group Number: SUSAN Subscriber Identifier: [id number] Relationship to Subscriber: self Coverage Type: Medicaid (Managed Care) Coverage Verification Date: SUSAN Telecom: SUSAN Address:
--- OUTSIDE RECORDS SUMMARY | 2025-02-14 11:12 | XMS_ITS | Referral Summary ---
Author Organization [facility] Address [address] [place] [address] Care Team Providers Care Dog Handler Name Role Phone Chuck AliciaJaylene, Kharme Primary [...] 88 07/24/2021 7:24 PM EST Temperature 36.9 C (98.5 F) 07/24/2021 3:03 PM EST Respiratory Rate 17 07/24/2021 7:24 PM EST Oxygen Saturation 99% 07/24/2021 7:24 PM EST Inhaled Oxygen Concentration - - Weight - - Height - - Body Mass Index - - Plan of Treatment Not on file Insurance [facility] Care Teams Dog Handler Relationship Specialty Start Date End Date Nial [address]mel [address] [place] [address] PCP - General Family Medicine 07/24/21
--- OUTSIDE RECORDS SUMMARY | 2025-02-14 11:12 | XMS_ITS | Patient Health Record ---
Author Organization [facility] Address [address] [place] [address] Care Team Providers Care Metal Cutter Name Role Phone Rosa Castillo DOey Unavailable [...] 500 mg 1 tab(s) orally every 12 hours; Duration: 14 (MV)-[id number] 2 05/20/2012 Active Amoxicillin 500 mg 2 tab(s) orally 2 times a day; Duration: 14 (MV)-[id number] 4 05/20/2012 Active Problems Problem Type SNOMED Code ICD Code Onset Dates Problem Status W/U Status Risk Notes Problem Gastroesophageal reflux disease (672690239) GERD (gastroesophag eal reflux disease) (530.81) Active confirmed 07-07-12 GERD TRIED PRILOSEC OTC ?? DATES AND OMEPRAZOLE 20MG QD FROM 07-07-12 TO ??? Problem Constipation (14493166) Constipation NOS (564.00) Active confirmed (MV) Problem Abdominal pain (94155194) Abdominal Pain _unspecified site_ (789.00) Active confirmed (MV) Problem Endometriosis (142890413) Endometriosis, site unspecified (617.9) 012 Active confirmed Phillip: Endometriosis (clinical); Plan Of Treatment Pending Test Test Name Order Date HELICOBACTER PYLORI Ab, IgM 04/27/2012 HELICOBACTER PYLORI IgG,EIA 04/27/2012 Insurance Providers Payer Name Payer Address Payer Phone Subscriber Number Group Number Insured Name Patient Relationship to Insured Coverage Start Date Coverage End Date [facility] [address] [place], [place] [id number] Marybel Garcia Self - patient is the insured 2
--- OUTSIDE RECORDS SUMMARY | 2025-02-14 11:12 | XMS_ITS | Patient Health Record ---
Author Organization [facility] Address [address] [place] [address] Care Team Providers Care County Health Officer Name Role Phone Glenn Guzman Primary Care Provider Unavailable Blas Ornelas Unavailable [phone] Reason For Referral No Information Medications Medication SIG (Take, Route, Frequency, Duration) Notes Start Date End Date Status Subutex Active iron Active Folic Acid Active 1 vitamin Orally once a day Active Zantac 150 MG 1 tablet Orally every 8 hrs Active Problems Problem Type SNOMED Code ICD Code Onset Dates Problem Status W/U Status Risk Notes Problem 919433476 Other constipati on (K59.09) Active confirmed Problem 021077338 Gastroesophageal reflux disease without esophagitis (K21.9) Active confirmed Plan Of Treatment Pending Test Test Name Order Date LIVER PROFILE 11/02/2012 AMYLASE 11/02/2012 LIPASE 11/02/2012 T4 (THYROXINE) 11/02/2012 TSH (THYROID STIMULATING HORMONE) 2012 CRP 11/02/2012 CBC with MANUAL DIFFERENTIAL 11/02/2012 SED RATE (ESR) 11/02/2012 CELIAC PANEL #10 08/26/2012 CELIAC PANEL #10 11/02/2012 ENDOMYSIAL IGA 11/02/2012 ENDOMYSIAL IGA 08/26/2012 TRANSGLUTAMINASE AB IGA 11/02/2012 TRANSGLUTAMINASE AB IGA 08/26/2012 TRANSGLUTAMINASE AB IGG 11/02/2012 TRANSGLUTAMINASE AB IGG 08/26/2012 Future Test Test Name Order Date UPPER GI ENDOSCOPY 08/26/2012 COLONOSCOPY 08/26/2012 Insurance Providers Payer Name Payer Address Payer Phone Subscriber Number Group Number Insured Name Patient Relationship to Insured Coverage Start Date Coverage End Date [facility] [address] [facility] [place] [phone] [id number] JAMMIE LEI Self - patient is the insured [place] [address] [place] [phone] [id number] JAMMIE LEI Self - patient is the insured Medical (General) History Medical History History ICD Code Denies [place],DM,CVA,Lung disease,renal dise ase Diffuse body aches-neck, back, abdomen Kidney stones-sees a adult basic education teacher Sees a counsellor for issues Sees a urologist for bladder pain Dr. Tran is her [employer]PA[employer] doctor IBS with associated abdomina l discomfort and constipation. She underwent a very limited upper endoscopy and sigmoidoscopy in October of 2012 with me, both of which appeared normal--however the exams were very limited and no biopsies were obtained due to a lack of cooperation and patient agitation during the procedures; she also underwent an upper endoscopy and sigmoidoscopy in January [address] Boyd under monitored anesthesia care--these exams were also unrevealing, including duodenal and gastric biopsies GERD Surgical History Surgery Date(Month/Year) diagnostic laproscopy
--- OUTSIDE RECORDS SUMMARY | 2025-02-14 11:12 | XMS_ITS ---
Author Name [facility] Organization Unknown Results Test Name/Text Value Interpretation Date Range Source HCG Ur Ql Negative 01/08/2025 - [facility] RBC # Bld Auto 4.24 M/mcL 01/08/2025 4.2 - 5.4 [facility] Lymphocytes # Bld Auto 2.92 K/mcL 01/08/2025 1 - 3.2 [facility] Eosinophil NFr Bld Auto 6.8 % Above high normal 01/08/2025 0 - 6 [facility] Hgb Bld-mCnc 12.4 g/dL Below low normal 01/08/2025 12.5 - 16 [facility] Eosinophil # Bld Auto 0.58 K/mcL Above high normal 01/08/2025 0 - 0.5 [facility] Neutrophils # Bld Auto 4.4 K/mcL 01/08/2025 1.8 - 7.8 [facility] Hct VFr Bld Auto 37.7 % 01/08/2025 37 - 47 [facility] Neutrophils NFr Bld Auto 51.7 % 01/08/2025 44 - 74 [facility] Monocytes NFr Bld Auto 6.0 % 01/08/2025 2 - 12 [facility] Monocytes # Bld Auto 0.51 K/mcL 01/08/2025 0 - 0.8 [facility] Lymphocytes NFr Bld Auto 34.4 % 01/08/2025 20 - 48 [facility] WBC # Bld Auto 8.5 K/mcL 01/08/2025 4 - 10.5 [facility] PMV Bld Auto 9.6 FL 01/08/2025 7.4 - 11.4 [facility] Platelet # Bld Auto 281.0 K/mcL 01/08/2025 150 - 4 50 [facility] RBC Auto 88.9 FL 01/08/2025 78 - 100 [facility] MCH RBC Qn Auto 29.2 pcg 01/08/2025 25 - 33 [facility] MCHC RBC Auto-EntMCnc 32.9 g/dL 01/08/2025 32 - 36 [facility] Basophils # Bld Auto 0.04 K/mcL 01/08/2025 0 - 0.2 [facility] RDW RBC Auto 13.6 % 01/08/2025 12.1 - 16.2 [facility] Basophils NFr Bld Auto 0.5 % 01/08/2025 0 - 2 [facility] BNP SerPl-mCnc 41.0 pcg/mL 01/08/2025 0 - 100 [facility] D Dimer PPP DDU-mCnc <150.0 ng/mL DDU 01/08/2025 - 231 [facility] Troponin I SerPl HS-mCnc 2.0 ng/L 01/08/2025 0 - 14 [facility] Magnesium SerPl-mCnc 2.0 mg/dL 01/08/2025 1.7 - 2.8 [facility] Calcium SerPl-mCnc 9.3 mg/dL 01/08/2025 8.4 - 10.2 [facility] BUN/Creat SerPl 11.7 Below low normal 01/08/2025 12 - 2 0 [facility] Potassium SerPl-sCnc 4.2 mmol/L 01/08/2025 3.5 - 5.1 [facility] BUN SerPl-mCnc 9.0 mg/dL 01/08/2025 7 - 17 [facility] Glucose SerPl-mCnc 100.0 mg/dL 01/08/2025 70 - 199 [facility] eGFRcr SerPlBld CKD-EPI 2020 104.0 mL/min/1.73m2 01/08/2025 - [facility] Chloride SerPl-sCnc 102.0 mmol/L 01/08/2025 98 - 1 07 [facility] Creat SerPl-mCnc 0.77 mg/dL 01/08/2025 0.5 - 1 C [facility] Sodium SerPl-sCnc 141.0 mmol/L 01/08/2025 135 - 14 5 [facility] Anion Gap SerPl Calc-sCnc 10.0 01/08/2025 5 - 14 [facility] CO2 SerPl-sCnc 29.0 mmol/L 01/08/2025 24 - 32 [facility] BUN/Creat SerPl 18.5 Normal 12/02/2024 12 - 20 [facility] ALT SerPl-cCnc 27.0 unit/L Normal 12/02/2024 7 - 52 CT [facility] Bilirub SerPl-mCnc 0.3 mg/dL Normal 12/02/2024 0.3 - 1 [facility] Albumin SerPl-mCnc 4.6 g/dL Normal 12/02/2024 3.5 - 5 [facility] Creat SerPl-mCnc 0.92 mg/dL Normal 12/02/2024 0.5 - 1 C [facility] BUN SerPl-mCnc 17.0 mg/dL Normal 12/02/2024 7 - 17 CT_ [facility] Sodium SerPl-sCnc 133.0 mmol/L Below low normal 12/02/2024 1 35 - 145 [facility] Glucose SerPl-mCnc 87.0 mg/dL Normal 12/02/2024 70 - 199 [facility] AST SerPl-cCnc 21.0 unit/L Normal 12/02/2024 5 - 40 CT [facility] Anion Gap SerPl Calc-sCnc 2.0 Below low normal 12/02/2024 5 - 14 [facility] Prot SerPl-mCnc 7.4 g/dL Normal 12/02/2024 6.4 - 8.5 [facility] CO2 SerPl-sCnc 29.0 mmol/L Normal 12/02/2024 24 - 32 [facility] Calcium SerPl-mCnc 9.8 mg/dL Normal 12/02/2024 8.4 - 10.2 [facility] ALP SerPl-cCnc 86.0 unit/L Normal 12/02/2024 34 - 104 [facility] Chloride SerPl-sCnc 102.0 mmol/L Normal 12/02/2024 98 - 1 07 [facility] eGFRcr SerPlBld CKD-EPI 2020 84.0 mL/min/1.73m2 Normal 12/02/2024 - [facility] Potassium SerPl-sCnc 4.1 mmol/L Normal 12/02/2024 3.5 - 5.1 [facility] Lipase SerPl-cCnc 31.0 unit/L Normal 12/02/2024 11 - 82 [facility] Eosinophil NFr Bld Auto 4.1 % Normal 12/02/2024 0 - 6 [facility] Hct VFr Bld Auto 39.4 % Normal 12/02/2024 37 - 47 [facility] Lymphocytes NFr Bld Auto 19.2 % Below low normal 12/02/2024 20 - 48 [facility] MCH RBC Qn Auto 28.8 pcg Normal 12/02/2024 25 - 33 [facility]_ [facility] Neutrophils NFr Bld Auto 68.9 % Normal 12/02/2024 44 - 74 [facility] RBC Auto 87.2 FL Normal 12/02/2024 78 - 100 [facility] Neutrophils # Bld Auto 4.36 K/mcL Normal 12/02/2024 1.8 - 7.8 [facility] RBC # Bld Auto 4.52 M/mcL Normal 12/02/2024 4.2 - 5.4 [facility] Lymphocytes # Bld Auto 1.22 K/mcL Normal 12/02/2024 1 - 3.2 [facility] PMV Bld Auto 9.8 FL Normal 12/02/2024 7.4 - 11.4 [facility] Monocytes NFr Bld Auto 6.9 % Normal 12/02/2024 2 - 12 [facility] Eosinophil # Bld Auto 0.26 K/mcL Normal 12/02/2024 0 - 0.5 [facility] MCHC RBC Auto-EntMCnc 33.0 g/dL Normal 12/02/2024 32 - 36 [facility] Basophils # Bld Auto <0.03 K/mcL Normal 12/02/2024 0 - 0.2 [facility] Platelet # Bld Auto 295.0 K/mcL Normal 12/02/2024 150 - 4 50 [facility] Monocytes # Bld Auto 0.44 K/mcL Normal 12/02/2024 0 - 0.8 [facility] Hgb Bld-mCnc 13.0 g/dL Normal 12/02/2024 12.5 - 16 [facility] WBC # Bld Auto 6.3 K/mcL Normal 12/02/2024 4 - 10.5 [facility] RDW RBC Auto 12.9 % Normal 12/02/2024 12.1 - 16.2 [facility] Basophils NFr Bld Auto 0.3 % Normal 12/02/2024 0 - 2 [facility] Ketones Ur-mCnc Trace Abnormal 12/02/2024 - [facility]_ [facility] Glucose Ur Ql Negative Normal 12/02/2024 - [facility] Color Ur Yellow Normal 12/02/2024 - [facility] Prot Ur Strip-mCnc Negative Normal 12/02/2024 - [facility] Clarity Ur Clear Normal 12/02/2024 - [facility] Leukocyte esterase Ur Ql Strip Negative Normal 12/02/2024 - [facility] Nitrite Ur Ql Negative Normal 12/02/2024 - [facility] Hgb Ur Ql Negative Normal 12/02/2024 - [facility] pH Ur 6.0 pH Normal 12/02/2024 5 - 8 [facility] Sp Gr Ur >=1.03 Normal 12/02/2024 1.005 - 1.03 [facility] HCG Ur Ql Negative Normal 12/02/2024 - [facility] History of Medication Use Medication Directions Dispensed Refills Start Date End Date Stat us ondansetron ODT (ZOFRAN-ODT) disintegrating tablet 4 mg 4 mg, oral, Once, On Thu01/08/25 at 0532, For 1 dose 01/08/2025 5 completed ketorolac (TORADOL) injection 15 mg 15 mg, intravenous, Once, On Thu12/02/24 at 0016, For 1 dose 12/02/2024 5 completed ondansetron (PF) (ZOFRAN) injection 4 mg 4 mg, intravenous, Once, On Thu12/02/24 at 0016, For 1 dose 12/02/2024 5 completed sodium chloride 0.9 % bolus 1,000 mL 1,000 mL, intravenous, at 1,000 mL/hr, Administer over 1 Hours, Once, On Thu12/02/24 at 0016, For 1 dose 12/02/2024 completed iopamidoL (ISOVUE-370) 370 mg iodine /mL (76 %) injection 100 mL 100 mL, intravenous, Once in imaging, Starting on Thu12/02/24 at 0135, For 1 dose 12/02/2024 active sodium chloride 0.9 % intravenous solution 50 mL 50 mL, intravenous, Once in imaging, Starting on Thu12/02/24 at 0135, For 1 dose 12/02/2024 active oxyCODONE-acetaminoph en (PERCOCET) 5-325 mg per tablet 1 tablet 1 tablet, oral, Once, On Thu11/23/24 at 0108, For 1 dose 11/23/2024 completed methadone (METHADOSE) dispersible tablet 80 mg 80 mg, oral, Once, On 11/12/24 at 1933, For 1 dose, Disperse total dose in ~120 mL of water, orange juice, or other acidic fruit beverage prior to administration; if insoluble excipients remain and do not entirely dissolve, add a small amount of liquid to cup and administer remaining mixture. Do 11/12/2024 completed clonazePAM (KlonoPIN) 0.25 mg disintegrating tablet TAKE 1 TO 2 TABLETS BY MOUTH UNDER TONGUE TWICE A WEEK NEEDED FOR ANXIETY/PANIC FOR 30 DAYS 11/07/2024 active oxyCODONE (ROXICODONE) 5 mg immediate release tablet 11/05/2024 active cloNIDine (CATAPRES) 0.2 mg tablet Take 1 tablet (0.2 mg total) by mouth 3 (three) times a day if needed. 11/03/2024 active lurasidone (LATUDA) 40 mg tablet TAKE 1 TABLET BY MOUTH EVERY EVENING AFTER A MEAL 11/03/2024 active docusate sodium (COLACE) 100 mg capsule Take 1 capsule (100 mg total) by mouth 3 (three) times a day if needed. 11/02/2024 active methylphenidate (RITALIN) 10 mg tablet Take 1 tablet (10 mg total) by mouth 2 (two) times a day. Max Daily Amount: 20 mg 11/02/2024 active methylphenidate (RITALIN) 20 mg tablet Take 1 tablet (20 mg total) by mouth 2 (two) times a day. Max Daily Amount: 40 mg 11/02/2024 active baclofen (LIORESAL) 20 mg tablet Take 1 tablet (20 mg total) by mouth at bedtime. 10/24/2024 active propranolol LA (INDERAL LA) 80 mg 24 hr capsule Take 1 capsule (80 mg total) by mouth 1 (one) time each day. 10/08/2024 active 28 mg iron- 800 mcg per tablet Take 1 tablet by mouth 1 (one) time each day. 10/03/2024 active escitalopram (LEXAPRO) 20 mg tablet Take 1 tablet (20 mg total) by mouth 1 (one) time each day. 09/20/2024 active Depo-subQ provera 104 104 mg/0.65 mL injection INJECT 0.65 ML EVERY 3 MONTHS BY SUBCUTANEOUS ROUTE FOR 84 DAYS, FOR CONTRACEPTION. 09/16/2024 active buPROPion XL (WELLBUTRIN XL) 300 mg 24 hr tablet Take 1 tablet (300 mg total) by mouth 1 (one) time each day. 09/10/2024 active ibuprofen (ADVIL,MOTRIN) 800 mg tablet take 1 tablet by mouth every 8 hours as needed for 30 days 09/07/2024 active fluticasone propionate (FLONASE) 50 mcg/actuation nasal spray Administer 1 spray into each nostril 1 (one) time each day. 09/05/2024 active ARIPiprazole (ABILIFY) 10 mg tablet Take 1 tablet (10 mg total) by mouth 1 (one) time each day. 08/07/2024 active lidocaine (XYLOCAINE) 5 % ointment APPLY A 2 INCH STRIP ONCE A DAY NEEDED FOR BACK PAIN 06/08/2024 active FeroSuL 325 mg (65 mg iron) tablet 04/30/2024 active gabapentin (NEURONTIN) 300 mg capsule Take 2 capsules (600 mg total) by mouth. active Allergies Allergen Reaction Severity Comment Documented Date Source Statu s TOLTERODINE PAIN 07/24/2021 [facility] active OXYBUTYNIN SWELLING [facility] Problems Problem Status Onset Date Problem Type Date of Resolution Source Back pain, unspecified back location, unspecified back pain laterality, unspecified chronicity active EncounterDiagnosisAct [facility] Encounters Encounter Type Encounter Reason Primary Diagnosis Location Date Emergency swelling and numbness in legs feet and ankles , spitting up bleed , head numbness Dorsalgia, unspecified [facility] 01/08/2025 Emergency nausea vomiting abd pain diarrhea back pain Unspecified abdominal pain [facility] 12/02/2024 Emergency 153/102 BP Other secondary hypertension [facility] 11/22/2024 Emergency chest pain , upper abd pain Chest Pain [facility] 11/19/2024 Emergency missed a dose of medication Opioid dependence, uncomplicated (CMS/HCC V24, CMS/HCC V28) [facility] 11/12/2024 Care Team Organization Name Specialty Phone Email [facility]
== END 2025-02-14 10:09 | disposition home or self-care (01) ==
LOC: CF 10:08
PROVIDERS: Visit Provider Anesthesiology
DX: Z13.89 Encounter for screening for other disorder (principal)

== ENCOUNTER → 2025-02-16 11:04 | Outpatient (BNV) | payer MEDICAID, SELFPAY | PROVIDERS: PCP Family Medicine; Visit Provider Radiology Diagnostic Radiology | DX: R42 Dizziness and giddiness (principal) | CPT/HCPCS: 70551 ==

== ENCOUNTER 2025-02-16 11:14 | Outpatient (REF) | payer MEDICAID, SELFPAY ==
--- NOTE | ~2025-02-16 | MR_ITS ---
EXAMINATION: MR BRAIN WITHOUT CONTRAST CLINICAL INFORMATION: Dizziness and giddiness. COMPARISON: 01/14/2013. TECHNIQUE: MRI of the brain was obtained using routine sequences without contrast. Examination performed on a 1.5 Dalila high-field unit. FINDINGS: There is no diffusion restriction. There is no intracranial hemorrhage, acute infarction, mass effect, or edema. Ventricles, sulci, and cisterns are normal in size and configuration for patient age. No shift of midline. No abnormal hemosiderin deposition is identified. There are no white matter signal abnormalities. Midline structures appear normally formed. The pituitary gland appears normal. Posterior fossa structures appear normal. Cerebellar tonsils are appropriately located. Major flow voids are preserved within the skull base. The globes and orbital contents demonstrate no abnormalities. Paranasal sinuses are clear bilaterally. Nasal septum is midline without spur. The mastoids and tympanic cavities are normally aerated. Extracranial soft tissues demonstrate no abnormalities. No suspicious bone marrow changes are evident. Atlantoaxial joint is normal. MR/MR head/brain wo con IMPRESSION: Normal MRI of the brain. No intracranial hemorrhage, acute infarction, mass effect, or edema. Electronically signed by: Marvin Deng MD 02/16/2025 12:38 PM EDT
--- OUTSIDE RECORDS SUMMARY | 2025-02-16 12:06 | XMS_ITS | Clinical Summary ---
Author Organization [facility] Address [address] [place] [address] Phone Care Team Providers Care Field Sampling Technician Name Role Phone Nila Hummel MD Primary [...] Encounters Date Type Department Care Team Description 01/08/2025 4:43 AM EDT - 01/08/2025 8:14 AM EDT Emergency [facility] Emergency [address] [place] [address] Zahida Huffman MD Goldwag, David A, Back pain, unspecified back location, unspecified back pain laterality, unspecified chronicity (Primary Dx) Discharge Disposition: Home or Self Care 12/02/2024 12:07 AM EDT - 12/02/2024 3:46 AM EDT Emergency [facility] Emergency [address] [place] [address] Augusto Wade MD Abdominal pain, unspecified abdominal location (Primary Dx) Discharge Disposition: Home or Self Care 11/22/2024 9:52 PM EDT - 11/23/2024 1:21 AM EDT Emergency [facility] Emergency [address] [place] [address] Augusto Wade MD Other secondary hypertension (Primary Dx); Anxiety; Other chronic pain Discharge Disposition: Home or Self Care 11/21/2024 4:35 PM EDT - 11/21/2024 8:[address] [facility] Emergency [address] [place] [address] Discharge Disposition: Left Against Medical Advice 11/19/2024 7:26 AM EDT - 11/19/2024 9:17 AM EDT Emergency [facility] Emergency [address] [place] [address] Eric Douglass MD Blunt trauma to abdomen, sequela (Primary Dx) Discharge Disposition: Home or Self Care from [...] Sign Reading Time Taken Comments Blood Pressure 118/84 01/08/2025 7:44 AM EDT Pulse 75 01/08/2025 7:44 AM EDT Temperature 36.6 C (97.9 F) 01/08/2025 4:39 AM EDT Respiratory Rate 18 01/08/2025 7:44 AM EDT Oxygen Saturation 96% 01/08/2025 7:44 AM EDT Inhaled Oxygen Concentration - - Weight 68 kg (150 lb) 01/08/2025 4:39 AM EDT Height 149.9 cm (4' 11 ) 01/08/2025 4:39 AM EDT Body Mass Index 30.3 01/08/2025 4:39 AM EDT Plan of Treatment Health Maintenance Due Date Last Done Comments DTaP,Tdap,and Td Vaccines (1 - Tdap) 2009 Hepatitis A Vaccines (1 of 2 - Risk 2-dose series) 2009 Hepatitis B Vaccines (1 of 3 - 19+ 3-dose series) 2009 Pneumococcal Vaccine: Pediatrics (0 to 5 Years) and At-Risk Patients (6 to 49 Years) (1 of 2 - PCV) 2009 Cervical Cancer Screening: Pap Smear 10/08/2011 COVID-19 Vaccine ( season) 2024 Depression Screening 08/03/2024 Cholesterol Screening (Lipid Panel) 11/12/2024 HIV Screening 11/12/2024 Hepatitis C Screening 11/12/2024 Social Influencers of Health Screening 11/12/2024 Influenza Vaccine (#1) 2025 Hypertension/CHF/CAD Annual BMP Blood Test 01/08/2026 01/08/2025, 12/02/2024, 11/21/2024, Additional history exists HIB Vaccines Aged Out [...] Name Priority Date/Time Associated Diagnosis Comments CT HEAD WO CONTRAST STAT 01/08/2025 6 :[address] LUMBAR SPINE WO CONTRAST STAT 01/08/2025 6:48 AM EDT XR CHEST 1 VIEW STAT 01/08/2025 6:27 AM EDT HCG QUALITATIVE, URINE STAT 5:49 AM EDT CBC WITH AUTO DIFFERENTIAL STAT 01/08/2025 5:42 AM EDT CBC AND DIFFERENTIAL STAT 01/08/2025 5:42 AM EDT D-DIMER STAT 01/08/2025 5:39 AM EDT TROPONIN I HIGH SENSITIVITY STAT 01/08/2025 5:39 AM EDT B-TYPE NATRIURETIC PEPTIDE STAT 01/08/2025 5:39 AM EDT ECG 12-LEAD Routine 01/08/2025 5:36 AM EDT MAGNESIUM STAT 01/08/2025 4:57 AM EDT BASIC METABOLIC PANEL STAT 01/08/2025 4:[address] ABDOMEN PELVIS WO CONTRAST STAT 12/02/2024 [...] from Last 3 Months Results * CT Head wo Contrast (01/08/2025 6:48 AM EDT) Anatomical Region Laterality Modality Head and Neck Computed Tomogra phy 01/08/2025 6:54 AM EDT Impressions 01/08/2025 6:55 AM EDT No acute intracranial abnormality. Report reviewed and signed by : Dr. Glenn Poe on 01/08/2025 6:55 AM. Workstation Name - [id number] -------- FINAL REPORT -------- Dictated By: Glenn Poe Dictated Date: 01/08/2025 06:54 ET Assigned Physician: Glenn Poe Reviewed and Electronically Signed By: Glenn Poe Signed Date: 01/08/2025 06:55 ET Workstation ID: [id number] Transcribed By: Self Edit Transcribed Date: 01/08/2025 06:54 ET Narrative 01/08/2025 6:55 AM EDT PROCEDURE: CT HEAD WO CONTRAST HISTORY: 34 years Female Headache, classic migraine TECHNIQUE: CT obtained through the head without intravenous contrast administration. COMPARISON: None. FINDINGS: Brain morphology, ventricles and sulci are unremarkable for age. No mass, mass effect, midline shift, hemorrhage or acute infarct. No significant sinus or mastoid disease. Procedure Note Glenn Poe MD - 01/08/2025 PROCEDURE: CT HEAD WO CONTRAST HISTORY: 34 years Female Headache, classic migraine TECHNIQUE: CT obtained through the head without intravenous contrastadministration. COMPARISON: None. FINDINGS: Brain morphology, ventricles and sulci are unremarkable for age. No mass, mass effect, midline shift, hemorrhage or acute infarct. No significant sinus or mastoid disease. IMPRESSION: No acute intracranial abnormality. Report reviewed and signed by : Dr. Glenn Poe on 01/08/2025 6:55 AM.Workstation Name - [id number] -------- FINAL REPORT -------- Dictated By: Glenn Poe Dictated Date: 01/08/2025 06:54 ET Assigned Physician: Glenn Poe Reviewed and Electronically Signed By: Glenn Poe Signed Date: 01/08/2025 06:55 ET Workstation ID: [id number] Transcribed By: Self Edit Transcribed Date: 01/08/2025 06:54 ET Zahida Huffman MD IMG CT PROCEDURES Final Resu lt * CT Lumbar Spine wo Contrast (01/08/2025 6:48 AM EDT) Anatomical Region Laterality Modality Spine, L-spine Computed Tomogra phy 01/08/2025 6:55 AM EDT Impressions 01/08/2025 6:57 AM EDT No acute osseous abnormality of the lumbar spine and no significant degenerative changes Report reviewed and signed by : Dr. Glenn Poe on 01/08/2025 6:57 AM. Workstation Name - [id number] -------- FINAL REPORT -------- Dictated By: Glenn Poe Dictated Date: 01/08/2025 06:55 ET Assigned Physician: Glenn Poe Reviewed and Electronically Signed By: Glenn Poe Signed Date: 01/08/2025 06:57 ET Workstation ID: [id number] Transcribed By: Self Edit Transcribed Date: 01/08/2025 06:55 ET Narrative 01/08/2025 6:57 AM EDT PROCEDURE: CT LUMBAR SPINE WO CONTRAST HISTORY: 34 years Female back pain / hx of recent intrathecal pain pump COMPARISON: None. TECHNIQUE: CT LUMBAR SPINE WO CONTRAST. Coronal and sagittal reformatted images were obtained. Three-dimensional volume rendering is generated on an independent workstation. FINDINGS: There is an intrathecal pain pump catheter identified. This is only partially visualized. No acute fracture or subluxation of the lumbar spine. No suspicious lytic or blastic osseous lesions. Mild to moderate disc space narrowing at L5-S1. The other disc space heights are preserved. Spinal canal is not compromised. No significant neural foraminal narrowing. Procedure Note Glenn Poe MD - 01/08/2025 PROCEDURE: CT LUMBAR SPINE WO CONTRAST HISTORY: 34 years Female back pain / hx of recent intrathecal pain pump COMPARISON: None. TECHNIQUE: CT LUMBAR SPINE WO CONTRAST. Coronal and sagittal reformattedimages were obtained. Three-dimensional volume rendering is generated [employer]ia del [employer] independent workstation. FINDINGS: There is an intrathecal pain pump catheter identified. This is onlypartially visualized. No acute fracture or subluxation of the lumbarspine. No suspicious lytic or blastic osseous lesions. Mild to moderatedisc space narrowing at L5-S1. The other disc space heights arepreserved. Spinal canal is not compromised. No significant neuralforaminal narrowing. IMPRESSION: No acute osseous abnormality of the lumbar spine and no significantdegenerative changes Report reviewed and signed by : Dr. Glenn Poe on 01/08/2025 6:57 AM.Workstation Name - [id number] -------- FINAL REPORT -------- Dictated By: Glenn Poe Dictated Date: 01/08/2025 06:55 ET Assigned Physician: Glenn Poe Reviewed and Electronically Signed By: Glenn Poe Signed Date: 01/08/2025 06:57 ET Workstation ID: [id number] Transcribed By: Self Edit Transcribed Date: 01/08/2025 06:55 ET us Lis Adri Huffman MD IMG CT PROCEDURES Final Resu lt * XR Chest 1 View (01/08/2025 6:27 AM EDT) Anatomical Region Laterality Modality Body Radiographic Hyacinth ging 01/08/2025 6:44 AM EDT Impressions 01/08/2025 6:45 AM EDT No acute cardiopulmonary process Report reviewed and signed by : Dr. Glenn Poe on 01/08/2025 6:45 AM. Workstation Name - [id number] -------- FINAL REPORT -------- Dictated By: Glnen Poe Dictated Date: 01/08/2025 06:44 ET Assigned Physician: Glenn Poe Reviewed and Electronically Signed By: Glenn Poe Signed Date: 01/08/2025 06:45 ET Workstation ID: [id number] Transcribed By: Self Edit Transcribed Date: 01/08/2025 06:44 ET Narrative 01/08/2025 6:45 AM EDT XR CHEST 1 VIEW HISTORY:34 years Female cough COMPARISON:None Findings: Heart size is normal. No consolidation. No pleural fluid and no pneumothorax. No acute osseous findings. Procedure Note Glenn Poe MD - 01/08/2025 XR CHEST 1 VIEW HISTORY:34 years Female cough COMPARISON:None Findings: Heart size is normal. No consolidation. No pleural fluid andno pneumothorax. No acute osseous findings. IMPRESSION: No acute cardiopulmonary process Report reviewed and signed by : Dr. Glenn Poe on 01/08/2025 6:45 AM.Workstation Name - [id number] -------- FINAL REPORT -------- Dictated By: Glenn Poe Dictated Date: 01/08/2025 06:44 ET Assigned Physician: Glenn Poe Reviewed and Electronically Signed By: Glnen Poe Signed Date: 01/08/2025 06:45 ET Workstation ID: [id number] Transcribed By: Self Edit Transcribed Date: 01/08/2025 06:44 ET us Zahida Huffman MD IMG XR PROCEDURES Final Resu lt * HCG qualitative, urine (01/08/2025 5:49 AM EDT) Only the most recent of2 resultswithin the time period is included. [facility] Preg Test, Ur Negative Negative 01/08/2025 6:26 AM EDT [facility] Urine Urine specimen obtained by clean catch procedure / Unknown Non-blood Collection / Unknown 01/08/2025 5:49 AM EDT 01/08/2025 5:55 AM EDT Lis Adri Huffman MD LAB URINE ORDERABLES Final R esult [facility] [address] [place] [address], [place] [phone] * (ABNORMAL) CBC auto differential (01/08/2025 5:42 AM EDT) Only the most recent of3 resultswithin the time period is included. [facility] WBC 8.5 4.0 - 10.5 K/mcL LAB HEMETOLOGY METHOD 01/08/2025 5:50 AM EDT [facility] RBC 4.24 4.20 - 5.40 M/mcL LAB HEMETOLOGY [facility] Hemoglobin 12.4(L) 12.5 - 16.0 g/dL LAB HEMETOLOGY METHOD [facility]2025 [facility] Hematocrit 37.7 37.0 - 47.0 % LAB HEMETOLOGY METHOD 01/08/2025 5[facility] MCV 88.9 78.0 - 100.0 FL LAB HEMETOLOGY METHOD 01/08/2025 5[facility] MCH 29.2 25.0 - 33.0 pcg LAB HEMETOLOGY METHOD 01/08[facility]2025 5[facility] MCHC 32.9 32.0 - 36.0 g/dL LAB HEMETOLOGY METHOD 01/08/2025 5:[facility] RDW 13.6 12.1 - 16.2 % LAB HEMETOLOGY METHOD 01/08/2025 5:50 AM [facility] Platelets 281 150 - 450 K/mcL LAB HEMETOLOGY METHOD 01/08/2025 5:50 AM [facility] MPV 9.6 7.4 - 11.4 FL LAB HEMETOLOGY METHOD 01/08/2025 5:50 AM [facility] Neutrophils Relative 51.7 44.0 - 74.0 % LAB HEMETOLOGY METHOD 01/08/2025 5:50 AM [facility] Lymphocytes Relative 34.4 20.0 - 48.0 % LAB HEMETOLOGY METHOD 01/08/2025 5:50 AM [facility] Monocytes Relative 6.0 2.0 - 12.0 % LAB HEMETOLOGY METHOD 01/08/2025 5:50 AM [facility] Eosinophils Relative 6.8(H) 0.0 - 6.0 % LAB HEMETOLOGY METHOD 01/08/2025 5:50 AM [facility] Basophils Relative 0.5 0.0 - 2.0 % LAB HEMETOLOGY METHOD 01/08/2025 5:50 AM [facility] Neutrophils Absolute 4.40 1.80 - 7.80 K/mcL LAB HEMETOLOGY METHOD 01/08/2025 5:50 AM [facility] Lymphocytes Absolute 2.92 1.00 - 3.20 K/mcL LAB HEMETOLOGY METHOD 01/08/2025 5:50 AM [facility] Monocytes Absolute 0.51 0.00 - 0.80 K/mcL LAB HEMETOLOGY METHOD 01/08/2025 5:50 AM EDT [facility] Eosinophils Absolute 0.58(H) 0.00 - 0.50 K/mcL LAB HEMETOLOGY METHOD 01/08/2025 5:50 AM EDT [facility] Basophils Absolute 0.04 0.00 - 0.20 K/mcL LAB HEMETOLOGY METHOD 01/08/2025 5:50 AM EDT [facility] Blood Venous blood specimen / Unknown Venipuncture / Unknown 01/08/2025 5:42 AM EDT 01/08/2025 5:48 AM EDT us Zahida Huffman MD LAB BLOOD ORDERABLES Final R esult [facility] [address] [place] [address], [place] [phone] * Troponin I high sensitivity (01/08/2025 5:39 AM EDT) [facility] High Sensitivity Troponin I 2 0 - 14 ng/L LAB CHEMISTRY METHOD 01/08/2025 6:18 AM EDT [facility] Blood Venous blood specimen / Unknown Venipuncture / Unknown 01/08/2025 5:39 AM EDT 01/08/2025 5:58 AM EDT Narrative [facility] - 01/08/2025 6:18 AM EDT HSTnI results stratify to HIGH RISK category if any value >100 ng/L or delta at 1 hour is greater than or equal to 15 ng/L (male and female). Note: Delta values are not applicable if symptoms began more than 12 hours pre-arrival. Risk stratification should include the calculation of the HEART score. Testing performed using [employer] Access AccuTnI+3 Assay. us Zahida Huffman MD LAB BLOOD ORDERABLES Final R esult [facility] [address] [place] [address], [place] [phone] * D-Dimer (01/08/2025 5:39 AM EDT) [facility] D-Dimer, Quant (D-DU) <150 <231 ng/mL DDU LAB COAGULATION METHOD 01/08/2025 6:48 AM EDT [facility] Blood Venous blood specimen / Unknown Venipuncture / Unknown 01/08/2025 5:39 AM EDT 01/08/2025 6:34 AM EDT Narrative [facility] - 01/08/2025 6:48 AM EDT This assay has been approved by the Food and Drug Administration (FDA) for use in excluding low and moderate risk patients suspected of venous thromboembolism, including deep vein thrombosis (DVT) and pulmonary embolism (PE) when used in conjunction with a clinical Pre test Probability model such as Ariel et al. The D Dimer result should not be used alone to rule in DVT and or PE. Zahida Huffman MD LAB BLOOD ORDERABLES Final R esult [facility] [address] [place] [address], [place] [phone] * B-type natriuretic peptide (01/08/2025 5:39 AM EDT) Only the most recent of2 resultswithin the time period is included. [facility] BNP 41 0 - 100 pcg/mL LAB CHEMISTRY METHOD 01/08/2025 6:52 AM EDT [facility] Blood Venous blood specimen / Unknown Venipuncture / Unknown 01/08/2025 5:39 AM EDT 01/08/2025 5:49 AM EDT Zahida Huffman MD LAB BLOOD ORDERABLES Final R esult [facility] [address] [place] [address], [place] [phone] * ECG 12 lead (01/08/2025 5:36 AM EDT) Only the most recent of2 resultswithin the time period is included. Ventricular Rate ECG 82 BPM GEMUSE Atrial Rate 82 BPM GEMUSE P-R Interval 160 ms GEMUSE QRS Duration 78 ms GEMUSE Q-T Interval 388 ms GEMUSE QTc 453 ms GEMUSE P Wave [place] 39 degrees GEMUSE R [place] 8 degrees GEMUSE T [place] 39 degrees GEMUSE ECG Interpretation Normal sinus rhythm Inferior infarct , age undetermined Abnormal ECG No previous ECGs available Confirmed by Daniel Rodney ([id number]) on 01/09/2025 10:49:29 AM GEMUSE 01/08/2025 5:36 AM EDT 01/09/2025 10:49 AM EDT Zahida Huffman MD ECG ORDERABLES Final Result Performing Organization Address City/[facility]/ZIP Co de Phone Number GEMUSE * Magnesium (01/08/2025 4:57 AM EDT) Only the most recent of2 resultswithin the time period is included. [facility] Magnesium 2.0 1.7 - 2.8 mg/dL LAB CHEMISTRY METHOD 01/08/2025 7:05 AM EDT [facility] Comment:Slight Hemolysis may affect test result(s). Blood Venous blood specimen / Unknown Venipuncture / Unknown 01/08/2025 4:57 AM EDT 01/08/2025 5:49 AM EDT Zahida Huffman MD LAB BLOOD ORDERABLES Final R esult [facility] [address] [place] [address], [place] [phone] * (ABNORMAL) Basic metabolic panel (01/08/2025 4:57 AM EDT) Sodium 141 135 - 145 mmol/L LAB CHEMISTRY METHOD 01/08/2025 7:05 AM [facility] Potassium 4.2 3.5 - 5.1 mmol/L LAB CHEMISTRY METHOD 01/08/2025 7:05 AM [facility] Comment:Slight Hemolysis may affect test result(s). Chloride 102 98 - 107 mmol/L LAB CHEMISTRY METHOD 01/08/2025 7:05 AM [facility] CO2 29 24 - 32 mmol/L LAB CHEMISTRY METHOD 01/08/2025 7:05 AM [facility] Anion Gap 10 5 - 14 LAB CHEMISTRY METHOD 01/08/2025 7:05 AM [facility] Glucose 100 70 - 199 mg/dL LAB CHEMISTRY METHOD 01/08/2025 7:05 AM [facility] BUN 9 7 - 17 mg/dL LAB CHEMISTRY METHOD 01/08/2025 7:05 AM [facility] Creatinine 0.77 0.50 - 1.00 mg/dL LAB CHEMISTRY METHOD 01/08/2025 7:05 AM [facility] eGFR 104 >=60 mL/min/1. 73m2 LAB CHEMISTRY METHOD 01/08/2025 7:05 AM [facility] Comment:Calculation based on the Chronic Kidney Disease Epidemiology Collaboration (CKD-EPI) equation refit without adjustment for race. BUN/Creatinine Ratio 11.7(L) 12.0 - 20.0 LAB CHEMISTRY METHOD 01/08/2025 7:05 AM [facility] Calcium 9.3 8.4 - 10.2 mg/dL LAB CHEMISTRY METHOD 01/08/2025 7:05 AM [facility] Blood Venous blood specimen / Unknown Venipuncture / Unknown 01/08/2025 4:57 AM EDT 01/08/2025 5:49 AM EDT us Zahida Huffman MD LAB BLOOD ORDERABLES Final R esult [facility] ([facility] [place] [address] [place] [address], [place] [phone] * CT Abdomen Pelvis wo Contrast (12/02/2024 2:00 AM EDT) Anatomical Region Laterality Modality Body Computed Tomogra phy 12/02/2024 3:15 AM EDT Impressions 12/02/2024 3:22 AM EDT 1. No evidence for acute abdominal or pelvic process. No urolithiasis or hydronephrosis. 2. Constipation. Report reviewed and signed by : Dr. Bayron Villagomez MD on 12/02/2024 3:22 AM. Workstation Name - [id number] -------- FINAL REPORT -------- Dictated By: Bayron Villagomez Dictated Date: 12/02/2024 03:15 ET Assigned Physician: Bayron Villagomez Reviewed and Electronically Signed By: Bayron Villagomez Signed Date: 12/02/2024 03:22 ET Workstation ID: [id number] Transcribed By: Self Edit Transcribed Date: 12/02/2024 [...] MD on 12/02/2024 3:22 AM.Workstation Name - [id number] -------- FINAL REPORT -------- Dictated By: Bayron Villagomez Dictated Date: 12/02/2024 03:15 ET Assigned Physician: Bayron Villagomez Reviewed and Electronically Signed By: Bayron Villagomez Signed Date: 12/02/2024 03:22 ET Workstation ID: [id number] Transcribed By: Self Edit Transcribed Date: 12/02/2024 03:16 ET Augusto Wade MD IM CT PROCEDURES Final Result * (ABNORMAL) Urinalysis with reflex microscopic and culture (12/02/2024 12:16 AM EDT) Color, Urine Yellow Colorless, Yellow LAB URINALYSIS - AUTOMATED METHOD 12/02/2024 12:43 AM [facility] Clarity, Urine Clear Clear LAB URINALYSIS - AUTOMATED METHOD 12/02/2024 12:43 AM [facility] Specific [place] Urine >=1.030 1.005 - 1.030 LAB URINALYSIS - AUTOMATED METHOD 12/02/2024 12:43 AM [facility] pH, Urine 6.0 5.0 - 8.0 pH LAB URINALYSIS - AUTOMATED METHOD 12/02/2024 12:43 AM [facility] Leukocytes, Urine Negative Negative WBCs/mcL LAB URINALYSIS - AUTOMATED METHOD 12/02/2024 12:43 AM [facility] Nitrite, Urine Negative Negative LAB URINALYSIS - AUTOMATED METHOD 12/02/2024 12:43 AM [facility] Protein, Urine Negative Negative mg/dL LAB URINALYSIS - AUTOMATED METHOD 12/02/2024 12:43 AM [facility] Glucose, Urine Negative Negative mg/dL LAB URINALYSIS - AUTOMATED METHOD 12/02/2024 12:43 AM [facility] Ketones, Urine Trace(A) Negative mg/dL LAB URINALYSIS - AUTOMATED METHOD 12/02/2024 12:43 AM EDT [facility] Blood, Urine Negative Negative mg/dL LAB URINALYSIS - AUTOMATED METHOD 12/02/2024 12:43 AM EDT [facility] Urine Urine specimen obtained by clean catch procedure / Unknown Non-blood Collection / Unknown 12/02/2024 12:16 AM EDT 12/02/2024 12:27 AM EDT us Augusto Wade MD LAB URINE ORDERABLES Final Res ult Performing Organization Address City/[facility]/ZIP Co de Phone Number [facility] [address] [place] [address], [place] [phone] * Lipase (12/02/2024 12:16 AM EDT) Only the most recent of2 resultswithin the time period is included. Lipase 31 11 - 82 unit/L LAB CHEMISTRY METHOD 12/02/2024 1:12 AM EDT [facility] Blood Venous blood specimen / Unknown Venipuncture / Unknown 12/02/2024 12:16 AM EDT 12/02/2024 12:28 AM EDT us Augusto Wade MD LAB BLOOD ORDERABLES Final Res ult Performing Organization Address City/[facility]/ZIP Co de Phone Number [facility] [address] [place] [address], [place] [phone] * (ABNORMAL) Comprehensive metabolic panel (12/02/2024 12:16 AM EDT) Only the most recent of2 resultswithin the time period is included. Sodium 133(L) 135 - 145 mmol/L LAB CHEMISTRY METHOD 12/02/2024 1:19 AM EDT [facility] Potassium 4.1 3.5 - 5.1 mmol/L LAB CHEMISTRY METHOD 12/02/2024 1:19 AM [facility] Chloride 102 98 - 107 mmol/L LAB CHEMISTRY METHOD 12/02/2024 1:19 AM [facility] CO2 29 24 - 32 mmol/L LAB CHEMISTRY METHOD 12/02/2024 1:19 AM [facility] Anion Gap 2(L) 5 - 14 LAB CHEMISTRY METHOD 12/02/2024 1:19 AM [facility] Glucose 87 70 - 199 mg/dL LAB CHEMISTRY METHOD 12/02/2024 1:19 AM [facility] BUN 17 7 - 17 mg/dL LAB CHEMISTRY METHOD 12/02/2024 1:19 AM [facility] Creatinine 0.92 0.50 - 1.00 mg/dL LAB CHEMISTRY METHOD 12/02/2024 1:19 AM [facility] eGFR 84 >=60 mL/min/1. 73m2 LAB CHEMISTRY METHOD 12/02/2024 1:19 AM [facility] Comment:Calculation based on the Chronic Kidney Disease Epidemiology Collaboration (CKD-EPI) equation refit without adjustment for race. BUN/Creatinine Ratio 18.5 12.0 - 20.0 LAB CHEMISTRY METHOD 12/02/2024 1:19 AM [facility] Calcium 9.8 8.4 - 10.2 mg/dL LAB CHEMISTRY METHOD 12/02/2024 1:19 AM [facility] AST (SGOT) 21 5 - 40 unit/L LAB CHEMISTRY METHOD 12/02/2024 1:19 AM [facility] ALT (SGPT) 27 7 - 52 unit/L LAB CHEMISTRY METHOD 12/02/2024 1:19 AM [facility] Alkaline Phosphatase 86 34 - 104 unit/L LAB CHEMISTRY METHOD 12/02/2024 1:19 AM EDT [facility] Total Protein 7.4 6.4 - 8.5 g/dL LAB CHEMISTRY METHOD 12/02/2024 1:19 AM EDT [facility] Albumin 4.6 3.5 - 5.0 g/dL LAB CHEMISTRY METHOD 12/02/2024 1:19 AM EDT [facility] Total Bilirubin 0.3 0.3 - 1.0 mg/dL LAB CHEMISTRY METHOD 12/02/2024 1:19 AM EDT [facility] Blood Venous blood specimen / Unknown Venipuncture / Unknown 12/02/2024 12:16 AM EDT 12/02/2024 12:28 AM EDT us Augusto Wade MD LAB BLOOD ORDERABLES Final Res ult [facility] [address] [place] [address], [place] [phone] from Last 3 Months Insurance [facility] MEDICAID - [place] [employer] Care Teams Field Sampling Technician Relationship Specialty Start Date End Date Nila Hummel MD [address], [place] PCP - General Internal Medicine 08/03/15
--- OUTSIDE RECORDS SUMMARY | 2025-02-16 12:06 | XMS_ITS | Referral Summary ---
Author Organization [facility] Address [address] [place] [address] Care Team Providers Care Radiographer Mammographer Name Role Phone Chuck AliciaJaylene, Kharme Primary [...] Plan of Treatment Not on file Insurance [facility] Care Teams Radiographer Mammographer Relationship Specialty Start Date End Date Nila Hummel [address] [place] [id number] PCP - General Family Medicine 07/24/21
== END 2025-02-16 11:15 | disposition home or self-care (01) ==
LOC: HO.MRI 11:14
PROVIDERS: PCP Family Medicine; Visit Provider Anesthesiology
DX: R42 Dizziness and giddiness (principal)
CPT/HCPCS: 70551

== ENCOUNTER 2025-02-16 15:02 | Outpatient (AMB) | payer MEDICAID, SELFPAY ==
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
[2025-02-16 15:57] VITALS: BP 148/79; PULSE 72; RESP 18; O2SAT 97
== END 2025-02-16 15:53 | disposition home or self-care (01) ==
PROVIDERS: PCP Family Medicine; Visit Provider Anesthesiology
DX: G89.4 Chronic pain syndrome (principal); N80.9 Endometriosis, unspecified; R10.2 Pelvic and perineal pain; F14.20 Cocaine dependence, uncomplicated; Z45.1 Encounter for adjustment and management of infusion pump; M54.9 Dorsalgia, unspecified; M43.10 Spondylolisthesis, site unspecified
CPT/HCPCS: 95991; 99213

== ENCOUNTER 2025-03-23 12:13 | Outpatient (AMB) | payer MEDICAID, SELFPAY ==
[2025-03-23 12:16] VITALS: BP 177/85; PULSE 58; RESP 18; O2SAT 97
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
== END 2025-03-23 12:48 | disposition home or self-care (01) ==
PROVIDERS: PCP Family Medicine; Visit Provider Anesthesiology
DX: N80.9 Endometriosis, unspecified (principal); R10.2 Pelvic and perineal pain; G89.4 Chronic pain syndrome; F14.20 Cocaine dependence, uncomplicated; Z45.1 Encounter for adjustment and management of infusion pump; M54.9 Dorsalgia, unspecified; M43.10 Spondylolisthesis, site unspecified
CPT/HCPCS: 95991; 99213

== ENCOUNTER → 2025-03-23 12:13 | Outpatient (BNVA) | payer MEDICAID, SELFPAY | PROVIDERS: PCP Family Medicine; Visit Provider Anesthesiology | DX: Z45.1 Encounter for adjustment and management of infusion pump (principal); N80.9 Endometriosis, unspecified; N94.10 Unspecified dyspareunia; R10.2 Pelvic and perineal pain; G89.4 Chronic pain syndrome; F14.20 Cocaine dependence, uncomplicated; M54.9 Dorsalgia, unspecified; M43.10 Spondylolisthesis, site unspecified; Z96.89 Presence of other specified functional implants | CPT/HCPCS: 95991; 99212 ==

== ENCOUNTER 2025-04-04 11:12 | Outpatient (REF) | payer MEDICAID, SELFPAY ==
--- NOTE | 2025-04-04 11:15 | EMG_ITS ---
Chief complaint: anesthesia Reason for referral: numbness Referred by: Kacy Liriano MD Procedure done: Nerve conduction study, left upper extremity and right lower extremity BP: 90/68 Left median and ulnar motor and sensory studies were performed left radial sensory and median and lateral antecubital brachial sensory studies were performed an EMG needle examination was performed. In addition, right tibial and peroneal motor studies were performed right superficial peroneal and sural sensory studies were performed right median and lateral mixed plantar sensory studies were performed tibial H-reflex was obtained an EMG needle examination was performed. Impression: This study did not reveal any significant abnormality to suggest entrapment neuropathy or radiculopathy affecting left upper and right lower extremities. MTDD
--- OUTSIDE RECORDS SUMMARY | 2025-04-04 12:47 | XMS_ITS | Clinical Summary ---
Author Organization [facility] Address [address] [place] [address] Care Team Providers Care Pest Control Chemical Technician Name Role Phone Chuck AliciaJayleneNila Primary [...] Health Maintenance Due Date Last Done Comments HIV Screening 1990 Varicella Vaccines (1 of 2 - 13+ 2-dose series) 10/08/2003 Hepatitis B Vaccines (1 of 3 - 19+ 3-dose series) 2009 Alcohol/Substance Use Screening 08/03/2024 COVID-19 Vaccine (1 - 2023-2 5 season) 2025 Influenza Vaccine (#1) 2025 DTaP,Tdap,and Td Vaccines (2 - Td or Tdap) 08/31/2025 08/31/2015 RSV Vaccine (60+ years old a nd patients) (1 - 1-dose 75+ series) 2065 Pneumococcal Vaccine: Pediat myra (0-5 Years) and At-Risk Patients (6-50 Years) Aged Out No longer eligible b ased on patient's age to complete this topic Insurance [employer] Care Teams Pest Control Chemical Technician Relationship Specialty Start Date End Date Nila Hummel [address] [place] [phone] PCP - General Family Medicine 07/24/21
--- OUTSIDE RECORDS SUMMARY | 2025-04-04 12:47 | XMS_ITS | Clinical Summary ---
Author Organization [facility] Address [address] [place] [address] Phone Care Team Providers Care High Frequency Mill Operator Name Role Phone Nila Hummel MD [...] EDT - 01/08/2025 8:14 AM EDT Emergency [facility] Emergency [address] [place] [address] Zahida Huffman MD Goldwag, David A, Back [...] 2009 Cervical Cancer Screening: Pap Smear 10/08/2011 Depression Screening 08/03/2024 Cholesterol Screening (Lipid Panel) 11/12/2024 HIV Screening 11/12/2024 Hepatitis C Screening 11/12/2024 Social Influencers of Health Screening 11/12/2024 COVID-19 Vaccine ( - season) 2025 Influenza Vaccine (#1) 2025 Hypertension/CHF/CAD Annual BMP [...] 6:27 AM EDT HCG QUALITATIVE, URINE STAT 01/08/2025 5:49 AM EDT CBC WITH AUTO DIFFERENTIAL [...] METABOLIC PANEL STAT 01/08/2025 4:57 AM EDT from Last 3 Months Results * CT Head wo Contrast (01/08/2025 6:48 AM EDT) Anatomical Region Laterality Modality Head and Neck Computed Tomogra phy 01/08/2025 6:54 AM EDT Impressions 01/08/2025 6:55 AM EDT No acute intracranial abnormality. Report reviewed and signed by : Dr. Glenn Poe on 01/08/2025 6:55 AM. Workstation Name - [id number] -------- FINAL REPORT -------- Dictated By: Glenn Poe Dictated Date: 01/08/2025 06:54 ET Assigned Physician: Glenn Poe Reviewed and Electronically Signed By: Glenn Poe Signed Date: 01/08/2025 06:55 ET Workstation ID: [id number] Transcribed By: Self Edit Transcribed Date: 01/08/2025 [...] Poe on 01/08/2025 6:55 AM.Workstation Name - [id number] -------- FINAL REPORT -------- Dictated By: Glenn Poe Dictated Date: 01/08/2025 06:54 ET Assigned Physician: Glenn Poe Reviewed and Electronically Signed By: Glenn Poe Signed Date: 01/08/2025 06:55 ET Workstation ID: [id number] Transcribed By: Self Edit Transcribed Date: 01/08/2025 06:54 ET Lis Adri Huffman MD IMG CT PROCEDURES [...] on 01/08/2025 6:57 AM. Workstation Name - [id number] -------- FINAL REPORT -------- Dictated By: Glenn Poe Dictated Date: 01/08/2025 06:55 ET Assigned Physician: Glenn Poe Reviewed and Electronically Signed By: Glenn Poe Signed Date: 01/08/2025 06:57 ET Workstation ID: [id number] Transcribed By: Self Edit Transcribed Date: 01/08/2025 [...] Poe on 01/08/2025 6:57 AM.Workstation Name - [id number] -------- FINAL REPORT -------- Dictated By: Glenn Poe Dictated Date: 01/08/2025 06:55 ET Assigned Physician: Glenn Poe Reviewed and Electronically Signed By: Glenn Poe Signed Date: 01/08/2025 06:57 ET Workstation ID: [id number] Transcribed By: Self Edit Transcribed Date: 01/08/2025 06:55 ET us Zahida Huffman MD IMG CT PROCEDURES Final Resu lt * XR Chest 1 View (01/08/2025 6:27 AM EDT) Anatomical Region Laterality Modality Body Radiographic Hyacinth ging 01/08/2025 6:44 AM EDT Impressions 01/08/2025 6:45 AM EDT No acute cardiopulmonary process Report reviewed and signed by : Dr. Glenn Poe on 01/08/2025 6:45 AM. Workstation Name - [id number] -------- FINAL REPORT -------- Dictated By: Glenn Poe Dictated Date: 01/08/2025 06:44 ET Assigned Physician: Glenn Poe Reviewed and Electronically Signed By: Glenn Poe Signed Date: 01/08/2025 06:45 ET Workstation ID: [id number] Transcribed By: Self Edit Transcribed Date: 01/08/2025 [...] Poe on 01/08/2025 6:45 AM.Workstation Name - [id number] -------- FINAL REPORT -------- Dictated By: Glenn Poe Dictated Date: 01/08/2025 06:44 ET Assigned Physician: Glenn Poe Reviewed and Electronically Signed By: Glenn Poe Signed Date: 01/08/2025 06:45 ET Workstation ID: [id number] Transcribed By: Self Edit Transcribed Date: 01/08/2025 06:44 ET Zahida Huffman MD IMG XR PROCEDURES Final Resu lt * HCG qualitative, urine (01/08/2025 5:49 AM EDT) [facility] Preg Test, Ur Negative Negative 01/08/2025 6:26 AM EDT [facility] Urine Urine specimen obtained by clean catch procedure / Unknown Non-blood Collection / Unknown 01/08/2025 5:49 AM EDT 01/08/2025 5:55 AM EDT Zahida Huffman MD LAB URINE ORDERABLES Final R esult [facility] [address] [place] [address], [place] [phone] * (ABNORMAL) CBC auto differential (01/08/2025 5:42 AM EDT) [facility] WBC 8.5 4.0 - 10.5 K/mcL LAB HEMETOLOGY METHOD 01/08/2025 5:50 AM EDT [facility] RBC 4.24 4.20 - 5.40 M/mcL LAB HEMETOLOGY METHOD 01/08/2025 5:50 AM [facility] Hemoglobin 12.4(L) 12.5 - 16.0 g/dL LAB HEMETOLOGY METHOD 01/08/2025 5:50 AM [facility] Hematocrit 37.7 37.0 - 47.0 % LAB HEMETOLOGY METHOD 01/08/2025 5:50 AM [facility] MCV 88.9 78.0 - 100.0 FL LAB HEMETOLOGY METHOD 01/08/2025 5:50 AM [facility] MCH 29.2 25.0 - 33.0 pcg LAB HEMETOLOGY METHOD 01/08/2025 5:50 AM [facility] MCHC 32.9 32.0 - 36.0 g/dL LAB HEMETOLOGY METHOD 01/08/2025 5:50 AM [facility] RDW 13.6 12.1 - 16.2 % [...] % LAB HEMETOLOGY METHOD 01/08/2025 5:50 AM EDT [facility] Eosinophils Relative 6.8(H) 0.0 - 6.0 % LAB HEMETOLOGY METHOD [facility]/08[facility]2025 5[facility] Basophils Relative 0.5 0.0 - 2.0 % LAB HEMETOLOGY METHOD 01/08/2025 5:50 [facility] Neutrophils Absolute 4.40 1.80 - 7.80 K/mcL LAB HEMETOLOGY METHOD 01/08/2025 5:50 AM EDT [facility] Lymphocytes Absolute 2.92 1.00 - 3.20 K/mcL LAB HEMETOLOGY METHOD 01/08/2025 5:50 [facility] Monocytes Absolute 0.51 0.00 - 0.80 K/mcL LAB HEMETOLOGY METHOD 01/08/2025 5:50 [facility] Eosinophils Absolute 0.58(H) 0.00 - 0.50 K/mcL LAB HEMETOLOGY METHOD 01/08/2025 5:50 [facility] Basophils Absolute 0.04 0.00 - 0.20 K/mcL LAB HEMETOLOGY METHOD 01/08/2025 5:50 AM [facility] Blood Venous blood specimen / Unknown Venipuncture / Unknown 01/08/2025 5:42 AM EDT 01/08/2025 5:48 AM EDT us Lis Adri Huffman MD LAB BLOOD ORDERABLES Final R esult [facility] [address] [place] [address], [place] [phone] * Troponin I high sensitivity (01/08/2025 5:39 AM EDT) Pathologist [facility] High Sensitivity Troponin I 2 0 - 14 ng/L LAB CHEMISTRY METHOD 01/08/2025 6:18 AM EDT [facility] Blood Venous blood specimen / Unknown Venipuncture / Unknown 01/08/2025 5:39 AM EDT 01/08/2025 5:58 AM EDT Narrative [facility] - 01/08/2025 6:18 AM EDT HSTnI results stratify to HIGH RISK category if any value >100 ng/L or delta at 1 hour is greater than or equal to 15 ng/L (male and female). Note: Delta values are not applicable if symptoms began more than 12 hours pre-arrival. Risk stratification should include the calculation of the HEART score. Testing performed using [employer] Access AccuTnI+3 Assay. Zahida Huffman MD LAB BLOOD ORDERABLES Final R esult [facility] [address] [place] [address], [place] [phone] * D-Dimer (01/08/2025 5:39 AM EDT) Pathologist [facility] D-Dimer, Quant (D-DU) <150 <231 ng/mL DDU LAB COAGULATION METHOD 01/08/2025 6:48 AM EDT [facility] Blood Venous blood specimen / Unknown Venipuncture / Unknown 01/08/2025 5:39 AM EDT 01/08/2025 6:34 AM EDT Narrative [facility] - 01/08/2025 6:48 AM EDT This assay has been approved by the Food and Drug Administration (FDA) for use in excluding low and moderate risk patients suspected of venous thromboembolism, including deep vein thrombosis (DVT) and pulmonary embolism (PE) when used in conjunction with a clinical Pre test Probability model such as Wells, et al. The D Dimer result should not be used alone to rule in DVT and or PE. us Zahida Huffman MD LAB BLOOD ORDERABLES Final R esult Performing Organization Address City/[facility]/ZIP Co de Phone Number [facility] [address] [place] [address], [place] [phone] * B-type natriuretic peptide (01/08/2025 5:39 AM EDT) [facility] BNP 41 0 - 100 pcg/mL LAB CHEMISTRY METHOD 01/08/2025 6:52 AM EDT [facility] Blood Venous blood specimen / Unknown Venipuncture / Unknown 01/08/2025 5:39 AM EDT 01/08/2025 5:49 AM EDT Zahida Huffman MD LAB BLOOD ORDERABLES Final R esult Performing Organization Address [facility] Co de Phone Number [facility] [address] [place] [address], [place] [phone] * ECG 12 lead (01/08/2025 5:36 AM EDT) [facility] Ventricular Rate ECG 82 BPM GEMUSE Atrial Rate 82 BPM GEMUSE P-R Interval 160 ms GEMUSE QRS Duration 78 ms GEMUSE Q-T Interval 388 ms GEMUSE QTc 453 ms GEMUSE P Wave Sher[place] 39 degrees GEMUSE R Sheridan 8 degrees GEMUSE T Sher[place] 39 degrees GEMUSE ECG Interpretation Normal sinus rhythm Inferior infarct , age undetermined Abnormal ECG No previous ECGs available Confirmed by Daniel Rodney ([id number]) on 01/09/2025 10:49:29 AM GEMUSE 01/08/2025 5:36 AM EDT 01/09/2025 10:49 AM EDT Zahida Huffman MD ECG ORDERABLES Final Result Performing Organization Address [facility] Co de Phone Number GEMUSE * Magnesium (01/08/2025 4:57 AM EDT) [facility] Magnesium 2.0 1.7 - 2.8 mg/dL LAB CHEMISTRY METHOD 01/08/2025 7:05 AM [facility] Comment:Slight Hemolysis may affect test result(s). Blood Venous blood specimen / Unknown Venipuncture / Unknown 01/08/2025 4:57 AM EDT 01/08/2025 5:49 AM EDT Zahida Huffman MD LAB BLOOD ORDERABLES Final R esult [facility] [address] [place] [address], [place] [phone] * (ABNORMAL) Basic metabolic panel (01/08/2025 4:57 [...] mg/dL LAB CHEMISTRY METHOD 01/08/2025 7:05 AM [facility] eGFR 104 >=60 mL/min/1. 73m2 LAB CHEMISTRY METHOD 01/08/2025 7:05 AM EDT [facility] Comment:Calculation based on the Chronic Kidney Disease Epidemiology Collaboration (CKD-EPI) equation refit without adjustment for race. BUN/Creatinine Ratio 11.7(L) 12.0 - 20.0 LAB CHEMISTRY METHOD 01/08/2025 7:05 AM EDT [facility] Calcium 9.3 8.4 - 10.2 mg/dL LAB CHEMISTRY METHOD 01/08/2025 7:05 AM EDT [facility] Blood Venous blood specimen / Unknown Venipuncture / Unknown 01/08/2025 4:57 AM EDT 01/08/2025 5:49 AM EDT Zahida Huffman MD LAB BLOOD ORDERABLES Final R esult [facility] [address] [place] [address], [place] [phone] from Last 3 Months Insurance [employer] [place] [employer] Care Teams High Frequency Mill Operator Relationship Specialty Start Date End Date Nila Hummel MD [address] [place] [address] PCP - General Internal Medicine 08/03/15
== END 2025-04-04 11:13 | disposition home or self-care (01) ==
LOC: HO.NEURO 11:12
PROVIDERS: PCP Family Medicine; Visit Provider Psychiatry & Neurology Neurology
DX: R20.0 Anesthesia of skin (principal); R20.2 Paresthesia of skin
CPT/HCPCS: 95886; 95913

== ENCOUNTER → 2025-04-04 11:15 | Outpatient (BNV) | payer MEDICAID, SELFPAY | PROVIDERS: PCP Family Medicine; Visit Provider Psychiatry & Neurology Neurology | DX: R20.0 Anesthesia of skin (principal) | CPT/HCPCS: 95886; 95913 ==

== ENCOUNTER 2025-05-19 12:52 | Outpatient (AMB) | payer MEDICAID, SELFPAY ==
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
[2025-05-19 13:05] VITALS: BP 169/90; PULSE 59; O2SAT 100; BMI 29.0
--- OUTSIDE RECORDS SUMMARY | 2025-05-19 15:12 | XMS_ITS | Patient Health Record ---
Author Organization [facility] Address [address] [place] [address] Care Team Providers Care Dice Person Name Role Phone Glenn Guzman Primary Care Provider Unavailable Blas Ornelas Unavailable [phone] Reason For Referral No Information Medications Medication SIG (Take, Route, Frequency, Duration) Notes Start Date End Date Status Subutex Active iron Active Folic Acid Active 1 vitamin Orally once a day Active Zantac 150 MG 1 tablet Orally every 8 hrs Active Problems Problem Type SNOMED Code ICD Code Onset Dates Problem Status W/U Status Risk Notes Problem Constipation (54667027) Other constipation (K59.09) Active confirmed Problem Gastroesophageal reflux disease without esophagitis (371331378) Gastroesophageal reflux disease without esophagitis (K21.9) Active [...] Insured Coverage Start Date Coverage End Date [facility] [address] [facility] [place] [phone] [id number] JAMMIE LEI Self - patient is the insured MEDICAID OF [place] [address] [place] [id number] JAMMIE LEI Self - patient is the insured Medical (General) History Medical History History ICD Code Denies DC,DM,CVA,Lung disease,renal dise ase Diffuse body aches-neck, back, abdomen Kidney stones-sees a language therapist Sees a counsellor for issues Sees a urologist for bladder pain Dr. Tran is her [employer] doctor IBS with associated abdomina l discomfort [...]
--- OUTSIDE RECORDS SUMMARY | 2025-05-19 15:12 | XMS_ITS | Clinical Summary ---
Author Organization [facility] Address [address] [place] [address] Care Team Providers Care Automobile Mechanic Apprentice Name Role Phone Chuck AliciaJayleneNila Primary Care [...] Use Screening 08/03/2024 COVID-19 Vaccine (1 - 2024-2 6 season) 2025 Influenza Vaccine (#1) 2025 DTaP,Tdap,and Td Vaccines (2 - Td or Tdap) 08/31/2025 08/31/2015 RSV Vaccine (60+ years old a nd patients) (1 - 1-dose 75+ series) 2065 Pneumococcal Vaccine: Pediat myra (0-5 Years) and At-Risk Patients (6-50 Years) Aged Out No longer eligible b ased on patient's age to complete this topic Insurance [employer]i [employer] Care Teams Automobile Mechanic Apprentice Relationship Specialty Start Date End Date Nila Hummel [address] [place] [address] PCP - General Family Medicine 07/24/21
--- OUTSIDE RECORDS SUMMARY | 2025-05-19 15:12 | XMS_ITS | Patient Health Record ---
Author Organization [facility] Address [address] [place] [address] Care Team Providers Care Manager Data Name Role Phone Brandon Castillo DO Unavailable [...] tab(s) orally every 12 hours; Duration: 14 (MV)-[id number] 2 05/20/2012 Active Amoxicillin 500 mg 2 tab(s) orally 2 times a day; Duration: 14 (MV)-[id number] 4 05/20/2012 Active Problems Problem Type SNOMED Code ICD Code Onset Dates Problem Status W/U Status Risk Notes Problem Endometriosis (328929015) Endometriosis, site unspecified (617.9) 012 Active confirmed Phillip: Endometriosis (clinical); Problem Gastroesophageal reflux disease (968205657) GERD (gastroesophag eal reflux disease) (530.81) Active confirmed 07-07-12 GERD TRIED PRILOSEC OTC ?? DATES AND OMEPRAZOLE 20MG QD FROM 07-07-12 TO ??? Problem Constipation (58573406) Constipation NOS (564.00) Active confirmed (MV) Problem Abdominal pain (30371533) Abdominal Pain _unspecified site_ (789.00) Active confirmed (MV) Plan Of Treatment Pending Test Test Name Order Date HELICOBACTER PYLORI Ab, IgM 04/27/2012 HELICOBACTER PYLORI IgG,EIA 04/27/2012 Insurance Providers Payer Name Payer Address Payer Phone Subscriber Number Group Number Insured Name Patient Relationship to Insured Coverage Start Date Coverage End Date Replaced by [facility] [address] [place], [place] [id number] Marybel Garcia Self - patient is the insured 2
--- OUTSIDE RECORDS SUMMARY | 2025-05-19 15:12 | XMS_ITS | Clinical Summary ---
Author Organization [facility] Address [address] [place] [address] Phone Care Team Providers Care Protection Engineer Name Role Phone Physician, Pcp Unknown Primary Care Provider Hannah vailable Allergies Active Allergy Reactions Criticality Noted Date Comments Amlodipine 04/30/2025 Oxybutynin Angioedema,Swelling High 07/24/2021 Tolterodine Angioedema,Pain High [...] Encounters Date Type Department Care Team Description 04/30/2025 8:07 AM EDT - 04/30/2025 4:27 PM EDT Emergency [facility] Emergency [address] [place] [phone] Trang Santos MD Hemoptysis (Primary Dx); Acute cough Discharge Disposition: Home or Self Care from Last 3 Months Medical History Medical History Date Comments Hypertension Endometriosis Social History Tobacco Use Types Packs/Day Years [...] Sign Reading Time Taken Comments Blood Pressure 137/91 04/30/2025 3:44 PM EDT Pulse 64 04/30/2025 3:44 PM EDT Temperature 36.4 C (97.5 F) 04/30/2025 3:44 PM EDT Respiratory Rate 14 04/30/2025 3:44 PM EDT Oxygen Saturation 94% 04/30/2025 3:44 PM EDT Inhaled Oxygen Concentration - - Weight 65.8 kg (145 lb) 04/30/2025 7:36 AM EDT Height 149.9 cm (4' 11 ) 04/30/2025 7:36 AM EDT Body Mass Index 29.29 04/30/2025 7:36 AM EDT Plan of Treatment Upcoming Encounters Date Type Department Care Team (Late st Contact Info) Description 07/13/2025 1:00 PM EST Office Visit Internal Medicine - [address] [phone] Dhruv Parks MD [address] [place] [id number] Health Maintenance Due Date Last Done Comments DTaP,Tdap,and Td Vaccines (1 - Tdap) 2009 Hepatitis A Vaccines (1 of 2 - Risk 2-dose series) 2009 Hepatitis B Vaccines (1 of 3 - 19+ 3-dose series) 2009 Pneumococcal Vaccine: Pediat rics (0 to 5 Years) and At-Risk Patients (6 to 49 Years) (1 of 2 - PCV) 2009 Cervical Cancer Screening: P ap Smear 10/08/2011 HPV Vaccines (1 - 3-dose SCD M series) 2017 Cholesterol Screening (Lipid Panel) 11/12/2024 HIV Screening 11/12/2024 Hepatitis C Screening 11/12/2024 Social Influencers of Health Screening 11/12/2024 COVID-19 Vaccine (1 - 2023-2 5 season) 2025 Influenza Vaccine (#1) 2025 RSV Immunization Adult Patie nts (1 - 1-dose 75+ series) 2065 Depression Screening Completed 05/14/2025 HIB Vaccines Aged Out No longer eligi [...] complete this topic RSV Immunization Patients Un cidny 20 months Aged Out No longer eligible b ased on patient's age to complete this topic Varicella Vaccines Aged Out No longer eligible based on patient's age to complete this topic Procedures Procedure Name Priority Date/Time Associated Diagnosis Comments ECG ANNOTATED 05/01/2025 ECG ANNOTATED 05/01/2025 CT ANGIO CHEST WO AND/OR W CONTRAST STAT 04/30/2025 3:32 PM EDT Hemoptysis ECG 12-LEAD STAT 04/30/2025 12:15 PM EDT CBC WITH AUTO DIFFERENTIAL STAT 04/30/2025 10:07 AM EDT THYROID STIMULATING HORMONE STAT 04/30/2025 10:07 AM EDT CBC AND DIFFERENTIAL STAT 04/30/2025 10:07 AM EDT COMPREHENSIVE METABOLIC PANEL STAT 04/30/2025 10:07 AM EDT XR CHEST 2 VIEWS STAT 04/30/2025 9:48 AM EDT URINALYSIS WITH REFLEX MICROSCOPIC STAT 04/30/2025 9:29 AM EDT URINALYSIS WITH REFLEX MICROSCOPIC STAT 04/30/2025 9:29 AM EDT POC , URINE DIAGNOSTIC STAT 04/30/2025 9:19 AM EDT from Last 3 Months Results * ECG-Annotated (05/01/2025) Only the most recent of2 resultswithin the time period is included. us Provider Onbase MD ECG ORDERABLES Final Result * CT Angio Chest wo and/or w Contrast (04/30/2025 3:32 PM EDT) Anatomical Region Laterality Modality Body Computed Tomogra phy 04/30/2025 3:44 PM EDT Impressions 04/30/2025 3:53 PM EDT No evidence of PE. No evidence of aortic aneurysm or dissection. Bibasal atelectasis and/or scarring. -------- FINAL REPORT -------- Dictated By: David Montano Dictated Date: 04/30/2025 15:44 ET Assigned Physician: David Montano Reviewed and Electronically Signed By: David Montano Signed Date: 04/30/2025 15:53 ET Workstation ID: [id number] Transcribed By: Self Edit Transcribed Date: 04/30/2025 15:44 ET Narrative 04/30/2025 3:53 PM EDT Examination: CTA chest. CLINICAL INDICATION: Hemoptysis. COMPARISON: Chest x-ray from earlier today. TECHNIQUE: 2.5 mm thin axial and reformatted 3 mm thin sagittal and coronal images of chest were obtained following IV 90 mL of Isovue-370. FINDINGS: LUNGS: Lungs are expanded and clear acute pneumonic process. Minimal atelectatic changes seen in both lung bases slightly greater on the left. Mediastinum: The heart size and the great vessels are normal caliber. The central trachea and bronchi are widely patent. Thyroid lobes are symmetric and normal. There is good opacification of pulmonary artery and its branches without intraluminal filling defect or narrowing. The thoracic aorta is of normal caliber. Pleura: There is minimal left basilar posterior pleural thickening. No evidence of effusion. Axilla: Unremarkable. The chest wall is unremarkable. Upper abdomen: Visualized liver, spleen is unremarkable. Osseous structures: No aggressive lytic or sclerotic process seen. Procedure Note David Montano MD - 04/30/2025 Examination: CTA chest. CLINICAL INDICATION: Hemoptysis. COMPARISON: Chest x-ray from earlier today. TECHNIQUE: 2.5 mm thin axial and reformatted 3 mm thin sagittal andcoronal images of chest were obtained following IV 90 mL of Isovue-370. FINDINGS: LUNGS: Lungs are expanded and clear acute pneumonic process. Minimalatelectatic changes seen in both lung bases slightly greater on theleft. Mediastinum: The heart size and the great vessels are normal caliber. Thecentral trachea and bronchi are widely patent. Thyroid lobes are symmetricand normal. There is good opacification of pulmonary artery and itsbranches without intraluminal filling defect or narrowing. The thoracicaorta is of normal caliber. Pleura: There is minimal left basilar posterior pleural thickening. Noevidence of effusion. Axilla: Unremarkable. The chest wall is unremarkable. Upper abdomen: Visualized liver, spleen is unremarkable. Osseous structures: No aggressive lytic or sclerotic process seen. IMPRESSION: No evidence of PE. No evidence of aortic aneurysm or dissection. Bibasal atelectasis and/or scarring. -------- FINAL REPORT -------- Dictated By: David Montano Dictated Date: 04/30/2025 15:44 ET Assigned Physician: David Montano Reviewed and Electronically Signed By: David Montano Signed Date: 04/30/2025 15:53 ET Workstation ID: [id number] Transcribed By: Self Edit Transcribed Date: 04/30/2025 15:44 ET us Trang Santos MD [facility] CT PROCEDURES Final Res ult * 12-Lead ECG (04/30/2025 12:15 PM EDT) Ventricular Rate ECG 59 BPM GEMUSE Atrial Rate 59 BPM GEMUSE P-R Interval 172 ms GEMUSE QRS Duration 84 ms GEMUSE Q-T Interval 462 ms GEMUSE QTc 457 ms GEMUSE P Wave [place] 51 degrees GEMUSE R [place] 47 degrees GEMUSE T [place] 62 degrees GEMUSE ECG Interpretation Sinus bradycardia with sinus arrhythmia T wave abnormality, consider anterior ischemia Abnormal ECG When compared with ECG of 21-NOV-2024 16:54, T wave inversion more evident in Anterior leads Confirmed by FORREST ALFARO ([id number]) on 04/30/2025 10:45:28 PM GEMUSE 04/30/2025 12:1 5 PM EDT 04/30/2025 10:45 PM EDT us Trang Santos MD ECG ORDERABLES Final Resul t GEMUSE * (ABNORMAL) CBC auto differential (04/30/2025 10:07 AM EDT) WBC 7.2 4.8 - 10.8 K/mcL LAB HEMETOLOGY METHOD 04/30/2025 10:50 AM EDT [facility] RBC 4.40 3.80 - 4.80 M/mcL LAB HEMETOLOGY METHOD 04/30/2025 10:50 AM EDT [facility] Hemoglobin 12.2 11.5 - 16.0 g/dL LAB HEMETOLOGY METHOD 04/30/2025 10:50 AM [facility] Hematocrit 37.8 35.0 - 47.0 % LAB HEMETOLOGY METHOD 04/30/2025 10:50 AM EDT [facility] MCV 86.3 79.0 - 98.0 FL LAB HEMETOLOGY METHOD 04/30/2025 10:50 AM T [facility] MCH 27.9 27.0 - 32.0 pcg LAB HEMETOLOGY [facility]25 [facility] MCHC 32.3 32.0 - 37.0 g/dL LAB HEMETOLOGY METHOD [facility]2025 [facility] RDW 12.5 11.0 - 15.0 % LAB HEMETOLOGY METHOD 04/30/2025 10:50 AM [facility] Platelets 310 130 - 400 K/mcL LAB HEMETOLOGY METHOD 04/30/2025 10:50 AM [facility] MPV 10.3 7.0 - 11.0 FL LAB HEMETOLOGY METHOD 04/30/2025 10:50 AM [facility] NRBC 0.0 <1.0 % LAB HEMETOLOGY METHOD 04/30/2025 10:50 AM [facility] NRBC Absolute 0.00 <0.10 K/mcL LAB HEMETOLOGY METHOD 04/30/2025 10:50 AM [facility] Neutrophils Relative 39.4 % LAB HEMETOLOGY METHOD 04/30/2025 10:50 AM [facility] Lymphocytes Relative 46.0 % LAB HEMETOLOGY METHOD 04/30/2025 10:50 AM [facility] Monocytes Relative 9.0 % LAB HEMETOLOGY METHOD 04/30/2025 10:50 AM [facility] Eosinophils Relative 4.3 % LAB HEMETOLOGY METHOD 04/30/2025 10:50 AM [facility] Basophils Relative 0.6 % LAB HEMETOLOGY METHOD 04/30/2025 10:50 AM [facility] Immature Granulocytes Relative 0.7 % LAB HEMETOLOGY METHOD 04/30/2025 10:50 AM [facility] Neutrophils Absolute 2.85 1.50 - 7.00 K/mcL LAB HEMETOLOGY METHOD 04/30/2025 10:50 AM [facility] Lymphocytes Absolute 3.32 1.00 - 5.00 K/mcL LAB HEMETOLOGY METHOD 04/30/2025 10:50 AM EDT [facility] Monocytes Absolute 0.65 0.20 - 1.00 K/mcL LAB HEMETOLOGY METHOD 04/30/2025 10:50 AM EDT [facility] Eosinophils Absolute 0.31 0.00 - 0.50 K/mcL LAB HEMETOLOGY METHOD 04/30/2025 10:50 AM EDT [facility] Basophils Absolute 0.04 0.00 - 0.20 K/mcL LAB HEMETOLOGY METHOD 04/30/2025 10:50 AM EDT [facility] Immature Granulocytes Absolute 0.05(H) 0.00 - 0.03 K/mcL LAB HEMETOLOGY METHOD 04/30/2025 10:50 AM EDT [facility] Blood Venous blood specimen / Unknown Venipuncture / Unknown 04/30/2025 10:07 AM EDT 04/30/2025 10:44 AM EDT us Trang Santos MD LAB BLOOD ORDERABLES Final Result Performing Organization Address City/[facility]/ZIP Co de Phone Number [facility] [address] [place] [address], [place] [phone] * Thyroid Stimulating Hormone (TSH) (04/30/2025 10:07 AM EDT) TSH 1.26 0.40 - 4.00 mcIU/mL LAB CHEMISTRY METHOD 04/30/2025 12:16 PM EDT [facility] Blood Venous blood specimen / Unknown Venipuncture / Unknown 04/30/2025 10:07 AM EDT 04/30/2025 10:44 AM EDT us Trang Santos MD LAB BLOOD ORDERABLES Final Result Performing Organization Address City/[facility]/ZIP Co de Phone Number [facility] [address] [place] [address], [place] [phone] * (ABNORMAL) Comprehensive Metabolic Panel (CMP) (04/30/2025 10:07 AM EDT) Sodium 135 133 - 145 mmol/L LAB CHEMISTRY METHOD 04/30/2025 11:32 AM [facility] Potassium 4.5 3.5 - 5.5 mmol/L LAB CHEMISTRY METHOD 04/30/2025 11:32 AM [facility] Comment:Hemolysis present Chloride 103 96 - 110 mmol/L LAB CHEMISTRY METHOD 04/30/2025 11:32 AM [facility] CO2 26 21 - 32 mmol/L LAB CHEMISTRY METHOD 04/30/2025 11:32 AM [facility] Anion Gap 6 3 - 11 LAB CHEMISTRY METHOD 04/30/2025 11:32 AM [facility] Glucose 79 70 - 100 mg/dL LAB CHEMISTRY METHOD 04/30/2025 11:32 AM [facility] BUN 14 5 - 25 mg/dL LAB CHEMISTRY METHOD 04/30/2025 11:32 AM [facility] Creatinine 0.91 0.50 - 1.10 mg/dL LAB CHEMISTRY METHOD 04/30/2025 11:32 AM [facility] eGFR 85 >=60 mL/min/1. 73m2 LAB CHEMISTRY METHOD 04/30/2025 11:32 AM [facility] Comment:Calculation based on the Chronic Kidney Disease Epidemiology Collaboration (CKD-EPI) equation refit without adjustment for race. BUN/Creatinine Ratio 15.4 LAB CHEMISTRY METHOD 04/30/2025 11:32 AM [facility] Calcium 9.2 8.5 - 10.5 mg/dL LAB CHEMISTRY METHOD 04/30/2025 11:32 AM [facility] AST (SGOT) 45(H) 10 - 42 unit/L LAB CHEMISTRY METHOD 04/30/2025 11:32 AM [facility] Comment:Hemolysis present ALT (SGPT) 37 10 - 60 unit/L LAB CHEMISTRY METHOD 04/30/2025 11:32 AM EDT [facility] Alkaline Phosphatase 85 42 - 121 unit/L LAB CHEMISTRY METHOD 04/30/2025 11:32 AM EDT [facility] Total Protein 6.8 6.0 - 8.0 g/dL LAB CHEMISTRY METHOD 04/30/2025 11:32 AM EDT [facility] Albumin 3.8 3.2 - 5.0 g/dL LAB CHEMISTRY METHOD 04/30/2025 11:32 AM EDT [facility] Total Bilirubin 0.4 0.0 - 1.4 mg/dL LAB CHEMISTRY METHOD 04/30/2025 11:32 AM EDT [facility] Blood Venous blood specimen / Unknown Venipuncture / Unknown 04/30/2025 10:07 AM EDT 04/30/2025 10:44 AM EDT us Trang Santos MD LAB BLOOD ORDERABLES Final Result [facility] [address] [place] [address], * XR Chest 2 Views (04/30/2025 9:48 AM EDT) Anatomical Region Laterality Modality Body Radiographic Hyacinth ging 04/30/2025 10:1 3 AM EDT Impressions 04/30/2025 10:15 AM EDT No acute cardiopulmonary process seen. -------- FINAL REPORT -------- Dictated By: David Montano Dictated Date: 04/30/2025 10:13 ET Assigned Physician: David Montano Reviewed and Electronically Signed By: David Montano Signed Date: 04/30/2025 10:15 ET Workstation ID: [id number] Transcribed By: Self Edit Transcribed Date: 04/30/2025 10:13 ET Narrative 04/30/2025 10:15 AM EDT Examination: Chest 2 views. CLINICAL INDICATION: Coughing up blood on-and-off for past couple of months. COMPARISON: None. FINDINGS: The lungs are well-expanded and clear of acute pneumonic process. There is no pleural effusion, thickening or pulmonary nodules. The heart size and pulmonary vascularity is normal. There is mild scoliosis of the dorsolumbar spine. No aggressive lytic or sclerotic process seen. Procedure Note David Montano MD - 04/30/2025 Examination: Chest 2 views. CLINICAL INDICATION: Coughing up blood on-and-off for past couple ofmonths. COMPARISON: None. FINDINGS: The lungs are well-expanded and clear of acute pneumonicprocess. There is no pleural effusion, thickening or pulmonary nodules.The heart size and pulmonary vascularity is normal. There is mildscoliosis of the dorsolumbar spine. No aggressive lytic or scleroticprocess seen. IMPRESSION: No acute cardiopulmonary process seen. -------- FINAL REPORT -------- Dictated By: David Montano Dictated Date: 04/30/2025 10:13 ET Assigned Physician: David Montano Reviewed and Electronically Signed By: David Montano Signed Date: 04/30/2025 10:15 ET Workstation ID: [id number] Transcribed By: Self Edit Transcribed Date: 04/30/2025 10:13 ET us Trang Santos MD IMG XR PROCEDURES Final Res ult * Urinalysis with reflex microscopic (04/30/2025 9:29 AM EDT) Specific [place] Urine 1.007 1.003 - 1.030 LAB URINALYSIS - AUTOMATED METHOD 04/30/2025 10:17 AM EDT [facility] pH, Urine 6.5 5.0 - 8.0 pH LAB URINALYSIS - AUTOMATED METHOD 04/30/2025 10:17 AM [facility] Leukocytes, Urine Negative Negative LAB URINALYSIS - AUTOMATED METHOD 04/30/2025 10:17 AM [facility] Nitrite, Urine Negative Negative LAB URINALYSIS - AUTOMATED METHOD 04/30/2025 10:17 AM EDT [facility] Protein, Urine Negative <=Trace mg/dL LAB URINALYSIS - AUTOMATED METHOD 04/30/2025 10:17 AM [facility] Glucose, Urine Negative Negative mg/dL LAB URINALYSIS - AUTOMATED METHOD 04/30/2025 10:17 AM [facility] Ketones, Urine Negative Negative mg/dL LAB URINALYSIS - AUTOMATED METHOD 04/30/2025 10:17 AM EDT [facility] Urobilinogen, Urine 0.2 0.2 - 1.0 mg/dL LAB URINALYSIS - AUTOMATED METHOD 04/30/2025 10:17 AM [facility] Bilirubin, Urine Negative Negative LAB URINALYSIS - AUTOMATED METHOD 04/30/2025 10:17 AM [facility] Blood, Urine Negative Negative LAB URINALYSIS - AUTOMATED METHOD 04/30/2025 10:17 AM [facility] Urine Urine specimen obtained by clean catch procedure / Unknown Non-blood Collection / Unknown 04/30/2025 9:29 AM EDT 04/30/2025 10:14 AM EDT us Trang Santos MD LAB URINE ORDERABLES Final Result [facility] [address] [place] [address], * POC , urine manually resulted (04/30/2025 9:19 AM EDT) HCG, Ur POC Negative Negative POC hCG Int QC Pass? Yes Yes EXPIRATION DATE POC 10-11-2026 LOT NUMBER POC [id number] Urine Urine specimen obtained by clean catch procedure / Unknown 04/30/2025 9:19 AM EDT us Trang Santos MD POINT OF CARE TEST ENTER/ED IT ORDERABLES Final Result from Last 3 Months Insurance [facility] MEDICAID - [place] Care Teams Protection Engineer Relationship Specialty Start Date End Date Physician, Pcp Unknown PCP - General 04/30/25
== END 2025-05-19 13:48 | disposition home or self-care (01) ==
LOC: HO.PMC 12:53
PROVIDERS: PCP Family Medicine; Visit Provider Nurse Practitioner Family
DX: G89.4 Chronic pain syndrome (principal); Z96.89 Presence of other specified functional implants; N80.9 Endometriosis, unspecified; R10.20 Pelvic and perineal pain unspecified side; G89.29 Other chronic pain; M54.9 Dorsalgia, unspecified; M43.10 Spondylolisthesis, site unspecified; F14.20 Cocaine dependence, uncomplicated
CPT/HCPCS: 62370; 99213; G2211

== ENCOUNTER → 2025-05-19 12:52 | Outpatient (BNVA) | payer MEDICAID, SELFPAY | PROVIDERS: PCP Family Medicine; Visit Provider Nurse Practitioner Family | DX: G89.4 Chronic pain syndrome (principal); R10.20 Pelvic and perineal pain unspecified side; M54.9 Dorsalgia, unspecified; M43.10 Spondylolisthesis, site unspecified; F14.20 Cocaine dependence, uncomplicated; Z96.89 Presence of other specified functional implants; N80.9 Endometriosis, unspecified | CPT/HCPCS: 62370; 99212 ==

== ENCOUNTER → 2025-06-07 09:30 | Outpatient (BNV) | payer OTHER, SELFPAY | PROVIDERS: Visit Provider Psychiatry & Neurology Psychiatry | DX: F32.9 Major depressive disorder, single episode, unspecified (principal); F43.10 Post-traumatic stress disorder, unspecified; F90.9 Attention-deficit hyperactivity disorder, unspecified type | CPT/HCPCS: 90792 ==

== ENCOUNTER 2025-06-15 09:37 | Outpatient (AMB) | payer MEDICAID, SELFPAY ==
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
--- OUTSIDE RECORDS SUMMARY | 2025-06-15 11:09 | XMS_ITS | Clinical Summary ---
Author Organization [facility] Address [address] [place] [address] Care Team Providers Care Investigator Welfare Name Role Phone Chuck AliciaJayleneNila Primary Care [...] (2 - Td or Tdap) 08/31/2025 08/31/2015 Pneumococcal Vaccine: Pediat myra (0-5 Years) and At-Risk Patients (6-50 Years) Aged Out No longer eligible b ased on patient's age to complete this topic Insurance [address] [place], [place] [id number] Care Teams Investigator Welfare Relationship Specialty Start Date End Date Nila Hummel [address] [place] [address] PCP - General Family Medicine 07/24/21
--- OUTSIDE RECORDS SUMMARY | 2025-06-15 11:09 | XMS_ITS | Patient Health Record ---
Author Organization [facility] Address [address] [place] [address] Care Team Providers Care Polymer Specialist Name Role Phone Brandon Castillo DO [...] tab(s) orally every 12 hours; Duration: 14 (MV)-[id number] 2 05/20/2012 Active Amoxicillin 500 mg 2 tab(s) orally 2 times a day; Duration: 14 (MV)-[id number] 4 05/20/2012 Active Problems Problem Type SNOMED Code ICD Code Onset Dates Problem Status W/U Status Risk Notes Problem Endometriosis (737415807) Endometriosis, site unspecified (617.9) 012 Active confirmed Phillip: Endometriosis (clinical); Problem Gastroesophageal reflux disease (056145601) GERD (gastroesophag eal reflux disease) (530.81) Active confirmed 07-07-12 GERD TRIED PRILOSEC OTC ?? DATES AND OMEPRAZOLE 20MG QD FROM 07-07-12 TO ??? Problem Constipation (89144325) Constipation NOS (564.00) Active confirmed (MV) Problem Abdominal pain (03644797) Abdominal Pain _unspecified site_ (789.00) Active confirmed (MV) Plan Of Treatment Pending Test Test Name Order Date HELICOBACTER PYLORI Ab, IgM 04/27/2012 HELICOBACTER PYLORI IgG,EIA 04/27/2012 Insurance Providers Payer Name Payer Address Payer Phone Subscriber Number Group Number Insured Name Patient Relationship to Insured Coverage Start Date Coverage End Date [facility] [address] [place], [place] [id number] Marybel Garcia Self - patient is the insured 2
--- OUTSIDE RECORDS SUMMARY | 2025-06-15 11:09 | XMS_ITS | Patient Health Record ---
Author Organization [facility] Address [address] [place] [address] Care Team Providers Care Rubber Cutter Name Role Phone Glenn Guzman Primary Care Provider Unavailable Blas Ornelas Unavailable [phone] Reason For Referral No Information Medications Medication SIG (Take, Route, Frequency, Duration) Notes Start Date End Date Status Subutex Active iron Active Folic Acid Active 1 vitamin Orally once a day Active Zantac 150 MG 1 tablet Orally every 8 hrs Active Problems Problem Type SNOMED Code ICD Code Onset Dates Problem Status W/U Status Risk Notes Problem Constipation (39840907) Other constipation (K59.09) Active confirmed Problem Gastroesophageal reflux disease without esophagitis (404259862) Gastroesophageal reflux disease without esophagitis (K21.9) Active [...] Insured Coverage Start Date Coverage End Date [facility] [address] [facility] [place] [phone] [id number] JAMMIE LEI Self - patient is the insured MEDICA[employer] OF [employer] [address] [place] [phone] [id number] JAMMIE LEI Self - patient is the insured Medical (General) History Medical History History ICD Code Denies CT,DM,CVA,Lung disease,renal dise ase Diffuse body aches-neck, back, abdomen Kidney stones-sees a stencil machine operator Sees a counsellor for issues Sees a urologist for bladder pain Dr. Tran is her TOPOGRAPHICAL SURVEYOR doctor IBS with associated abdomina l discomfort [...]
--- OUTSIDE RECORDS SUMMARY | 2025-06-15 11:09 | XMS_ITS | Clinical Summary ---
Author Organization [facility] Address [address] [place] [address] Phone Care Team Providers Care Machine Setter Automatic Name Role Phone Physician, Pcp Unknown Primary [...] EDT - 04/30/2025 4:27 PM EDT Emergency [facility] Emergency [address] [place] [id number] Trang Santos MD Hemoptysis (Primary Dx); Acute [...] EST Office Visit Internal Medicine - [address] [phone] Dhruv Parks MD [address] [place] [id number] Health Maintenance Due Date Last Done Comments [...] Health Screening 11/12/2024 COVID-19 Vaccine (1 - 2024-2 6 season) 2025 Influenza Vaccine (#1) 2025 RSV [...] Signed Date: 04/30/2025 15:53 ET Workstation ID: [id number] Transcribed By: Self Edit Transcribed Date: 04/30/2025 [...] Signed Date: 04/30/2025 15:53 ET Workstation ID: [id number] Transcribed By: Self Edit Transcribed Date: 04/30/2025 15:44 ET us Trang Santos MD [facility] PROCEDURES Final Res ult * 12-Lead ECG (04/30/2025 12:15 PM EDT) Ventricular Rate ECG 59 BPM GEMUSE Atrial Rate 59 BPM GEMUSE P-R Interval 172 ms GEMUSE QRS Duration 84 ms GEMUSE Q-T Interval 462 ms GEMUSE QTc 457 ms GEMUSE P Wave Stuart 51 degrees GEMUSE R Stuart 47 degrees GEMUSE T Stuart 62 degrees GEMUSE ECG Interpretation Sinus bradycardia [...] LAB HEMETOLOGY METHOD 04/30/2025 10:50 AM EDT [facility] RBC 4.40 3.80 - 4.80 M/mcL LAB HEMETOLOGY METHOD 04/30/2025 10:50 AM EDT [facility] Hemoglobin 12.2 11.5 - 16.0 g/dL LAB HEMETOLOGY METHOD 04/30/2025 10:50 AM [facility] Hematocrit 37.8 35.0 - 47.0 % LAB HEMETOLOGY METHOD 04/30/2025 10:50 AM EDT [facility] MCV 86.3 79.0 - 98.0 FL LAB HEMETOLOGY METHOD 04/30/2025 10:50 AM T [facility] MCH 27.9 27.0 - 32.0 pcg LAB HEMETOLOGY METHOD 04/30[facility]2025 10:[facility] MCHC 32.3 32.0 - 37.0 g/dL LAB HEMETOLOGY METHOD 04/30/2025 10:50 [facility] RDW 12.5 11.0 - 15.0 % LAB HEMETOLOGY METHOD 04/30/2025 10:50 AM [facility] Platelets 310 130 - 400 K/mcL LAB HEMETOLOGY METHOD 04/30/2025 10:50 AM [facility] MPV 10.3 7.0 - 11.0 FL LAB HEMETOLOGY METHOD 04/30/2025 10:50 AM [facility] NRBC 0.0 <1.0 % LAB HEMETOLOGY METHOD 04/30/2025 10:50 AM [facility] NRBC Absolute 0.00 <0.10 K/mcL LAB HEMETOLOGY METHOD 04/30/2025 10:50 AM [facility] Neutrophils Relative 39.4 % LAB HEMETOLOGY METHOD 04/30/2025 10:50 AM [facility] Lymphocytes Relative 46.0 % LAB HEMETOLOGY METHOD 04/30/2025 10:50 AM [facility] Monocytes Relative 9.0 % LAB HEMETOLOGY METHOD 04/30/2025 10:50 AM [facility] Eosinophils Relative 4.3 % LAB HEMETOLOGY METHOD 04/30/2025 10:50 AM [facility] Basophils Relative 0.6 % LAB HEMETOLOGY METHOD 04/30/2025 10:50 AM [facility] Immature Granulocytes Relative 0.7 % LAB HEMETOLOGY METHOD 04/30/2025 10:50 AM [facility] Neutrophils Absolute 2.85 1.50 - 7.00 K/mcL LAB HEMETOLOGY METHOD 04/30/2025 10:50 AM [facility] Lymphocytes Absolute 3.32 1.00 - 5.00 K/mcL LAB HEMETOLOGY METHOD 04/30/2025 10:50 AM EDT [facility] Monocytes Absolute 0.65 0.20 - 1.00 K/mcL LAB HEMETOLOGY METHOD 04/30/2025 10:50 AM EDT [facility] Eosinophils Absolute 0.31 0.00 - 0.50 K/mcL LAB HEMETOLOGY METHOD 04/30/2025 10:50 AM EDT [facility] Basophils Absolute 0.04 0.00 - 0.20 K/mcL LAB HEMETOLOGY METHOD 04/30/2025 10:50 AM EDT [facility] Immature Granulocytes Absolute 0.05(H) 0.00 - 0.03 K/mcL LAB HEMETOLOGY METHOD 04/30/2025 10:50 AM EDT [facility] Blood Venous blood specimen / Unknown Venipuncture / Unknown 04/30/2025 10:07 AM EDT 04/30/2025 10:44 AM EDT us Trang Santos MD LAB BLOOD ORDERABLES Final Result Performing Organization Address City/[facility]/ZIP Co de Phone Number [facility] [address] [place] [address], [place] [phone] * Thyroid Stimulating Hormone (TSH) (04/30/2025 10:07 AM EDT) TSH 1.26 0.40 - 4.00 mcIU/mL LAB CHEMISTRY METHOD 04/30/2025 12:16 PM EDT [facility] Blood Venous blood specimen / Unknown Venipuncture / Unknown 04/30/2025 10:07 AM EDT 04/30/2025 10:44 AM EDT us Trang Santos MD LAB BLOOD ORDERABLES Final Result Performing Organization Address City/[facility]/ZIP Co de Phone Number [facility] [address] [place] [address], [place] [phone] * (ABNORMAL) Comprehensive Metabolic Panel (CMP) (04/30/2025 10:07 AM EDT) Sodium 135 133 - 145 mmol/L LAB CHEMISTRY METHOD 04/30/2025 11:32 AM [facility] Potassium 4.5 3.5 - 5.5 mmol/L LAB CHEMISTRY METHOD 04/30/2025 11:32 AM [facility] Comment:Hemolysis present Chloride 103 96 - 110 mmol/L LAB CHEMISTRY METHOD 04/30/2025 11:32 AM [facility] CO2 26 21 - 32 mmol/L LAB CHEMISTRY METHOD 04/30/2025 11:32 AM [facility] Anion Gap 6 3 - 11 LAB CHEMISTRY METHOD 04/30/2025 11:32 AM [facility] Glucose 79 70 - 100 mg/dL LAB CHEMISTRY METHOD 04/30/2025 11:32 AM [facility] BUN 14 5 - 25 mg/dL LAB CHEMISTRY METHOD 04/30/2025 11:32 AM [facility] Creatinine 0.91 0.50 - 1.10 mg/dL LAB CHEMISTRY METHOD 04/30/2025 11:32 AM [facility] eGFR 85 >=60 mL/min/1. 73m2 LAB CHEMISTRY METHOD 04/30/2025 11:32 AM [facility] Comment:Calculation based on the Chronic Kidney Disease Epidemiology Collaboration (CKD-EPI) equation refit without adjustment for race. BUN/Creatinine Ratio 15.4 LAB CHEMISTRY METHOD 04/30/2025 11:32 AM [facility] Calcium 9.2 8.5 - 10.5 mg/dL LAB CHEMISTRY METHOD 04/30/2025 11:32 AM [facility] AST (SGOT) 45(H) 10 - 42 unit/L LAB CHEMISTRY METHOD 04/30/2025 11:32 AM [facility] Comment:Hemolysis present ALT (SGPT) 37 10 - 60 unit/L LAB CHEMISTRY METHOD 04/30/2025 11:32 AM EDT [facility] Alkaline Phosphatase 85 42 - 121 unit/L LAB CHEMISTRY METHOD 04/30/2025 11:32 AM EDT [facility] Total Protein 6.8 6.0 - 8.0 g/dL LAB CHEMISTRY METHOD 04/30/2025 11:32 AM EDT [facility] Albumin 3.8 3.2 - 5.0 g/dL LAB CHEMISTRY METHOD 04/30/2025 11:32 AM EDT [facility] Total Bilirubin 0.4 0.0 - 1.4 mg/dL LAB CHEMISTRY METHOD 04/30/2025 11:32 AM EDT [facility] Blood Venous blood specimen / Unknown Venipuncture / Unknown 04/30/2025 10:07 AM EDT 04/30/2025 10:44 AM EDT us Trang Santos MD LAB BLOOD ORDERABLES Final Result [facility] [address] [place] [address], * XR Chest 2 Views (04/30/2025 9:48 AM EDT) Anatomical Region Laterality Modality Body Radiographic Hyacinth ging 04/30/2025 10:1 3 AM EDT Impressions 04/30/2025 10:15 AM EDT No acute cardiopulmonary process seen. -------- FINAL REPORT -------- Dictated By: David Montano Dictated Date: 04/30/2025 10:13 ET Assigned Physician: David Montano Reviewed and Electronically Signed By: David Montano Signed Date: 04/30/2025 10:15 ET Workstation ID: [id number] Transcribed By: Self Edit Transcribed Date: 04/30/2025 [...] Signed Date: 04/30/2025 10:15 ET Workstation ID: [id number] Transcribed By: Self Edit Transcribed Date: 04/30/2025 10:13 ET us Trang Santos MD IMG XR PROCEDURES Final Res ult * Urinalysis with reflex microscopic (04/30/2025 9:29 AM EDT) Specific [place] Urine 1.007 1.003 - 1.030 LAB URINALYSIS - AUTOMATED METHOD 04/30/2025 10:17 AM EDT [facility] pH, Urine 6.5 5.0 - 8.0 pH LAB URINALYSIS - AUTOMATED METHOD 04/30/2025 10:17 AM [facility] Leukocytes, Urine Negative Negative LAB URINALYSIS - AUTOMATED METHOD 04/30/2025 10:17 AM [facility] Nitrite, Urine Negative Negative LAB URINALYSIS - AUTOMATED METHOD 04/30/2025 10:17 AM EDT [facility] Protein, Urine Negative <=Trace mg/dL LAB URINALYSIS - AUTOMATED METHOD 04/30/2025 10:17 AM [facility] Glucose, Urine Negative Negative mg/dL LAB URINALYSIS - AUTOMATED METHOD 04/30/2025 10:17 AM [facility] Ketones, Urine Negative Negative mg/dL LAB URINALYSIS - AUTOMATED METHOD 04/30/2025 10:17 AM EDT [facility] Urobilinogen, Urine 0.2 0.2 - 1.0 mg/dL LAB URINALYSIS - AUTOMATED METHOD 04/30/2025 10:17 AM [facility] Bilirubin, Urine Negative Negative LAB URINALYSIS - AUTOMATED METHOD 04/30/2025 10:17 AM [facility] Blood, Urine Negative Negative LAB URINALYSIS - AUTOMATED METHOD 04/30/2025 10:17 AM [facility] Urine Urine specimen obtained by clean catch procedure / Unknown Non-blood Collection / Unknown 04/30/2025 9:29 AM EDT 04/30/2025 10:14 AM EDT us Trang Santos MD LAB URINE ORDERABLES Final Result [facility] [address] [place] [address], * POC , urine manually resulted (04/30/2025 9:19 AM EDT) HCG, Ur POC Negative Negative POC hCG Int QC Pass? Yes Yes EXPIRATION DATE POC 10-11-2026 LOT NUMBER POC [id number] Urine Urine specimen obtained by clean catch procedure / Unknown 04/30/2025 9:19 AM EDT us Trang Santos MD POINT OF CARE TEST ENTER/ED IT ORDERABLES Final Result from Last 3 Months Insurance [facility] [employer] [place]ICA[place] - [place] [employer] Care Teams Machine Setter Automatic Relationship Specialty Start Date End Date Physician, Pcp Unknown PCP - General 04/30/25
== END 2025-06-15 10:29 | disposition home or self-care (01) ==
LOC: HO.PMC 09:38
PROVIDERS: PCP Family Medicine; Visit Provider Anesthesiology
DX: N80.9 Endometriosis, unspecified (principal); R10.20 Pelvic and perineal pain unspecified side; G89.29 Other chronic pain; G89.4 Chronic pain syndrome; F14.20 Cocaine dependence, uncomplicated; M54.9 Dorsalgia, unspecified; M43.10 Spondylolisthesis, site unspecified; Z45.1 Encounter for adjustment and management of infusion pump
CPT/HCPCS: 95991

== ENCOUNTER → 2025-06-15 09:37 | Outpatient (BNVA) | payer MEDICAID, SELFPAY | PROVIDERS: PCP Family Medicine; Visit Provider Anesthesiology | DX: G89.4 Chronic pain syndrome (principal); M43.10 Spondylolisthesis, site unspecified; M54.9 Dorsalgia, unspecified; F14.20 Cocaine dependence, uncomplicated; R10.20 Pelvic and perineal pain unspecified side; N80.9 Endometriosis, unspecified | CPT/HCPCS: 95991 ==

== ENCOUNTER 2025-06-19 09:30 | Outpatient (RCR) | payer OTHER, SELFPAY ==
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
[2025-06-07 11:22] VITALS: BP 90/62; PULSE 72; TEMP 36.9
[2025-06-07 11:25] VITALS: BMI 29.3
--- NOTE | 2025-06-07 15:18 | PC.ADMIT ---
Patient is a 34 year old single female who self referred to [facility] secondary to increased depression with anxiety and panic attacks. Patient reports many medical issues and reports feeling overwhelmed as a result. She reports chronic fatigue and is currently being worked up by medical as patient doroteoves she has parasites. Patient reports she has seen eggs in her stool or mold spores. She reports she coughed up larvae and blood and thick brown liquid on April 25, 2025. Patient stated her PCP is aware and she is working with a electrical prospecting supervisor and infectious disease specialist to try and get some answers. Stated she is currently undergoing testing including stool testing. Patient has a history of polysubstance abuse. She is on MAT with Methadone. She denied any current use of any substance. She reports attending self help groups and has a sponsor. Patient is alert and oriented x4. She is calm and cooperative. She presented with depressed mood and anxious affect. She denied SI, no HI. She was given a copy of her safety plan if needed. Medications updated with patient and patient's pharmacy. Patient reports taking medications as prescribed.
--- NOTE | 2025-06-08 16:54 | HO.PHP ---
Pt's case was opened and reviewed in treatment teams.
--- NOTE | 2025-06-23 09:17 | HO.IOP ---
IOP staff member reached out to Marybel due to her not attending program on her scheduled day. Marybel did not answer the phone and a voicemail was left. IOP staff member encouraged her to contact the program back in an appropriate time frame or we will have to move forward with reaching out to her emergency contact and if the emergency contact is unable to get a hold of her, then we would have to complete a wellness check. IOP staff member is waiting on a call back.
--- NOTE | 2025-06-23 09:45 | HO.IOP ---
IOP staff member received a phone call from Marybel who noted that she had overslept. Marybel expressed she will not be in attendance to program today. IOP staff member assessed safety, in which she reported no safety concerns. IOP staff member informed Marybel that she is going to discuss this with the team due to her absences and if there is an issue a staff member will be reaching out to her to further discuss policy. Marybel was receptive and said she will be here Thursday, Thursday, Thursday next week.
--- NOTE | 2025-06-23 10:15 | HO.PHP ---
PHP staff member reached out to Marybel due to her not attending program on her scheduled day. Marybel did not answer the phone and a voicemail was left. PHP staff member encouraged her to contact the program back in an appropriate time frame or we will have to move forward with reaching out to her emergency contact and if the emergency contact is unable to get a hold of her, then we would have to complete a wellness check. PHP staff member is waiting on a call back.
--- NOTE | 2025-06-23 10:16 | HO.PHP ---
[facility] staff member received a phone call from Marybel who noted that she had overslept. Marybel expressed she will not be in attendance to program today. [facility] staff member assessed safety, in which she reported no safety concerns. [facility] staff member informed Marybel that she is going to discuss this with the team due to her absences and if there is an issue a staff member will be reaching out to her to further discuss policy. Marybel was receptive and said she will be here Thursday, Thursday, Thursday next week.
== END 2025-06-19 23:59 | disposition home or self-care (01) ==
LOC: HO.IOP 09:30
PROVIDERS: Visit Provider Psychiatry & Neurology Psychiatry
DX: F32.9 Major depressive disorder, single episode, unspecified (principal); F43.10 Post-traumatic stress disorder, unspecified; F90.9 Attention-deficit hyperactivity disorder, unspecified type; Z79.899 Other long term (current) drug therapy
CPT/HCPCS: 90791; S9480